=== PATIENT | male | born 1955 | race Caucasian/White ===

== ENCOUNTER 2020-08-28 18:53 | Inpatient (IN) ==
--- NOTE | 2020-08-28 19:18 | Emergency Department Note ---
History of Present Illness General Chief complaint: Chest Pain Time Seen by Provider: 08/28/20 19:03 Source: patient History of Present Illness Provider complaint: Chest pain Onset (ago): hour(s) Location: chest and left Radiation: non-radiation Pain Consistency: + now resolved Quality: + other (Grinding) Relieved By: + medication (Sublingual nitroglycerin x1) Associated symptoms: + shortness of breath (Slight); no cough, no diaphoresis, no fever/chills, no headaches and no nausea/vomiting This is a 65-year-old male sent over from [facility] for chest pain. The patient developed chest pain prior to arrival. He describes it as a grinding pain in the left side of his chest. It did not radiate. It was associated with some mild shortness of breath. It was relieved after he was given 1 sublingual nitroglycerin and aspirin. He is currently asymptomatic. He denies any recent illness or fever. He denies cough or cold symptoms, abdominal pain, or vomiting. He has had some on and off diarrhea but did not have any today. He does have chronic swelling to his legs from CHF. He is at [facility] due to ambulatory dysfunction and general deconditioning. Home Medications Medication Instructions Recorded Confirmed Type atorvastatin 10 mg PO HS 08/28/20 08/28/20 History clozapine 100 mg PO BID 08/28/20 08/28/20 History docusate sodium 100 mg PO BID 08/28/20 08/28/20 History enoxaparin 40 mg SUBCUT Q12H 08/28/20 08/28/20 History ergocalciferol (vitamin D2) 1,250 mcg PO WK 08/28/20 08/28/20 History ferrous sulfate [FeroSul] 325 mg PO DAILY 08/28/20 08/28/20 History fluticasone furoate-vilanterol 1 inh INHALATION DAILY 08/28/20 08/28/20 History furosemide 40 mg PO .Q DINNER 08/28/20 08/28/20 History furosemide 80 mg PO DAILY 08/28/20 08/28/20 History insulin aspart U-100 [Novolog 10 unit SUBCUT TIDM 08/28/20 08/28/20 History U-100 Insulin aspart] insulin glargine [Lantus U-100 30 unit SUBCUT HS 08/28/20 08/28/20 History Insulin] levothyroxine 175 mcg PO DAILY 08/28/20 08/28/20 History linaclotide [Linzess] 290 mcg PO DAILY 08/28/20 08/28/20 History liraglutide 1.8 mg SUBCUT DAILY 08/28/20 08/28/20 History metoprolol succinate 50 mg PO DAILY 08/28/20 08/28/20 History pantoprazole 40 mg PO DAILY 08/28/20 08/28/20 History polyethylene glycol 3350 17 g PO DAILY 08/28/20 08/28/20 History potassium chloride 20 meq PO BID 08/28/20 08/28/20 History sertraline 50 mg PO DAILY 08/28/20 08/28/20 History tamsulosin 0.4 mg PO DAILY 08/28/20 08/28/20 History vitamin B complex 1 tab PO DAILY 08/28/20 08/28/20 History Allergies Allergy/AdvReac Type Severity Reaction Status Date / Time Penicillins Allergy Unknown Unknown Verified 08/28/20 20:27 Past Med/Surg History Medical History (Updated 08/29/20 @ 01:51 by Rian Lawson MD) CHF (congestive heart failure) Social History (Updated 08/28/20 @ 19:21 by Rian Lawson MD) Smoking Status: Former smoker Hx Alcohol Use: No (former) Preferred Language: Welsh Beliefs That Will Affect Care: None Current Living Situation: [facility] Current Living Situation Comment: Pt from [facility], currently @ [facility] for amb dysfunction current occupational status: retired Feels Safe at Home: Yes Assistive Devices: CPAP, Oxygen - Continuous, Walker and Wheelchair Assistive Devices Comment: oxygen PRN Review of Systems See HPI for pertinent positives & negatives. and A total of 10 systems reviewed and were otherwise negative Physical Exam Vital Signs Vital Signs - 24 hr 08/28/20 19:01 08/28/20 19:05 08/28/20 19:30 Temperature 36.6 C Temperature Source Oral Pulse Rate 94 H 94 H 94 H Pulse Rate from SpO2 Sensor Respiratory Rate 18 14 12 Respiratory Effort / Characteristics Non-Labored Spontaneous Respiratory Depth Normal Blood Pressure 148/86 H 148/86 H 140/86 Blood Pressure Mean 106 106 104 Blood Pressure Position Lying Pulse Oximetry 95 93 92 Oxygen Delivery Method Room Air Sepsis Recent Fever Within 48 Hours No Sepsis New/Unexplained Change in Mental Status N/A Sepsis Action Taken by Nursing No Action Required 08/28/20 20:24 08/28/20 20:30 08/28/20 21:00 Temperature Temperature Source Pulse Rate 90 90 88 Pulse Rate from SpO2 Sensor Respiratory Rate 15 14 12 Respiratory Effort / Characteristics Respiratory Depth Blood Pressure 139/88 141/87 H 130/83 Blood Pressure Mean 105 105 98 Blood Pressure Position Pulse Oximetry 98 95 96 Oxygen Delivery Method Sepsis Recent Fever Within 48 Hours Sepsis New/Unexplained Change in Mental Status Sepsis Action Taken by Nursing 08/28/20 21:30 08/28/20 22:00 Temperature Temperature Source Pulse Rate 89 88 Pulse Rate from SpO2 Sensor 89 Respiratory Rate 12 12 Respiratory Effort / Characteristics Respiratory Depth Blood Pressure 142/87 H 127/90 Blood Pressure Mean 105 102 Blood Pressure Position Pulse Oximetry 95 98 Oxygen Delivery Method Sepsis Recent Fever Within 48 Hours Sepsis New/Unexplained Change in Mental Status Sepsis Action Taken by Nursing Constitutional: Vital signs reviewed. Eyes: Pupils are equal round reactive to light. Conjunctiva are noninjected. ENT: Pharynx is clear without erythema or exudate. Mucous membranes are moist. Neck supple without meningeal signs. Respiratory: Clear to auscultation bilaterally. Breath sounds are equal bilaterally. Cardiovascular: Regular rate and rhythm. No rubs or gallops. GI: Soft, nondistended and nontender. Bowel sounds are present. Musculoskeletal: Bilateral lower extremity pitting edema. No lower extremity tenderness. Integumentary: No cyanosis. or jaundice. Neurological: The patient is awake and alert. No focal deficits. Psychiatric: Normal affect. Not anxious appearing. Course Administered Medications Enoxaparin Sodium (Enoxaparin Inj 40 Mg/0.4 Ml Syr) 40 mg SQ BID CÉSAR Stop: 09/27/20 23:29 Last Admin: 08/29/20 00:14 Dose: 40 mg Documented by: [id number] Medical Decision Making Differential Diagnosis Unstable angina, ID, pleurisy, pneumonia, GERD Medical Records Attestation: I reviewed the patient's medical records. I did perform a limited focused review of portions of the patient's old chart on the electronic medical record. The patient has had no recent pertinent visits to this hospital. Home Medications Current Medication List: was personally reviewed by me Laboratory Data Attestation: I reviewed the patient's lab results. Result diagrams: 08/28/20 19:58 08/28/20 19:58 Lab Results 08/28/20 08/28/20 08/28/20 Range/Units 19:18 19:18 19:58 WBC 9.47 (4.8-10.8) K/uL RBC 4.59 L (4.7-6.1) M/uL Hgb 14.0 (14.0-18.0) g/dL Hct 42.3 (42-52) % MCV 92.2 (80-100) fL MCH 30.5 (25-34) pg MCHC 33.1 (32-36) g/dL RDW Std Deviation 43.5 (36.4-46.3) fL RDW Coeff of Shireen 12.9 (11.5-14.5) % Plt Count 234 (130-400) K/uL MPV 12.3 H (7.4-10.4) fL Immature Gran % (Auto) 0.3 % Neut % (Auto) 60.1 % Lymph % (Auto) 24.2 % Prentiss % (Auto) 11.4 % Eos % (Auto) 3.3 % Baso % (Auto) 0.7 % Neut # (Auto) 5.69 (1.4-6.5) K/uL Lymph # (Auto) 2.29 (1.2-3.4) K/uL Prentiss # (Auto) 1.08 H (0.11-0.59) K/uL Eos # (Auto) 0.31 (0-0.5) K/uL Baso # (Auto) 0.07 (0-0.2) K/uL Immature Gran # (Auto) 0.03 H (0.00-0.02) K/uL Sodium (136-145) mmol/L Potassium (3.5-5.1) mmol/L Chloride (98-107) mmol/L Carbon Dioxide (21-32) mmol/L Anion Gap (3-11) BUN (7-18) mg/dl Creatinine (0.6-1.4) mg/dl Est Cr Clr Drug Dosing ml/min Est GFR ( Amer) ml/min Est GFR (Non-Af Amer) ml/min BUN/Creatinine Ratio (10-20) Glucose (70-99) mg/dl Calcium (8.5-10.1) mg/dl Total Bilirubin (0.2-1) mg/dl AST (15-37) U/L ALT (12-78) U/L Alkaline Phosphatase (45-117) U/L Troponin I (0-0.045) ng/ml Total Protein (6.4-8.2) gm/dl Albumin (3.4-5.0) gm/dl Globulin (2.5-4.0) gm/dl Albumin/Globulin Ratio (0.9-2) Lipase (73-393) U/L COVID-19 Eval Order Covid19 at [facility] SARS-CoV-2 (PCR) NEGATIVE (Negative) 08/28/20 Range/Units 19:58 WBC (4.8-10.8) K/uL RBC (4.7-6.1) M/uL Hgb (14.0-18.0) g/dL Hct (42-52) % MCV (80-100) fL MCH (25-34) pg MCHC (32-36) g/dL RDW Std Deviation (36.4-46.3) fL RDW Coeff of Shireen (11.5-14.5) % Plt Count (130-400) K/uL MPV (7.4-10.4) fL Immature Gran % (Auto) % Neut % (Auto) % Lymph % (Auto) % Prentiss % (Auto) % Eos % (Auto) % Baso % (Auto) % Neut # (Auto) (1.4-6.5) K/uL Lymph # (Auto) (1.2-3.4) K/uL Prentiss # (Auto) (0.11-0.59) K/uL Eos # (Auto) (0-0.5) K/uL Baso # (Auto) (0-0.2) K/uL Immature Gran # (Auto) (0.00-0.02) K/uL Sodium 139 (136-145) mmol/L Potassium 3.5 (3.5-5.1) mmol/L Chloride 103 (98-107) mmol/L Carbon Dioxide 31 (21-32) mmol/L Anion Gap 5.0 (3-11) BUN 27 H (7-18) mg/dl Creatinine 1.16 (0.6-1.4) mg/dl Est Cr Clr Drug Dosing 86.1 ml/min Est GFR ( Amer) 75.1 ml/min Est GFR (Non-Af Amer) 64.8 ml/min BUN/Creatinine Ratio 22.8 H (10-20) Glucose 131 H (70-99) mg/dl Calcium 9.3 (8.5-10.1) mg/dl Total Bilirubin 0.3 (0.2-1) mg/dl AST 17 (15-37) U/L ALT 27 (12-78) U/L Alkaline Phosphatase 131 H (45-117) U/L Troponin I < 0.015 (0-0.045) ng/ml Total Protein 7.4 (6.4-8.2) gm/dl Albumin 3.5 (3.4-5.0) gm/dl Globulin 3.9 (2.5-4.0) gm/dl Albumin/Globulin Ratio 0.9 (0.9-2) Lipase 172 (73-393) U/L COVID-19 Eval Order SARS-CoV-2 (PCR) (Negative) Imaging Data Radiologist's Impression: Chest X-Ray 08/28/20 19:12 XR chest 1V portable HISTORY: Atypical Chest Pain COMPARISON: None. FINDINGS: There are low lung volumes with mild eventration of the right hemidiaphragm. The cardiac silhouette is normal in size. There is a left-sided dual-chamber pacemaker. Slightly rotated study. No pleural effusions. No pneumothorax. No evidence for pulmonary edema. There are few left basilar linear densities consistent with subsegmental atelectasis. Otherwise, no focal lung consolidations to suggest pneumonia. IMPRESSION: 1. Low lung volumes with mild eventration of the right hemidiaphragm. 2. A few left basilar linear densities favor subsegmental atelectasis or scarring. Otherwise, no focal lung consolidations to suggest pneumonia. ACT 112: Negative or not required by law. Electronically signed by: Yung John M.D. 08/28/2020 7:45 PM ECG Data Attestation: I personally reviewed and interpreted this ECG as follows: Indication: + chest pain Rate (beats per minute): 92 Rhythm: + other (Paced rhythm) ECG Findings: + PVCs MDM Narrative I did evaluate the patient as noted above. The patient is presenting with an episode of chest pain prior to arrival. He does have a prior history of CAD. His chest pain is resolved after receiving nitroglycerin and aspirin. I did pl mishel an order for continuous cardiac monitoring. The monitor showed normal sinus rhythm at a rate of 90 bpm. I did order and personally review the patient's 12-lead EKG as described above. He has a paced rhythm. I did order and personally reviewed the images of the patient's chest x-ray as described above.There is no evidence of heart failure or consolidation. I did order and review the patient's blood work as noted in the electronic medical record. CBC and electrolytes are unremarkable. Troponin is negative. Testing for COVID-19 is negative. I did reassess the patient. He has no symptoms at this time. I did recommend hospitalization for repeat cardiac biomarkers and further evalua tion. I did discuss the case with the hospitalist and heel caser. Impression & Plan Chest pain, CHF (congestive heart failure) Discharge Plan Visit Data Chief Complaint: Chest Pain ED Provider: Rian Lawson Discharge Problem: Chest pain, CHF (congestive heart failure) Patient Disposition: Admitted As Inpatient Discharge Instructions Interventions: ED Discharge Assessment Last Done: 08/28/20 22:44
--- NOTE | 2020-08-28 19:47 | XRay Report ---
XR chest 1V portable HISTORY: Atypical Chest Pain COMPARISON: None. FINDINGS: There are low lung volumes with mild eventration of the right hemidiaphragm. The cardiac si lhouette is normal in size. There is a left-sided dual-chamber pacemaker. Slightly rotated study. No pleural effusions. No pneumothorax. No evidence for pulmonary edema. There are few left basilar linea r densities consistent with subsegmental atelectasis. Otherwise, no focal lung consolidations to sugg est pneumonia. IMPRESSION: 1. Low lung volumes with mild eventration of the right hemidiaphragm. 2. A few left basilar linear densities favor subsegmental atelectasis or scarring. Otherwise, no foca l lung consolidations to suggest pneumonia. ACT 112: Negative or not required by law. Electronically signed by: Yung John M.D. 08/28/2020 7:45 PM
[2020-08-28 20:17] LABS: Basophils # (auto) 0.07 K/uL (0-0.2); Basophils % (auto) 0.7 %; Eosinophils # (auto) 0.31 K/uL (0-0.5); Eosinophils % (auto) 3.3 %; Hematocrit (blood only) 42.3 % (42-52); Immature Granulocytes # (auto) 0.03 K/uL (0.00-0.02); Immature Granulocytes % (auto) 0.3 %; Lymphocytes # (auto) 2.29 K/uL (1.2-3.4); Lymphocytes % (auto) 24.2 %; Mean Corpuscular Hemoglobin 30.5 pg (25-34); Mean Corpuscular Hgb Conc 33.1 g/dL (32-36); Mean Corpuscular Volume 92.2 fL (80-100); Mean Platelet Volume 12.3 fL (7.4-10.4); Monocytes # (auto) 1.08 K/uL (0.11-0.59); Monocytes % (auto) 11.4 %; Neutrophils # (auto) 5.69 K/uL (1.4-6.5); Neutrophils % (auto) 60.1 %; Platelet Count 234 K/uL (130-400); RDW Coefficient of Variation 12.9 % (11.5-14.5); RDW Standard Deviation 43.5 fL (36.4-46.3); Red Blood Count 4.59 M/uL (4.7-6.1); White Blood Count 9.47 K/uL (4.8-10.8)
[2020-08-28 20:45] LABS: Alanine Aminotransferase 27 U/L (12-78); Albumin Level 3.5 gm/dl (3.4-5.0); Aspartate Aminotransferase 17 U/L (15-37); BUN Creatinine Ratio 22.8 (10-20); Blood Urea Nitrogen 27 mg/dl (7-18); Calcium 9.3 mg/dl (8.5-10.1); Carbon Dioxide 31 mmol/L (21-32); Chloride 103 mmol/L (98-107); Creatinine Clr Calc Pharmacy 86.1 ml/min; Est GFR (African American) 75.1 ml/min; Est GFR (Non-African American) 64.8 ml/min; Glucose 131 mg/dl (70-99); Lipase 172 U/L (73-393); Potassium 3.5 mmol/L (3.5-5.1); Sodium 139 mmol/L (136-145)
[2020-08-28 20:50] LABS: Albumin Globulin Ratio 0.9 (0.9-2); Alkaline Phosphatase 131 U/L (45-117); Bilirubin,Total 0.3 mg/dl (0.2-1); Globulin 3.9 gm/dl (2.5-4.0); Total Protein 7.4 gm/dl (6.4-8.2); Troponin I < 0.015 ng/ml (0-0.045)
--- NOTE | 2020-08-28 22:36 | History & Physical Report ---
Date of Service August 28, 2020 Assessment & Plan (1) Chest pain: Mr. Pompa is a 65 yo gentleman who presented to [facility] for evaluation of acute onset chest pain, admitted for ACS rule out. - patient has many risk factors for ACS (previous IL, DM2, former smoker, elevated BMI) - Heart Score of 5, moderate risk - initial trop undetectable. Trend serial trops - EKG difficult to interpret given paced rhythm - although no apparent ST segment elevations - fasting lipid panel and HbA1c ordered for am - echo ordered for am - Cardiology consult placed (2) Type II diabetes mellitus: - HbA1c ordered for am - continue home dose glargine insulin - sliding scale ordered - patient is on lipitor, but not at a high-intensity dose. consider increasing to 40mg (3) CAD (coronary artery disease): - history of IL; patient states no stents were placed - continue statin + metoprolol (4) BPH (benign prostatic hyperplasia): - continue home dose flomax (5) AI (obstructive sleep apnea): - continue use of CPAP (6) COPD (chronic obstructive pulmonary disease): - at baseline patient wears nighttime supplemental O2 - does not appear to be in acute exacerbation - continue home Breo Ellipta; per review of med rec, it does not appear as though patient is on an anticholinergic. Consider adding upon discharge (7) CHF (congestive heart failure): - continue home lasix dose + 20meKcl daily (8) Hypothyroidism: - continue home dose levothyroxine (9) GERD (gastroesophageal reflux disease): - continue home dose pantoprazole Dvt ppx: patient is on therapeutic Lovenox (indication is uncertain) Diet: Heart Healthy, DM2 Dispo: Med/Surg with tele. PT/OT ordered. Code: Full History of Present Illness Primary Care Provider: Selma Davis PA-C Mr. Pompa is a 65 yo gentleman with a PMHx of CAD (suffered one previous IL), HTN, CHF and type II diabetes mellitus who was sent to the [facility] ED from [facility] rehab for evaluation of acute onset chest pain. Patient was at [facility] for ambulatory dysfunction/generalized deconditioning. He states the left sided chest pain came on while he was at rest - it did not radiate up the neck or down the left arm. He describes it as "grinding" in quality. He denies a sensation of heartburn. The discomfort was not accompanied by diaphoresis, nausea/vomiting, but was associated with SOB (although this seems to affect him on an intermittent basis chronically). He was given a nitroglycerin and aspirin 324mg by a staff member at [facility], which alleviated the discomfort. Social Hx: He says he has lived in a personal custodial for the past 11 years. He is a former smoker (quit 1-2 years ago); unable to state how much he smoked or how long he smoked for (although he states 'not much'). Family Hx: Mother had diabetes. No reported heart attacks + poor historian In the ED, he was afebrile, normal HR and BP. His WBC was WNL, Hgb normal. Electrolytes, kidney and liver function were WNL. Lipase not elevated. Trop X 1 undetectable. EKG showed a ventricularly paced rhythm. CXR showed evidence of atelectasis but no focal consolidation consistent with a PNA. Allergies Allergy/AdvReac Type Severity Reaction Status Date / Time Penicillins Allergy Unknown Unknown Verified 08/28/20 20:27 Home Medications Medication Instructions Recorded Confirmed Type atorvastatin 10 mg PO HS 08/28/20 08/28/20 History clozapine 100 mg PO BID 08/28/20 08/28/20 History docusate sodium 100 mg PO BID 08/28/20 08/28/20 History enoxaparin 40 mg SUBCUT Q12H 08/28/20 08/28/20 History ergocalciferol (vitamin D2) 1,250 mcg PO WK 08/28/20 08/28/20 History ferrous sulfate [FeroSul] 325 mg PO DAILY 08/28/20 08/28/20 History fluticasone furoate-vilanterol 1 inh INHALATION DAILY 08/28/20 08/28/20 History furosemide 40 mg PO .Q DINNER 08/28/20 08/28/20 History furosemide 80 mg PO DAILY 08/28/20 08/28/20 History insulin aspart U-100 [Novolog 10 unit SUBCUT TIDM 08/28/20 08/28/20 History U-100 Insulin aspart] insulin glargine [Lantus U-100 30 unit SUBCUT HS 08/28/20 08/28/20 History Insulin] levothyroxine 175 mcg PO DAILY 08/28/20 08/28/20 History linaclotide [Linzess] 290 mcg PO DAILY 08/28/20 08/28/20 History liraglutide 1.8 mg SUBCUT DAILY 08/28/20 08/28/20 History metoprolol succinate 50 mg PO DAILY 08/28/20 08/28/20 History pantoprazole 40 mg PO DAILY 08/28/20 08/28/20 History polyethylene glycol 3350 17 g PO DAILY 08/28/20 08/28/20 History potassium chloride 20 meq PO BID 08/28/20 08/28/20 History sertraline 50 mg PO DAILY 08/28/20 08/28/20 History tamsulosin 0.4 mg PO DAILY 08/28/20 08/28/20 History vitamin B complex 1 tab PO DAILY 08/28/20 08/28/20 History Past Med/Surg History Medical History CHF (congestive heart failure) Social History Smoking Status: Former smoker Hx Alcohol Use: No (former) Preferred Language: Romanian Communication Ability: Effective Beliefs That Will Affect Care: None Current Living Situation: [facility] Facility [facility]hab Current Living Situation Comment: Pt from [facility], currently @ [facility] for amb dysfunction current occupational status: retired Feels Safe at Home: Yes Assistive Devices: CPAP, Walker and Wheelchair Assistive Devices Comment: oxygen PRN Review of Systems Review of Systems: All systems reviewed & are unremarkable except as noted in HPI & below Physical Exam Constitutional: WD/WN, vitals as above + obese and cooperative; no acute distress Eyes: + anicteric sclerae ENMT: external ear and nose normal, oropharynx normal Neck: normal visual inspection and trachea midline Respiratory: normal respiratory effort, lungs clear to auscultation Cardiovascular: Rate/Rhythm: regular rate and regular rhythm Heart Sounds: normal S1 and normal S2 Vessels: normal carotid upstroke; no carotid bruit Extremities: + pedal edema (+2 b/l) Heart sounds distant Chest (Breasts): Chest: + pacemaker Gastrointestinal (Abdomen): normal bowel sounds, soft, nontender, no hepatosplenomegaly Skin: no rashes, warm and dry Neurologic: moves all extremities Psychiatric: Orientation: alert, oriented to person, oriented to place and oriented to time Results & Data Results & Data ([facility]) Vital Signs (Past 12 Hours) Vital Signs Temp Pulse Resp BP Pulse Ox 08/28/20 22:00 88 12 127/90 98 08/28/20 21:30 89 12 142/87 H 95 08/28/20 21:00 88 12 130/83 96 08/28/20 20:30 90 14 141/87 H 95 08/28/20 20:24 90 15 139/88 98 08/28/20 19:30 94 H 12 140/86 92 08/28/20 19:05 94 H 14 148/86 H 93 08/28/20 19:01 36.6 C 94 H 18 148/86 H 95 Supervising Physician Co-Signing Physician Notes Attending addendum: I have physically seen this patient, have supervised the medical residents activities, and agree with the H&P unless as otherwise noted. Assessment and Plan: Chest pain/CAD/hypertension/CHF- The patient will be admitted to telemetry for serial cardiac enzymes, serial EKG's, cardiac rhythm monitoring and a 2-D echocardiogram with Dopplers. Check a fasting lipid panel and hemoglobin A1c Continue furosemide, potassium chloride and metoprolol succinate Consult cardiology Diabetes mellitus- Continue insulin glargine as at home Placed on Accu-Cheks before meals and at bedtime with NovoLog coverage per scale Check hemoglobin A1c BPH- Continue tamsulosin Remaining orders and notations as noted Resident Activity Tracking Resident Involvement: Resident Care Provided Care Provided: Adult Hospital Medicine
[2020-08-28] MEDS ORDERED: GLUCOSE 10 TABS/TUBE PO PRN (23:13)
[2020-08-28] MEDS ORDERED: POLYETHYLENE (MIRALAX) 17 GM PACK PO PRN (23:13)
[2020-08-28] MEDS ORDERED: GLUCAGON FOR INJ 1 MG VIAL SQ PRN (23:13)
[2020-08-28] MEDS ORDERED: DEXTROSE 50% 50 ML SYRINGE IV PRN (23:13)
[2020-08-28] MEDS ORDERED: CARBOHYDRATES FOR HYPOGLYCEMIA PO PRN (23:13)
[2020-08-28] MEDS ORDERED: GLUCOSE 40% GEL 15 GM TUBE PO PRN (23:13)
[2020-08-28] MEDS ORDERED: ONDANSETRON INJ 2 MG/ML 2 ML VIAL IV PRN (23:13)
[2020-08-29] MEDS: ENOXAPARIN INJ 40 MG/0.4 ML SYR SQ SCH ×3 (00:14→20:55)
[2020-08-29] MEDS: LEVOTHYROXINE SODIUM 175 MCG TABLET PO SCH (06:07)
[2020-08-29 06:46] LABS: Estimated Average Glucose 148 mg/dl; Hemoglobin A1C 6.8 % (4.5-5.6)
[2020-08-29 06:49] LABS: Chol HDL Ratio 4; Cholesterol 120 mg/dl (0-200); HDL Cholesterol 29 mg/dl; LDL Cholesterol Calculated 67 mg/dl; Triglycerides 121 mg/dl (0-150); Troponin I < 0.015 ng/ml (0-0.045); VLDL Cholesterol 24 mg/dl
[2020-08-29] MEDS ORDERED: POTASSIUM CHLORIDE CRTAB 20 MEQ TABCR PO STA (07:14)
[2020-08-29] MEDS: FLUTICASONE/VILANTEROL 100/25MCG 14 PUFFS/INHALER INH SCH ×2 (08:54→09:04)
[2020-08-29] MEDS: FERROUS SULFATE 325 MG TAB PO SCH (08:54)
[2020-08-29] MEDS: PANTOprazole 40 MG TAB PO SCH (08:54)
[2020-08-29] MEDS: SERTRALINE HCL 50 MG TABLET PO SCH (08:54)
[2020-08-29] MEDS: TAMSULOSIN HCL 0.4 MG CAP PO SCH (08:55)
[2020-08-29] MEDS: FUROSEMIDE 80 MG TAB PO SCH (08:55)
[2020-08-29] MEDS: LINACLOTIDE 145 MCG CAPSULE PO SCH (08:55)
[2020-08-29] MEDS: cloZAPine 100 MG TAB PO SCH ×2 (08:55→20:55)
[2020-08-29] MEDS: DOCUSATE SODIUM 100 MG CAP PO SCH ×2 (08:55→20:55)
[2020-08-29] MEDS: INSULIN ASPART 100 UNITS/ML 3 ML PEN SC SCH ×4 (08:59→20:56)
[2020-08-29] MEDS: VICTOZA~ORDER AWAITING ACTION SCH ×3 (09:00→23:51)
[2020-08-29] MEDS: METOPROLOL SUCC 50MG EXT REL TAB PO SCH (09:02)
[2020-08-29] MEDS: POLYETHYLENE (MIRALAX) 17 GM PACK PO SCH (09:02)
[2020-08-29] MEDS: POTASSIUM CHLORIDE CRTAB 20 MEQ TABCR PO SCH ×2 (09:02→17:28)
--- NOTE | 2020-08-29 10:57 | Cardiology Consultation ---
Date of Consultation August 29, 2020 Assessment & Plan (1) Chest pain: I cannot obtain a very good history of his chest discomfort but apparently he had it on presentation. His electrocardiogram cannot be read due to the paced rhythm, his chart indicates he had a myocardial infarction in the past although I understand that he has not. His enzymes are negative here. I think a stress test is a reasonable option, that will have to be a pharmacologic Cardiolite study. (2) CHF (congestive heart failure): He has a history of congestive heart failure which I believe is diastolic heart failure but he does not seem to be fluid overloaded currently. (3) Cardiac pacemaker: He has a dual-chamber pacemaker in place, I do not know the company but it could be identified if needed. On telemetry is working well. History of Present Illness Reason for Consultation: Chest discomfort Attending Physician: Kassidy Rachel MD History of Present Illness This is a 65-year-old male with a history of schizophrenia and seizure disorder, he does have a history of hypertension, diabetes mellitus, COPD, hypothyroidism and resides in a personal halfway. He was brought into the emergency room on August 28, 2020 with acute onset of chest discomfort. Evidently this occurred at rest and was not associated with other symptoms such as diaphoresis, nausea or vomiting or shortness of breath. He does have a history of smoking but quit several years ago per the chart. He is a poor historian, he tells me that he had a heart attack although understand that he did not, he tells me that he has congestive heart failure however I understand that his left ventricular ejection fraction is normal within the last year and he has diastolic dysfunction. He does have a pacemaker in place, I do not know the brand or how long it has been in place. He presented with some chest discomfort which he cannot describe very well to me. Initial evaluation here is notable for troponin measurements, his electrocardiogram is not helpful as it is a very wide ventricular paced complexes. He is currently feeling quite well and is not having chest discomfort. Allergies Allergy/AdvReac Type Severity Reaction Status Date / Time Penicillins Allergy Unknown Unknown Verified 08/28/20 20:27 Home Medications Medication Instructions Recorded Confirmed Type atorvastatin 10 mg PO HS 08/28/20 08/28/20 History clozapine 100 mg PO BID 08/28/20 08/28/20 History docusate sodium 100 mg PO BID 08/28/20 08/28/20 History enoxaparin 40 mg SUBCUT Q12H 08/28/20 08/28/20 History ergocalciferol (vitamin D2) 1,250 mcg PO WK 08/28/20 08/28/20 History ferrous sulfate [FeroSul] 325 mg PO DAILY 08/28/20 08/28/20 History fluticasone furoate-vilanterol 1 inh INHALATION DAILY 08/28/20 08/28/20 History furosemide 40 mg PO .Q DINNER 08/28/20 08/28/20 History furosemide 80 mg PO DAILY 08/28/20 08/28/20 History insulin aspart U-100 [Novolog 10 unit SUBCUT TIDM 08/28/20 08/28/20 History U-100 Insulin aspart] insulin glargine [Lantus U-100 30 unit SUBCUT HS 08/28/20 08/28/20 History Insulin] levothyroxine 175 mcg PO DAILY 08/28/20 08/28/20 History linaclotide [Linzess] 290 mcg PO DAILY 08/28/20 08/28/20 History liraglutide 1.8 mg SUBCUT DAILY 08/28/20 08/28/20 History metoprolol succinate 50 mg PO DAILY 08/28/20 08/28/20 History pantoprazole 40 mg PO DAILY 08/28/20 08/28/20 History polyethylene glycol 3350 17 g PO DAILY 08/28/20 08/28/20 History potassium chloride 20 meq PO BID 08/28/20 08/28/20 History sertraline 50 mg PO DAILY 08/28/20 08/28/20 History tamsulosin 0.4 mg PO DAILY 08/28/20 08/28/20 History vitamin B complex 1 tab PO DAILY 08/28/20 08/28/20 History Patient History Medical History CHF (congestive heart failure) Social History Smoking Status: Former smoker Hx Alcohol Use: No (former) Preferred Language: Kiswahili Communication Ability: Effective Beliefs That Will Affect Care: None Current Living Situation: Personal Care Facility and Rehab Current Living Situation Comment: Pt from [facility], currently @ [facility] for amb dysfunction current occupational status: retired Feels Safe at Home: Yes Assistive Devices: CPAP, Oxygen - Continuous, Walker and Wheelchair Assistive Devices Comment: oxygen PRN Review of Systems Review of Systems: All systems reviewed & are unremarkable except as noted in HPI & below Physical Exam Physical Exam: Constitutional: Alert, cooperative and in no distress. HEENT: Unremarkable Neck: No jugular venous distention, carotid pulses are normal and equal bilaterally without bruits. Pulmonary: Clear to auscultation bilaterally. Cardiac: Regular rhythm with no murmur, gallop or rub. Abdomen: Soft, obese, nontender with normal bowel sounds. Extremities: No edema. Distal pulses intact. Neurologic: No focal findings. Gait was not tested. His speech is not normal but he is understandable. Skin: No rash, ecchymoses or petechiae. Results & Data ([facility]) Vital Signs (Past 12 Hours) Vital Signs Temp Pulse Pulse Resp BP Pulse Ox 08/29/20 07:11 36.5 C 95 H 18 99/64 L 93 08/29/20 07:08 93 H 08/29/20 02:26 87 08/28/20 23:17 36.4 C L 86 18 126/79 95 Laboratory Results Cardiac Enzymes 08/28/20 08/29/20 08/29/20 Range/Units 19:58 02:01 05:58 AST 17 (15-37) U/L Troponin I < 0.015 < 0.015 < 0.015 (0-0.045) ng/ml Lipids 08/29/20 Range/Units 05:58 Triglycerides 121 (0-150) mg/dl Cholesterol 120 (0-200) mg/dl HDL Cholesterol 29 mg/dl Cholesterol/HDL Ratio 4 CBC 08/28/20 Range/Units 19:58 WBC 9.47 (4.8-10.8) K/uL RBC 4.59 L (4.7-6.1) M/uL Hgb 14.0 (14.0-18.0) g/dL Hct 42.3 (42-52) % Plt Count 234 (130-400) K/uL Neut # (Auto) 5.69 (1.4-6.5) K/uL Lymph # (Auto) 2.29 (1.2-3.4) K/uL Jerome # (Auto) 1.08 H (0.11-0.59) K/uL Eos # (Auto) 0.31 (0-0.5) K/uL Baso # (Auto) 0.07 (0-0.2) K/uL Comprehensive Metabolic Panel 08/28/20 Range/Units 19:58 Sodium 139 (136-145) mmol/L Potassium 3.5 (3.5-5.1) mmol/L Chloride 103 (98-107) mmol/L Carbon Dioxide 31 (21-32) mmol/L BUN 27 H (7-18) mg/dl Creatinine 1.16 (0.6-1.4) mg/dl Glucose 131 H (70-99) mg/dl Calcium 9.3 (8.5-10.1) mg/dl AST 17 (15-37) U/L ALT 27 (12-78) U/L Alkaline Phosphatase 131 H (45-117) U/L Total Protein 7.4 (6.4-8.2) gm/dl Albumin 3.5 (3.4-5.0) gm/dl Intake and Output 08/29/20 08/29/20 08/29/20 06:59 14:59 22:59 Intake Total 200 / 200 550 / 550 Output Total 1000 / 1000 250 / 250 Balance -800 / -800 300 / 300 Intake: Oral 200 / 200 550 / 550 Output: Urine 1000 / 1000 250 / 250 Other: Weight 136.7 kg Weight Measurement Method Built in [facility] Diagnostic Findings Telemetry: Sinus rhythm, predominantly in the 90s, ventricular paced complex PG Care Time/CCT Total # of Minutes Spent Total Time Spent with Patient: Total time spent is greater than 50% in coordination of care (as documented) at patient's floor/unit and/or counseling patient: Coding Level of Care Code 51974 Initial Inpt Care Lvl 3 Diagnoses Chest pain R07.9 Chest pain type: unspecified CHF (congestive heart failure) I50.9 Heart failure chronicity: chronic Heart failure type: unspecified Cardiac pacemaker Z95.0 (1) Chest pain Chest pain type: unspecified Qualified Code(s): R07.9 - Chest pain, unspecified (2) CHF (congestive heart failure) Heart failure chronicity: chronic Heart failure type: unspecified Qualified Code(s): I50.9 - Heart failure, unspecified
[2020-08-29] MEDS: ACETAMINOPHEN 325 MG TAB PO PRN (12:30)
--- NOTE | 2020-08-29 14:04 | Hospitalist Progress Note ---
Date of Service August 29, 2020 Assessment & Plan (1) Chest pain: Mr. Pompa is a 65 yo gentleman who presented to [facility] for evaluation of acute onset chest pain, admitted for ACS rule out. Chest Pain Reportedly had left-sided chest pain at rest that improved with Nitro - unstable angina. EKG without T/ST changes and Troponin negative x3. Patient has a HEART score of 5 (moderate risk). Requires further work-up to complete ACS rule-out. - Cardiology consulted - appreciate recs - TTE pending - ordered Nuclear stress test - likely will be done tomorrow - NPO at midnight for stress test - Cardiology consult placed - continue home Atorvastatin 10mg PO QHS HFpEF Per discussion with Dr. Hutchins in [place] (patient's PCP), patient has h/o HFpEF with most recent EF ~60%. Patient does not have h/o CAD or past [place], per P CP. - continue home Furosemide 80mg QAM and 40mg QPM, and Toprol XL 50mg PO daily - TTE pending as stated above Schizophrenia - continue home Clozapine 100mg PO BID T2DM HbA1c 6.8 - continue home dose insulin glargine - SSI BPH - continue home dose Flomax AI - continue use of CPAP COPD - at baseline patient wears nighttime supplemental O2 - does not appear to be in acute exacerbation - monitor clinically Hypothyroidism - continue home dose Levothyroxine GERD - continue home dose Pantoprazole DVT ppx: home Lovenox 40mg SQ Q12H Diet: Heart Healthy, DM2 Dispo: Med/Surg with tele. Tentative plan to return to rehab once medically stable Code: Full code (2) Type II diabetes mellitus: (3) BPH (benign prostatic hyperplasia): (4) AI (obstructive sleep apnea): (5) COPD (chronic obstructive pulmonary disease): (6) Hypothyroidism: (7) GERD (gastroesophageal reflux disease): (8) Diastolic CHF: (9) Schizophrenia: Admission and Anticipated Discharge Date Admission Date: August 28, 2020 Supervising Physician Co-Signing Physician Notes Resident Physician Supervision Note: I independently interviewed and examined the patient and verified the murphy history and physical, reviewed labs and image studies and agree with resident Dr. Overton findings and care plan. Subjective No chest pain since arrival in ED. No acute events overnight. Patient reports previous diagnoses of schizophrenia and bipolar disorder - sees a psychiatrist (Dr. Hadley in [facility]) and is on Clozapine. Patient denies reports that he had non-radiating, left-sided chest pain yesterday without associated dizziness/lightheadedness, nausea, or vomiting. However, does report associated shortness of breath as well as pleuritic character to chest pain (worse with deep breaths). Unsure if he was standing or at rest when the chest pain started, but does say that it improved with Nitro. Review of Systems Review of Systems: Denies current chest pain, syncope, near-syncope, lightheadedness. Denies fever/chills, palpitations, cough, SOB, N/V, abdominal pain, rash. Physical Exam Physical Exam: General: A&Ox2 (self and month/year). NAD. Cooperative. HEENT: Atraumatic, normocephalic. Pulm: CTAB A&P. -wheezes, -rales, -rhonchi. Symmetrical chest rise. No increase work of breathing. No respiratory distress. Cardiac: RRR, -mrg. Radial pulses intact and symmetrical. Chest: no tenderness to palpation of sternum or costochondral joints Abdominal: soft, non-tender, non-distended, BS x 4 Skin: warm, dry, no rash Results & Data Results & Data ([facility]) Vital Signs (Past 12 Hours) Vital Signs Temp Pulse Pulse Resp BP Pulse Ox 08/29/20 11:01 36.5 C 95 H 20 133/81 96 08/29/20 07:11 36.5 C 95 H 18 99/64 L 93 08/29/20 07:08 93 H 08/29/20 02:26 87 Resident Activity Tracking Resident Involvement: Resident Care Provided Care Provided: Adult Hospital Medicine (1) Chest pain Chest pain type: unspecified Qualified Code(s): R07.9 - Chest pain, unspecified
--- NOTE | 2020-08-29 16:34 | XCELERA ---
[id number]
[2020-08-29] MEDS: FUROSEMIDE 40 MG TAB PO SCH (17:28)
[2020-08-29] MEDS: ATORVASTATIN 10 MG TAB PO SCH (20:55)
[2020-08-29] MEDS: INSULIN GLARGINE SOLOSTAR 100 UNITS/ML 3 ML PEN SQ SCH (20:59)
--- NOTE | 2020-08-30 04:28 | Billing Data ---
Date of Service August 30, 2020 Coding Level of Care Code 70681 OBS Care - Level 3
[2020-08-30] MEDS: LEVOTHYROXINE SODIUM 175 MCG TABLET PO SCH (05:43)
[2020-08-30 07:45] LABS: Basophils # (auto) 0.04 K/uL (0-0.2); Basophils % (auto) 0.5 %; Eosinophils # (auto) 0.18 K/uL (0-0.5); Eosinophils % (auto) 2.4 %; Hematocrit (blood only) 43.1 % (42-52); Hemoglobin 14.1 g/dL (14.0-18.0); Immature Granulocytes # (auto) 0.02 K/uL (0.00-0.02); Immature Granulocytes % (auto) 0.3 %; Lymphocytes # (auto) 1.88 K/uL (1.2-3.4); Lymphocytes % (auto) 25.1 %; Mean Corpuscular Hemoglobin 30.3 pg (25-34); Mean Corpuscular Hgb Conc 32.7 g/dL (32-36); Mean Corpuscular Volume 92.5 fL (80-100); Mean Platelet Volume 12.3 fL (7.4-10.4); Monocytes # (auto) 0.72 K/uL (0.11-0.59); Monocytes % (auto) 9.6 %; Neutrophils # (auto) 4.64 K/uL (1.4-6.5); Neutrophils % (auto) 62.1 %; Platelet Count 215 K/uL (130-400); RDW Standard Deviation 43.9 fL (36.4-46.3); Red Blood Count 4.66 M/uL (4.7-6.1); White Blood Count 7.48 K/uL (4.8-10.8)
[2020-08-30] MEDS: METOPROLOL SUCC 50MG EXT REL TAB PO SCH (08:11)
[2020-08-30] MEDS: LINACLOTIDE 145 MCG CAPSULE PO SCH (08:11)
[2020-08-30] MEDS: FUROSEMIDE 80 MG TAB PO SCH (08:11)
[2020-08-30] MEDS: PANTOprazole 40 MG TAB PO SCH (08:11)
[2020-08-30] MEDS: DOCUSATE SODIUM 100 MG CAP PO SCH ×2 (08:12→20:12)
[2020-08-30] MEDS: TAMSULOSIN HCL 0.4 MG CAP PO SCH (08:12)
[2020-08-30] MEDS: cloZAPine 100 MG TAB PO SCH ×2 (08:12→20:11)
[2020-08-30] MEDS: ENOXAPARIN INJ 40 MG/0.4 ML SYR SQ SCH ×2 (08:12→20:12)
[2020-08-30] MEDS: SERTRALINE HCL 50 MG TABLET PO SCH (08:12)
[2020-08-30] MEDS: POTASSIUM CHLORIDE CRTAB 20 MEQ TABCR PO SCH ×2 (08:12→17:20)
[2020-08-30] MEDS: FERROUS SULFATE 325 MG TAB PO SCH (08:13)
[2020-08-30] MEDS: VICTOZA~ORDER AWAITING ACTION SCH ×3 (08:14→23:37)
[2020-08-30] MEDS: INSULIN ASPART 100 UNITS/ML 3 ML PEN SC SCH ×4 (08:14→21:30)
[2020-08-30] MEDS: FLUTICASONE/VILANTEROL 100/25MCG 14 PUFFS/INHALER INH SCH ×2 (08:15→09:00)
[2020-08-30 08:22] LABS: BUN Creatinine Ratio 20.6 (10-20); Calcium 9.1 mg/dl (8.5-10.1); Creatinine Clr Calc Pharmacy 89.9 ml/min; Est GFR (Non-African American) 69.9 ml/min; Magnesium 2.3 mg/dl (1.8-2.4); Potassium 3.9 mmol/L (3.5-5.1)
[2020-08-30 08:23] LABS: Phosphorus 3.8 mg/dl (2.5-4.9)
[2020-08-30] MEDS ORDERED: REGADENOSON 0.4 MG/5 ML SYR IV ONE (09:51)
[2020-08-30] MEDS: POLYETHYLENE (MIRALAX) 17 GM PACK PO SCH (10:35)
--- NOTE | 2020-08-30 12:31 | Electrocardiogram Report ---
Test Reason : Blood Pressure : / mmHG Vent. Rate : 092 BPM Atrial Rate : 092 BPM P-R Int : 140 ms QRS Dur : 176 ms QT Int : 482 ms P-R-T Axes : 065 -82 086 degrees QTc Int : 596 ms Atrial-sensed ventricular-paced rhythm Abnormal ECG No previous ECGs available Confirmed by Rufino Nuno ([id number]) on 08/30/2020 12:31:10 PM Referred By: REFERRED SELF Confirmed By:Rufino Nuno
--- NOTE | 2020-08-30 12:38 | Hospitalist Progress Note ---
Date of Service August 30, 2020 Assessment & Plan (1) Chest pain: Mr. Pompa is a 65 yo gentleman who presented to [facility] for evaluation of acute onset chest pain, admitted for ACS rule out. Chest Pain Reportedly had left-sided chest pain at rest that improved with Nitro - unstable angina. EKG without T/ST changes and Troponin negative x3. Patient has a HEART score of 5 (moderate risk). Requires further work-up to complete ACS rule-out. - Cardiology consulted - appreciate recs - TTE with EF 60-65% and diastolic dysfunction - stable based on discussion with PCP - Nuclear stress test done - read pending - continue home Atorvastatin 10mg PO QHS HFpEF Per discussion with Dr. Hutchins in [place] (patient's PCP), patient has h/o HFpEF with most recent EF ~60%. Patient does not have h/o CAD or past [place], per PCP. - continue home Furosemide 80mg QAM and 40mg QPM, and Toprol XL 50mg PO daily - TTE stable as stated above Schizophrenia - continue home Clozapine 100mg PO BID T2DM HbA1c 6.8 - continue home dose insulin glargine - SSI BPH - continue home dose Flomax AI - continue use of CPAP COPD - at baseline patient wears nighttime supplemental O2 - does not appear to be in acute exacerbation - monitor clinically Hypothyroidism - continue home dose Levothyroxine GERD - continue home dose Pantoprazole DVT ppx: home Lovenox 40mg SQ Q12H Diet: Heart Healthy, DM2 Dispo: Med/Surg with tele. Tentative plan to return to rehab once medically stable Code: Full code Admission and Anticipated Discharge Date Admission Date: August 28, 2020 Supervising Physician Co-Signing Physician Notes Resident Physician Supervision Note: I independently interviewed and examined the patient and verified the murphy history and physical, reviewed labs and image studies and agree with resident Dr. Overton findings and care plan. Subjective No acute events overnight. No chest pain since arrival at hospital. Hemodynamically stable. No complaints/concerns this morning. Review of Systems Review of Systems: Denies current chest pain, syncope, near-syncope, lightheadedness. Denies fever/chills, palpitations, cough, SOB, N/V, abdominal pain, rash. Physical Exam Physical Exam: General: A&Ox2 (self and month/year). NAD. Cooperative. HEENT: Atraumatic, normocephalic. Pulm: CTAB A&P. -wheezes, -rales, -rhonchi. Symmetrical chest rise. No increase work of breathing. No respiratory distress. Cardiac: RRR, -mrg. Radial pulses intact and symmetrical. Abdominal: soft, non-tender, non-distended, BS x 4 Skin: warm, dry, no rash Results & Data Results & Data ([facility]) Vital Signs (Past 12 Hours) Vital Signs Temp Pulse Pulse Resp BP Pulse Ox 08/30/20 07:30 36.5 C 97 H 18 109/77 93 08/30/20 07:01 96 H 08/30/20 04:00 36.8 C 71 18 129/73 99 Resident Activity Tracking Resident Involvement: Resident Care Provided Care Provided: Adult Hospital Medicine (1) Chest pain Chest pain type: unspecified Qualified Code(s): R07.9 - Chest pain, unspecified
[2020-08-30] MEDS: FUROSEMIDE 40 MG TAB PO SCH (17:20)
[2020-08-30] MEDS: ATORVASTATIN 10 MG TAB PO SCH (20:11)
--- NOTE | 2020-08-30 20:20 | Myocardial Perfusion Study ---
Date of Service August 30, 2020 Myocardial Perfusion Study Blk Myocardial Perfusion Study Report [place] Act 112: Negative ONE DAY NUCLEAR MEDICINE LEXISCAN TECHNETIUM 99M MYOCARDIAL PERFUSION SCAN Indication: Chest pain. Baseline ECG: Atrial sensed, V paced rhythm at a ventricular rate of 82. Stress ECG: No Lexiscan induced ST changes. No arrhythmias. HR thiago from 82 to 92 representing 60% MPHR. BP thiago from 113/70 up to 126/71. Technique: For the stress portion of the study 33 mCi of Technetium 99m Cardiolite IV was injected at 11: 25 on 08/30/2020. 30 minutes following the injection, imaging of the heart was performed in multiple projections. For the rest portion of the study, 10.2 mCi of Technetium 99m Cardiolite was injected IV at 09: 26. One hour following the injection, imaging of the heart was performed in the same projections. Findings: Rotating raw images were reviewed in detail. Potential sources of attenuation include minimal vertical motion, diaphragmatic attenuation, and minimal gut uptake impacting the inferior imaging border of the heart. No significant extracardiac pathologic uptake. Short axis, vertical long axis and horizontal long axis images were reviewed in detail. No visual TID. Normal myocardial perfusion on both stress and rest. Normal LV size. EDV 98 ml. Calculated EF 50%. Abnormal apical/septal motion most consistent with ventricular pacing. SUMMARY: 1. Normal myocardial perfusion study with no Lexiscan induced ischemia. 2. Normal LV size and function. LVEF 50%. Abnormal apical/septal motion most consistent with ventricular pacing. 3. Non-diagnostic stress ECG due to inability to achieve target heart rate with Lexiscan and ventricular pacing. [facility] Myocardial perfusion code Procedure Code Procedure 1: Myocardial Perfusion Codes: 67864 Cardiovascular Stress Test, multiple Procedure 2: Myocardial Perfusion Codes: 39391 Cardiovascular Stress Test, interpretation and report
[2020-08-30] MEDS: INSULIN GLARGINE SOLOSTAR 100 UNITS/ML 3 ML PEN SQ SCH (21:30)
[2020-08-31] MEDS: LEVOTHYROXINE SODIUM 175 MCG TABLET PO SCH (06:19)
[2020-08-31 06:34] LABS: Basophils # (auto) 0.03 K/uL (0-0.2); Basophils % (auto) 0.4 %; Eosinophils # (auto) 0.23 K/uL (0-0.5); Eosinophils % (auto) 2.8 %; Hematocrit (blood only) 42.5 % (42-52); Immature Granulocytes # (auto) 0.01 K/uL (0.00-0.02); Immature Granulocytes % (auto) 0.1 %; Lymphocytes % (auto) 25.2 %; Mean Corpuscular Hemoglobin 30.4 pg (25-34); Mean Corpuscular Hgb Conc 32.9 g/dL (32-36); Mean Corpuscular Volume 92.4 fL (80-100); Mean Platelet Volume 12.6 fL (7.4-10.4); Monocytes # (auto) 0.79 K/uL (0.11-0.59); Monocytes % (auto) 9.5 %; Neutrophils # (auto) 5.16 K/uL (1.4-6.5); Platelet Count 219 K/uL (130-400); RDW Standard Deviation 44.3 fL (36.4-46.3); White Blood Count 8.32 K/uL (4.8-10.8)
[2020-08-31 07:11] LABS: BUN Creatinine Ratio 22.7 (10-20); Calcium 9.3 mg/dl (8.5-10.1); Creatinine Clr Calc Pharmacy 84.6 ml/min; Est GFR (African American) 75.9 ml/min; Est GFR (Non-African American) 65.5 ml/min; Magnesium 2.3 mg/dl (1.8-2.4); Phosphorus 3.7 mg/dl (2.5-4.9); Potassium 3.8 mmol/L (3.5-5.1)
--- NOTE | 2020-08-31 07:27 | Discharge Summary ---
Date of Service August 31, 2020 Admission HPI Per Admitting Provider Mr. Pompa is a 65 yo gentleman with a PMHx of CAD (suffered one previous TN), HTN, CHF and type II diabetes mellitus who was sent to the [facility] ED from [facility] rehab for evaluation of acute onset chest pain. Patient was at [facility] for ambulatory dysfunction/generalized deconditioning. He states the left sided chest pain came on while he was at rest - it did not radiate up the neck or down the left arm. He describes it as "grinding" in quality. He denies a sensation of heartburn. The discomfort was not accompanied by diaphoresis, nausea/vomiting, but was associated with SOB (although this seems to affect him on an intermittent basis chronically). He was given a nitroglycerin and aspirin 324mg by a staff member at [facility], which alleviated the discomfort. Social Hx: He says he has lived in a personal snf for the past 11 years. He is a former smoker (quit 1-2 years ago); unable to state how much he smoked or how long he smoked for (although he states 'not much'). Family Hx: Mother had diabetes. No reported heart attacks + poor historian In the ED, he was afebrile, normal HR and BP. His WBC was WNL, Hgb normal. Electrolytes, kidney and liver function were WNL. Lipase not elevated. Trop X 1 undetectable. EKG showed a ventricularly paced rhythm. CXR showed evidence of atelectasis but no focal consolidation consistent with a PNA. Admission Exam Per Admitting Provider Constitutional: WD/WN, vitals as above + obese and cooperative; no acute distress Eyes: + anicteric sclerae ENMT: external ear and nose normal, oropharynx normal Neck: normal visual inspection and trachea midline Respiratory: normal respiratory effort, lungs clear to auscultation Cardiovascular: Rate/Rhythm: regular rate and regular rhythm Heart Sounds: normal S1 and normal S2 Vessels: normal carotid upstroke; no carotid bruit Extremities: + pedal edema (+2 b/l) Heart sounds distant Chest (Breasts): Chest: + pacemaker Gastrointestinal (Abdomen): normal bowel sounds, soft, nontender, no hepatosplenomegaly Skin: no rashes, warm and dry Neurologic: moves all extremities Psychiatric: Orientation: alert, oriented to person, oriented to place and oriented to time Principal Diagnosis Chest Pain Discharge Exam General: A&Ox2 (self and month/year). NAD. Cooperative. HEENT: Atraumatic, normocephalic. Pulm: CTAB A&P. -wheezes, -rales, -rhonchi. Symmetrical chest rise. No increase work of breathing. No respiratory distress. Cardiac: RRR, -mrg. Radial pulses intact and symmetrical. Abdominal: soft, non-tender, non-distended, BS x 4 Skin: warm, dry, no rash Discharge Data Allergies Allergy/AdvReac Type Severity Reaction Status Date / Time Penicillins Allergy Unknown Unknown Verified 08/28/20 20:27 Consultations 08/28/20 21:27 ED Decision to Admit Stat 08/28/20 23:13 Consult Cardiology Routine Hospital Course (1) Chest pain: Mr. Pompa is a 65 yo gentleman who presented to [facility] for evaluation of acute onset chest pain, admitted for ACS rule out. Chest Pain Reportedly had left-sided chest pain at rest that improved with Nitro - unstable angina. EKG without T/ST changes and Troponin negative x3. nuclear stress test negative for ischemia. - continue home Atorvastatin 10mg PO QHS Chronic HFpEF Per discussion with Dr. Hutchins in [place] (patient's PCP), patient has h/o HFpEF with most recent EF ~60%. Patient does not have h/o CAD or past TN, per PCP. - continue home Furosemide 80mg QAM and 40mg QPM, and Toprol XL 50mg PO daily - TTE showed EF 55-60% with diastolic dysfunction - stable findings per discussion with PCP Schizophrenia - continue home Clozapine 100mg PO BID T2DM HbA1c 6.8 - continue home meds BPH - continue home dose Flomax AI - continue use of CPAP COPD - at baseline patient wears nighttime supplemental O2 - does not appear to be in acute exacerbation - monitor clinically Hypothyroidism - continue home dose Levothyroxine GERD - continue home dose Pantoprazole DVT ppx: home Lovenox 40mg SQ Q12H Total Time Total Time Spent Total Time Spent (In Minutes): 40 minutes Total Time Includes: Examination of the Patient, Discharge Planning, Medication Reconciliation and Communication With Other Providers Discharge Plan Discharge Items Patient Disposition: Transfer Inpatient Rehab Fac Reason For Visit: CHEST PAIN Discharge Diagnosis: Chest Pain Activity: Per Instructions section Non-emergency contact: Primary Care Provider and Electrophysiology Nurse Practitioner Call non-emergency contact if: you have any medication questions and your pain is not controlled Follow-up/Referrals: Selma Davis PA-C [Primary Care Provider] - Diet: Carb Consistent or DM2 and Heart Healthy Addtl Attending Provider Instructions: Mr. Pompa is a 65 yo gentleman who presented to [facility] for evaluation of acute onset chest pain, admitted for ACS rule out. Chest Pain Reportedly had left-sided chest pain at rest that improved with Nitro - unstable angina. EKG without T/ST changes and Troponin negative x3. Patient has a HEART score of 5 (moderate risk) but nuclear stress test negative for ischemia. Negative ACS rule-out. - continue home Atorvastatin 10mg PO QHS HFpEF Per discussion with Dr. Hutchins in [place] (patient's PCP), patient has h/o HFpEF with most recent EF ~60%. Patient does not have h/o CAD or past TN, per PCP. - continue home Furosemide 80mg QAM and 40mg QPM, and Toprol XL 50mg PO daily - TTE showed EF 55-60% with diastolic dysfunction - stable findings per discussion with PCP Schizophrenia - continue home Clozapine 100mg PO BID T2DM HbA1c 6.8 - continue home meds BPH - continue home dose Flomax AI - continue use of CPAP COPD - at baseline patient wears nighttime supplemental O2 - does not appear to be in acute exacerbation - monitor clinically Hypothyroidism - continue home dose Levothyroxine GERD - continue home dose Pantoprazole DVT ppx: home Lovenox 40mg SQ Q12H Pending Studies at Discharge: No Stand-Alone Forms: My [facility] Skilled Items Patient informed of condition?: Yes DNR: No Discharge Level of Care: Acute rehab Communicable Disease: No Discharge Prognosis: Stable Lines: None Urinary Catheter: No Medications and DC Order Prescriptions: Continued tamsulosin 0.4 mg Capsule 0.4 mg PO DAILY RF: 0 pantoprazole 40 mg Tablet,Delayed Release (Dr/Ec) 40 mg PO DAILY RF: 0 vitamin B complex Tablet 1 tab PO DAILY RF: 0 sertraline 50 mg Tablet 50 mg PO DAILY RF: 0 ferrous sulfate [FeroSul] 325 mg (65 mg iron) tablet 325 mg PO DAILY RF: 0 docusate sodium 100 mg capsule 100 mg PO BID RF: 0 polyethylene glycol 3350 17 gram/dose powder 17 g PO DAILY RF: 0 levothyroxine 175 mcg Tablet 175 mcg PO DAILY RF: 0 atorvastatin 10 mg Tablet 10 mg PO HS RF: 0 clozapine 100 mg Tablet 100 mg PO BID RF: 0 metoprolol succinate 50 mg Tablet Extended Release 24 Hr 50 mg PO DAILY RF: 0 ergocalciferol (vitamin D2) 1,250 mcg (50,000 unit) capsule 1,250 mcg PO WK RF: 0 Linzess 290 mcg Capsule 290 mcg PO DAILY RF: 0 potassium chloride 20 mEq Tablet Extended Release 20 meq PO BID RF: 0 furosemide 40 mg Tablet 40 mg PO .Q DINNER RF: 0 Lantus U-100 Insulin 100 unit/mL Solution 30 unit SUBCUT HS RF: 0 furosemide 80 mg Tablet 80 mg PO DAILY RF: 0 insulin aspart U-100 [Novolog U-100 Insulin aspart] 100 unit/mL Solution 10 unit SUBCUT TIDM RF: 0 enoxaparin 40 mg/0.4 mL Syringe 40 mg SUBCUT Q12H RF: 0 liraglutide 0.6 mg/0.1 mL (18 mg/3 mL) Pen Injector 1.8 mg SUBCUT DAILY RF: 0 fluticasone furoate-vilanterol 100-25 mcg/dose Blister With Device 1 inh INHALATION DAILY RF: 0 Discharge Orders: Discharge Order (Routine); Ordered 08/31/20 Ordered By: Diego Borges/Other Patient Handouts: Managing Type 2 Diabetes, A1C Admission Data Admit Date/Time: 08/30/20 12:31 Attending Provider: Kassidy Rachel Admit Provider: Sofie Klein Primary Care Provider: Selma Davis Other Providers: Raymundo Choe ; Aly Cabral ; [facility] Other Interventions: Discharge Summary Assessment (RN) Last Done: 08/31/20 14:39 Supervising Physician Co-Signing Physician Notes Resident Physician Supervision Note: I independently interviewed and examined the patient and verified the murphy history and physical, reviewed labs and image studies and agree with resident Dr. Overton findings and care plan. Resident Activity Tracking Resident Involvement: Resident Care Provided Care Provided: Adult Hospital Medicine
[2020-08-31] MEDS: ACETAMINOPHEN 325 MG TAB PO PRN (07:39)
[2020-08-31] MEDS: DOCUSATE SODIUM 100 MG CAP PO SCH (07:40)
[2020-08-31] MEDS: cloZAPine 100 MG TAB PO SCH (07:40)
[2020-08-31] MEDS: PANTOprazole 40 MG TAB PO SCH (07:41)
[2020-08-31] MEDS: ENOXAPARIN INJ 40 MG/0.4 ML SYR SQ SCH (07:41)
[2020-08-31] MEDS: FUROSEMIDE 80 MG TAB PO SCH (07:41)
[2020-08-31] MEDS: FERROUS SULFATE 325 MG TAB PO SCH (07:42)
[2020-08-31] MEDS: POLYETHYLENE (MIRALAX) 17 GM PACK PO SCH (07:42)
[2020-08-31] MEDS: TAMSULOSIN HCL 0.4 MG CAP PO SCH (07:42)
[2020-08-31] MEDS: LINACLOTIDE 145 MCG CAPSULE PO SCH (07:42)
[2020-08-31] MEDS: SERTRALINE HCL 50 MG TABLET PO SCH (07:43)
[2020-08-31] MEDS: FLUTICASONE/VILANTEROL 100/25MCG 14 PUFFS/INHALER INH SCH ×2 (07:43→07:45)
[2020-08-31] MEDS: METOPROLOL SUCC 50MG EXT REL TAB PO SCH (07:43)
[2020-08-31] MEDS: VICTOZA~ORDER AWAITING ACTION SCH (07:44)
[2020-08-31] MEDS: POTASSIUM CHLORIDE CRTAB 20 MEQ TABCR PO SCH (07:45)
[2020-08-31] MEDS: INSULIN ASPART 100 UNITS/ML 3 ML PEN SC SCH ×2 (09:28→12:55)
--- NOTE | 2020-08-31 13:18 | Cardiology Progress Note ---
Date of Service August 31, 2020 Assessment & Plan (1) Chest pain: His chest discomfort is probably not ischemic, the stress test was negative and I would recommend no further evaluation. (2) CHF (congestive heart failure): He has a history of congestive heart failure which I believe is diastolic heart failure but he does not seem to be fluid overloaded currently. His echocardiogram showed good left ventricular systolic function. (3) Cardiac pacemaker: He has a dual-chamber pacemaker in place, I do not know the company but it could be identified if needed. On telemetry it is working well. Admission and Anticipated Discharge Date Admission Date: August 30, 2020 Subjective He is feeling well today with no specific cardiac complaints. Physical Exam Physical Exam: Constitutional: Alert, cooperative and in no distress. HEENT: Unremarkable Neck: No jugular venous distention, carotid pulses are normal and equal bilaterally without bruits. Pulmonary: Clear to auscultation bilaterally. Cardiac: Regular rhythm with no murmur, gallop or rub. Abdomen: Soft, obese, nontender with normal bowel sounds. Extremities: No edema. Distal pulses intact. Neurologic: No focal findings. Gait was not tested. His speech is not normal but he is understandable. Skin: No rash, ecchymoses or petechiae. Results & Data ([facility]) Vital Signs (Past 12 Hours) Vital Signs Temp Pulse Resp BP Pulse Ox 08/31/20 11:03 36.5 C 87 19 130/89 96 08/31/20 07:38 36.5 C 87 20 106/72 96 08/31/20 04:06 36.7 C 93 H 18 116/78 94 Laboratory Results CBC 08/31/20 Range/Units 05:57 WBC 8.32 (4.8-10.8) K/uL RBC 4.60 L (4.7-6.1) M/uL Hgb 14.0 (14.0-18.0) g/dL Hct 42.5 (42-52) % Plt Count 219 (130-400) K/uL Neut # (Auto) 5.16 (1.4-6.5) K/uL Lymph # (Auto) 2.10 (1.2-3.4) K/uL Floyd # (Auto) 0.79 H (0.11-0.59) K/uL Eos # (Auto) 0.23 (0-0.5) K/uL Baso # (Auto) 0.03 (0-0.2) K/uL Comprehensive Metabolic Panel 08/31/20 Range/Units 05:57 Sodium 140 (136-145) mmol/L Potassium 3.8 (3.5-5.1) mmol/L Chloride 105 (98-107) mmol/L Carbon Dioxide 31 (21-32) mmol/L BUN 26 H (7-18) mg/dl Creatinine 1.15 (0.6-1.4) mg/dl Glucose 181 H (70-99) mg/dl Calcium 9.3 (8.5-10.1) mg/dl Intake and Output 08/30/20 08/31/20 08/31/20 22:59 06:59 14:59 Intake Total 670 / 1010 100 / 1010 Output Total 500 / 1500 600 / 1500 Balance 170 / -490 -500 / -490 Intake: Oral 670 / 1010 100 / 1010 Output: Urine 500 / 1500 600 / 1500 Other: Weight 130.3 kg Weight Measurement Method Built in [facility] Diagnostic Findings Telemetry: Sinus rhythm with ventricular pacing throughout An echocardiogram done August 29, 2020 shows normal left ventricular systolic function with wall motion abnormalities probably due to pacing. Mild concentric left ventricular hypertrophy. Probable diastolic dysfunction. No significant valvular disease. PG Care Time/CCT Total # of Minutes Spent Total Time Spent with Patient: Total time spent is greater than 50% in coordination of care (as documented) at patient's floor/unit and/or counseling patient: Coding Level of Care Code 76521 Subseq Hosp Care Lvl 3 Diagnoses Chest pain R07.9 Chest pain type: unspecified CHF (congestive heart failure) I50.9 Heart failure chronicity: chronic Heart failure type: unspecified Cardiac pacemaker Z95.0 (1) Chest pain Chest pain type: unspecified Qualified Code(s): R07.9 - Chest pain, unspecified (2) CHF (congestive heart failure) Heart failure chronicity: chronic Heart failure type: unspecified Qualified Code(s): I50.9 - Heart failure, unspecified
[2020-09-04] MEDS ORDERED: ERGOCALCIFEROL 50,000 UNITS 1250 MCG CAP PO SCH (09:00)
== END 2020-08-31 16:33 | DRG 303 ==
LOC: 2N 18:53 → ED 18:53 → SUATTDRO 22:06 → 2N 22:44

== ENCOUNTER 2020-10-07 06:25 | Inpatient (IN) ==
[2020-10-07] MEDS ORDERED: ASPIRIN CHEW 324 MG PO STA (06:51)
--- NOTE | 2020-10-07 06:53 | Emergency Department Note ---
Impression & Plan Pneumonia, Sepsis, Respiratory failure ED Provider Note Name: MARGRET SKINNER Age: 65 Sex: M Arrives Via: Ambulance Informant: Patient, EMS ED Provider: Diego Arthur MD Chief Complaint: Chest Pain Impression: See Above Medical Decision Makin yr old male with history CHF, GERD, Schizophrenia, COPD, Hypothyroid, AI, and previous pacemaker placement arrives for evaluation of substernal chest pain and shortness of breath. Quite ill on arrival and monitor with wide complex tachy thus brought to critical care bay. EKG shows tachy is ventricular paced and similar to previous. Sats rapidly coming up with Non rebreather and patient improving rapidly with resolution of chest pain. Labs with elevated wbc, lactate. CXR with large right pneumonia. Treated with NSS Bolus and looking better but with CHF history will defer further hydration to hospitalist. Trop initially not elevated. Suspect chest pain related to hypoxia (as well as lactate may be). He is comfortable, breathing much improved and doing well no NRB. Not requiring bipap at this time. Given IV Cefepime for coverage as PNC allergic. With negative MRSA will hold on Vanco per hospitalist. Pt did not receive full 30ml/kg IV fluids as he was improving with initial fluid bolus and is at high risk of decompensation from over hydration with his CHF history. Prior Medical Record and Triage/Nursing Notes reviewed by Me Additional history obtained from chart Differentials:Reactive airway disease, pneumonia, pneumothorax, COPD, CHF, infections, cardiac ischemia, pulmonary embolism, musculoskeletal, gastrointestinal, as well as other pathologies. Vital Signs: reviewed and remarkable for Hypoxia, Tachy Interventions: Saline lock, nSS bolus 500ml iV, cefepime 2gm iv, asa 324mg po Labs:Reviewed and remarkable for elevated wbc, lactate elevation Imaging:X ray results are stated below per my interpretation: Chest: 1 view: Large right middle lobe pneumonia EKG:Per My Interpretation: Indication Chest Pain: Ventricular Paced Tachycaria 106 bpm, qtc 603 with wide qrs. No Ectopy. No Ischemia. Compared to EKG 08/28/20, no significant changes. Cardiac/Tele Monitoring: Cardiac Monitoring: An Order was placed for continuous cardiac monitoring. The monitor shows a rate of 100 with a vent-tachy rhythm. Consults:Dr West REGALADO Hospitalist Plan: Disposition:Hospitalization. Condition: Fair History of Present Illness:65 yr old male arrives for evaluation of chest pain. Notes onset of chest pains and shortness of breath last evening. Gradually worsening through this morning. This am significant worsening, weakness, fatigue, and chest pain radiating to left shoulder. Unable to even sit up due to weakness. Nothing makes better. EMS arrived at intermediate and started on NC O2 with improvement. No medications prior to arrival. No syncope, headache, fevers, chills, nausea, vomiting, abdomianl pain, back pain, leg swelling (beyond normal), cough, nor other symptoms. history GA, CAD, COPD. Previous Pacemaker placed several years ago. ROS: See above HPI for pertinent positives & negatives. A total of 10 systems reviewed and were otherwise negative. Past Medical History:See Below Past Surgical History:See Below Family History:See Below Social History:See Below Home Medications:See Below Allergies:PNC Vitals:Blood Pressure: 119/74, Pulse 106, RR 16, T 37.0C, O2 80% on RA Physical Exam: GENERAL: Patient is ill/uncomfortable appearing and in moderate distress. Chron ically unwell appearing EYES: No scleral icterus, unremarkable pupils. ENT: Mucous membranes moist, no nasal congestion. NECK: No masses appreciated, nomeningismus, trachea is midline. RESPIRATORY: Moderate dypnea, diffuse crackles CARDIOVASCULAR: Tachy.No murmurs, rubs, gallops appreciated. GASTROINTESTINAL: Abdomen soft, non-tender, no peritonitis.Bowel sounds positive.No masses appreciated. BACK: No midline tenderness, no CVA tenderness EXTREMITIES: Normal motion all extremities, no cyanosis, lower leg edema. NEUROLOGIC: Alert and oriented, no acute motor or sensory deficits, no focal weakness, cranial nerves grossly intact. SKIN: No rash, no jaundice, no diaphoresis. PSYCH: Appropriate GCS: 15 ED Course: Times/Reassessments: vastly improved with NRB, breathing comfortably Critical Care: I have personally spent 45 minutes of critical care time in the direct management of this patient. Acute chest pain and respiratory failure with hypoxia secondary to pneumonia. This was a life/limb threatening event. This 45 minutes is in excess of all separately billable procedures. Diego Arthur MD Past Med/Surg History Medical History CHF (congestive heart failure) Social History Smoking Status: Former smoker Second Hand Exposure: No; Do You Dip or Chew Tobacco: No; Tobacco Cessation Education Requested by Patient: No Hx Alcohol Use: No Hx Substance Use: No Preferred Language: Greek Communication Ability: Effective Eyeglass Frames Inspector Required: No Beliefs That Will Affect Care: None Current Living Situation: [facility]ustodial and Personal Care Facility Current Living Situation Comment: Pt from [facility], currently @ [facility] for amb dysfunction current occupational status: retired Other Information That Helps Us Care for You: No Feels Safe at Home: Yes Safety Concerns: Feels Safe At This Time Assistive Devices: CPAP, Oxygen - Continuous, Walker and Wheelchair Allergies Allergies Allergy/AdvReac Type Severity Reaction Status Date / Time Penicillins Allergy Unknown Unknown Verified 10/07/20 07:43 Home Meds Home Medications Medication Instructions Recorded Confirmed atorvastatin 10 mg tablet (Lipitor) 10 mg PO HS 08/28/20 10/07/20 clozapine 100 mg tablet (Clozaril) 100 mg PO Q12 08/28/20 10/07/20 ergocalciferol (vitamin D2) 1,250 1,250 mcg PO WK 08/28/20 10/07/20 mcg (50,000 unit) capsule (Vitamin D2) ferrous sulfate 325 mg (65 mg 325 mg PO DAILY 08/28/20 10/07/20 iron) tablet (FeroSul) fluticasone furoate 100 1 inh INHALATION DAILY 08/28/20 10/07/20 mcg-vilanterol 25 mcg/dose inhalation powder (Breo Ellipta) furosemide 40 mg tablet (Lasix) 40 mg PO .Q DINNER 08/28/20 10/07/20 furosemide 80 mg tablet (Lasix) 80 mg PO DAILY 08/28/20 10/07/20 insulin aspart U-100 100 unit/mL 10 unit SUBCUT TIDM 08/28/20 10/07/20 subcutaneous solution (Novolog U-100 Insulin aspart) levothyroxine 175 mcg tablet 175 mcg PO DAILY 08/28/20 10/07/20 (Synthroid) linaclotide 290 mcg capsule 290 mcg PO QAM 08/28/20 10/07/20 (Linzess) liraglutide 0.6 mg/0.1 mL (18 mg/3 1.8 mg SUBCUT DAILY 08/28/20 10/07/20 mL) subcutaneous pen injector (Victoza 2-Tony) metoprolol succinate 50 mg 50 mg PO DAILY 08/28/20 10/07/20 tablet,extended release 24 hr (Toprol XL) potassium chloride 20 mEq 20 meq PO BID 08/28/20 10/07/20 tablet,extended release (K-Tab) sertraline 50 mg tablet (Zoloft) 50 mg PO DAILY 08/28/20 10/07/20 tamsulosin 0.4 mg capsule (Flomax) 0.4 mg PO DAILY 08/28/20 10/07/20 dicyclomine 10 mg capsule 10 mg PO Q8H PRN 10/07/20 10/07/20 insulin glargine 100 unit/mL (3 30 unit SUBCUT HS 10/07/20 10/07/20 mL) subcutaneous pen (Basaglar KwikPen U-100 Insulin) multivitamin (Daily Multi-Vitamin) 1 tab PO DAILY 10/07/20 10/07/20 omeprazole 20 mg capsule,delayed 20 mg PO DAILY 10/07/20 10/07/20 release tramadol 50 mg tablet (Ultram) 25 mg PO Q12 PRN 10/07/20 10/07/20 Results & Data (ED) Vital Signs Vital Signs - 24 hr 10/07/20 06:55 10/07/20 07:29 10/07/20 07:30 Pulse Rate 117 H 117 H Pulse Rate from SpO2 Sensor 118 H 118 H Respiratory Rate 15 19 Respiratory Effort / Characteristics Non-Labored Spontaneous Short of Breath Respiratory Depth Normal Respiratory Pattern Tachypnea Blood Pressure 112/91 126/93 Blood Pressure Mean 98 104 Pulse Oximetry 98 99 Oxygen Delivery Method Non-rebreather Oxygen Flow Rate 15 10/07/20 07:46 10/07/20 08:00 10/07/20 08:16 Pulse Rate 116 H 112 H 112 H Pulse Rate from SpO2 Sensor 116 H 112 H 112 H Respiratory Rate 17 15 11 L Respiratory Effort / Characteristics Respiratory Depth Respiratory Pattern Blood Pressure 119/83 126/86 118/71 Blood Pressure Mean 95 99 86 Pulse Oximetry 99 100 100 Oxygen Delivery Method Oxygen Flow Rate 10/07/20 08:31 10/07/20 08:40 10/07/20 09:00 Pulse Rate 111 H 108 H 106 H Pulse Rate from SpO2 Sensor 111 H 108 H 106 H Respiratory Rate 16 9 L 17 Respiratory Effort / Characteristics Respiratory Depth Respiratory Pattern Blood Pressure 96/60 L Blood Pressure Mean 72 Pulse Oximetry 100 100 98 Oxygen Delivery Method Oxygen Flow Rate Laboratory Data Result diagrams: 10/07/20 11:48 10/07/20 11:48 Lab Results 10/07/20 10/07/20 10/07/20 Range/Units 07:10 07:20 07:20 WBC (4.8-10.8) K/uL RBC (4.7-6.1) M/uL Hgb (14.0-18.0) g/dL Hct (42-52) % MCV (80-100) fL MCH (25-34) pg MCHC (32-36) g/dL RDW Std Deviation (36.4-46.3) fL RDW Coeff of Shireen (11.5-14.5) % Plt Count (130-400) K/uL MPV (7.4-10.4) fL Immature Gran % (Auto) % Neut % (Auto) % Lymph % (Auto) % [place] % (Auto) % Eos % (Auto) % Baso % (Auto) % Neut # (Auto) (1.4-6.5) K/uL Lymph # (Auto) (1.2-3.4) K/uL [place] # (Auto) (0.11-0.59) K/uL Eos # (Auto) (0-0.5) K/uL Baso # (Auto) (0-0.2) K/uL Immature Gran # (Auto) (0.00-0.02) K/uL PT INR APTT PTT Ratio Sodium (136-145) mmol/L Potassium (3.5-5.1) mmol/L Chloride (98-107) mmol/L Carbon Dioxide (21-32) mmol/L Anion Gap (3-11) BUN (7-18) mg/dl Creatinine (0.6-1.4) mg/dl Est Cr Clr Drug Dosing ml/min Est GFR ( Amer) ml/min Est GFR (Non-Af Amer) ml/min BUN/Creatinine Ratio (10-20) Glucose (70-99) mg/dl Lactate (0.4-2.0) mmol/L Calcium (8.5-10.1) mg/dl Magnesium (1.8-2.4) mg/dl Total Bilirubin (0.2-1) mg/dl Direct Bilirubin (0-0.2) mg/dl AST (15-37) U/L ALT (12-78) U/L Alkaline Phosphatase (45-117) U/L Troponin I (0-0.045) ng/ml NT-Pro-B Natriuret Pep (0-900) pg/ml Total Protein (6.4-8.2) gm/dl Albumin (3.4-5.0) gm/dl Lipase (73-393) U/L Procalcitonin (0-0.5) ng/ml TSH (0.300-4.500) uIu/ml Urine Color Yellow Urine Appearance Clear (Clear) Urine pH 6.0 (4.5-7.5) Ur Specific [place] 1.014 (1.000-1.030) Urine Protein Negative (Negative) Urine Glucose (UA) Negative (Negative) Urine Ketones Negative (Negative) Urine Blood Negative (Negative) Urine Nitrite Negative (Negative) Urine Bilirubin Negative (Negative) Urine Urobilinogen Negative (Negative) Ur Leukocyte Esterase Negative (Negative) Nasal Screen MRSA (PCR) (Negative) COVID-19 Eval Order Covid19 at [facility] SARS-CoV-2 (PCR) NEGATIVE (Negative) 10/07/20 10/07/20 10/07/20 Range/Units 07:22 07:22 07:22 WBC 17.65 H (4.8-10.8) K/uL RBC 5.06 (4.7-6.1) M/uL Hgb 15.4 (14.0-18.0) g/dL Hct 45.4 (42-52) % MCV 89.7 (80-100) fL MCH 30.4 (25-34) pg MCHC 33.9 (32-36) g/dL RDW Std Deviation 42.2 (36.4-46.3) fL RDW Coeff of Shireen 13.0 (11.5-14.5) % Plt Count 211 (130-400) K/uL MPV 12.5 H (7.4-10.4) fL Immature Gran % (Auto) 0.2 % Neut % (Auto) 83.5 % Lymph % (Auto) 7.8 % [place] % (Auto) 7.9 % Eos % (Auto) 0.3 % Baso % (Auto) 0.3 % Neut # (Auto) 14.74 H (1.4-6.5) K/uL Lymph # (Auto) 1.38 (1.2-3.4) K/uL [place] # (Auto) 1.39 H (0.11-0.59) K/uL Eos # (Auto) 0.05 (0-0.5) K/uL Baso # (Auto) 0.05 (0-0.2) K/uL Immature Gran # (Auto) 0.04 H (0.00-0.02) K/uL PT Cancelled INR Cancelled APTT Cancelled PTT Ratio Cancelled Sodium 136 (136-145) mmol/L Potassium (3.5-5.1) mmol/L Chloride 105 (98-107) mmol/L Carbon Dioxide 24 (21-32) mmol/L Anion Gap 7.0 (3-11) BUN 18 (7-18) mg/dl Creatinine 1.11 (0.6-1.4) mg/dl Est Cr Clr Drug Dosing 87.7 ml/min Est GFR ( Amer) 79.2 ml/min Est GFR (Non-Af Amer) 68.3 ml/min BUN/Creatinine Ratio 15.8 (10-20) Glucose 185 H (70-99) mg/dl Lactate (0.4-2.0) mmol/L Calcium 8.8 (8.5-10.1) mg/dl Magnesium (1.8-2.4) mg/dl Total Bilirubin 0.5 (0.2-1) mg/dl Direct Bilirubin (0-0.2) mg/dl AST (15-37) U/L ALT 25 (12-78) U/L Alkaline Phosphatase 141 H (45-117) U/L Troponin I < 0.015 (0-0.045) ng/ml NT-Pro-B Natriuret Pep 248 (0-900) pg/ml Total Protein 6.7 (6.4-8.2) gm/dl Albumin 3.3 L (3.4-5.0) gm/dl Lipase 83 (73-393) U/L Procalcitonin (0-0.5) ng/ml TSH 0.059 L (0.300-4.500) uIu/ml Urine Color Urine Appearance (Clear) Urine pH (4.5-7.5) Ur Specific [place] (1.000-1.030) Urine Protein (Negative) Urine Glucose (UA) (Negative) Urine Ketones (Negative) Urine Blood (Negative) Urine Nitrite (Negative) Urine Bilirubin (Negative) Urine Urobilinogen (Negative) Ur Leukocyte Esterase (Negative) Nasal Screen MRSA (PCR) (Negative) COVID-19 Eval Order SARS-CoV-2 (PCR) (Negative) 10/07/20 10/07/20 10/07/20 Range/Units 07:22 08:40 08:40 WBC (4.8-10.8) K/uL RBC (4.7-6.1) M/uL Hgb (14.0-18.0) g/dL Hct (42-52) % MCV (80-100) fL MCH (25-34) pg MCHC (32-36) g/dL RDW Std Deviation (36.4-46.3) fL RDW Coeff of Shireen (11.5-14.5) % Plt Count (130-400) K/uL MPV (7.4-10.4) fL Immature Gran % (Auto) % Neut % (Auto) % Lymph % (Auto) % [place] % (Auto) % Eos % (Auto) % Baso % (Auto) % Neut # (Auto) (1.4-6.5) K/uL Lymph # (Auto) (1.2-3.4) K/uL [place] # (Auto) (0.11-0.59) K/uL Eos # (Auto) (0-0.5) K/uL Baso # (Auto) (0-0.2) K/uL Immature Gran # (Auto) (0.00-0.02) K/uL PT 10.4 INR 1.0 APTT 25.8 PTT Ratio 1.0 Sodium (136-145) mmol/L Potassium (3.5-5.1) mmol/L Chloride (98-107) mmol/L Carbon Dioxide (21-32) mmol/L Anion Gap (3-11) BUN (7-18) mg/dl Creatinine (0.6-1.4) mg/dl Est Cr Clr Drug Dosing ml/min Est GFR ( Amer) ml/min Est GFR (Non-Af Amer) ml/min BUN/Creatinine Ratio (10-20) Glucose (70-99) mg/dl Lactate 2.1 H* (0.4-2.0) mmol/L Calcium (8.5-10.1) mg/dl Magnesium (1.8-2.4) mg/dl Total Bilirubin (0.2-1) mg/dl Direct Bilirubin (0-0.2) mg/dl AST (15-37) U/L ALT (12-78) U/L Alkaline Phosphatase (45-117) U/L Troponin I (0-0.045) ng/ml NT-Pro-B Natriuret Pep (0-900) pg/ml Total Protein (6.4-8.2) gm/dl Albumin (3.4-5.0) gm/dl Lipase (73-393) U/L Procalcitonin 0.08 (0-0.5) ng/ml TSH (0.300-4.500) uIu/ml Urine Color Urine Appearance (Clear) Urine pH (4.5-7.5) Ur Specific [place] (1.000-1.030) Urine Protein (Negative) Urine Glucose (UA) (Negative) Urine Ketones (Negative) Urine Blood (Negative) Urine Nitrite (Negative) Urine Bilirubin (Negative) Urine Urobilinogen (Negative) Ur Leukocyte Esterase (Negative) Nasal Screen MRSA (PCR) (Negative) COVID-19 Eval Order SARS-CoV-2 (PCR) (Negative) 10/07/20 10/07/20 Range/Units 08:40 09:00 WBC (4.8-10.8) K/uL RBC (4.7-6.1) M/uL Hgb (14.0-18.0) g/dL Hct (42-52) % MCV (80-100) fL MCH (25-34) pg MCHC (32-36) g/dL RDW Std Deviation (36.4-46.3) fL RDW Coeff of Shireen (11.5-14.5) % Plt Count (130-400) K/uL MPV (7.4-10.4) fL Immature Gran % (Auto) % Neut % (Auto) % Lymph % (Auto) % [place] % (Auto) % Eos % (Auto) % Baso % (Auto) % Neut # (Auto) (1.4-6.5) K/uL Lymph # (Auto) (1.2-3.4) K/uL [place] # (Auto) (0.11-0.59) K/uL Eos # (Auto) (0-0.5) K/uL Baso # (Auto) (0-0.2) K/uL Immature Gran # (Auto) (0.00-0.02) K/uL PT INR APTT PTT Ratio Sodium (136-145) mmol/L Potassium 3.6 (3.5-5.1) mmol/L Chloride (98-107) mmol/L Carbon Dioxide (21-32) mmol/L Anion Gap (3-11) BUN (7-18) mg/dl Creatinine (0.6-1.4) mg/dl Est Cr Clr Drug Dosing ml/min Est GFR ( Amer) ml/min Est GFR (Non-Af Amer) ml/min BUN/Creatinine Ratio (10-20) Glucose (70-99) mg/dl Lactate (0.4-2.0) mmol/L Calcium (8.5-10.1) mg/dl Magnesium 1.5 L (1.8-2.4) mg/dl Total Bilirubin (0.2-1) mg/dl Direct Bilirubin 0.2 (0-0.2) mg/dl AST 18 (15-37) U/L ALT (12-78) U/L Alkaline Phosphatase (45-117) U/L Troponin I (0-0.045) ng/ml NT-Pro-B Natriuret Pep (0-900) pg/ml Total Protein (6.4-8.2) gm/dl Albumin (3.4-5.0) gm/dl Lipase (73-393) U/L Procalcitonin (0-0.5) ng/ml TSH (0.300-4.500) uIu/ml Urine Color Urine Appearance (Clear) Urine pH (4.5-7.5) Ur Specific [place] (1.000-1.030) Urine Protein (Negative) Urine Glucose (UA) (Negative) Urine Ketones (Negative) Urine Blood (Negative) Urine Nitrite (Negative) Urine Bilirubin (Negative) Urine Urobilinogen (Negative) Ur Leukocyte Esterase (Negative) Nasal Screen MRSA (PCR) Negative (Negative) COVID-19 Eval Order SARS-CoV-2 (PCR) (Negative) Administered Medications Enoxaparin Sodium (Enoxaparin Inj 40 Mg/0.4 Ml Syr) 40 mg SQ Q24H CÉSAR Stop: 11/06/20 11:59 Last Admin: 10/07/20 12:42 Dose: 40 mg Documented by: [id number] Fluticasone/Vilanterol (Fluticasone/Vilanterol 100/25mcg 14 Puffs/Inhaler) 1 puffs INH DAILY CÉSAR Stop: 11/06/20 11:59 Last Admin: 10/07/20 12:43 Dose: 1 puffs Documented by: [id number] Insulin Aspart (Insulin Aspart 100 Units/Ml 3 Ml Pen) 0 units SC ACHS CÉSAR Stop: 11/06/20 11:29 Last Admin: 10/07/20 13:45 Dose: 3 units Documented by: [id number] Cosigned by: [id number] Linaclotide (Linaclotide 145 Mcg Capsule) 290 mcg PO QAM CÉSAR Stop: 11/06/20 11:59 Last Admin: 10/07/20 12:42 Dose: 290 mcg Documented by: [id number] Sertraline HCl (Sertraline Hcl 50 Mg Tablet) 50 mg PO DAILY CÉSAR Stop: 11/06/20 11:59 Last Admin: 10/07/20 12:41 Dose: 50 mg Documented by: [id number] Tamsulosin HCl (Tamsulosin Hcl 0.4 Mg Cap) 0.4 mg PO DAILY CÉSAR Stop: 11/06/20 11:59 Last Admin: 10/07/20 12:41 Dose: 0.4 mg Documented by: [id number] Umeclidinium Cook Sta (Umeclidinium [place] 62.5mcg/Blister 7 Puffs/Inhaler) 1 puffs INH DAILY CÉSAR Stop: 11/06/20 11:59 Last Admin: 10/07/20 12:43 Dose: 1 puffs Documented by: [id number] Discontinued Medications Acetaminophen (Acetaminophen 500 Mg Tab) 1,000 mg PO NOW STA Stop: 10/07/20 07:25 Last Admin: 10/07/20 07:54 Dose: 1,000 mg Documented by: [id number] Aspirin (Aspirin Chew 324 Mg) 324 mg PO NOW STA Stop: 10/07/20 06:52 Last Admin: 10/07/20 07:48 Dose: Not Given Documented by: [id number] Sodium Chloride (Nss 1000ml) 500 mls @ 999 mls/hr IV .Q31M ONE Stop: 10/07/20 07:54 Last Infusion: 10/07/20 09:12 Dose: 0 mls/hr Documented by: [id number] Admin: 10/07/20 07:48 Dose: 999 mls/hr Documented by: [id number] Cefepime HCl (Maxipime) 2,000 mg in 20 mls @ 5 mls/min IV NOW STA; Protocol Stop: 10/07/20 07:43 Last Admin: 10/07/20 07:53 Dose: 5 mls/min Documented by: [id number] Methylprednisolone (Methylprednisolone 125 Mg/2 Ml Vial) 60 mg IV NOW STA Stop: 10/07/20 09:20 Last Admin: 10/07/20 10:46 Dose: 60 mg Documented by: [id number] Imaging Data Radiologist's Impression: Chest X-Ray 10/07/20 06:52 XR chest 1V portable CLINICAL HISTORY: Chest pain COMPARISON STUDY: August 28, 2020. FINDINGS: No pneumothorax. Small bilateral pleural effusion. Redemonstration of right hemidiaphragm elevation. Interval development of focal opacity at the right midlung which could represent pneumonia. Cardiomediastinal silhouette is within upper limits of normal and unchanged since prior. No significant pulmonary vascular congestion.. Osseous structures: Mild degenerative changes of the spine. Stable position of left-sided dual-lead pacemaker with battery pack partially obscuring left lung parenchyma. IMPRESSION: 1. Large consolidative lesion at the peripheral aspect of the right midlung likely representing pneumonia. 2. Minimal bilateral pleural effusion. ACT 112: Negative or not required by law. The above report was generated using voice recognition software. It may contain grammatical, syntax or spelling errors. Electronically signed by: Victoria Berger DO 10/07/2020 7:48 AM Discharge Plan Visit Data Chief Complaint: Shortness of Breath/Dyspnea Stated Complaint: BREATHING DIFFICULTY ED Provider: Diego Arthur Discharge Problem: Pneumonia, Sepsis, Respiratory failure Patient Disposition: Admitted As Inpatient Discharge Instructions Interventions: ED Discharge Assessment Last Done: 10/07/20 10:50 Discharge Problem: Pneumonia Qualifiers: Pneumonia type: due to unspecified organism Laterality: right Lung location: middle lobe of lung Qualified Code(s): J18.9 - Pneumonia, unspecified organism Sepsis Qualifiers: Sepsis type: sepsis due to unspecified organism Sepsis acute organ dysfunction status: with acute organ dysfunction Severe sepsis acute organ dysfunction type: acute respiratory failure Acute respiratory failure type: with hypoxia Severe sepsis shock status: without septic shock Qualified Code(s): A41.9 - Sepsis, unspecified organism Respiratory failure Qualifiers: Chronicity: acute Respiratory failure complication: hypoxia Qualified Code(s): J96.01 - Acute respiratory failure with hypoxia
[2020-10-07 07:21] LABS: Appearance Urine Clear (Clear); Bilirubin Urine Negative (Negative); Blood Urine Negative (Negative); Color Urine Yellow; Glucose Urine UA Negative (Negative); Ketones Urine Negative (Negative); Leukocyte Esterase Urine Negative (Negative); Nitrite Urine Negative (Negative); Protein Urine Negative (Negative); Specific Gravity Urine 1.014 (1.000-1.030); Urobilinogen Urine Negative (Negative)
[2020-10-07] MEDS ORDERED: ACETAMINOPHEN 500 MG TAB PO STA (07:24)
[2020-10-07] MEDS ORDERED: SODIUM CHLORIDE 0.9% 1000ML 500 ML IV ONE (07:24)
[2020-10-07 07:34] LABS: Basophils # (auto) 0.05 K/uL (0-0.2); Basophils % (auto) 0.3 %; Eosinophils # (auto) 0.05 K/uL (0-0.5); Eosinophils % (auto) 0.3 %; Hematocrit (blood only) 45.4 % (42-52); Hemoglobin 15.4 g/dL (14.0-18.0); Immature Granulocytes # (auto) 0.04 K/uL (0.00-0.02); Immature Granulocytes % (auto) 0.2 %; Lymphocytes # (auto) 1.38 K/uL (1.2-3.4); Lymphocytes % (auto) 7.8 %; Mean Corpuscular Hemoglobin 30.4 pg (25-34); Mean Corpuscular Hgb Conc 33.9 g/dL (32-36); Mean Corpuscular Volume 89.7 fL (80-100); Mean Platelet Volume 12.5 fL (7.4-10.4); Monocytes # (auto) 1.39 K/uL (0.11-0.59); Monocytes % (auto) 7.9 %; Neutrophils # (auto) 14.74 K/uL (1.4-6.5); Neutrophils % (auto) 83.5 %; Platelet Count 211 K/uL (130-400); RDW Standard Deviation 42.2 fL (36.4-46.3); Red Blood Count 5.06 M/uL (4.7-6.1); White Blood Count 17.65 K/uL (4.8-10.8)
[2020-10-07] MEDS ORDERED: CEFEPIME 2,000 MG/20 ML VIAL IV STA (07:40)
--- NOTE | 2020-10-07 07:49 | XRay Report ---
XR chest 1V portable CLINICAL HISTORY: Chest pain COMPARISON STUDY: August 28, 2020. FINDINGS: No pneumothorax. Small bilateral pleural effusion. Redemonstration of right hemidiaphragm elevation. Interval development of focal opacity at the right midlung which could represent pneumonia. Cardiomediastinal silhouette is within upper limits of normal and unchanged since prior. No significant pulmonary vascular congestion.. Osseous structures: Mild degenerative changes of the spine. Stable position of left-sided dual-lead pacemaker with battery pack partially obscuring left lung par enchyma. IMPRESSION: 1. Large consolidative lesion at the peripheral aspect of the right midlung likely representing pneu monia. 2. Minimal bilateral pleural effusion. ACT 112: Negative or not required by law. The above report was generated using voice recognition software. It may contain grammatical, syntax o r spelling errors. Electronically signed by: Victoria Berger DO 10/07/2020 7:48 AM
[2020-10-07 07:57] LABS: Alanine Aminotransferase 25 U/L (12-78); Albumin Level 3.3 gm/dl (3.4-5.0); BUN Creatinine Ratio 15.8 (10-20); Blood Urea Nitrogen 18 mg/dl (7-18); Calcium 8.8 mg/dl (8.5-10.1); Carbon Dioxide 24 mmol/L (21-32); Chloride 105 mmol/L (98-107); Creatinine Clr Calc Pharmacy 87.7 ml/min; Est GFR (African American) 79.2 ml/min; Est GFR (Non-African American) 68.3 ml/min; Glucose 185 mg/dl (70-99); Lipase 83 U/L (73-393); Sodium 136 mmol/L (136-145)
[2020-10-07 08:12] LABS: Alkaline Phosphatase 141 U/L (45-117); Bilirubin,Total 0.5 mg/dl (0.2-1); NT Pro B Type Natriuretic Pept 248 pg/ml (0-900); Thyroid Stimulating Hormone 0.059 uIu/ml (0.300-4.500); Total Protein 6.7 gm/dl (6.4-8.2); Troponin I < 0.015 ng/ml (0-0.045)
[2020-10-07 09:05] LABS: Potassium 3.6 mmol/L (3.5-5.1)
[2020-10-07 09:07] LABS: Partial Thromboplastin Time 25.8 Seconds (21.0-31.0); Prothrombin Time 10.4 Seconds (9.0-12.0)
[2020-10-07 09:10] LABS: Bilirubin Direct 0.2 mg/dl (0-0.2); Magnesium 1.5 mg/dl (1.8-2.4)
[2020-10-07] MEDS ORDERED: methylPREDNISolone 125 MG/2 ML VIAL IV STA (09:19)
[2020-10-07] MEDS ORDERED: MAGNESIUM HYDROXIDE SUSP 30 ML UDC PO PRN (11:22)
[2020-10-07] MEDS ORDERED: POLYETHYLENE (MIRALAX) 17 GM PACK PO PRN (11:22)
[2020-10-07] MEDS ORDERED: traMADol HCL 50 MG TABLET PO PRN (11:22)
[2020-10-07] MEDS ORDERED: ACETAMINOPHEN 325 MG TAB PO PRN (11:22)
[2020-10-07] MEDS ORDERED: ALUMINUM/MAGNESIUM SUSP 30 ML UDC PO PRN (11:22)
[2020-10-07] MEDS ORDERED: ONDANSETRON INJ 2 MG/ML 2 ML VIAL IV PRN (11:22)
[2020-10-07 11:56] LABS: Basophils # (auto) 0.03 K/uL (0-0.2); Basophils % (auto) 0.2 %; Eosinophils # (auto) 0.03 K/uL (0-0.5); Eosinophils % (auto) 0.2 %; Hematocrit (blood only) 42.7 % (42-52); Hemoglobin 14.1 g/dL (14.0-18.0); Immature Granulocytes # (auto) 0.05 K/uL (0.00-0.02); Immature Granulocytes % (auto) 0.3 %; Lymphocytes # (auto) 0.93 K/uL (1.2-3.4); Lymphocytes % (auto) 5.1 %; Mean Corpuscular Hemoglobin 29.6 pg (25-34); Mean Corpuscular Volume 89.5 fL (80-100); Mean Platelet Volume 12.2 fL (7.4-10.4); Monocytes # (auto) 1.16 K/uL (0.11-0.59); Monocytes % (auto) 6.3 %; Neutrophils # (auto) 16.17 K/uL (1.4-6.5); Neutrophils % (auto) 87.9 %; Platelet Count 195 K/uL (130-400); RDW Coefficient of Variation 12.9 % (11.5-14.5); RDW Standard Deviation 42.1 fL (36.4-46.3); Red Blood Count 4.77 M/uL (4.7-6.1); White Blood Count 18.37 K/uL (4.8-10.8)
[2020-10-07 12:32] LABS: BUN Creatinine Ratio 14.3 (10-20); Calcium 8.6 mg/dl (8.5-10.1); Creatinine Clr Calc Pharmacy 76.6 ml/min; Est GFR (African American) 67.3 ml/min; Est GFR (Non-African American) 58.1 ml/min
[2020-10-07] MEDS: SERTRALINE HCL 50 MG TABLET PO SCH (12:41)
[2020-10-07] MEDS: TAMSULOSIN HCL 0.4 MG CAP PO SCH (12:41)
[2020-10-07] MEDS: LINACLOTIDE 145 MCG CAPSULE PO SCH (12:42)
[2020-10-07] MEDS: ENOXAPARIN INJ 40 MG/0.4 ML SYR SQ SCH (12:42)
[2020-10-07] MEDS: UMECLIDINIUM BROMIDE 62.5MCG/BLISTER 7 PUFFS/INHALER INH SCH (12:43)
[2020-10-07] MEDS: FLUTICASONE/VILANTEROL 100/25MCG 14 PUFFS/INHALER INH SCH (12:43)
[2020-10-07] MEDS: INSULIN ASPART 100 UNITS/ML 3 ML PEN SC SCH ×3 (13:45→20:58)
[2020-10-07] MEDS: CEFEPIME 2,000 MG in SYRINGE 0 ML IV SCH ×2 (16:27→23:59)
--- NOTE | 2020-10-07 18:10 | History & Physical Report ---
Date of Service October 07, 2020 Assessment & Plan (1) Pneumonia: Plan: With sepsis present on admission. Right middle lobe. Most likely strep or Haemophilus type bacteria, cannot rule out aspiration given that it happened around the time he was vomiting. At any rate with MRSA nares being negative we do not need MRSA coverage, but will continue with cefepime as initiated in the ER at least until he stabilizes, and then possibly be able to to either complete a course with this, or downgrade to a third generation cephalosporin. He was given a fluid bolus in the ER, his heart rate and blood pressure quite stable. Given his diastolic CHF, rather than continuing fluids empirically, will follow how he does and rebolus if necessary. (Late in the day I revisited him, had noted some lower blood pressures in the chart, but in discussion with nursing his vitals have been good all day. He notes that he is feeling better than this morning, and ate well) His physical exam is consistent with constipationI suspect his nausea and vomiting may have been related to thatwill give MiraLAX and follow. (2) Sepsis: Plan: See above. See above as it relates to ongoing fluids. Cefepime. With MRSA nares negative no need for vancomycin at this time. (3) Respiratory failure: Plan: Related to pneumonia, present on admission, supportive care with supplemental oxygen, seems to be improving quickly. (4) Schizophrenia: Plan: Continue home meds for now, no need for acute inpatient psych intervention given that he is reasonably compensated, but will ask [facility] to have their house psychiatrist work with him given that the patient notes he is not as compensated as he would like to be or remembers being in the past, so it is possible that med adjustments might be helpful. (5) Diastolic CHF: Plan: Obviously with sepsis, currently he is appearing dry. He was given a fluid bolus and his hemodynamics are more stable. Given that he has diastolic CHF and currently stable hemodynamics, will refrain from further fluids. That said if he shows any persistent pattern of worsening with heart rate and blood pressure, we can definitely rebolus/reassess. In the meantime we will simply hold his Lasix until the situation is much more compensated. (6) GERD (gastroesophageal reflux disease): Plan: Continue PPI (7) Hypothyroidism: Plan: Continue Synthroid (8) COPD (chronic obstructive pulmonary disease): Plan: Initially gave him a dose of Solu-Medrol given COPD in the context of a pneumonia. That said fortunately through the day he seems to be showing nothing but progress, so for now I will refrain from further steroid dosing. (9) AI (obstructive sleep apnea): (10) BPH (benign prostatic hyperplasia): Plan: Flomax (11) Type II diabetes mellitus: Plan: Basal bolus insulin dosing, titrate to meet his needs. (12) DVT prophylaxis: Plan: Lovenox (13) Discharge planning issues: [address]ticipate return to [facility] after discharge. Full code. Admission and Anticipated Discharge Date Admission Date: October 07, 2020 History of Present Illness Chief Complaint: Nausea and vomiting Primary Care Provider: [facility] Patient is a very pleasant 65-year-old male who was sent over from [facility] with a constellation of nausea vomiting and hypoxia. He notes that yesterday he was feeling in his current state of health (see below as it relates to his schizophrenia), but otherwise feeling okay. Whenever he went to bed within about an hour he felt profoundly nauseated and threw up a whole bunch of times. No blood, no real abdominal pain. No diarrhea that he is aware of. After that he was sent to the ER. Here he was found to be hypoxic somewhere in the order of 79% on room air. He actually denies any shortness of breath now or cough or chest pain, although he is a little bit of a limited historian. Generally feeling better but fatigued by the time I see him. He does note that he does not feel his schizophrenia is going very well. He loosely endorses some degree of active hallucinations but does not entirely clarify, more than that though, he notes that he is having a lot of trouble with racing thoughts. He cannot recall who his regular psychiatrist is, he notes that he was in the [facility] for a while in the , and notes that he actually recalls a time of far better control with his schizophrenia than now. Allergies Allergy/AdvReac Type Severity Reaction Status Date / Time Penicillins Allergy Unknown Unknown Verified 10/07/20 07:43 Home Medications Medication Instructions Recorded Confirmed Type atorvastatin 10 mg tablet (Lipitor) 10 mg PO HS 08/28/20 10/07/20 History clozapine 100 mg tablet (Clozaril) 100 mg PO Q12 08/28/20 10/07/20 History ergocalciferol (vitamin D2) 1,250 1,250 mcg PO WK 08/28/20 10/07/20 History mcg (50,000 unit) capsule (Vitamin D2) ferrous sulfate 325 mg (65 mg 325 mg PO DAILY 08/28/20 10/07/20 History iron) tablet (FeroSul) fluticasone furoate 100 1 inh INHALATION DAILY 08/28/20 10/07/20 History mcg-vilanterol 25 mcg/dose inhalation powder (Breo Ellipta) furosemide 40 mg tablet (Lasix) 40 mg PO .Q DINNER 08/28/20 10/07/20 History furosemide 80 mg tablet (Lasix) 80 mg PO DAILY 08/28/20 10/07/20 History insulin aspart U-100 100 unit/mL 10 unit SUBCUT TIDM 08/28/20 10/07/20 History subcutaneous solution (Novolog U-100 Insulin aspart) levothyroxine 175 mcg tablet 175 mcg PO DAILY 08/28/20 10/07/20 History (Synthroid) linaclotide 290 mcg capsule 290 mcg PO QAM 08/28/20 10/07/20 History (Linzess) liraglutide 0.6 mg/0.1 mL (18 mg/3 1.8 mg SUBCUT DAILY 08/28/20 10/07/20 History mL) subcutaneous pen injector (Victoza 2-Tony) metoprolol succinate 50 mg 50 mg PO DAILY 08/28/20 10/07/20 History tablet,extended release 24 hr (Toprol XL) potassium chloride 20 mEq 20 meq PO BID 08/28/20 10/07/20 History tablet,extended release (K-Tab) sertraline 50 mg tablet (Zoloft) 50 mg PO DAILY 08/28/20 10/07/20 History tamsulosin 0.4 mg capsule (Flomax) 0.4 mg PO DAILY 08/28/20 10/07/20 History dicyclomine 10 mg capsule 10 mg PO Q8H PRN 10/07/20 10/07/20 History insulin glargine 100 unit/mL (3 30 unit SUBCUT HS 10/07/20 10/07/20 History mL) subcutaneous pen (Basaglar KwikPen U-100 Insulin) multivitamin (Daily Multi-Vitamin) 1 tab PO DAILY 10/07/20 10/07/20 History omeprazole 20 mg capsule,delayed 20 mg PO DAILY 10/07/20 10/07/20 History release tramadol 50 mg tablet (Ultram) 25 mg PO Q12 PRN 10/07/20 10/07/20 History Past Med/Surg History Medical History Chest pain Social History Smoking Status: Former smoker Second Hand Exposure: No; Do You Dip or Chew Tobacco: No; Tobacco Cessation Education Requested by Patient: No Hx Alcohol Use: No Hx Substance Use: No Preferred Language: Ivorian Communication Ability: Effective Voip Network Engineer Required: No Beliefs That Will Affect Care: None Current Living Situation: [facility] Current Living Situation Comment: Pt from [facility], currently @ [facility] for amb dysfunction current occupational status: retired Other Information That Helps Us Care for You: No Feels Safe at Home: Yes Safety Concerns: Feels Safe At This Time Assistive Devices: CPAP, Oxygen - Continuous, Walker and Wheelchair Review of Systems Review of Systems: All systems reviewed & are unremarkable except as noted in HPI & below Physical Exam Physical Exam: In general he is awake alert oriented, pleasant no distress, but does appear quite fatigued. HEENT normocephalic atraumatic mucous membranes are moist. Lungs are surprisingly clear to auscultation bilaterally, may be not the best respiratory effort, but no rales rhonchi or wheezes noted, no accessory muscle use. He is wearing a nonrebreather whenever I enter the room, he takes it off while were talking and shows no respiratory distress, during that time his pulse ox slowly dropped from high 90s to 89 with no distress, as he gets to that point I asked him to put his oxygen mask back on. Cardio is regular without rubs murmurs or gallops. Abdomen is soft moderately distended left lower quadrant fullness and may be a question of tenderness, but no guarding rebound or rigidity. Extremities show no cyanosis or clubbing, chronic venous stasis type changes with edema about 1+. Neuro shows cranial nerves II through XII be grossly intact gross motor and sensory are intact. Musculoskeletal exam shows no gross abnormalities. Mental status shows good recent and remote recall, pleasant mood and affect, fair judgment and insight. Results & Data Results & Data ([facility]) Vital Signs (Past 12 Hours) Vital Signs Temp Pulse Pulse Resp BP BP Pulse Ox 10/07/20 16:00 94 H 10/07/20 15:43 102 H 25 H 81/57 L 97 10/07/20 12:22 96 H 16 99 10/07/20 11:22 98.6 F 96 H 25 H 119/74 98 10/07/20 11:15 98.6 F 96 H 25 H 119/74 98 10/07/20 10:30 99 H 18 95/73 L 96 10/07/20 10:15 99 H 17 99/62 L 96 10/07/20 09:45 106 H 21 105/82 93 10/07/20 09:30 102 H 22 120/78 98 10/07/20 09:16 104 H 21 104/83 98 10/07/20 09:00 106 H 17 96/60 L 98 10/07/20 08:40 108 H 9 L 100 10/07/20 08:31 111 H 16 100 10/07/20 08:16 112 H 11 L 118/71 100 10/07/20 08:00 112 H 15 126/86 100 10/07/20 07:46 116 H 17 119/83 99 10/07/20 07:30 117 H 19 126/93 99 10/07/20 07:29 117 H 15 112/91 98 Pulse Ox 10/07/20 16:00 10/07/20 15:43 10/07/20 12:22 10/07/20 11:22 97 10/07/20 11:15 10/07/20 10:30 10/07/20 10:15 10/07/20 09:45 10/07/20 09:30 10/07/20 09:16 10/07/20 09:00 10/07/20 08:40 10/07/20 08:31 10/07/20 08:16 10/07/20 08:00 10/07/20 07:46 10/07/20 07:30 10/07/20 07:29 Code Status & VTE Plan VTE Prophylaxis Plan VTE Prophylaxis will be ordered: Yes PG Care Time/CCT Total # of Minutes Spent Total Time Spent with Patient: Total time spent is greater than 50% in coordination of care (as documented) at patient's floor/unit and/or counseling patient: Coding Level of Care Code 75450 Initial Inpt Care Lvl 3 Diagnoses Pneumonia J18.9 Laterality: right Lung location: middle lobe of lung Pneumonia type: due to unspecified organism Sepsis A41.9; R65.20; J96.01 Acute respiratory failure type: with hypoxia Sepsis acute organ dysfunction status: with acute organ dysfunction Sepsis type: sepsis due to unspecified organism Severe sepsis acute organ dysfunction type: acute respiratory failure Severe sepsis shock status: without septic shock Respiratory failure J96.01 Chronicity: acute Respiratory failure complication: hypoxia Schizophrenia F20.9 Diastolic CHF I50.30 GERD (gastroesophageal reflux disease) K21.9 Hypothyroidism E03.9 COPD (chronic obstructive pulmonary disease) J44.9 AI (obstructive sleep apnea) G47.33 BPH (benign prostatic hyperplasia) N40.0 Type II diabetes mellitus E11.9 DVT prophylaxis Z29.9 Discharge planning issues Z02.9 (1) Pneumonia Laterality: right Lung location: middle lobe of lung Pneumonia type: due to unspecified organism Qualified Code(s): J18.9 - Pneumonia, unspecified organism (2) Sepsis Acute respiratory failure type: with hypoxia Sepsis acute organ dysfunction status: with acute organ dysfunction Sepsis type: sepsis due to unspecified organism Severe sepsis acute organ dysfunction type: acute respiratory failure Severe sepsis shock status: without septic shock Qualified Code(s): A41.9 - Sepsis, unspecified organism; R65.20 - Severe sepsis without septic shock; J96.01 - Acute respiratory failure with hypoxia (3) Respiratory failure Chronicity: acute Respiratory failure complication: hypoxia Qualified Code(s): J96.01 - Acute respiratory failure with hypoxia
[2020-10-07] MEDS: POTASSIUM CHLORIDE CRTAB 20 MEQ TABCR PO SCH (20:57)
[2020-10-07] MEDS: cloZAPine 100 MG TAB PO SCH (20:57)
[2020-10-07] MEDS: ATORVASTATIN 10 MG TAB PO SCH (20:57)
[2020-10-07] MEDS: INSULIN GLARGINE SOLOSTAR 100 UNITS/ML 3 ML PEN SQ SCH (20:58)
[2020-10-08 05:15] LABS: Basophils # (auto) 0.01 K/uL (0-0.2); Basophils % (auto) 0.1 %; Hematocrit (blood only) 41.1 % (42-52); Hemoglobin 13.7 g/dL (14.0-18.0); Immature Granulocytes # (auto) 0.11 K/uL (0.00-0.02); Immature Granulocytes % (auto) 0.6 %; Lymphocytes # (auto) 1.24 K/uL (1.2-3.4); Lymphocytes % (auto) 7.1 %; Mean Corpuscular Hemoglobin 29.8 pg (25-34); Mean Corpuscular Hgb Conc 33.3 g/dL (32-36); Mean Corpuscular Volume 89.5 fL (80-100); Mean Platelet Volume 12.2 fL (7.4-10.4); Monocytes # (auto) 1.13 K/uL (0.11-0.59); Monocytes % (auto) 6.5 %; Neutrophils # (auto) 14.99 K/uL (1.4-6.5); Neutrophils % (auto) 85.7 %; Platelet Count 187 K/uL (130-400); RDW Coefficient of Variation 12.9 % (11.5-14.5); RDW Standard Deviation 41.7 fL (36.4-46.3); Red Blood Count 4.59 M/uL (4.7-6.1); White Blood Count 17.48 K/uL (4.8-10.8)
[2020-10-08] MEDS: LEVOTHYROXINE SODIUM 175 MCG TABLET PO SCH (05:29)
[2020-10-08 05:48] LABS: BUN Creatinine Ratio 21.3 (10-20); Calcium 8.9 mg/dl (8.5-10.1); Creatinine Clr Calc Pharmacy 78.5 ml/min; Est GFR (African American) 69.3 ml/min; Est GFR (Non-African American) 59.8 ml/min; Potassium 4.3 mmol/L (3.5-5.1)
--- NOTE | 2020-10-08 07:36 | Electrocardiogram Report ---
Test Reason : Blood Pressure : / mmHG Vent. Rate : 106 BPM Atrial Rate : 125 BPM P-R Int : 000 ms QRS Dur : 204 ms QT Int : 454 ms P-R-T Axes : 000 -81 082 degrees QTc Int : 603 ms Ventricular-paced rhythm Abnormal ECG When compared with ECG of 28-AUG-2020 19:05, Vent. rate has increased BY 14 BPM Confirmed by Hubert Casey ([id number]) on 10/08/2020 7:35:52 AM Referred By: [facility] Confirmed By:Edis Casey
[2020-10-08] MEDS ORDERED: LEVALBUTEROL HCL 0.63 MG/3 ML NEB NEB STA (08:31)
[2020-10-08] MEDS ORDERED: IPRATROPIUM BROMIDE NEB SOLN 0.02% 2.5 ML VIAL NEB STA (08:32)
[2020-10-08 08:52] LABS: Base Excess ABG -0.6 mEq/L (-9-1.8); HCO3 ABG 27 mmol/L (19-24); Oxygen Saturation ABG 95.7 % (90-95); PCO2 ABG 54 mmHg (35-46); PO2 ABG 82 mmHg (80-95); pH ABG 7.31 (7.35-7.45)
[2020-10-08 08:55] LABS: Allen Test Pos (Pos)
[2020-10-08] MEDS ORDERED: FUROSEMIDE 40 MG in SYRINGE 0 ML IV ONE (09:00)
[2020-10-08] MEDS: CEFEPIME 2,000 MG in SYRINGE 0 ML IV SCH ×2 (09:04→15:56)
[2020-10-08] MEDS: DICYCLOMINE HCL 10 MG CAP PO PRN ×2 (09:08→11:09)
[2020-10-08] MEDS: INSULIN ASPART 100 UNITS/ML 3 ML PEN SC SCH ×4 (09:11→20:18)
[2020-10-08] MEDS: MAGNESIUM SULFATE / D5W 1 GM/100 ML BAG IV SCH ×2 (09:20→11:20)
--- NOTE | 2020-10-08 09:45 | XRay Report ---
SINGLE VIEW CHEST CLINICAL HISTORY: Airspace consolidation. FINDINGS: An AP, portable, upright chest radiograph is compared to study dated 10/07/2020. A 2-lead car diac pacemaker is unchanged in position and partially obscures the left upper chest. The heart is enl arged. The pulmonary vasculature is noncongested. Airspace consolidation is seen in the right upper l arron, typical in appearance for pneumonia. Atelectasis is noted at the left lung base. No large pleura l effusion or pneumothorax is seen. The bony thorax is grossly intact. IMPRESSION: 1. Cardiomegaly and cardiac pacemaker. There is no radiographic evidence of congestive failure. 2. Airspace consolidation is again seen throughout the right upper lung. This is typical for pneumoni a, and appears minimally cleared as compared to yesterday. ACT 112: Negative or not required by law. Electronically signed by: Phong Bower M.D. 10/08/2020 9:43 AM
[2020-10-08 10:50] LABS: Allen Test Pos (Pos); Base Excess ABG 0.3 mEq/L (-9-1.8); HCO3 ABG 26 mmol/L (19-24); Oxygen Saturation ABG 98.5 % (90-95); PCO2 ABG 45 mmHg (35-46); PO2 ABG 125 mmHg (80-95); pH ABG 7.38 (7.35-7.45)
[2020-10-08] MEDS: metroNIDAZOLE 500 MG/100 ML BAG IV SCH ×2 (11:09→16:03)
[2020-10-08] MEDS: TAMSULOSIN HCL 0.4 MG CAP PO SCH (11:10)
[2020-10-08] MEDS: LINACLOTIDE 145 MCG CAPSULE PO SCH (11:10)
[2020-10-08] MEDS: FERROUS SULFATE 325 MG TAB PO SCH (11:10)
[2020-10-08] MEDS: PANTOprazole 40 MG TAB PO SCH (11:10)
[2020-10-08] MEDS: MULTIVITAMIN TAB PO SCH (11:10)
[2020-10-08] MEDS: POTASSIUM CHLORIDE CRTAB 20 MEQ TABCR PO SCH ×2 (11:10→20:37)
[2020-10-08] MEDS: METOPROLOL SUCC 50MG EXT REL TAB PO SCH (11:11)
[2020-10-08] MEDS: cloZAPine 100 MG TAB PO SCH ×2 (11:11→20:37)
[2020-10-08] MEDS: guaiFENesin 600 MG TABCR PO SCH ×2 (11:11→20:37)
[2020-10-08] MEDS: POLYETHYLENE (MIRALAX) 17 GM PACK PO SCH (11:12)
[2020-10-08] MEDS: UMECLIDINIUM BROMIDE 62.5MCG/BLISTER 7 PUFFS/INHALER INH SCH (11:12)
[2020-10-08] MEDS: SERTRALINE HCL 50 MG TABLET PO SCH (11:12)
[2020-10-08] MEDS: FLUTICASONE/VILANTEROL 100/25MCG 14 PUFFS/INHALER INH SCH (11:13)
[2020-10-08] MEDS: ENOXAPARIN INJ 40 MG/0.4 ML SYR SQ SCH (12:35)
--- NOTE | 2020-10-08 13:32 | CT Scan Report ---
CT SCAN OF THE BRAIN WITHOUT IV CONTRAST CLINICAL HISTORY: Change in mental status. Aspiration. COMPARISON STUDY: No priors. TECHNIQUE: Unenhanced axial CT scan of the brain is performed from the vertex to the skull base. A do se lowering technique was utilized adhering to the principles of ALARA. CT DOSE: 720.23 mGy.cm FINDINGS: Brain parenchyma: There are age-related involutional changes noting minimal microangiopathic disease . There is no hemorrhage, mass effect, or evidence of acute territorial ischemia by CT criteria. Zepeda -white matter differentiation is preserved. No extra-axial fluid collection is seen. Ventricles, sulci, cisterns: Prominent secondary to involutional change. Intracranial vasculature: There is mild atherosclerotic calcification of the cavernous carotid arteri es. Calvarium: Unremarkable. Sinuses and mastoids: The visualized paranasal sinuses are clear. The mastoid air cells are well pneu matized. Orbits: The bony orbits are grossly intact. There are bilateral ocular lens implants. IMPRESSION: There is no hemorrhage, mass effect, or evidence of acute territorial ischemia by CT alicja mccoy. ACT 112: Negative or not required by law. Electronically signed by: Phong Bower M.D. 10/08/2020 1:31 PM
[2020-10-08] MEDS: LEVALBUTEROL HCL 0.63 MG/3 ML NEB NEB SCH ×2 (13:45→19:23)
[2020-10-08] MEDS: IPRATROPIUM BROMIDE NEB SOLN 0.02% 2.5 ML VIAL NEB SCH ×2 (13:45→19:23)
--- NOTE | 2020-10-08 16:45 | Hospitalist Progress Note ---
Date of Service October 08, 2020 Assessment & Plan (1) Acute hypercapnic respiratory failure: Plan: -Patient with a history of COPD. Also, AI and does not have a CPAP. Oxygen was titrated as high as 15 L with sleeping last night likely treating the apneic episodes but only exacerbating hypercapnia and given his COPD and risk for CO2 retention -Repeat blood gas has corrected with a short period of BiPAP use -Avoid titrating supplemental oxygen to a pulse ox of greater than 92%. Staff notified -Patient had some mild flash pulmonary edema as well. Likely related to sleep apnea (does not wear a CPAP). This seems to have improved with 1 dose of IV Lasix and BiPAP -resume oral Lasix (But at 40 mg twice a day rather than 80 in the morning and 40 in the evening) as patient appeared volume contracted upon presentation -Patient with known AI and does not wear CPAP. Simply wears O2 at night. Should have a follow-up sleep study as an outpatient- to determine need for CPAP -will use BiPAP while sleeping while in house. --Echocardiogram done showing EF of 60 to 65% with atypical wall motion abnormality which may reflect pacemaker activation. Mild concentric LV hypertrophy. Diastolic dysfunction. Right ventricle mildly dilated. No significant valvular disease. (2) Pneumonia: Plan: -Given his preceding symptoms of nausea and vomiting, likely aspiration -Patient denies dysphagia or trouble swallowing. Nurse did a bedside exam and he does not seem to have any aspiration issues -Uncertain if he perhaps had a viral GI bug and subsequently aspirated as a result of violent retching -At any rate, continue cefepime given his penicillin allergy. This would provide adequate gram-negative coverage including antipseudomonal (as [facility]). Given that this is a right middle lobe pneumonia and he had vomiting prior to, aspiration should be a strong consideration. We will add Flagyl for added anaerobic coverage. If patient does well, could consider transition to Levaquin/Flagyl upon discharge -Add routine nebulized treatments -Add Mucinex -Cultures ordered and pending. Add sputum cultures -Given his aspiration and altered mental status this morning, CT of the head was obtained and negative. -Seems to be doing well with his bedside swallow eval without apparent dysphagia. I suspect if aspiration is the culprit of his pneumonia, simply due to intractable nausea and vomiting rather than true dysphagia. In addition, if this occurred while laying/sleeping, he could have been slightly altered in terms of his mentation only increasing his risk of aspiration (given his AI and likelihood for hypercapnia). (3) Sepsis: Plan: See above. See above as it relates to ongoing fluids. Cefepime. With MRSA nares negative no need for vancomycin at this time. (4) Respiratory failure: Plan: -See above (5) Schizophrenia: Plan: Continue home meds for now, no need for acute inpatient psych intervention given that he is reasonably compensated, but will ask [facility] to have their house psychiatrist work with him given that the patient notes he is not as compensated as he would like to be or remembers being in the past, so it is possible that med adjustments might be helpful. (6) Diastolic CHF: Plan: -Initially volume contracted and hypotensive upfront. This has since corrected with minimal IV hydration -Resume Lasix at a reduced dose (of 40 mg twice a day) and watch closely for signs and symptoms of volume overload (7) GERD (gastroesophageal reflux disease): Plan: Continue PPI (8) Hypothyroidism: Plan: Continue Synthroid (9) COPD (chronic obstructive pulmonary disease): Plan: Initially gave him a dose of Solu-Medrol given COPD in the context of a pneumonia--which is likely contributing to his leukocytosis Does not appear to have an acute exacerbation of his COPD. He is not wheezing and is moving adequate air. Hold off on added steroids at this time (10) AI (obstructive sleep apnea): Plan: BiPAP when sleeping as outlined above Needs sleep study as an outpatient (11) BPH (benign prostatic hyperplasia): Plan: Flomax (12) Type II diabetes mellitus: Plan: Basal bolus insulin dosing, titrate to meet his needs. (13) DVT prophylaxis: Plan: Lovenox (14) Discharge planning issues: Plan: Anticipate return to [facility] after discharge. Full code. Plan: Plan of care to be discussed with Dr. Modi. Further orders as warranted. Admission and Anticipated Discharge Date Admission Date: October 07, 2020 Subjective Patient seen on daily rounds today. He was hospitalized yesterday with RML pneumonia and sepsis syndrome. He had a white blood cell count of 18.33, was afebrile, tachycardic at 117, and moderately hypotensive at 87/57. He was also found to have hypoxemia of 79% on room air following multiple bouts of emesis. He did have a right middle lobe infiltrate seen on imaging. His Covid test was negative. He was hospitalized and on cefepime. He was given gentle IV hydration upfront and then fluids and Lasix subsequently both held as patient initially appeared to be volume contracted. This morning, patient was obtunded and unable to provide any form of history. He had audible rhonchi at the bedside. His white blood cell count remained elevated at 17.48; however, did receive 1 dose of IV Solu-Medrol in the ED). A blood gas was drawn and patient subsequently placed on BiPAP with 1 dose of IV Lasix for some clinical volume overload with perhaps acute hypercapnia. In addition, a BNP and CXR were obtained. Blood gas did show some mild acute hypercapnia with a pH of 7.31, PCO2 54, PO2 of 82. BNP was up trending and now 696 (248 on admission) Patient was reassessed after kept on BiPAP for 1 hour. More awake and conversant. Repeat blood gas improved (7.38/45/125) CT of the head was obtained showing no acute intracranial process Patient a limited historian today. Able to tell me that he had some vomiting which prompted his evaluation into the ED. Does complain of some mild shortness of breath but overall no significant complaints. Denies fevers, chills, chest pain, abdominal pain, nausea or vomiting. More concerned of getting "bacteria in his blood" with all of these lab draws. Review of Systems Review of Systems: All systems reviewed and are unremarkable except as noted in HPI and below Denies fevers, chills, headache, nasal congestion, sore throat, cough, chest pain, abdominal pain, nausea, vomiting, dysuria, hematuria, frequency, skin lesions or rashes. Physical Exam Physical Exam: General: Initially seen, patient obtunded with audible rhonchi at bedside. After BiPAP therapy X 1 hour and 40 of Lasix IVpatient more awake. Somnolent but arousable. No acute distress Neck: No JVD. Negative hepatojugular reflex Cardiac: RRR with frequent ectopy Lungs: Initially with coarse scattered rhonchi that mobilizes but does not clear with coughing. Rales in the right anterior chest wall. Mild bibasilar crackles Abdomen: Normoactive X4. Soft and nontender in all quadrants. Extremities: No peripheral clubbing cyanosis or edema Neuro: A&O X4 cranial nerves II through XII are grossly intact no focal neuro deficits. Accounts Receivable Supervisor strength diminished but equal bilaterally. Downward Babinski Skin: No obvious skin lesions or rashes Results & Data Results & Data ([facility]) Vital Signs (Past 12 Hours) Vital Signs Temp Pulse Pulse Resp BP Pulse Ox Pulse Ox 10/08/20 15:44 36.9 C 108 H 18 115/62 95 10/08/20 13:30 18 94 10/08/20 12:00 36.5 C 108 H 18 127/69 94 10/08/20 11:15 91 10/08/20 09:15 111 H 18 96 10/08/20 08:20 20 98 10/08/20 07:52 111 H 10/08/20 07:28 36.4 C L 115 H 24 135/78 94 10/08/20 04:56 36.4 C L 119 H 20 130/76 95 Laboratory Results 10/08/20 04:48 10/08/20 04:48 BNP: 969 (248 on admission) 10/08/20 10/08/20 08:39 10:39 ABG pH 7.31 L 7.38 ABG pCO2 54 H 45 ABG pO2 82 125 H ABG HCO3 27 H 26 H ABG O2 Saturation 95.7 H 98.5 H ABG Base Excess -0.6 0.3 PG Care Time/CCT Total # of Minutes Spent Total Time Spent with Patient: Total time spent is greater than 50% in coordination of care (as documented) at patient's floor/unit and/or counseling patient: C[place] [address] Subseq Hosp Care Lvl 3 Patient Type Established History Comprehensive Exam Comprehensive Medical Decision Making High Complexity Diagnoses Pneumonia J18.9 Laterality: right Lung location: middle lobe of lung Pneumonia type: due to unspecified organism Sepsis A41.9; R65.20; J96.01 Acute respiratory failure type: with hypoxia Sepsis acute organ dysfunction status: with acute organ dysfunction Sepsis type: sepsis due to unspecified organism Severe sepsis acute organ dysfunction type: acute respiratory failure Severe sepsis shock status: without septic shock Respiratory failure J96.01 Chronicity: acute Respiratory failure complication: hypoxia Schizophrenia F20.9 Diastolic CHF I50.30 GERD (gastroesophageal reflux disease) K21.9 Hypothyroidism E03.9 COPD (chronic obstructive pulmonary disease) J44.9 AI (obstructive sleep apnea) G47.33 BPH (benign prostatic hyperplasia) N40.0 Type II diabetes mellitus E11.9 DVT prophylaxis Z29.9 Discharge planning issues Z02.9 Acute hypercapnic respiratory failure J96.02 Time Spent (min) 90 (1) Pneumonia Laterality: right Lung location: middle lobe of lung Pneumonia type: due to unspecified organism Qualified Code(s): J18.9 - Pneumonia, unspecified organism (2) Sepsis Acute respiratory failure type: with hypoxia Sepsis acute organ dysfunction status: with acute organ dysfunction Sepsis type: sepsis due to unspecified organism Severe sepsis acute organ dysfunction type: acute respiratory failure Severe sepsis shock status: without septic shock Qualified Code(s): A41.9 - Sepsis, unspecified organism; R65.20 - Severe sepsis without septic shock; J96.01 - Acute respiratory failure with hypoxia (3) Respiratory failure Chronicity: acute Respiratory failure complication: hypoxia Qualified Co de(s): J96.01 - Acute respiratory failure with hypoxia
[2020-10-08] MEDS: FUROSEMIDE 40 MG TAB PO SCH (17:57)
[2020-10-08] MEDS: INSULIN GLARGINE SOLOSTAR 100 UNITS/ML 3 ML PEN SQ SCH (20:18)
[2020-10-08] MEDS: ATORVASTATIN 10 MG TAB PO SCH (20:37)
[2020-10-09] MEDS: CEFEPIME 2,000 MG in SYRINGE 0 ML IV SCH ×4 (00:17→23:20)
[2020-10-09] MEDS: metroNIDAZOLE 500 MG/100 ML BAG IV SCH ×4 (00:22→23:49)
[2020-10-09] MEDS: IPRATROPIUM BROMIDE NEB SOLN 0.02% 2.5 ML VIAL NEB SCH ×4 (01:10→19:12)
[2020-10-09] MEDS: LEVALBUTEROL HCL 0.63 MG/3 ML NEB NEB SCH ×4 (01:10→19:12)
[2020-10-09] MEDS: LEVOTHYROXINE SODIUM 175 MCG TABLET PO SCH (06:11)
[2020-10-09 07:44] LABS: Basophils # (auto) 0.03 K/uL (0-0.2); Basophils % (auto) 0.2 %; Eosinophils # (auto) 0.21 K/uL (0-0.5); Eosinophils % (auto) 1.6 %; Hematocrit (blood only) 40.8 % (42-52); Hemoglobin 13.2 g/dL (14.0-18.0); Immature Granulocytes # (auto) 0.06 K/uL (0.00-0.02); Immature Granulocytes % (auto) 0.5 %; Lymphocytes # (auto) 2.05 K/uL (1.2-3.4); Lymphocytes % (auto) 15.9 %; Mean Corpuscular Hemoglobin 29.4 pg (25-34); Mean Corpuscular Hgb Conc 32.4 g/dL (32-36); Mean Corpuscular Volume 90.9 fL (80-100); Mean Platelet Volume 11.9 fL (7.4-10.4); Monocytes # (auto) 1.08 K/uL (0.11-0.59); Monocytes % (auto) 8.4 %; Neutrophils # (auto) 9.48 K/uL (1.4-6.5); Neutrophils % (auto) 73.4 %; Platelet Count 190 K/uL (130-400); RDW Coefficient of Variation 13.2 % (11.5-14.5); RDW Standard Deviation 43.3 fL (36.4-46.3); Red Blood Count 4.49 M/uL (4.7-6.1); White Blood Count 12.91 K/uL (4.8-10.8)
[2020-10-09 08:09] LABS: Albumin Globulin Ratio 0.8 (0.9-2); Albumin Level 2.8 gm/dl (3.4-5.0); BUN Creatinine Ratio 25.5 (10-20); Bilirubin,Total 0.3 mg/dl (0.2-1); Calcium 9.3 mg/dl (8.5-10.1); Creatinine Clr Calc Pharmacy 92.6 ml/min; Est GFR (African American) 88.8 ml/min; Est GFR (Non-African American) 76.6 ml/min; Globulin 3.4 gm/dl (2.5-4.0); Potassium 3.3 mmol/L (3.5-5.1); Total Protein 6.2 gm/dl (6.4-8.2)
[2020-10-09] MEDS: FUROSEMIDE 40 MG TAB PO SCH ×2 (08:24→17:35)
[2020-10-09] MEDS: METOPROLOL SUCC 50MG EXT REL TAB PO SCH (08:25)
[2020-10-09] MEDS: SERTRALINE HCL 50 MG TABLET PO SCH (08:25)
[2020-10-09] MEDS: guaiFENesin 600 MG TABCR PO SCH ×2 (08:25→19:56)
[2020-10-09] MEDS: MULTIVITAMIN TAB PO SCH (08:26)
[2020-10-09] MEDS: LINACLOTIDE 145 MCG CAPSULE PO SCH (08:26)
[2020-10-09] MEDS: PANTOprazole 40 MG TAB PO SCH (08:26)
[2020-10-09] MEDS: cloZAPine 100 MG TAB PO SCH ×2 (08:26→19:56)
[2020-10-09] MEDS: TAMSULOSIN HCL 0.4 MG CAP PO SCH (08:26)
[2020-10-09] MEDS: FLUTICASONE/VILANTEROL 100/25MCG 14 PUFFS/INHALER INH SCH (08:27)
[2020-10-09] MEDS: FERROUS SULFATE 325 MG TAB PO SCH (08:27)
[2020-10-09] MEDS: INSULIN ASPART 100 UNITS/ML 3 ML PEN SC SCH ×4 (08:28→20:03)
[2020-10-09] MEDS: UMECLIDINIUM BROMIDE 62.5MCG/BLISTER 7 PUFFS/INHALER INH SCH (08:28)
[2020-10-09] MEDS: POLYETHYLENE (MIRALAX) 17 GM PACK PO SCH (08:54)
[2020-10-09] MEDS: POTASSIUM CHLORIDE CRTAB 20 MEQ TABCR PO SCH ×2 (08:54→19:58)
[2020-10-09] MEDS ORDERED: ERGOCALCIFEROL 50,000 UNITS 1250 MCG CAP PO SCH (09:00)
[2020-10-09] MEDS ORDERED: POTASSIUM CHLORIDE CRTAB 20 MEQ TABCR PO STA (09:34)
--- NOTE | 2020-10-09 10:53 | Hospitalist Progress Note ---
Date of Service October 09, 2020 Assessment & Plan (1) Acute hypercapnic respiratory failure: Plan: Here with acute on chronic hypoxic and hypercapnic respiratory failure-overall improving Presented with pneumonia and hypoxia which was worsening with rising PaCO2 after being on high levels of oxygen through the night on 10/07 Now improved after using BiPAP Wean down to 2 L nasal cannula continuously-Home dose is 2 L nasal cannula at bedtime -Patient with a history of COPD. Also, AI and does not have a CPAP -Continue treating pneumonia -Order incentive spirometry -Avoid titrating supplemental oxygen to a pulse ox of greater than 92%. Staff notified -Patient had some mild flash pulmonary edema as well. Likely related to sleep apnea (does not wear a CPAP). This seems to have improved with 1 dose of IV Lasix and BiPAP -Continue oral Lasix (But at 40 mg twice a day rather than 80 in the morning and 40 in the evening) as patient appeared volume contracted upon presentation -Patient with known AI and does not wear CPAP. Simply wears O2 at night. Should have a follow-up sleep study as an outpatient- to determine need for CPAP -will use BiPAP while sleeping while in house. --Echocardiogram done showing EF of 60 to 65% with atypical wall motion abnormality which may reflect pacemaker activation. Mild concentric LV hypertrophy. Diastolic dysfunction. Right ventricle mildly dilated. No significant valvular disease. (2) Pneumonia: Plan: -Given his preceding symptoms of nausea and vomiting, likely aspiration -Patient denies dysphagia or trouble swallowing. Nurse did a bedside exam and he does not seem to have any aspiration issues -Uncertain if he perhaps had a viral GI bug and subsequently aspirated as a result of violent retching -At any rate, continue cefepime given his penicillin allergy. This would provide adequate gram-negative coverage including antipseudomonal (as patient from [place] [facility] facility). Given that this is a right middle lobe pneumonia and he had vomiting prior to, aspiration should be a strong consideration and will continue on Flagyl for anaerobic coverage -Continue routine nebulized treatments -Continue Mucinex -Cultures ordered and pending. Add sputum cultures-pending -Given his aspiration and altered mental status this morning, CT of the head was obtained and negative. -Seems to be doing well with his bedside swallow eval without apparent dysphagia. I suspect if aspiration is the culprit of his pneumonia, simply due to intractable nausea and vomiting rather than true dysphagia. In addition, if this occurred while laying/sleeping, he could have been slightly altered in terms of his mentation only increasing his risk of aspiration (given his AI and likelihood for hypercapnia). Overall much improved (3) Sepsis: Plan: Now resolved, secondary to pneumonia (4) Schizophrenia: Plan: Continue home meds for now, no need for acute inpatient psych intervention given that he is reasonably compensated, but will ask [facility] to have their house psychiatrist work with him given that the patient notes he is not as compensated as he would like to be or remembers being in the past, so it is possible that med adjustments might be helpful. (5) Diastolic CHF: Plan: -Initially volume contracted and hypotensive upfront. This has since corrected with minimal IV hydration -Resumed Lasix at a reduced dose (of 40 mg twice a day) and watch closely for signs and symptoms of volume overload (6) GERD (gastroesophageal reflux disease): Plan: Continue PPI (7) Hypothyroidism: Plan: Continue Synthroid TSH here is low at 0.059 Repeat in 4 to 6 weeks as an outpatient when not sick and adjust dose if needed if still abnormal (8) COPD (chronic obstructive pulmonary disease): Plan: Initially gave him a dose of Solu-Medrol given COPD in the context of a pneumonia--which is likely contributing to his leukocytosis Does not appear to have an acute exacerbation of his COPD. He is not wheezing and is moving adequate air. Hold off on added steroids at this time (9) AI (obstructive sleep apnea): Plan: BiPAP when sleeping as outlined above Needs sleep study as an outpatient (10) BPH (benign prostatic hyperplasia): Plan: Flomax Bladder scan 200 mL on 10/09 (11) Type II diabetes mellitus: Plan: Basal bolus insulin dosing, titrate to meet his needs. Tighten down NovoLog sliding scale Improved hyperglycemia today (12) Metabolic encephalopathy: Plan: Secondary to pneumonia and hypoxia and hypercapnia as above Now resolved (13) Hypokalemia: Plan: Secondary to loop diuretic use Replace with oral potassium chloride Follow BMP and magnesium in the morning (14) Bacteremia: Plan: Suspect contamination 1/2 culture sets is with gram-positive cocci in clusters PCR negative for Staph aureus Continue on cefepime Follow blood cultures (15) Cardiac pacemaker: Plan: Noted Paced on telemetry (16) DVT prophylaxis: Plan: Lovenox (17) Discharge planning issues: Plan: Anticipate return to [facility] after discharge but will await PT/OT consultations. He comes originally from a personal nursing home. Full code. Admission and Anticipated Discharge Date Admission Date: October 07, 2020 Subjective Patient feeling well, very talkative and pleasant. Denies any hallucinations. Denies shortness of breath but has a little bit of a cough. Feels like he has to urinate but cannot. Bladder scan at the bedside while I was there showed less than 200 mL of urine. He is incontinent to urine also as per nursing. He asked about if he will go back to [facility] versus back to his usual personal nursing home at the time of discharge. Telemetry with paced rhythm rates in the 80s to 100s. Review of Systems Review of Systems: All systems reviewed & are unremarkable except as noted in HPI & below Physical Exam Constitutional: WD/WN, vitals as above Eyes: + anicteric sclerae Neck: trachea midline, no thyromegaly Respiratory: normal respiratory effort; no cough Auscultation: + crackles (Right middle lung field); no rhonchi and no wheezes Cardiovascular: RRR, no murmur, no edema Chest (Breasts): Chest: normal inspection of chest Gastrointestinal (Abdomen): normal bowel sounds, soft, nontender, no hepatosplenomegaly Musculoskeletal: Extremities: extremities normal to inspection; no cyanosis and no clubbing Skin: no rashes, warm and dry Neurologic: moves all extremities and awake; no focal motor deficits Psychiatric: A+Ox3, euthymic affect Lymphatic: no lymphedema Results & Data Results & Data ([facility] [place]) Vital Signs (Past 12 Hours) Vital Signs Temp Pulse Pulse Resp BP Pulse Ox 10/09/20 07:44 36.4 C L 77 18 119/74 96 10/09/20 07:27 77 19 97 10/09/20 03:33 96 H 20 79 L 10/09/20 03:29 36.0 C L 84 17 124/85 94 10/09/20 01:12 81 18 97 10/09/20 01:11 81 18 97 10/08/20 23:53 90 10/08/20 23:09 36.2 C L 87 20 155/90 H 96 Laboratory Results 08/09/21 08/09/21 08/09/21 Range/Units 07:17 07:10 07:10 WBC 12.91 H (4.8-10.8) K/uL RBC 4.49 L (4.7-6.1) M/uL Hgb 13.2 L (14.0-18.0) g/dL Hct 40.8 L (42-52) % MCV 90.9 (80-100) fL MCH 29.4 (25-34) pg MCHC 32.4 (32-36) g/dL RDW Std Deviation 43.3 (36.4-46.3) fL RDW Coeff of Shireen 13.2 (11.5-14.5) % Plt Count 190 (130-400) K/uL MPV 11.9 H (7.4-10.4) fL Immature Gran % (Auto) 0.5 % Neut % (Auto) 73.4 % Lymph % (Auto) 15.9 % Dent % (Auto) 8.4 % Eos % (Auto) 1.6 % Baso % (Auto) 0.2 % Neut # (Auto) 9.48 H (1.4-6.5) K/uL Lymph # (Auto) 2.05 (1.2-3.4) K/uL Dent # (Auto) 1.08 H (0.11-0.59) K/uL Eos # (Auto) 0.21 (0-0.5) K/uL Baso # (Auto) 0.03 (0-0.2) K/uL Immature Gran # (Auto) 0.06 H (0.00-0.02) K/uL Sodium 144 D (136-145) mmol/L Potassium 3.3 L D (3.5-5.1) mmol/L Chloride 110 H (98-107) mmol/L Carbon Dioxide 28 (21-32) mmol/L Anion Gap 5.0 (3-11) BUN 26 H (7-18) mg/dl Creatinine 1.01 (0.6-1.4) mg/dl Est Cr Clr Drug Dosing 92.6 ml/min Est GFR ( Amer) 88.8 ml/min Est GFR (Non-Af Amer) 76.6 ml/min BUN/Creatinine Ratio 25.5 H (10-20) Glucose 138 H (70-99) mg/dl POC Glucose 159 H (70-99) mg/dl Calcium 9.3 (8.5-10.1) mg/dl Magnesium 2.0 (1.8-2.4) mg/dl Total Bilirubin 0.3 (0.2-1) mg/dl AST 11 L (15-37) U/L ALT 23 (12-78) U/L Alkaline Phosphatase 108 (45-117) U/L Total Protein 6.2 L (6.4-8.2) gm/dl Albumin 2.8 L (3.4-5.0) gm/dl Globulin 3.4 (2.5-4.0) gm/dl Albumin/Globulin Ratio 0.8 L (0.9-2) Bld Cult Staph aureus PCR (Negative) Blood Culture MRSA PCR (Negative) 10/08/20 10/08/20 10/08/20 Range/Units 20:14 16:12 11:13 WBC (4.8-10.8) K/uL RBC (4.7-6.1) M/uL Hgb (14.0-18.0) g/dL Hct (42-52) % MCV (80-100) fL MCH (25-34) pg MCHC (32-36) g/dL RDW Std Deviation (36.4-46.3) fL RDW Coeff of Shireen (11.5-14.5) % Plt Count (130-400) K/uL MPV (7.4-10.4) fL Immature Gran % (Auto) % Neut % (Auto) % Lymph % (Auto) % Dent % (Auto) % Eos % (Auto) % Baso % (Auto) % Neut # (Auto) (1.4-6.5) K/uL Lymph # (Auto) (1.2-3.4) K/uL Dent # (Auto) (0.11-0.59) K/uL Eos # (Auto) (0-0.5) K/uL Baso # (Auto) (0-0.2) K/uL Immature Gran # (Auto) (0.00-0.02) K/uL Sodium (136-145) mmol/L Potassium (3.5-5.1) mmol/L Chloride (98-107) mmol/L Carbon Dioxide (21-32) mmol/L Anion Gap (3-11) BUN (7-18) mg/dl Creatinine (0.6-1.4) mg/dl Est Cr Clr Drug Dosing ml/min Est GFR ( Amer) ml/min Est GFR (Non-Af Amer) ml/min BUN/Creatinine Ratio (10-20) Glucose (70-99) mg/dl POC Glucose 235 H 272 H 259 H (70-99) mg/dl Calcium (8.5-10.1) mg/dl Magnesium (1.8-2.4) mg/dl Total Bilirubin (0.2-1) mg/dl AST (15-37) U/L ALT (12-78) U/L Alkaline Phosphatase (45-117) U/L Total Protein (6.4-8.2) gm/dl Albumin (3.4-5.0) gm/dl Globulin (2.5-4.0) gm/dl Albumin/Globulin Ratio (0.9-2) Bld Cult Staph aureus PCR (Negative) Blood Culture MRSA PCR (Negative) 10/07/20 Range/Units 08:30 WBC (4.8-10.8) K/uL RBC (4.7-6.1) M/uL Hgb (14.0-18.0) g/dL Hct (42-52) % MCV (80-100) fL MCH (25-34) pg MCHC (32-36) g/dL RDW Std Deviation (36.4-46.3) fL RDW Coeff of Shireen (11.5-14.5) % Plt Count (130-400) K/uL MPV (7.4-10.4) fL Immature Gran % (Auto) % Neut % (Auto) % Lymph % (Auto) % Dent % (Auto) % Eos % (Auto) % Baso % (Auto) % Neut # (Auto) (1.4-6.5) K/uL Lymph # (Auto) (1.2-3.4) K/uL Dent # (Auto) (0.11-0.59) K/uL Eos # (Auto) (0-0.5) K/uL Baso # (Auto) (0-0.2) K/uL Immature Gran # (Auto) (0.00-0.02) K/uL Sodium (136-145) mmol/L Potassium (3.5-5.1) mmol/L Chloride (98-107) mmol/L Carbon Dioxide (21-32) mmol/L Anion Gap (3-11) BUN (7-18) mg/dl Creatinine (0.6-1.4) mg/dl Est Cr Clr Drug Dosing ml/min Est GFR ( Amer) ml/min Est GFR (Non-Af Amer) ml/min BUN/Creatinine Ratio (10-20) Glucose (70-99) mg/dl POC Glucose (70-99) mg/dl Calcium (8.5-10.1) mg/dl Magnesium (1.8-2.4) mg/dl Total Bilirubin (0.2-1) mg/dl AST (15-37) U/L ALT (12-78) U/L Alkaline Phosphatase (45-117) U/L Total Protein (6.4-8.2) gm/dl Albumin (3.4-5.0) gm/dl Globulin (2.5-4.0) gm/dl Albumin/Globulin Ratio (0.9-2) Bld Cult Staph aureus PCR Negative (Negative) Blood Culture MRSA PCR Negative (Negative) PG Care Time/CCT Total # of Minutes Spent Total Time Spent with Patient: Total time spent is greater than 50% in coordination of care (as documented) at patient's floor/unit and/or counseling patient: Coding Level of Care Code 17454 Subseq Hosp Care Lvl 3 Diagnoses Acute hypercapnic respiratory failure J96.02 Pneumonia J18.9 Laterality: right Lung location: middle lobe of lung Pneumonia type: due to unspecified organism Sepsis A41.9; R65.20; J96.01 Acute respiratory failure type: with hypoxia Sepsis acute organ dysfunction status: with acute organ dysfunction Sepsis type: sepsis due to unspecified organism Severe sepsis acute organ dysfunction type: acute respiratory failure Severe sepsis shock status: without septic shock Schizophrenia F20.9 Diastolic CHF I50.30 GERD (gastroesophageal reflux disease) K21.9 Hypothyroidism E03.9 COPD (chronic obstructive pulmonary disease) J44.9 AI (obstructive sleep apnea) G47.33 BPH (benign prostatic hyperplasia) N40.0 Type II diabetes mellitus E11.9 DVT prophylaxis Z29.9 Discharge planning issues Z02.9 Metabolic encephalopathy G93.41 Hypokalemia E87.6 Bacteremia R78.81 Cardiac pacemaker Z95.0 (1) Sepsis Acute respiratory failure type: with hypoxia Sepsis acute organ dysfunction status: with acute organ dysfunction Sepsis type: sepsis due to unspecified organism Severe sepsis acute organ dysfunction type: acute respiratory failure Severe sepsis shock status: without septic shock Qualified Code(s): A41.9 - Sepsis, unspecified organism; R65.20 - Severe sepsis without septic shock; J96.01 - Acute respiratory failure with hypoxia (2) Pneumonia Laterality: right Lung location: middle lobe of lung Pneumonia type: due to unspecified organism Qualified Code(s): J18.9 - Pneumonia, unspecified organism
[2020-10-09] MEDS: ENOXAPARIN INJ 40 MG/0.4 ML SYR SQ SCH (12:38)
[2020-10-09] MEDS: ATORVASTATIN 10 MG TAB PO SCH (19:56)
[2020-10-09] MEDS: INSULIN GLARGINE SOLOSTAR 100 UNITS/ML 3 ML PEN SQ SCH (20:00)
[2020-10-10] MEDS: LEVALBUTEROL HCL 0.63 MG/3 ML NEB NEB SCH ×4 (00:09→19:23)
[2020-10-10] MEDS: IPRATROPIUM BROMIDE NEB SOLN 0.02% 2.5 ML VIAL NEB SCH ×4 (00:09→19:23)
[2020-10-10 06:04] LABS: Basophils # (auto) 0.08 K/uL (0-0.2); Basophils % (auto) 0.7 %; Eosinophils # (auto) 0.27 K/uL (0-0.5); Eosinophils % (auto) 2.4 %; Hematocrit (blood only) 40.7 % (42-52); Hemoglobin 13.5 g/dL (14.0-18.0); Immature Granulocytes # (auto) 0.04 K/uL (0.00-0.02); Immature Granulocytes % (auto) 0.4 %; Lymphocytes # (auto) 2.18 K/uL (1.2-3.4); Lymphocytes % (auto) 19.1 %; Mean Corpuscular Hemoglobin 30.2 pg (25-34); Mean Corpuscular Hgb Conc 33.2 g/dL (32-36); Mean Corpuscular Volume 91.1 fL (80-100); Monocytes # (auto) 0.98 K/uL (0.11-0.59); Monocytes % (auto) 8.6 %; Neutrophils # (auto) 7.84 K/uL (1.4-6.5); Neutrophils % (auto) 68.8 %; Platelet Count 154 K/uL (130-400); RDW Coefficient of Variation 13.1 % (11.5-14.5); Red Blood Count 4.47 M/uL (4.7-6.1); White Blood Count 11.39 K/uL (4.8-10.8)
[2020-10-10] MEDS: LEVOTHYROXINE SODIUM 175 MCG TABLET PO SCH (06:10)
[2020-10-10 06:31] LABS: Albumin Level 2.9 gm/dl (3.4-5.0); Calcium 9.1 mg/dl (8.5-10.1); Est GFR (African American) 70.7 ml/min; Magnesium 2.4 mg/dl (1.8-2.4); Potassium 3.4 mmol/L (3.5-5.1)
[2020-10-10 06:34] LABS: Albumin Globulin Ratio 0.8 (0.9-2); Bilirubin,Total 0.5 mg/dl (0.2-1); Globulin 3.7 gm/dl (2.5-4.0); Total Protein 6.6 gm/dl (6.4-8.2)
[2020-10-10] MEDS: INSULIN ASPART 100 UNITS/ML 3 ML PEN SC SCH ×4 (08:21→21:27)
[2020-10-10] MEDS: cloZAPine 100 MG TAB PO SCH ×2 (08:22→21:24)
[2020-10-10] MEDS: guaiFENesin 600 MG TABCR PO SCH ×2 (08:22→21:24)
[2020-10-10] MEDS: metroNIDAZOLE 500 MG/100 ML BAG IV SCH ×2 (08:22→17:09)
[2020-10-10] MEDS: LINACLOTIDE 145 MCG CAPSULE PO SCH (08:22)
[2020-10-10] MEDS: FUROSEMIDE 40 MG TAB PO SCH ×2 (08:23→17:09)
[2020-10-10] MEDS: FLUTICASONE/VILANTEROL 100/25MCG 14 PUFFS/INHALER INH SCH (08:23)
[2020-10-10] MEDS: METOPROLOL SUCC 50MG EXT REL TAB PO SCH (08:23)
[2020-10-10] MEDS: SERTRALINE HCL 50 MG TABLET PO SCH (08:23)
[2020-10-10] MEDS: FERROUS SULFATE 325 MG TAB PO SCH (08:23)
[2020-10-10] MEDS: UMECLIDINIUM BROMIDE 62.5MCG/BLISTER 7 PUFFS/INHALER INH SCH (08:24)
[2020-10-10] MEDS: MULTIVITAMIN TAB PO SCH (08:24)
[2020-10-10] MEDS: POLYETHYLENE (MIRALAX) 17 GM PACK PO SCH (08:24)
[2020-10-10] MEDS: PANTOprazole 40 MG TAB PO SCH (08:24)
[2020-10-10] MEDS: TAMSULOSIN HCL 0.4 MG CAP PO SCH (08:24)
[2020-10-10] MEDS: CEFEPIME 2,000 MG in SYRINGE 0 ML IV SCH ×2 (08:24→17:07)
[2020-10-10] MEDS: POTASSIUM CHLORIDE CRTAB 20 MEQ TABCR PO SCH ×2 (08:25→21:26)
[2020-10-10] MEDS ORDERED: POTASSIUM CHLORIDE CRTAB 20 MEQ TABCR PO STA (09:39)
[2020-10-10] MEDS: ENOXAPARIN INJ 40 MG/0.4 ML SYR SQ SCH (12:12)
--- NOTE | 2020-10-10 19:33 | Hospitalist Progress Note ---
Date of Service October 10, 2020 Assessment & Plan (1) Acute hypercapnic respiratory failure: Plan: Patient reports that he has been on oxygen for some time. Doing well on 2 L/min via nasal cannula We will discharge at same level. Patient seems to be tolerating BiPAP inpatient We will need an outpatient polysomnography exam PCO2 improved from 54 to 45 with use of BiPAP Body habitus with BMI of 40.9 kg/m supports diagnosis of AI (2) Pneumonia: Plan: Patient significant proved with his respiratory status with cefepime name Procalcitonin is now negative at 0.8 Patient is afebrile We will complete course of antibiotics orally with levofloxacin on discharge (3) Schizophrenia: Plan: No hallucinations Patient is cooperative and pleasant Continue home meds Suggest to [facility] that they have their house psychiatrist work with the patient as an outpatient (4) Diastolic CHF: Plan: Chronic diastolic CHF Appears to be compensated Continue furosemide twice daily Follow clinically as well as with weights (5) GERD (gastroesophageal reflux disease): Plan: Continue pantoprazole No complaints of reflux by patient (6) Hypothyroidism: Plan: Continue levothyroxine TSH is 0.059 Suggest repeating labs in 4 to 6 weeks after patient is over acute illness (7) COPD (chronic obstructive pulmonary disease): Plan: Target SaO2 at 88 to 92% Not in exacerbation Home medications include Brio Ellipta (ICS/LABA) -continue on discharge Incruse Ellipta (AC) was added at the time of his inpatient stay. Would hold on discharge without pulmonary function testing (8) AI (obstructive sleep apnea): Plan: Unclear if patient has official diagnosis of AI Would suggest outpatient polysomnography exam at a sleep clinic for titration Patient certainly appears to have AI vs obesity hypoventilation syndrome based on body habitus Continue BiPAP while inpatient Defer to [facility] for further management as an outpatient (9) Hypokalemia: Plan: Improved We will give an additional 20 mEq of potassium chloride orally today Magnesium was 1.5 and is now corrected to 2.4 Check labs in the morning prior to discharge (10) BPH (benign prostatic hyperplasia): Plan: No acute complaints Continue tamsulosin (11) Type II diabetes mellitus: Plan: Hemoglobin A1c on 08/2020 was 6.8 Continue Lantus 30 units SQ at bedtime Continue NovoLog sliding scale insulin On discharge, continue usual home medications including liraglutide, Basaglar KwikPen, and NovoLog Continue diabetic diet (12) Bacteremia: Plan: Most likely contamination Blood cultures 1: 2 gram-positive cocci. Procalcitonin negative Continue on antibiotics on discharge for metabolic acute changes on admission as listed above (13) Sepsis: Plan: resolved, POA, as above, secondary to PNA (14) Metabolic encephalopathy: Plan: resolved now, was 2/2 PNA (15) Cardiac pacemaker: Plan: noted (16) DVT prophylaxis: Plan: Continue enoxaparin Ambulate as tolerated Plan: Disposition: Anticipate transfer to [facility] tomorrow morning at 11 AM Admission and Anticipated Discharge Date Admission Date: October 07, 2020 Supervising Physician Co-Signing Physician Notes PA Supervision Note: I did not personally see or examine the patient today, but I verified all murphy points of LAWRENCE Humphreys's assessment and plan with the following exceptions/additions: None Subjective Attending: Dr. Morton Patient seen and examined at bedside. He is talkative. He is pleasant. He denies any fever. He has no shortness of breath. He has not been out of bed yet today. He states that he feels as though he is at baseline. No other acute complaints. Review of Systems Review of Systems: All systems reviewed & are unremarkable except as noted in Subjective Physical Exam Physical Exam: GENERAL : No acute distress. Pleasant. Talkative EYES: No icterus, gaze conjugate NOSE: No evidence of epistaxis. Nasal cannula in place MOUTH: No lesions or candidiasis NECK: Supple LUNGS: Fine crackles at bilateral bases. Good inspiratory effort. No bron chospasm appreciated. HEART: Regular, rate controlled ABDOMEN: Soft, NT, ND, BS Present EXTREMITIES: Trace bilateral LE edema, pedal pulses intact and equal bilaterally NEURO: A&OX3 Results & Data Results & Data ([facility]) Vital Signs (Past 12 Hours) Vital Signs Temp Pulse Resp BP BP Pulse Ox 10/10/20 16:05 36.2 C L 76 18 127/82 97 10/10/20 13:14 76 18 96 10/10/20 12:11 36.4 C L 77 20 108/65 96 10/10/20 07:59 36.6 C 85 19 118/68 98 Laboratory Results 10/10/20 05:28 10/10/20 05:28 PG Care Time/CCT Total # of Minutes Spent Total Time Spent with Patient: Total time spent is greater than 50% in coordination of care (as documented) at patient's floor/unit and/or counseling patient: Coding Level of Care Code 85755 Subseq Hosp Care Lvl 2 Diagnoses Acute hypercapnic respiratory failure J96.02 Pneumonia J18.9 Laterality: right Lung location: middle lobe of lung Pneumonia type: due to unspecified organism Schizophrenia F20.9 Diastolic CHF I50.30 GERD (gastroesophageal reflux disease) K21.9 Hypothyroidism E03.9 COPD (chronic obstructive pulmonary disease) J44.9 AI (obstructive sleep apnea) G47.33 Hypokalemia E87.6 BPH (benign prostatic hyperplasia) N40.0 Type II diabetes mellitus E11.9 Bacteremia R78.81 DVT prophylaxis Z29.9 Sepsis A41.9; R65.20; J96.01 Acute respiratory failure type: with hypoxia Sepsis acute organ dysfunction status: with acute organ dysfunction Sepsis type: sepsis due to unspecified organism Severe sepsis acute organ dysfunction type: acute respiratory failure Severe sepsis shock status: without septic shock Metabolic encephalopathy G93.41 Cardiac pacemaker Z95.0 Time Spent (min) 30 (1) Pneumonia Laterality: right Lung location: middle lobe of lung Pneumonia type: due to unspecified organism Qualified Code(s): J18.9 - Pneumonia, unspecified organism (2) Sepsis Acute respiratory failure type: with hypoxia Sepsis acute organ dysfunction status: with acute organ dysfunction Sepsis type: sepsis due to unspecified organism Severe sepsis acute organ dysfunction type: acute respiratory failure Severe sepsis shock status: without septic shock Qualified Code(s): A41.9 - Sep sis, unspecified organism; R65.20 - Severe sepsis without septic shock; J96.01 - Acute respiratory failure with hypoxia
[2020-10-10] MEDS: ATORVASTATIN 10 MG TAB PO SCH (21:24)
[2020-10-10] MEDS: INSULIN GLARGINE SOLOSTAR 100 UNITS/ML 3 ML PEN SQ SCH (21:28)
[2020-10-11] MEDS: IPRATROPIUM BROMIDE NEB SOLN 0.02% 2.5 ML VIAL NEB SCH ×2 (00:07→07:05)
[2020-10-11] MEDS: LEVALBUTEROL HCL 0.63 MG/3 ML NEB NEB SCH ×2 (00:07→07:05)
[2020-10-11] MEDS: CEFEPIME 2,000 MG in SYRINGE 0 ML IV SCH ×2 (00:20→08:00)
[2020-10-11] MEDS: metroNIDAZOLE 500 MG/100 ML BAG IV SCH ×2 (00:21→08:02)
[2020-10-11] MEDS: LEVOTHYROXINE SODIUM 175 MCG TABLET PO SCH (05:39)
[2020-10-11 05:57] LABS: Basophils # (auto) 0.03 K/uL (0-0.2); Basophils % (auto) 0.3 %; Eosinophils # (auto) 0.29 K/uL (0-0.5); Eosinophils % (auto) 2.4 %; Hematocrit (blood only) 39.9 % (42-52); Hemoglobin 13.4 g/dL (14.0-18.0); Immature Granulocytes # (auto) 0.05 K/uL (0.00-0.02); Immature Granulocytes % (auto) 0.4 %; Lymphocytes # (auto) 1.82 K/uL (1.2-3.4); Lymphocytes % (auto) 15.4 %; Mean Corpuscular Hemoglobin 30.3 pg (25-34); Mean Corpuscular Hgb Conc 33.6 g/dL (32-36); Mean Corpuscular Volume 90.3 fL (80-100); Mean Platelet Volume 11.8 fL (7.4-10.4); Monocytes # (auto) 1.26 K/uL (0.11-0.59); Monocytes % (auto) 10.6 %; Neutrophils # (auto) 8.39 K/uL (1.4-6.5); Neutrophils % (auto) 70.9 %; Platelet Count 192 K/uL (130-400); RDW Coefficient of Variation 12.9 % (11.5-14.5); RDW Standard Deviation 42.8 fL (36.4-46.3); Red Blood Count 4.42 M/uL (4.7-6.1); White Blood Count 11.84 K/uL (4.8-10.8)
[2020-10-11 06:27] LABS: Albumin Level 2.7 gm/dl (3.4-5.0); BUN Creatinine Ratio 22.4 (10-20); Est GFR (African American) 68.6 ml/min; Est GFR (Non-African American) 59.2 ml/min; Magnesium 1.7 mg/dl (1.8-2.4); Potassium 3.5 mmol/L (3.5-5.1)
[2020-10-11 06:28] LABS: Albumin Globulin Ratio 0.8 (0.9-2); Bilirubin,Total 0.3 mg/dl (0.2-1); Globulin 3.6 gm/dl (2.5-4.0); Total Protein 6.3 gm/dl (6.4-8.2)
[2020-10-11] MEDS: INSULIN ASPART 100 UNITS/ML 3 ML PEN SC SCH (08:00)
[2020-10-11] MEDS: FERROUS SULFATE 325 MG TAB PO SCH (08:00)
[2020-10-11] MEDS: FUROSEMIDE 40 MG TAB PO SCH (08:00)
[2020-10-11] MEDS: guaiFENesin 600 MG TABCR PO SCH (08:01)
[2020-10-11] MEDS: MULTIVITAMIN TAB PO SCH (08:01)
[2020-10-11] MEDS: LINACLOTIDE 145 MCG CAPSULE PO SCH (08:01)
[2020-10-11] MEDS: FLUTICASONE/VILANTEROL 100/25MCG 14 PUFFS/INHALER INH SCH (08:01)
[2020-10-11] MEDS: UMECLIDINIUM BROMIDE 62.5MCG/BLISTER 7 PUFFS/INHALER INH SCH (08:01)
[2020-10-11] MEDS: cloZAPine 100 MG TAB PO SCH (08:01)
[2020-10-11] MEDS: TAMSULOSIN HCL 0.4 MG CAP PO SCH (08:02)
[2020-10-11] MEDS: POLYETHYLENE (MIRALAX) 17 GM PACK PO SCH (08:02)
[2020-10-11] MEDS: PANTOprazole 40 MG TAB PO SCH (08:02)
[2020-10-11] MEDS: METOPROLOL SUCC 50MG EXT REL TAB PO SCH (08:02)
[2020-10-11] MEDS: POTASSIUM CHLORIDE CRTAB 20 MEQ TABCR PO SCH (08:05)
[2020-10-11] MEDS: SERTRALINE HCL 50 MG TABLET PO SCH (08:05)
[2020-10-11] MEDS ORDERED: MAGNESIUM OXIDE 400 MG TAB PO SCH (09:30)
[2020-10-11] MEDS ORDERED: MAGNESIUM SULFATE / D5W 1 GM/100 ML BAG IV ONE (09:30)
--- NOTE | 2020-10-11 09:58 | Discharge Summary ---
Date of Service October 11, 2020 Admission HPI Per Admitting Provider Patient is a very pleasant 65-year-old male who was sent over from [facility] with a constellation of nausea vomiting and hypoxia. He notes that yesterday he was feeling in his current state of health (see below as it relates to his schizophrenia), but otherwise feeling okay. Whenever he went to bed within about an hour he felt profoundly nauseated and threw up a whole bunch of times. No blood, no real abdominal pain. No diarrhea that he is aware of. After that he was sent to the ER. Here he was found to be hypoxic somewhere in the order of 79% on room air. He actually denies any shortness of breath now or cough or chest pain, although he is a little bit of a limited historian. Generally feeling better but fatigued by the time I see him. He does note that he does not feel his schizophrenia is going very well. He loosely endorses some degree of active hallucinations but does not entirely clarify, more than that though, he notes that he is having a lot of trouble with racing thoughts. He cannot recall who his regular psychiatrist is, he notes that he was in the [facility] hospital for a while in the 90s, and notes that he actually recalls a time of far better control with his schizophrenia than now. Admission Exam Per Admitting Provider In general he is awake alert oriented, pleasant no distress, but does appear quite fatigued. HEENT normocephalic atraumatic mucous membranes are moist. Lungs are surprisingly clear to auscultation bilaterally, may be not the best respiratory effort, but no rales rhonchi or wheezes noted, no accessory muscle use. He is wearing a nonrebreather whenever I enter the room, he takes it off while were talking and shows no respiratory distress, during that time his pulse ox slowly dropped from high 90s to 89 with no distress, as he gets to that point I asked him to put his oxygen mask back on. Cardio is regular without rubs murmurs or gallops. Abdomen is soft moderately distended left lower quadrant fullness and may be a question of tenderness, but no guarding rebound or rigidity. Extremities show no cyanosis or clubbing, chronic venous stasis type changes with edema about 1+. Neuro shows cranial nerves II through XII be grossly intact gross motor and sensory are intact. Musculoskeletal exam shows no gross abnormalities. Mental status shows good recent and remote recall, pleasant mood and affect, fair judgment and insight. Principal Diagnosis Metabolic encephalopathy Pneumonia Discharge Data Allergies Allergy/AdvReac Type Severity Reaction Status Date / Time Penicillins Allergy Unknown Unknown Verified 10/07/20 07:43 Consultations 10/07/20 08:09 ED Decision to Admit Stat Ordered Studies 10/08/20 11:52 CT head/brain wo con Urgent Hospital Course (1) Acute hypercapnic respiratory failure: Patient reports that he has been on oxygen for some time. Doing well on 2 L/min via nasal cannula We will discharge at same level. Patient seems to be tolerating BiPAP inpatient We will need an outpatient polysomnography exam PCO2 improved from 54 to 45 with use of BiPAP Body habitus with BMI of 40.9 kg/m supports diagnosis of AI (2) Pneumonia: Patient significant proved with his respiratory status with cefepime name Procalcitonin is now negative at 0.8 Patient is afebrile We will complete course of antibiotics orally with levofloxacin on discharge Patient received 5 days of IV antibiotics in-house Discharge on levofloxacin 750 mg By mouth x 2 additional days (3) Schizophrenia: No hallucinations Patient is cooperative and pleasant Continue home meds Suggest to [facility] that they have their house psychiatrist work with the patient as an outpatient (4) Diastolic CHF: Appears to be compensated Continue Outpatient doses of furosemide Follow clinically as well as with weights (5) GERD (gastroesophageal reflux disease): Continued on pantoprazole while inpatient No complaints of reflux by patient Discharge on outpatient dose of omeprazole (6) Hypothyroidism: Continue levothyroxine TSH is 0.059 Suggest repeating labs in 4 to 6 weeks after patient is over acute illness (7) COPD (chronic obstructive pulmonary disease): Target SaO2 at 88 to 92% Not in exacerbation Home medications include Brio Ellipta (ICS/LABA) -continue on discharge Incruse Ellipta (AC) was added at the time of his inpatient stay. Would hold on discharge without pulmonary function testing (8) AI (obstructive sleep apnea): Unclear if patient has official diagnosis of AI Would suggest outpatient polysomnography exam at a sleep clinic for titration Patient certainly appears to have AI vs obesity hypoventilation syndrome based on body habitus Continue BiPAP while inpatient Defer to [facility] for further management as an outpatient (9) Hypokalemia: Improved We will give an additional 20 mEq of potassium chloride orally today (10) Hypomagnesemia: No vomiting and no diarrhea Unclear on why magnesium level dropped Magnesium was 1.5 and corrected to 2.4 Magnesium level dropped to 1.7 this morning. * Treated with IV magnesium sulfate prior to discharge * We will start magnesium oxide 400 mg daily by mouth (11) BPH (benign prostatic hyperplasia): No acute complaints Continue tamsulosin (12) Type II diabetes mellitus: Hemoglobin A1c on 08/2020 was 6.8 Continue Lantus 30 units SQ at bedtime Continue NovoLog sliding scale insulin On discharge, continue usual home medications including liraglutide, Basaglar KwikPen, and NovoLog Continue diabetic diet (13) Bacteremia: Most likely contamination Blood cultures 1: 2 with Coag neg Staph, not Lugdenensis. Procalcitonin negative (14) DVT prophylaxis: received enoxaparin Ambulate as tolerated (15) Sepsis: as above, resolved (16) Metabolic encephalopathy: resolved, secondary to PNA (17) Cardiac pacemaker: Disposition: Anticipate transfer to [facility] today at 11 AM Total Time Total Time Spent Total Time Spent (In Minutes): 40 Discharge Plan Discharge Items Patient Disposition: Transfer [facility] Reason For Visit: PNEUMONIA,SEPSIS Discharge Diagnosis: Pneumonia, sepsis Condition on Discharge: Good Activity: Resume your previous activity Exercise/Sports: Gradually increase as tolerated Weightbearing: Full weightbearing Non-emergency contact: Primary Care Provider Call non-emergency contact if: you have any medication questions and you have a fever Follow-up/Referrals: Erasmo George [Primary Care Provider] - Diet: Carb Consistent or DM2 and Heart Healthy Addtl Attending Provider Instructions: You were admitted on 10/07/2020 with nausea vomiting and hypoxia.Imaging revealed a probable pneumonia.You were started on antibiotics and improved.You are being discharged on oral levofloxacin.It should also be noted that your magnesium levels dropped while inpatient.He received IV magnesium sulfate and will be discharged on magnesium oxide to be taken by mouth.You are encouraged to continue with physical therapy at [facility] for strengthening and conditioning. He should continue with your oxygen at 2 L/min via nasal cannula. You had elevated carbon dioxide levels and should have a sleep study performed as an outpatient. While inpatient, you were placed on BiPAP at night which helped your overall respiratory status. Pending Studies at Discharge: No Stand-Alone Forms: My [facility] Skilled Items Patient informed of condition?: Yes DNR: No Discharge Level of Care: Skilled Communicable Disease: No Discharge Prognosis: Improving Lines: None Urinary Catheter: No Medications and DC Order Prescriptions: New magnesium oxide 400 mg (241.3 mg magnesium) Tablet 400 mg PO QAM Qty: 30 RF: 0 levofloxacin 750 mg tablet 750 mg PO DAILY 2 Days Qty: 2 RF: 0 Continued multivitamin [Daily Multi-Vitamin] Tablet 1 tab PO DAILY RF: 0 tramadol [Ultram] 50 mg Tablet 25 mg PO Q12 PRN (Reason: Severe Pain (Scale Score 7-10)) RF: 0 omeprazole 20 mg capsule,delayed release(DR/EC) 20 mg PO DAILY RF: 0 dicyclomine [Bentyl] 10 mg Capsule 10 mg PO Q8H PRN (Reason: abdominal cramps) RF: 0 Basaglar KwikPen U-100 Insulin 100 unit/mL (3 mL) insulin pen 30 unit SUBCUT HS RF: 0 tamsulosin [Flomax] 0.4 mg Capsule 0.4 mg PO DAILY RF: 0 sertraline [Zoloft] 50 mg Tablet 50 mg PO DAILY RF: 0 ferrous sulfate [FeroSul] 325 mg (65 mg iron) tablet 325 mg PO DAILY RF: 0 levothyroxine [Synthroid] 175 mcg Tablet 175 mcg PO DAILY RF: 0 atorvastatin [Lipitor] 10 mg Tablet 10 mg PO HS RF: 0 clozapine [Clozaril] 100 mg Tablet 100 mg PO Q12 RF: 0 metoprolol succinate [Toprol XL] 50 mg Tablet Extended Release 24 Hr 50 mg PO DAILY RF: 0 ergocalciferol (vitamin D2) [Vitamin D2] 1,250 mcg (50,000 unit) capsule 1,250 mcg PO WK RF: 0 Linzess 290 mcg Capsule 290 mcg PO QAM RF: 0 potassium chloride [K-Tab] 20 mEq Tablet Extended Release 20 meq PO BID RF: 0 furosemide [Lasix] 40 mg Tablet 40 mg PO .Q DINNER RF: 0 furosemide [Lasix] 80 mg Tablet 80 mg PO DAILY RF: 0 insulin aspart U-100 [Novolog U-100 Insulin aspart] 100 unit/mL Solution 10 unit SUBCUT TIDM RF: 0 Victoza 2-Tony 0.6 mg/0.1 mL (18 mg/3 mL) Pen Injector 1.8 mg SUBCUT DAILY RF: 0 Breo Ellipta 100-25 mcg/dose Blister With Device 1 inh INHALATION DAILY RF: 0 Discharge Orders: Discharge Order (Routine); Ordered 10/11/20 Ordered By: Phong Humphreys Admission Data Admit Date/Time: 10/07/20 09:16 Attending Provider: Mary Morton Admit Provider: Joel Dodson Primary Care Provider: Erasmo George Other Providers: Joel Dodson ; Ariel, Supervising Physician Co-Signing Physician Notes PA Supervision Note: I personally saw and examined the patient. I verified all murphy points and agree with LAWRENCE Humphreys with the following exceptions and/or additions: Pt doing well, has no complaints, eating and drinking, not SOB, on 2L O2, mentating Vitals reviewed NAD, AAOx3 RRR no mgr CTAB no wcr ABd +BS soft NT ND Ext no edema 65 yo male here with aspiration PNA, hypoxia, metabolic encephalopathy, now much improved dc to SNF with po abx Coding Level of Care Code D/C DAY MANAGEMENT >30 MINS Diagnoses Acute hypercapnic respiratory failure J96.02 Pneumonia J18.9 Laterality: right Lung location: middle lobe of lung Pneumonia type: due to unspecified organism Schizophrenia F20.9 Diastolic CHF I50.30 GERD (gastroesophageal reflux disease) K21.9 Hypothyroidism E03.9 COPD (chronic obstructive pulmonary disease) J44.9 AI (obstructive sleep apnea) G47.33 Hypokalemia E87.6 BPH (benign prostatic hyperplasia) N40.0 Type II diabetes mellitus E11.9 Bacteremia R78.81 DVT prophylaxis Z29.9 Hypomagnesemia E83.42 Sepsis A41.9; R65.20; J96.01 Acute respiratory failure type: with hypoxia Sepsis acute organ dysfunction status: with acute organ dysfunction Sepsis type: sepsis due to unspecified organism Severe sepsis acute organ dysfunction type: acute respiratory failure Severe sepsis shock status: without septic shock Metabolic encephalopathy G93.41 Cardiac pacemaker Z95.0 Time Spent (min) 40
== END 2020-10-11 12:13 | DRG 871 ==
LOC: ED 06:25 → SUATTDRO 09:16 → 1E 09:16 → 2S 19:04
DX: E11.9 Type 2 diabetes mellitus without complications; J81.0 Acute pulmonary edema; N40.0 Benign prostatic hyperplasia without lower urinary tract symptoms; F20.9 Schizophrenia, unspecified; Z95.0 Presence of cardiac pacemaker; E83.42 Hypomagnesemia; E03.9 Hypothyroidism, unspecified; J96.22 Acute and chronic respiratory failure with hypercapnia; J96.21 Acute and chronic respiratory failure with hypoxia; J96.02 Acute respiratory failure with hypercapnia; A41.9 Sepsis, unspecified organism; Z79.4 Long term (current) use of insulin; G93.41 Metabolic encephalopathy; J69.0 Pneumonitis due to inhalation of food and vomit; J44.9 Chronic obstructive pulmonary disease, unspecified; I50.32 Chronic diastolic (congestive) heart failure; G47.33 Obstructive sleep apnea (adult) (pediatric); E87.6 Hypokalemia; Z99.81 Dependence on supplemental oxygen; Z88.0 Allergy status to penicillin; K21.9 Gastro-esophageal reflux disease without esophagitis; Z87.891 Personal history of nicotine dependence

== ENCOUNTER 2021-10-10 10:35 | Observation (INO) ==
[2021-10-10 11:23] LABS: Basophils # (auto) 0.08 K/uL (0-0.2); Basophils % (auto) 0.4 %; Eosinophils # (auto) 0.16 K/uL (0-0.50); Eosinophils % (auto) 0.9 %; Hematocrit (blood only) 45.1 % (40.1-51.0); Hemoglobin 14.8 g/dl (14.0-18.0); Immature Granulocytes # (auto) 0.15 K/uL (0.00-0.02); Immature Granulocytes % (auto) 0.8 %; Lymphocytes % (auto) 8.3 %; Mean Corpuscular Hemoglobin 30.6 pg (25.0-34.0); Mean Corpuscular Hgb Conc 32.8 g/dL (32.0-36.0); Mean Corpuscular Volume 93.4 fL (80.0-100.0); Mean Platelet Volume 11.3 fL (9.4-12.4); Monocytes # (auto) 1.07 K/uL (0.24-0.82); Monocytes % (auto) 5.9 %; Neutrophils # (auto) 15.12 K/uL (1.4-6.5); Neutrophils % (auto) 83.7 %; Platelet Count 236 K/uL (130-400); RDW Coefficient of Variation 12.2 % (11.5-14.5); RDW Standard Deviation 41.9 fL (36.4-46.3); Red Blood Count 4.83 M/uL (4.63-6.08); White Blood Count 18.08 K/ul (4.8-10.8)
[2021-10-10] MEDS ORDERED: SODIUM CHLORIDE 0.9% 1000ML 500 ML IV ONE ×2 (11:29→13:16)
[2021-10-10] MEDS ORDERED: ONDANSETRON INJ 2 MG/ML 2 ML VIAL IV STA (11:29)
[2021-10-10] MEDS ORDERED: SODIUM CHLORIDE 0.9% 1000ML 1,000 ML IV STA (11:29)
[2021-10-10 11:49] LABS: Troponin I High Sensitivity 9.7 pg/ml (0-20)
[2021-10-10 11:50] LABS: Albumin Globulin Ratio 1.2 (0.9-2); Albumin Level 3.7 gm/dl (3.4-5.0); BUN Creatinine Ratio 18.4 (10-20); Bilirubin,Total 0.5 mg/dl (0.2-1.0); Calcium 9.4 mg/dl (8.5-10.1); Creatinine Clr Calc Pharmacy 87.2 ml/min; Est GFR (African American) 86.1 ml/min; Est GFR (Non-African American) 74.3 ml/min; Potassium 3.5 mmol/L (3.5-5.1); Total Protein 6.7 gm/dl (6.0-8.3)
--- NOTE | 2021-10-10 11:51 | XRay Report ---
XR chest 1V portable CLINICAL HISTORY: abd and right shoulder pain TECHNIQUE: Single frontal radiograph of the chest was obtained. Comparison: Comparison is made to chest radiograph 10/08/2020 FINDINGS: Dual lead pacemaker is seen. The cardiomediastinal silhouette is normal. The lungs are clear. No evid ence of pleural effusion or pneumothorax. IMPRESSION: No acute chest disease. ACT 112: Negative or not required by law. Electronically signed by: Mario Mathis M.D. 10/10/2021 11:50 AM
--- NOTE | 2021-10-10 12:01 | Emergency Department Note ---
Impression & Plan Pneumonia, Generalized abdominal pain, Nausea & vomiting, Leukocytosis, Fecal retention, Acute hypotension ED Provider Note INFORMANT: Patient ED PROVIDER(S): Emmanuel Driscoll MD CHIEF COMPLAINT: Abdominal pain PLAN: Disposition: Admitted Condition: Guarded Outpatient prescription management: none Referral: None MEDICAL DECISION MAKING: Patient presented because of abdominal symptoms. Chest x-ray was performed did not reveal any obvious acute findings. Specifically there was no obvious issues with the glenohumeral joint. Humerus is not fully imaged. Patient had a significant leukocytosis. He was hydrated. Troponin and LFTs were negative. Urinalysis was somewhat abnormal. CT scan of the abdomen pelvis revealed significant mount of fecal retention. This may be contributing the patient's abdominal discomfort without peritoneal findings. He does have pneumonia. Patient was treated with cefepime and vancomycin. He received several fluid boluses. Further management will be necessary in the hospital. Consultation was placed with . Patient was evaluated in ER admitted for further management Triage Nursing notes reviewed and agree them. Vital Signs: reviewed and remarkable for brief hypotension Differential diagnosis: Appendicitis, testicular torsion, infections, diverticulitis, UTI, obstruction, mesenteric ischemia, aortic pathology, inflammatory bowel disease, renal colic, PUD, pancreatitis, biliary pathology, hernia, volvulus, constipation, as well as other pathologies. Diagnostics interpreted by me: ECG: Twelve-lead ECG reveals atrial sensed and ventricular paced rhythm at 82 bpm. No dysrhythmia. Cardiac Monitoring: Cardiac monitoring ordered by me: The patient was placed on continuous cardiac monitoring and observed. It revealed a paced rhythm at 92 beats per minute without ectopy or evidence of dysrhythmia. Imaging studies: Chest x-ray and CT scan as above. HPI: The patient is a 66year old male who presents to the Emergency Room with c omplaints of generalized abdominal pain. This started over the last month and is worsening. The patient also notes the following associated symptoms, 15 pound weight loss, generalized weakness, nausea, vomiting, and right shoulder pain. Patient states his right shoulder hurts at times and feels like it may be out of socket. He is still able to move the arm. The patient has found no relieving factors. Current pain is rated as 5/10. Patient resides at the [facility]. EMS was summoned and he was brought to the ER for further evaluation. Pt denies LOC, headache, fevers, chills, diaphoresis, visual changes, neck pain, chest pain, breathing difficulties, back pain, melena, hematochezia, urinary symptoms, numbness, lymphadenopathy, rash, or other complaints. ROS: See above HPI for pertinent positives & negatives. A total of 10 systems reviewed and were otherwise negative. PAST MEDICAL HISTORY:See Below , diabetes, COPD, CHF, sepsis PAST SURGICAL HISTORY:See Below, upper abdominal surgery of which patient does not know the etiology FAMILY HISTORY:See Below SOCIAL HISTORY:See Below, resides at [facility] HOME MEDICATIONS:See Below ALLERGIES:See Below VITALS:See Below PHYSICAL EXAMINATION: GENERAL: Awake, alert, mildly ill-appearing, in no distress HENT: Normocephalic, atraumatic. Oropharynx unremarkable. EYES: Pale conjunctiva. Sclera non-icteric. NECK: Inspection normal. Non-tender. Supple. No nuchal rigidity. FROM. No mas ses. RESPIRATORY: Clear to auscultation. No wheezes. No rales. Normal respiratory effort. CARDIAC: Normal rate. Normal rhythm. No murmurs. No rubs. Extremities warm and well perfused. Pulses equal. No JVD. GI: Soft, non-distended. Mild generalized tenderness to palpation. No rebound or guarding. No masses. RECTAL: Deferred. MUSCULOSKELETAL: Atraumatic. Chest examination reveals no tenderness. The back is symmetrical on inspection without obvious abnormality. There is no CVA tenderness to palpation. No joint edema. LOWER EXTREMITIES: Calves are equal size bilaterally and non-tender. Trace edema. No discoloration. NEURO: Normal sensorium. No sensory or motor deficits noted. SKIN: No rash or jaundice noted. Emmanuel Driscoll MD Past Med/Surg History Medical History Anxiety and depression Chest pain Constipation COPD (chronic obstructive pulmonary disease) Disorder of prostate Dysphagia Esophagitis GERD (gastroesophageal reflux disease) Heart failure Hyperlipidemia Hypertension Hypomagnesemia Hypothyroidism Morbid obesity Muscle weakness Obstructive sleep apnea O2 at 2L n/c at HS and prn if pulse ox is less than 90% Osteoporosis Paranoid schizophrenia Type 2 diabetes mellitus Unspecified abnormalities of gait and mobility Surgical History Surgical history unknown Social History Smoking Status: Former smoker Tobacco Type: Cigarettes Second Hand Exposure: No; Hx Alcohol Use: No Hx Substance Use: No Preferred Language: Hungarian Communication Ability: Effective Junior Architect Required: No Beliefs That Will Affect Care: None Current Living Situation: Intermediate Current Living Situation Comment: Pt from [facility], currently @ [facility] for amb dysfunction current occupational status: retired Other Information That Helps Us Care for You: No Feels Safe at Home: Yes Safety Concerns: Feels Safe At This Time Assistive Devices: Oxygen - Continuous, Walker and Wheelchair Allergies Allergies Allergy/AdvReac Type Severity Reaction Status Date / Time Penicillins Allergy Unknown on [facility] Verified 10/10/21 15:[address] [facility] med list Home Meds Home Medications Medication Instructions Recorded Confirmed atorvastatin 10 mg tablet (Lipitor) 10 mg PO HS 08/28/20 10/10/21 clozapine 100 mg tablet (Clozaril) 100 mg PO Q12 08/28/20 10/10/21 ergocalciferol (vitamin D2) 1,250 1,250 mcg PO WK 08/28/20 10/10/21 mcg (50,000 unit) capsule (Vitamin D2) ferrous sulfate 325 mg (65 mg 325 mg PO DAILY 08/28/20 10/10/21 iron) tablet (FeroSul) fluticasone furoate 100 1 inh inhalation DAILY 08/28/20 10/10/21 mcg-vilanterol 25 mcg/dose inhalation powder (Breo Ellipta) furosemide 40 mg tablet (Lasix) 40 mg PO QPM 08/28/20 10/10/21 furosemide 80 mg tablet (Lasix) 80 mg PO QAM 08/28/20 10/10/21 insulin aspart U-100 100 unit/mL See Rx Instructions .Route .COMPLEX 08/28/20 10/10/21 subcutaneous solution (Novolog U-100 Insulin aspart) linaclotide 290 mcg capsule 290 mcg PO QAM 08/28/20 10/10/21 (Linzess) metoprolol succinate 50 mg 50 mg PO DAILY 08/28/20 10/10/21 tablet,extended release 24 hr (Toprol XL) potassium chloride 20 mEq 20 meq PO TID 08/28/20 10/10/21 tablet,extended release (K-Tab) insulin glargine 100 unit/mL (3 27 unit subcut HS 10/07/20 10/10/21 mL) subcutaneous pen (Basaglar KalieikPen U-100 Insulin) multivitamin (Daily Multi-Vitamin 1 tab PO DAILY 10/07/20 10/10/21 tablet) omeprazole 20 mg capsule,delayed 20 mg PO DAILY 10/07/20 10/10/21 release tramadol 50 mg tablet (Ultram) 25 mg PO Q12 PRN Severe Pain 10/07/20 10/10/21 (Scale Score 7-10) acetaminophen 325 mg capsule 650 mg PO TID 12/27/20 10/10/21 magnesium hydroxide 400 mg/5 mL 30 ml PO DAILY PRN Constipation 12/27/20 10/10/21 oral suspension (Milk of Magnesia) docusate sodium 100 mg capsule 100 mg PO BID 02/09/21 10/10/21 liraglutide 0.6 mg/0.1 mL (18 mg/3 1.8 mg subcut DAILY 02/09/21 10/10/21 mL) subcutaneous pen injector tamsulosin 0.4 mg capsule 0.4 mg PO QPM 02/09/21 10/10/21 levothyroxine 125 mcg tablet 125 mcg PO DAILYBB 03/06/21 10/10/21 polyethylene glycol 3350 17 17 g PO BID 03/06/21 10/10/21 gram/dose oral powder (Miralax) sertraline 50 mg tablet (Zoloft) 100 mg PO QAM 09/05/21 10/10/21 acetaminophen 325 mg tablet 325 mg PO Q6H PRN FEVER/PAIN 10/10/21 10/10/21 (Tylenol) mirabegron 25 mg tablet,extended 25 mg PO QAM 10/10/21 10/10/21 release 24 hr (Myrbetriq) ondansetron 4 mg disintegrating 4 mg PO Q6H PRN NAUSEA/VOMITING 10/10/21 10/10/21 tablet sertraline 100 mg tablet 100 mg PO QAM 10/10/21 10/10/21 Previous Rx's Medication Instructions Recorded magnesium oxide 400 mg (241.3 mg 400 mg PO QAM #30 tabs 10/11/20 magnesium) tablet Results & Data (ED) Vital Signs Vital Signs - 24 hr 10/10/21 10:36 10/10/21 10:36 10/10/21 11:11 Temperature 36.8 C Temperature Source Oral Pulse Rate 83 Pulse Rate [Apical] 83 Pulse Rate from SpO2 Sensor Respiratory Rate 16 21 Respiratory Effort / Characteristics Non-Labored Respiratory Depth Normal Respiratory Pattern Regular Blood Pressure 96/80 L Blood Pressure [Left Arm] 100/80 Blood Pressure Mean 85 Blood Pressure Mean [Left Arm] 86 Pulse Oximetry 95 94 93 Oxygen Delivery Method Nasal Cannula Nasal Cannula Room Air Oxygen Flow Rate 2 2 Sepsis Recent Fever Within 48 Hours No Sepsis New/Unexplained Change in Mental Status N/A Sepsis Action Taken by Nursing No Action Required 10/10/21 14:45 10/10/21 11:10 10/10/21 11:30 Temperature Temperature Source Pulse Rate 82 Pulse Rate [Apical] 89 Pulse Rate from SpO2 Sensor 82 Respiratory Rate 21 29 H Respiratory Effort / Characteristics Respiratory Depth Respiratory Pattern Blood Pressure 126/74 Blood Pressure [Left Arm] 116/78 Blood Pressure Mean 91 Blood Pressure Mean [Left Arm] 90 Pulse Oximetry 99 93 Oxygen Delivery Method Oxygen Flow Rate Sepsis Recent Fever Within 48 Hours Sepsis New/Unexplained Change in Mental Status Sepsis Action Taken by Nursing 10/10/21 11:30 10/10/21 12:00 10/10/21 12:00 Temperature Temperature Source Pulse Rate 83 83 Pulse Rate [Apical] Pulse Rate from SpO2 Sensor 83 83 Respiratory Rate 14 21 Respiratory Effort / Characteristics Respiratory Depth Respiratory Pattern Blood Pressure 117/67 Blood Pressure [Left Arm] Blood Pressure Mean 83 Blood Pressure Mean [Left Arm] Pulse Oximetry 96 96 Oxygen Delivery Method Oxygen Flow Rate Sepsis Recent Fever Within 48 Hours Sepsis New/Unexplained Change in Mental Status Sepsis Action Taken by Nursing 10/10/21 12:30 10/10/21 12:30 10/10/21 13:00 Temperature Temperature Source Pulse Rate 83 82 Pulse Rate [Apical] Pulse Rate from SpO2 Sensor 83 Respiratory Rate 21 25 H Respiratory Effort / Characteristics Respiratory Depth Respiratory Pattern Blood Pressure 112/61 Blood Pressure [Left Arm] Blood Pressure Mean 78 Blood Pressure Mean [Left Arm] Pulse Oximetry 91 Oxygen Delivery Method Oxygen Flow Rate Sepsis Recent Fever Within 48 Hours Sepsis New/Unexplained Change in Mental Status Sepsis Action Taken by Nursing 10/10/21 13:30 10/10/21 14:00 10/10/21 14:30 Temperature Temperature Source Pulse Rate 83 83 83 Pulse Rate [Apical] Pulse Rate from SpO2 Sensor Respiratory Rate 21 27 H 13 Respiratory Effort / Characteristics Respiratory Depth Respiratory Pattern Blood Pressure Blood Pressure [Left Arm] Blood Pressure Mean Blood Pressure Mean [Left Arm] Pulse Oximetry Oxygen Delivery Method Oxygen Flow Rate Sepsis Recent Fever Within 48 Hours Sepsis New/Unexplained Change in Mental Status Sepsis Action Taken by Nursing 10/10/21 15:00 10/10/21 15:30 Temperature Temperature Source Pulse Rate 94 H 88 Pulse Rate [Apical] Pulse Rate from SpO2 Sensor Respiratory Rate 15 14 Respiratory Effort / Characteristics Respiratory Depth Respiratory Pattern Blood Pressure Blood Pressure [Left Arm] Blood Pressure Mean Blood Pressure Mean [Left Arm] Pulse Oximetry Oxygen Delivery Method Oxygen Flow Rate Sepsis Recent Fever Within 48 Hours Sepsis New/Unexplained Change in Mental Status Sepsis Action Taken by Nursing Laboratory Data Result diagrams: 10/10/21 11:05 10/10/21 11:05 Lab Results 10/10/21 10/10/21 10/10/21 Range/Units 11:05 11:05 11:05 WBC 18.08 H (4.8-10.8) K/ul RBC 4.83 (4.63-6.08) M/uL Hgb 14.8 (14.0-18.0) g/dl Hct 45.1 (40.1-51.0) % MCV 93.4 (80.0-100.0) fL MCH 30.6 (25.0-34.0) pg MCHC 32.8 (32.0-36.0) g/dL RDW Std Deviation 41.9 (36.4-46.3) fL RDW Coeff of Shireen 12.2 (11.5-14.5) % Plt Count 236 (130-400) K/uL MPV 11.3 (9.4-12.4) fL Immature Gran % (Auto) 0.8 % Neut % (Auto) 83.7 % Lymph % (Auto) 8.3 % [place] % (Auto) 5.9 % Eos % (Auto) 0.9 % Baso % (Auto) 0.4 % Neut # (Auto) 15.12 H (1.4-6.5) K/uL Lymph # (Auto) 1.50 (1.2-3.4) K/uL [place] # (Auto) 1.07 H (0.24-0.82) K/uL Eos # (Auto) 0.16 (0-0.50) K/uL Baso # (Auto) 0.08 (0-0.2) K/uL Immature Gran # (Auto) 0.15 H (0.00-0.02) K/uL Sodium 140 (136-145) mmol/L Potassium 3.5 (3.5-5.1) mmol/L Chloride 105 (98-107) mmol/L Carbon Dioxide 28 (21-32) mmol/L Anion Gap 7 (3-11) BUN 19 (6-23) mg/dl Creatinine 1.03 (0.6-1.4) mg/dl Est Cr Clr Drug Dosing 87.2 ml/min Est GFR ( Amer) 86.1 ml/min Est GFR (Non-Af Amer) 74.3 ml/min BUN/Creatinine Ratio 18.4 (10-20) Glucose 80 (70-99(Fasting)) mg/dl Lactate (0.4-2.0) mmol/L Calcium 9.4 (8.5-10.1) mg/dl Total Bilirubin 0.5 (0.2-1.0) mg/dl AST 13 (13-39) U/L ALT 9 (7-52) U/L Alkaline Phosphatase 98 (34-104) U/L Troponin I High Sens 9.7 (0-20) pg/ml Total Protein 6.7 (6.0-8.3) gm/dl Albumin 3.7 (3.4-5.0) gm/dl Globulin 3.0 (2.5-4.0) gm/dl Albumin/Globulin Ratio 1.2 (0.9-2) Lipase 14 (11-82) U/L Procalcitonin 0.12 (0-0.5) ng/ml SARS-CoV-2 (PCR) (Negative) Influenza Type A (PCR) (Neg) Influenza Type B (PCR) (Neg) RSV (RT-PCR) (Neg) 10/10/21 10/10/21 Range/Units 14:31 14:48 WBC (4.8-10.8) K/ul RBC (4.63-6.08) M/uL Hgb (14.0-18.0) g/dl Hct (40.1-51.0) % MCV (80.0-100.0) fL MCH (25.0-34.0) pg MCHC (32.0-36.0) g/dL RDW Std Deviation (36.4-46.3) fL RDW Coeff of Shireen (11.5-14.5) % Plt Count (130-400) K/uL MPV (9.4-12.4) fL Immature Gran % (Auto) % Neut % (Auto) % Lymph % (Auto) % [place] % (Auto) % Eos % (Auto) % Baso % (Auto) % Neut # (Auto) (1.4-6.5) K/uL Lymph # (Auto) (1.2-3.4) K/uL [place] # (Auto) (0.24-0.82) K/uL Eos # (Auto) (0-0.50) K/uL Baso # (Auto) (0-0.2) K/uL Immature Gran # (Auto) (0.00-0.02) K/uL Sodium (136-145) mmol/L Potassium (3.5-5.1) mmol/L Chloride (98-107) mmol/L Carbon Dioxide (21-32) mmol/L Anion Gap (3-11) BUN (6-23) mg/dl Creatinine (0.6-1.4) mg/dl Est Cr Clr Drug Dosing ml/min Est GFR ( Amer) ml/min Est GFR (Non-Af Amer) ml/min BUN/Creatinine Ratio (10-20) Glucose (70-99(Fasting)) mg/dl Lactate 0.8 (0.4-2.0) mmol/L Calcium (8.5-10.1) mg/dl Total Bilirubin (0.2-1.0) mg/dl AST (13-39) U/L ALT (7-52) U/L Alkaline Phosphatase (34-104) U/L Troponin I High Sens (0-20) pg/ml Total Protein (6.0-8.3) gm/dl Albumin (3.4-5.0) gm/dl Globulin (2.5-4.0) gm/dl Albumin/Globulin Ratio (0.9-2) Lipase (11-82) U/L Procalcitonin (0-0.5) ng/ml SARS-CoV-2 (PCR) NEGATIVE (Negative) Influenza Type A (PCR) Negative (Neg) Influenza Type B (PCR) Negative (Neg) RSV (RT-PCR) Negative (Neg) Administered Medications Insulin Aspart (Insulin Aspart Per Unit) 0 units SC ACHS CÉSAR Stop: 11/09/21 17:33 Last Admin: 10/10/21 18:46 Dose: Not Given Documented By: VIBHA Discontinued Medications Acetaminophen (Acetaminophen 500 Mg Tab) 1,000 mg PO NOW STA Stop: 10/10/21 13:28 Last Admin: 10/10/21 14:29 Dose: 1,000 mg Documented By: ALOK Sodium Chloride (Nss 1000ml) 500 mls @ 999 mls/hr IV .Q31M ONE Stop: 10/10/21 11:59 Last Infusion: 10/10/21 12:13 Dose: 0 mls/hr Documented By: Admin: 10/10/21 11:38 Dose: 999 mls/hr Documented By: Sodium Chloride (Nss 1000ml) 1,000 mls @ 125 mls/hr IV .Q8H STA Stop: 10/10/21 19:28 Last Admin: 10/10/21 11:58 Dose: 125 mls/hr Documented By: ALOK Cefepime HCl (Maxipime) 2,000 mg in 20 mls @ 5 mls/min IV NOW STA; Protocol Stop: 10/10/21 13:19 Last Admin: 10/10/21 14:29 Dose: 5 mls/min Documented By: ALOK Vancomycin HCl 2,250 mg/ (Sodium Chloride) 545 mls @ 200 mls/hr IV NOW ONE Stop: 10/10/21 15:59 Last Infusion: 10/10/21 17:53 Dose: 0 mls/hr Documented By: Admin: 10/10/21 14:43 Dose: 200 mls/hr Documented By: ALOK Sodium Chloride (Nss 1000ml) 500 mls @ 999 mls/hr IV .Q31M ONE Stop: 10/10/21 13:46 Last Infusion: 10/10/21 15:08 Dose: 0 mls/hr Documented By: Admin: 10/10/21 14:29 Dose: 999 mls/hr Documented By: ALOK Ondansetron HCl (Ondansetron Inj 2 Mg/Ml 2 Ml Vial) 4 mg IV NOW STA Stop: 10/10/21 11:30 Last Admin: 10/10/21 11:36 Dose: 4 mg Documented By: Imaging Data Radiologist's Impression: Abdomen/Pelvis CT 10/10/21 11:29 CT abd pelvis wo con CLINICAL HISTORY: generalized abd pain, n/v . Shortness of breath COMPARISON STUDY: Portable chest from 10/10/2021 CT DOSE: 1664.21 mGy.cm TECHNIQUE: Standard CT of the Abdomen and Pelvis was performed without IV contrast. The patient did not receive oral contrast. A dose lowering technique was utilized adhering to the principles of ALARA. FINDINGS: Lung base: There is a patchy alveolar opacity within the right lower lobe posteromedially most characteristic of early pneumonia. The heart size is within normal limits with pacer in place. Abdominal cavity: There is no evidence for abdominal mass, adenopathy or ascites. Liver: The liver is homogeneous in attenuation on these limited noncontrast images.. Spleen: The spleen is homogeneous in attenuation on these limited noncontrast images. Pancreas: The pancreas is homogeneous in attenuation on these limited noncontrast images. Gall Bladder: The gallbladder is well distended with no evidence for cholelithiasis, wall thickening or pericholecystic edema.. Adrenal glands: The adrenal glands are normal in size and attenuation on these limited noncontrast images. Kidneys: The kidneys are homogeneous in attenuation on these limited noncontrast images. There is no evidence for gross renal mass, calculus or hydronephrosis bilaterally. Chronic perinephric stranding is present bilaterally. Bowel: There is a small hiatal hernia. The bowel loops are normally placed within the abdomen and pelvis without evidence for dilatation or obstruction. Th ere is no evidence for mass lesion. There is moderate fecal stasis and impaction of the rectosigmoid colon. However, no evidence for obstruction is seen. There are no inflammatory changes present. There is no evidence for free air. There is no evidence for an inflamed appendix. Bladder: There is no evidence for focal bladder wall thickening, calculus or diverticulum. There is mild diffuse thickening of the bladder wall characteristic of chronic bladder outlet obstruction. : There is no evidence for pelvic mass or adenopathy. The prostate is mildly enlarged. Vasculature: There is no evidence for focal aneurysmal dilatation of the abdominal aorta. Osseous structures: There is no acute osseous pathology. Mild degenerative changes are seen within the spine. IMPRESSION: 1. Moderate fecal stasis in impaction of the rectosigmoid colon with no evidence for obstruction. 2. No evidence for an inflamed appendix. 3. Patchy alveolar opacity within the right lower lobe posteromedially characteristic of early pneumonia. 4. Small hiatal hernia. 5. Additional nonacute findings are delineated above. ACT 112: Negative or not required by law. Electronically signed by: Kike Nguyen M.D. 10/10/2021 1:04 PM Chest X-Ray 10/10/21 11:29 XR chest 1V portable CLINICAL HISTORY: abd and right shoulder pain TECHNIQUE: Single frontal radiograph of the chest was obtained. Comparison: Comparison is made to chest radiograph 10/08/2020 FINDINGS: Dual lead pacemaker is seen. The cardiomediastinal silhouette is normal. The lungs are clear. No evidence of pleural effusion or pneumothorax. IMPRESSION: No acute chest disease. ACT 112: Negative or not required by law. Electronically signed by: Mario Mathis M.D. 10/10/2021 11:50 AM Discharge Plan Visit Data Chief Complaint: Abdominal Pain Stated Complaint: NAUSEA, VOMITING, AB PAIN ED Provider: Emmanuel Driscoll Discharge Problem: Pneumonia, Generalized abdominal pain, Nausea & vomiting, Leukocytosis, Fecal retention, Acute hypotension
[2021-10-10 12:06] LABS: Appearance Urine Clear (Clear); Bacteria Urine Automated Negative (Negative); Bilirubin Urine Negative (Negative); Blood Urine Negative (Negative); Color Urine Yellow; Glucose Urine UA Negative (Negative); Ketones Urine Trace (Negative); Leukocyte Esterase Urine Trace (Negative); Nitrite Urine Negative (Negative); Protein Urine Negative (Negative); RBC Urine Automated 0-4 /hpf (0-4); Specific Gravity Urine 1.017 (1.000-1.030); Urobilinogen Urine Negative (Negative); pH Urine 5.5 (4.5-7.5)
--- NOTE | 2021-10-10 13:07 | CT Scan Report ---
CT abd pelvis wo con CLINICAL HISTORY: generalized abd pain, n/v . Shortness of breath COMPARISON STUDY: Portable chest from 10/10/2021 CT DOSE: 1664.21 mGy.cm TECHNIQUE: Standard CT of the Abdomen and Pelvis was performed without IV contrast. The patient did not receive oral contrast. A dose lowering technique was utilized adhering to the principles of BINDU Arroyo FINDINGS: Lung base: There is a patchy alveolar opacity within the right lower lobe posteromedially most charac teristic of early pneumonia. The heart size is within normal limits with pacer in place. Abdominal cavity: There is no evidence for abdominal mass, adenopathy or ascites. Liver: The liver is homogeneous in attenuation on these limited noncontrast images.. Spleen: The spleen is homogeneous in attenuation on these limited noncontrast images. Pancreas: The pancreas is homogeneous in attenuation on these limited noncontrast images. Gall Bladder: The gallbladder is well distended with no evidence for cholelithiasis, wall thickening or pericholecystic edema.. Adrenal glands: The adrenal glands are normal in size and attenuation on these limited noncontrast im ages. Kidneys: The kidneys are homogeneous in attenuation on these limited noncontrast images. There is no evidence for gross renal mass, calculus or hydronephrosis bilaterally. Chronic perinephric stranding is present bilaterally. Bowel: There is a small hiatal hernia. The bowel loops are normally placed within the abdomen and pel vis without evidence for dilatation or obstruction. There is no evidence for mass lesion. There is mo derate fecal stasis and impaction of the rectosigmoid colon. However, no evidence for obstruction is seen. There are no inflammatory changes present. There is no evidence for free air. There is no evide nce for an inflamed appendix. Bladder: There is no evidence for focal bladder wall thickening, calculus or diverticulum. There is m ild diffuse thickening of the bladder wall characteristic of chronic bladder outlet obstruction. : There is no evidence for pelvic mass or adenopathy. The prostate is mildly enlarged. Vasculature: There is no evidence for focal aneurysmal dilatation of the abdominal aorta. Osseous structures: There is no acute osseous pathology. Mild degenerative changes are seen within th e spine. IMPRESSION: 1. Moderate fecal stasis in impaction of the rectosigmoid colon with no evidence for obstruction. 2. No evidence for an inflamed appendix. 3. Patchy alveolar opacity within the right lower lobe posteromedially characteristic of early pneumo travon. 4. Small hiatal hernia. 5. Additional nonacute findings are delineated above. ACT 112: Negative or not required by law. Electronically signed by: Kike Nguyen M.D. 10/10/2021 1:04 PM
[2021-10-10] MEDS ORDERED: VANCOMYCIN CONSULT ACTIVE PRN (13:16)
[2021-10-10] MEDS ORDERED: VANCOMYCIN HCL 2,250 MG in SODIUM CHLORIDE 0.9% 500 ML IV ONE (13:16)
[2021-10-10] MEDS ORDERED: CEFEPIME 2,000 MG/20 ML VIAL IV STA (13:16)
[2021-10-10] MEDS ORDERED: ACETAMINOPHEN 500 MG TAB PO STA (13:27)
[2021-10-10] MEDS ORDERED: POLYETHYLENE (MIRALAX) 17 GM PACK PO PRN (14:24)
--- NOTE | 2021-10-10 14:33 | History & Physical Report ---
Date of Service October 10, 2021 Assessment & Plan (1) Generalized abdominal pain: Plan: -Patient has an extensive history of abdominal pain, nausea, vomiting, and constipation -Large workup has been started previously by GI showing Gastritis, esophagitis (previously treated), and chronic constipation -Workup so far is positive for leukocytosis but no other vitals or lab results indicative of current infection. Patient has been afebrile, hemodynamcially stable, and stable on his baseline O2. >CXR cleatr, CT chest showing possible signs of pneumonia but Procal is negative >UA is inconclusive as it has trace esterase but nitrite negative, culture is pending >Lactate and blood cultutres pending >Patient was started on Vancomycin and cefepime, will hold additional abx for now and continue to follow infectious workup -Patient recieved 1L NSS bolus in the ED, hold additional IV fluids for now and will try clear liquid diet -If patient would become febrile or would decompensate would re-initiate broad spectrum abx -Will get stool studies including c. diff PCR to rule out infectious causes -Imaging showing large stool burden in the rectosigmoid colon without obstruction, his current episodes of diarrhea are like the result of water passing this stool burden -Will continue with heave bowel regimen for now including TI[employer]ESSION[employer] Linzess and will start PO bowel regimen and soad suds enema -Hold [employer] dicyclomine as this could be contributing to his constipation -Will start IV Protonix for possible exacerbation of gastritis and esophagitis -AM CBC and CMP (2) Nausea & vomiting: Plan: -See above (3) Constipation: Plan: -See above (4) Leukocytosis: Plan: -See above (5) Type II diabetes mellitus: Plan: -Will start with the below, add Pharmacy consult if needed: --Goal BSG Range: Low 110 mg/dL, High 140mg/dL --Correction Factor: 20 mg/dL/unit --Carbohydrate ratio = 10 g/unit --BSGs ACHS if eating, q6h if npo (6) Heartburn: Plan: -Protonix (7) Abdominal discomfort: Plan: -see above (8) GERD (gastroesophageal reflux disease): Plan: -Protonix (9) 2Nd degree atrioventricular block: (10) BPH (benign prostatic hyperplasia): Plan: -TILE PROFESSIONAL flomax (11) AI (obstructive sleep apnea): Plan: -HS CPAP ordered (12) COPD (chronic obstructive pulmonary disease): Plan: -TILE [employer]ESSION[employer] breathing treatments (13) Diastolic CHF: Plan: -Continue [employer] lasix (14) Schizophrenia: Plan: -TI[employer]ESSIONAL psych meds (15) Hypothyroidism: Plan: -TILE [employer] levothyroxine Plan The patient was discussed with Dr. Vasquez at the time of admission History of Present Illness Chief Complaint: Nausea, abdominal pain, vomiting Primary Care Provider: [facility] Aly is a 66 year old male with a PMH significant for Constipation, abdominal pain, nausea/vomiting, 2nd degree AV/block S/P ventricular pacemaker placement, DM II, BPH, sleep apnea, COPD, diastolic HF, schizophrenia, and hypothyroidism who presented to the [facility] ED from [facility] with complaints of nausea, abdominal pain and bilious vomiting. Per chart review, the patient has had a long history of constipation, abdominal pain, nausea, and vomiting. He was recently seen by GI in 02/07/21 for the same problems. He has undergone an extensive workup including esophagogastroduodenoscopy, Colonoscopy, and CT virtual colonoscopy. This workup has revealed gastritis, and mildly severe esophagitis. An accurate history was difficult to obtain from the patient due to his baseline mental status. He states that he has had left lower abdominal pain, nausea, and vomiting for a "long time". He states that this morning he vomited multiple times and the residential called EMS. He denies current fever, chills, chest pain, SOB, and recent falls. I called and spoke to [facility] staff. They state that the patient has chron ic diarrhea, abdominal pain, nausea, and vomiting. However, it seems to have been worse over the past two days. They state that yesterday and today the patient has experienced multiple episode of "yellow" vomit. They state that his diet has been worse recently and he has lost approximately 15 punds over the past 2-3 months. They state that he has been having diarrhea over the past fever days as well but denies any bloody stool or melena. Allergies Allergy/AdvReac Type Severity Reaction Status Date / Time Penicillins Allergy Unknown on [facility] Verified 10/10/21 15:09 of [facility] med list Home Medications Medication Instructions Recorded Confirmed Type atorvastatin 10 mg tablet (Lipitor) 10 mg PO HS 08/28/20 09/12/21 History clozapine 100 mg tablet (Clozaril) 100 mg PO Q12 08/28/20 09/12/21 History ergocalciferol (vitamin D2) 1,250 1,250 mcg PO WK 08/28/20 09/12/21 History mcg (50,000 unit) capsule (Vitamin D2) ferrous sulfate 325 mg (65 mg 325 mg PO DAILY 08/28/20 09/12/21 History iron) tablet (FeroSul) fluticasone furoate 100 1 inh inhalation DAILY 08/28/20 09/12/21 History mcg-vilanterol 25 mcg/dose inhalation powder (Breo Ellipta) furosemide 40 mg tablet (Lasix) 40 mg PO DAILY 08/28/20 09/12/21 History furosemide 80 mg tablet (Lasix) 80 mg PO DAILY 08/28/20 09/12/21 History insulin aspart U-100 100 unit/mL 10 unit subcut TIDM 08/28/20 09/12/21 History subcutaneous solution (Novolog U-100 Insulin aspart) linaclotide 290 mcg capsule 290 mcg PO QAM 08/28/20 09/12/21 History (Linzess) metoprolol succinate 50 mg 50 mg PO DAILY 08/28/20 09/12/21 History tablet,extended release 24 hr (Toprol XL) potassium chloride 20 mEq 20 meq PO TID 08/28/20 09/12/21 History tablet,extended release (K-Tab) insulin glargine 100 unit/mL (3 30 unit subcut HS 10/07/20 09/12/21 History mL) subcutaneous pen (Basaglar KwikPen U-100 Insulin) multivitamin (Daily Multi-Vitamin 1 tab PO DAILY 10/07/20 09/12/21 History tablet) omeprazole 20 mg capsule,delayed 20 mg PO DAILY 10/07/20 09/12/21 History release tramadol 50 mg tablet (Ultram) 25 mg PO Q12 PRN Severe Pain 10/07/20 09/12/21 History (Scale Score 7-10) magnesium oxide 400 mg (241.3 mg 400 mg PO QAM #30 tabs 10/11/20 09/12/21 Rx magnesium) tablet acetaminophen 325 mg capsule 650 mg PO Q6H PRN fever or pain 12/27/20 09/12/21 History magnesium hydroxide 400 mg/5 mL 30 ml PO DAILY PRN Constipation 12/27/20 09/12/21 History oral suspension (Milk of Magnesia) docusate sodium 100 mg capsule 100 mg PO BID 02/09/21 09/12/21 History liraglutide 0.6 mg/0.1 mL (18 mg/3 1.8 mg subcut DAILY 02/09/21 09/12/21 History mL) subcutaneous pen injector tamsulosin 0.4 mg capsule 0.4 mg PO DAILY 02/09/21 09/12/21 History levothyroxine 125 mcg tablet 125 mcg PO DAILY 03/06/21 09/12/21 History polyethylene glycol 3350 17 17 g PO DAILY PRN Constipation 03/06/21 09/12/21 History gram/dose oral powder (Miralax) sertraline 50 mg tablet (Zoloft) 100 mg PO DAILY 09/05/21 09/12/21 History acetaminophen 325 mg tablet 325 mg PO Q6H PRN FEVER/PAIN 10/10/21 10/10/21 History (Tylenol) mirabegron 25 mg tablet,extended 25 mg PO QAM 10/10/21 10/10/21 History release 24 hr (Myrbetriq) ondansetron 4 mg disintegrating 4 mg PO Q6H PRN NAUSEA/VOMITING 10/10/21 10/10/21 History tablet sertraline 100 mg tablet 100 mg PO QAM 10/10/21 10/10/21 History Past Med/Surg History Medical History Anxiety and depression Chest pain Constipation COPD (chronic obstructive pulmonary disease) Disorder of prostate Dysphagia Esophagitis GERD (gastroesophageal reflux disease) Heart failure Hyperlipidemia Hypertension Hypomagnesemia Hypothyroidism Morbid obesity Muscle weakness Obstructive sleep apnea O2 at 2L n/c at HS and prn if pulse ox is less than 90% Osteoporosis Paranoid schizophrenia Type 2 diabetes mellitus Unspecified abnormalities of gait and mobility Surgical History Surgical history unknown Social History Smoking Status: Former smoker Tobacco Type: Cigarettes Second Hand Exposure: No; Preferred Language: Greek Communication Ability: Effective Sustainable Landscape Architect Required: No Beliefs That Will Affect Care: None Current Living Situation: [facility] Current Living Situation Comment: Pt from [facility], currently @ [facility] for amb dysfunction current occupational status: retired Feels Safe at Home: Yes Assistive Devices: Wheelchair Review of Systems Constitutional: no fever and no chills Eyes: as per Subjective / HPI Ear, Nose, Mouth, Throat: as per Subjective / HPI Respiratory: no cough, no dyspnea and no wheezing Cardiovascular: no chest pain and no palpitations Gastrointestinal: + abdominal pain, + heartburn, + nausea and + diarrhea/loose stools; no coffee ground emesis, no constipation, no blood in stools and no melena Genitourinary: no dysuria Psychiatric: as per Subjective / HPI Endocrine: as per Subjective / HPI Hematologic / Lymphatic: as per Subjective / HPI Physical Exam Constitutional: WD/WN, vitals as above Eyes: PERRL, conjunctivae normal, anicteric sclerae ENMT: external ear and nose normal, oropharynx normal Respiratory: normal respiratory effort, lungs clear to auscultation Cardiovascular: RRR, no murmur, no edema Gastrointestinal (Abdomen): No ascites, normoactive bowel sounds, soft, tender to palpation in the epigastric region and left lower quadrant Musculoskeletal: no cyanosis or clubbing, extremities motor strength 5/5 Skin: no rashes, warm and dry Neurologic: PERRL, EOMI, accommodation nl, no face palsy, no dysarthria Psychiatric: A+Ox3, euthymic affect Results & Data Results & Data ([facility]) Vital Signs (Past 12 Hours) Vital Signs Temp Pulse Pulse Resp BP BP Pulse Ox 10/10/21 11:11 93 10/10/21 10:36 83 21 100/80 94 10/10/21 10:36 36.8 C 83 16 96/80 L 95 O2 Del Method O2 Flow Rate 10/10/21 11:11 Room Air 10/10/21 10:36 Nasal Cannula 2 10/10/21 10:36 Nasal Cannula 2 Laboratory Results Abnormal lab results 10/10/21 10/10/21 Range/Units 11:05 Unknown WBC 18.08 H (4.8-10.8) K/ul Neut # (Auto) 15.12 H (1.4-6.5) K/uL Harlan # (Auto) 1.07 H (0.24-0.82) K/uL Immature Gran # (Auto) 0.15 H (0.00-0.02) K/uL Urine Ketones Trace H (Negative) Ur Leukocyte Esterase Trace H (Negative) Urine WBC (Auto) 10-30 H (0-5) /hpf U Hyaline Cast (Auto) 5-10 H (0-5) /lpf U Epithel Cells (Auto) 10-20 H (0-5) /lpf Diagnostic Findings Abdomen/Pelvis CT 10/10/21 11:29 CT abd pelvis wo con CLINICAL HISTORY: generalized abd pain, n/v . Shortness of breath COMPARISON STUDY: Portable chest from 10/10/2021 CT DOSE: 1664.21 mGy.cm TECHNIQUE: Standard CT of the Abdomen and Pelvis was performed without IV contrast. The patient did not receive oral contrast. A dose lowering technique was utilized adhering to the principles of ALARA. FINDINGS: Lung base: There is a patchy alveolar opacity within the right lower lobe posteromedially most characteristic of early pneumonia. The heart size is within normal limits with pacer in place. Abdominal cavity: There is no evidence for abdominal mass, adenopathy or ascites. Liver: The liver is homogeneous in attenuation on these limited noncontrast images.. Spleen: The spleen is homogeneous in attenuation on these limited noncontrast images. Pancreas: The pancreas is homogeneous in attenuation on these limited noncontrast images. Gall Bladder: The gallbladder is well distended with no evidence for cholelithiasis, wall thickening or pericholecystic edema.. Adrenal glands: The adrenal glands are normal in size and attenuation on these limited noncontrast images. Kidneys: The kidneys are homogeneous in attenuation on these limited noncontrast images. There is no evidence for gross renal mass, calculus or hydronephrosis bilaterally. Chronic perinephric stranding is present bilaterally. Bowel: There is a small hiatal hernia. The bowel loops are normally placed within the abdomen and pelvis without evidence for dilatation or obstruction. There is no evidence for mass lesion. There is moderate fecal stasis and impaction of the rectosigmoid colon. However, no evidence for obstruction is seen. There are no inflammatory changes present. There is no evidence for free air. There is no evidence for an inflamed appendix. Bladder: There is no evidence for focal bladder wall thickening, calculus or diverticulum. There is mild diffuse thickening of the bladder wall characteristic of chronic bladder outlet obstruction. : There is no evidence for pelvic mass or adenopathy. The prostate is mildly enlarged. Vasculature: There is no evidence for focal aneurysmal dilatation of the abdominal aorta. Osseous structures: There is no acute osseous pathology. Mild degenerative changes are seen within the spine. IMPRESSION: 1. Moderate fecal stasis in impaction of the rectosigmoid colon with no evidence for obstruction. 2. No evidence for an inflamed appendix. 3. Patchy alveolar opacity within the right lower lobe posteromedially characteristic of early pneumonia. 4. Small hiatal hernia. 5. Additional nonacute findings are delineated above. ACT 112: Negative or not required by law. Electronically signed by: Kike Nguyen M.D. 10/10/2021 1:04 PM Chest X-Ray 10/10/21 11:29 XR chest 1V portable CLINICAL HISTORY: abd and right shoulder pain TECHNIQUE: Single frontal radiograph of the chest was obtained. Comparison: Comparison is made to chest radiograph 10/08/2020 FINDINGS: Dual lead pacemaker is seen. The cardiomediastinal silhouette is normal. The lungs are clear. No evidence of pleural effusion or pneumothorax. IMPRESSION: No acute chest disease. ACT 112: Negative or not required by law. Electronically signed by: Mario Mathis M.D. 10/10/2021 11:50 AM Medications Administered Sodium Chloride (Nss 1000ml) 1,000 mls @ 125 mls/hr IV .Q8H STA Stop: 10/10/21 19:28 Last Admin: 10/10/21 11:58 Dose: 125 mls/hr Documented By: HNB ECG Additional Comments: Atrial-sensed ventricular-paced rhythm Abnormal ECG When compared with ECG of 07-OCT-2020 06:45, Vent. rate has decreased BY 24 BPM Code Status & VTE Plan Code Status Full Code VTE Prophylaxis Plan VTE Prophylaxis will be ordered: Yes Supervising Physician Co-Signing Physician Notes Discussed with EDWIN, agree with his note above. Patient is here for generalized abdominal pain, nausea, vomiting, and constipation. Patient has had extensive work-up in the past. Concern about constipation as well as possible left lower lobe pneumonia although patient showing no other infectious signs and Pro-Sebas is negative. Patient was given broad-spectrum antibiotics in the ER but we will hold off and monitor for next 24 hours. Continue bowel regimen for constipation as noted on CT. Continue Protonix. PG Care Time/CCT Total # of Minutes Spent Total Time Spent with Patient: Total time spent is greater than 50% in coordination of care (as documented) at patient's floor/unit and/or counseling patient: C[place] [address] Initial Inpt Care Lvl 2 Patient Type Established Medical Decision Making Straight Forward Diagnoses Generalized abdominal pain R10.84 Nausea & vomiting R11.2 Constipation K59.00 Leukocytosis D72.829 Type II diabetes mellitus E11.9 Heartburn R12 Abdominal discomfort R10.9 GERD (gastroesophageal reflux disease) K21.9 2Nd degree atrioventricular block I44.1 BPH (benign prostatic hyperplasia) N40.0 AI (obstructive sleep apnea) G47.33 COPD (chronic obstructive pulmonary disease) J44.9 Diastolic CHF I50.32 Heart failure chronicity: chronic Schizophrenia F20.9 Hypothyroidism E03.9 (1) Diastolic CHF Heart failure chronicity: chronic Qualified Code(s): I50.32 - Chronic diastolic (congestive) heart failure
[2021-10-10 16:07] LABS: Influenza A virus by PCR Negative (Neg); Influenza B virus by PCR Negative (Neg); RSV by PCR Negative (Neg); SARS CoV2 RNA(COVID-19) InHosp NEGATIVE (Negative)
[2021-10-10] MEDS ORDERED: CARBOHYDRATES FOR HYPOGLYCEMIA PO PRN (17:34)
[2021-10-10] MEDS ORDERED: DEXTROSE 50% 50 ML SYRINGE IV PRN (17:34)
[2021-10-10] MEDS ORDERED: GLUCAGON FOR INJ 1 MG VIAL SQ PRN (17:34)
[2021-10-10] MEDS ORDERED: GLUCOSE 10 TAB/TUBE PO PRN (17:34)
[2021-10-10] MEDS ORDERED: traMADol HCL 50 MG TABLET PO PRN (17:34)
[2021-10-10] MEDS ORDERED: GLUCOSE 40% GEL 15 GM TUBE PO PRN (17:34)
[2021-10-10] MEDS ORDERED: ONDANSETRON 4 MG OD TAB PO PRN (17:51)
[2021-10-10] MEDS: INSULIN ASPART PER UNIT SC SCH ×2 (18:46→22:24)
[2021-10-10] MEDS ORDERED: ATORVASTATIN 10 MG TAB PO SCH (21:00)
[2021-10-10] MEDS: POTASSIUM CHLORIDE CRTAB 20 MEQ TABCR PO SCH (22:45)
[2021-10-10] MEDS: PANTOprazole 40 MG in SYRINGE 0 ML IV SCH (22:45)
[2021-10-10] MEDS: cloZAPine 100 MG TAB PO SCH (22:45)
[2021-10-10] MEDS: FLUTICASONE/VILANTEROL 100/25MCG 14 PUFFS/INHALER INH SCH (22:46)
[2021-10-10 23:45] LABS: Adenovirus F 40/41 PCR Not Detected (NotDetected); Astrovirus PCR Not Detected (NotDetected); Campylobacter PCR Not Detected (NotDetected); Clostridium diff Toxin A/B PCR Not Detected (NotDetected); Cryptosporidium PCR Not Detected (NotDetected); Cyclospora cayetanensis PCR Not Detected (NotDetected); Entamoeba histolytica PCR Not Detected (NotDetected); Enteroaggregative E.coli(EAEC) Not Detected (NotDetected); Enteropathogenic E.coli (EPEC) Not Detected (NotDetected); Enterotoxigenic E.coli (ETEC) Not Detected (NotDetected); Giardia lamblia PCR Not Detected (NotDetected); Norovirus GI/GII PCR Not Detected (NotDetected); Plesiomonas shigelloides PCR Not Detected (NotDetected); Rotavirus A PCR Not Detected (NotDetected); Salmonella PCR Not Detected (NotDetected); Sapovirus PCR Not Detected (NotDetected); Shiga-like Toxin E.coli (STEC) Not Detected (NotDetected); Shigella/Enteroinvasive E.coli Not Detected (NotDetected); Vibrio cholerae PCR Not Detected (NotDetected); Vibrio species PCR Not Detected (NotDetected); Yersinia enterocolitica PCR Not Detected (NotDetected)
[2021-10-11] MEDS ORDERED: LEVOTHYROXINE SODIUM 125 MCG TABLET PO SCH (06:30)
[2021-10-11] MEDS: INSULIN ASPART PER UNIT SC SCH ×2 (07:59→16:10)
[2021-10-11] MEDS: PANTOprazole 40 MG in SYRINGE 0 ML IV SCH (08:15)
[2021-10-11] MEDS: POTASSIUM CHLORIDE CRTAB 20 MEQ TABCR PO SCH ×2 (08:16→14:25)
[2021-10-11] MEDS: FLUTICASONE/VILANTEROL 100/25MCG 14 PUFFS/INHALER INH SCH (08:16)
[2021-10-11] MEDS: cloZAPine 100 MG TAB PO SCH (08:16)
[2021-10-11] MEDS ORDERED: TAMSULOSIN HCL 0.4 MG CAP PO SCH (09:00)
[2021-10-11] MEDS ORDERED: SERTRALINE HCL 100 MG TABLET PO SCH (09:00)
[2021-10-11] MEDS ORDERED: FERROUS SULFATE 325 MG TAB PO SCH (09:00)
[2021-10-11] MEDS ORDERED: FUROSEMIDE 40 MG TAB PO SCH (09:00)
[2021-10-11] MEDS ORDERED: MAGNESIUM OXIDE 400 MG TAB PO SCH (09:00)
[2021-10-11] MEDS ORDERED: PANTOprazole 40 MG TAB PO SCH (09:00)
[2021-10-11] MEDS ORDERED: LINACLOTIDE 145 MCG CAPSULE PO SCH (09:00)
[2021-10-11] MEDS ORDERED: METOPROLOL SUCC 50MG EXT REL TAB PO SCH (09:00)
[2021-10-11 10:03] LABS: Hematocrit (blood only) 38.9 % (40.1-51.0); Hemoglobin 13.2 g/dl (14.0-18.0); Mean Corpuscular Hemoglobin 31.2 pg (25.0-34.0); Mean Corpuscular Hgb Conc 33.9 g/dL (32.0-36.0); Mean Platelet Volume 11.7 fL (9.4-12.4); Platelet Count 217 K/uL (130-400); RDW Coefficient of Variation 12.4 % (11.5-14.5); RDW Standard Deviation 41.7 fL (36.4-46.3); Red Blood Count 4.23 M/uL (4.63-6.08); White Blood Count 12.61 K/ul (4.8-10.8)
[2021-10-11 10:15] LABS: Albumin Globulin Ratio 1.1 (0.9-2); Albumin Level 3.2 gm/dl (3.4-5.0); BUN Creatinine Ratio 13.1 (10-20); Bilirubin,Total 0.6 mg/dl (0.2-1.0); Calcium 8.8 mg/dl (8.5-10.1); Est GFR (African American) 104.3 ml/min; Globulin 2.8 gm/dl (2.5-4.0); Potassium 4.4 mmol/L (3.5-5.1)
[2021-10-11 13:59] VITALS: BP 120/68; TEMP 98.6; O2SAT 92
[2021-10-11 15:20] VITALS: PULSE 68
--- NOTE | 2021-10-11 15:28 | Discharge Summary ---
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 Per chart review, the patient has had a long history of constipation, abdominal pain, nausea, and vomiting. He was recently seen by GI in 02/07/21 for the same problems. He has undergone an extensive workup including esophagogastroduodenoscopy, Colonoscopy, and CT virtual colonoscopy. This workup has revealed gastritis, and mildly severe esophagitis. An accurate history was difficult to obtain from the patient due to his baseline mental status. He states that he has had left lower abdominal pain, nausea, and vomiting for a "long time". He states that this morning he vomited multiple times and the shelter called EMS. He denies current fever, chills, ch est pain, SOB, and recent falls. I called and spoke to [facility] staff. They state that the patient has chronic diarrhea, abdominal pain, nausea, and vomiting. However, it seems to have been worse over the past two days. They state that yesterday and today the patient has experienced multiple episode of "yellow" vomit. They state that his diet has been worse recently and he has lost approximately 15 punds over the past 2-3 months. They state that he has been having diarrhea over the past fever days as well but denies any bloody stool or melena. Principal Diagnosis 1. Fecal impaction - resolved 2. Leukocytosis 3. Abd pain with n/v - resolved Discharge Exam GENERAL: 66 yo Well-developed, well-nourished but obese WM. NAD. LUNGS: Clear to auscultation bilaterally. No accessory muscle use. No W/R/R. CARDIOVASCULAR: Regular rate and rhythm. No M/G/R. No JVD. ABDOMEN: Soft, non-tender and non-distended. BS normoactive x 4 quad. EXTREMITIES: RLE edema which is chronic. No edema of LLE. Pulses intact. NEUROLOGIC: A&O x3. Nonfocal PSYCHIATRIC: Cooperative. Appropriate mood and affect. SKIN: Warm, dry, intact. No rashes or lesions. Discharge Data Allergies Allergy/AdvReac Type Severity Reaction Status Date / Time Penicillins Allergy Unknown on [facility] Verified 10/10/21 15:09 of [facility] med list Ordered Studies Abdomen/Pelvis CT 10/10/21 11:29 CT abd pelvis wo con CLINICAL HISTORY: generalized abd pain, n/v . Shortness of breath COMPARISON STUDY: Portable chest from 10/10/2021 CT DOSE: 1664.21 mGy.cm TECHNIQUE: Standard CT of the Abdomen and Pelvis was performed without IV contrast. The patient did not receive oral contrast. A dose lowering technique was utilized adhering to the principles of ALARA. FINDINGS: Lung base: There is a patchy alveolar opacity within the right lower lobe posteromedially most characteristic of early pneumonia. The heart size is within normal limits with pacer in place. Abdominal cavity: There is no evidence for abdominal mass, adenopathy or ascites. Liver: The liver is homogeneous in attenuation on these limited noncontrast images.. Spleen: The spleen is homogeneous in attenuation on these limited noncontrast images. Pancreas: The pancreas is homogeneous in attenuation on these limited noncontrast images. Gall Bladder: The gallbladder is well distended with no evidence for cholelithiasis, wall thickening or pericholecystic edema.. Adrenal glands: The adrenal glands are normal in size and attenuation on these limited noncontrast images. Kidneys: The kidneys are homogeneous in attenuation on these limited noncontrast images. There is no evidence for gross renal mass, calculus or hydronephrosis bilaterally. Chronic perinephric stranding is present bilaterally. Bowel: There is a small hiatal hernia. The bowel loops are normally placed within the abdomen and pelvis without evidence for dilatation or obstruction. There is no evidence for mass lesion. There is moderate fecal stasis and impaction of the rectosigmoid colon. However, no evidence for obstruction is seen. There are no inflammatory changes present. There is no evidence for free air. There is no evidence for an inflamed appendix. Bladder: There is no evidence for focal bladder wall thickening, calculus or diverticulum. There is mild diffuse thickening of the bladder wall characteristic of chronic bladder outlet obstruction. : There is no evidence for pelvic mass or adenopathy. The prostate is mildly enlarged. Vasculature: There is no evidence for focal aneurysmal dilatation of the abdominal aorta. Osseous structures: There is no acute osseous pathology. Mild degenerative changes are seen within the spine. IMPRESSION: 1. Moderate fecal stasis in impaction of the rectosigmoid colon with no evidence for obstruction. 2. No evidence for an inflamed appendix. 3. Patchy alveolar opacity within the right lower lobe posteromedially characteristic of early pneumonia. 4. Small hiatal hernia. 5. Additional nonacute findings are delineated above. ACT 112: Negative or not required by law. Electronically signed by: Kike Nguyen M.D. 10/10/2021 1:04 PM Chest X-Ray 10/10/21 11:29 XR chest 1V portable CLINICAL HISTORY: abd and right shoulder pain TECHNIQUE: Single frontal radiograph of the chest was obtained. Comparison: Comparison is made to chest radiograph 10/08/2020 FINDINGS: Dual lead pacemaker is seen. The cardiomediastinal silhouette is normal. The lungs are clear. No evidence of pleural effusion or pneumothorax. IMPRESSION: No acute chest disease. ACT 112: Negative or not required by law. Electronically signed by: Mario Mathis M.D. 10/10/2021 11:50 AM Hospital Course (1) Generalized abdominal pain: -Patient has an extensive history of abdominal pain, nausea, vomiting, and constipation -Large workup has been started previously by GI showing Gastritis, esophagitis (previously treated), and chronic constipation -Workup so far is positive for leukocytosis but no other vitals or lab results indicative of current infection. Patient has been afebrile, hemodynamically stable, and stable on his baseline O2. * CXR clear, CT chest showing possible signs of pneumonia but Procal is negative and pt asymptomatic * UA is inconclusive as it has trace esterase but nitrite negative, culture is pending * Lactate normal and blood cultures ordered/pending * Patient empirically was started on Vancomycin and cefepime in ED (just for leukocytosis w/o any confirmed source of infection) which weres topped -Patient received 1L NSS bolus in the ED, no additional IV fluids given and clear liquid diet ordered -Stool studies ordered including c. diff PCR to rule out infectious causes, stool panel negative -Imaging showing large stool burden in the rectosigmoid colon without obstruction, his current episodes of diarrhea are like the result of water passing this stool burden -Held dicyclomine as this could be contributing to his constipation -Ordered IV Protonix for possible exacerbation of gastritis and esophagitis -AM CBC noted decreased wbc count -Tolerating clear liquids, diet advanced to DMT2 -Pt had large BM following administration of soap suds enema - no further abd pain or n/v (2) Leukocytosis: -See above (3) Type II diabetes mellitus: -Resume home med regimen (4) GERD (gastroesophageal reflux disease): -Protonix (5) 2Nd degree atrioventricular block: -Stable (6) BPH (benign prostatic hyperplasia): -Continue flomax, no retention issues (7) AI (obstructive sleep apnea): -HS CPAP (8) COPD (chronic obstructive pulmonary disease): -Stable/chronic w/o exacerbation (9) Diastolic CHF: -Compensated, continue lasix (10) Schizophrenia: -Continue psych meds (11) Hypothyroidism: -Continue levothyroxine Plan Patient is medically and hemodynamically stable for discharge back to [facility] today. Advised follow up with established healthcare provider upon return to facility. Plan has been d/w Dr. Abraham who is in agreement. Total Time Total Time Spent Total Time Spent (In Minutes): <30 minutes Discharge Plan Discharge Items Patient Disposition: Transfer [facility] Reason For Visit: ABDOMINAL PAIN Discharge Diagnosis: stool impaction abdominal pain with nausea and vomiting Activity: Resume your previous activity Non-emergency contact: Primary Care Provider Call non-emergency contact if: you have any medication questions and your symptoms worsen Follow-up/Referrals: Erasmo George [Primary Care Provider] - Diet: Carb Consistent or DM2 Addtl Attending Provider Instructions: You were hospitalized due to abdominal pain along with nausea and vomiting. It was felt that this was due to stool that was stuck in your rectum and likely contributing to your abdominal pain causing you to become nauseated. You were placed on medications to help move your bowels which worked well. You can be discharged back to [facility] and follow up with your established healthcare provider upon your return to the facility. We recommend eating fresh fruits and vegetables (incorporating fiber into diet) as well as drinking water (as opposed to other drinks) to reduce risks of developing constipation. Do not take Dicyclomine as this medication can cause constipation. If you have any questions following your discharge, you may call the nonemergency number listed on your discharge paperwork. Pending Studies at Discharge: No Stand-Alone Forms: My [facility] Skilled Items Patient informed of condition?: Yes DNR: No Discharge Level of Care: Skilled Communicable Disease: No Discharge Prognosis: Improving Lines: None Urinary Catheter: No Medications and DC Order Prescriptions: Continued magnesium hydroxide [Milk of Magnesia] 400 mg/5 mL suspension 30 ml PO DAILY PRN (Reason: Constipation) acetaminophen 325 mg capsule 650 mg PO TID MDD 3 GRAMS/24 HOURS multivitamin [Daily Multi-Vitamin] Tablet 1 tab PO DAILY tramadol [Ultram] 50 mg Tablet 25 mg PO Q12 PRN (Reason: Severe Pain (Scale Score 7-10)) omeprazole 20 mg capsule,delayed release(DR/EC) 20 mg PO DAILY insulin glargine [Basaglar KwikPen U-100 Insulin] 100 unit/mL (3 mL) insulin pen 27 unit SUBCUT HS magnesium oxide 400 mg (241.3 mg magnesium) Tablet 400 mg PO QAM Qty: 30 0RF ferrous sulfate [FeroSul] 325 mg (65 mg iron) tablet 325 mg PO DAILY atorvastatin [Lipitor] 10 mg Tablet 10 mg PO HS clozapine [Clozaril] 100 mg Tablet 100 mg PO Q12 metoprolol succinate [Toprol XL] 50 mg Tablet Extended Release 24 Hr 50 mg PO DAILY ergocalciferol (vitamin D2) [Vitamin D2] 1,250 mcg (50,000 unit) capsule 1,250 mcg PO WK Rx Instructions: Friday Linzess 290 mcg Capsule 290 mcg PO QAM potassium chloride [K-Tab] 20 mEq Tablet Extended Release 20 meq PO TID furosemide [Lasix] 40 mg Tablet 40 mg PO QPM Rx Instructions: TAKES AT 1600 furosemide [Lasix] 80 mg Tablet 80 mg PO QAM insulin aspart U-100 [Novolog U-100 Insulin aspart] 100 unit/mL Solution See Rx Instructions .ROUTE .COMPLEX Rx Instructions: TAKES 12 UNITS WITH BREAKFAST, 8 UNITS WITH LUNCH & DINNER. fluticasone furoate-vilanterol [Breo Ellipta] 100-25 mcg/dose Blister With Device 1 inh INHALATION DAILY sertraline [Zoloft] 50 mg tablet 100 mg PO QAM Rx Instructions: TOTAL DOSE 150 MG--TAKES WITH 100 MG TAB. tamsulosin 0.4 mg Capsule 0.4 mg PO QPM Rx Instructions: TAKES AT 1600 docusate sodium 100 mg Capsule 100 mg PO BID liraglutide 0.6 mg/0.1 mL (18 mg/3 mL) Pen Injector 1.8 mg SUBCUT DAILY levothyroxine 125 mcg Tablet 125 mcg PO DAILYBB polyethylene glycol 3350 [Miralax] 17 gram/dose Powder 17 g PO BID acetaminophen [Tylenol] 325 mg Tablet 325 mg PO Q6H MDD 3 GRAMS/24 HOURS PRN (Reason: FEVER/PAIN) sertraline 100 mg tablet 100 mg PO QAM Rx Instructions: TOTAL DOSE 150 MG--TAKES WITH 50 MG TAB. ondansetron [Zofran ODT] 4 mg Tablet,Disintegrating 4 mg PO Q6H PRN (Reason: NAUSEA/VOMITING) Myrbetriq 25 mg tablet extended release 24 hr 25 mg PO QAM Discharge Orders: Discharge Order (Routine); Ordered 10/11/21 Ordered By: Kayla Crook Admission Data Admit Date/Time: 10/10/21 15:44 Attending Provider: Rian Abraham Admit Provider: Darwin Vasquez Primary Care Provider: Erasmo George Other Providers: Ariel, Coding Level of Care Code 98150 OBS Care - Discharge Diagnoses Generalized abdominal pain R10.84 Leukocytosis D72.829 Type II diabetes mellitus E11.9 GERD (gastroesophageal reflux disease) K21.9 2Nd degree atrioventricular block I44.1 BPH (benign prostatic hyperplasia) N40.0 AI (obstructive sleep apnea) G47.33 COPD (chronic obstructive pulmonary disease) J44.9 Diastolic CHF I50.32 Heart failure chronicity: chronic Schizophrenia F20.9 Hypothyroidism E03.9
--- NOTE | 2021-10-12 05:37 | Electrocardiogram Report ---
Test Reason : Blood Pressure : / mmHG Vent. Rate : 082 BPM Atrial Rate : 082 BPM P-R Int : 146 ms QRS Dur : 178 ms QT Int : 494 ms P-R-T Axes : 057 -78 091 degrees QTc Int : 577 ms Atrial-sensed ventricular-paced rhythm Abnormal ECG When compared with ECG of 07-OCT-2020 06:45, Vent. rate has decreased BY 24 BPM Confirmed by Ky Harrison ([id number]) on 10/12/2021 5:36:40 AM Referred By: [facility] Confirmed By:Ky Harrison
--- NOTE | 2021-10-18 08:00 | Coding Query ---
A supporting diagnosis is required for the test/procedure performed on this patient in order for us to be reimbursed by the patient's insurance. Please provide a supporting diagnosis for the following test/procedure listed below next to the test name along with your signature. *If there is no additional diagnosis for this patient that would support the following test/procedure please document that below next to the test/procedure. Test(s)/Procedure(s) that require a supporting diagnosis: * 56691 GI GASTROINTESTINAL PANEL DIAGNOSIS: Diarrhea DATE OF SERVICE: 10/10/21 Provider Signature: Reese Pelaez PA-C Date: ____ 10/21/21___ Thank you Yuri Pinto [facility] Information Management Once completed, please kindly fax back to [phone] For questions please call [phone] [facility]
== END 2021-10-11 16:47 ==
LOC: EDINP 10:35 → ED 10:35 → SUATTDRO 15:44 → 3E 18:00

== ENCOUNTER 2021-10-23 09:34 | Inpatient (IN) ==
[2021-10-23] MEDS ORDERED: SODIUM CHLORIDE 0.9% 1000ML 1,000 ML IV ONE (09:52)
--- NOTE | 2021-10-23 09:52 | Emergency Department Note ---
Impression & Plan Pneumonia, Leukocytosis, Pulmonary embolism, Vomiting, Abdominal pain ED Provider Note NAME: MARGRET SKINNER AGE: 66 SEX: M : 1955 ARRIVES VIA: Ambulance INFORMANT: Patient ED PROVIDER(S): Joel Elizondo DO CHIEF COMPLAINT: abdominal pain and vomiting HPI: Patient is a 66-year-old male with a past medical history of diabetes, BPH, COPD, GERD, schizophrenia, CHF, anemia and hypothyroidism that presents to the ER for vomiting last night after 12 AM. It was coffee-ground in nature. He admits to infraumbilical abdominal pain associated with the nausea which is still persistent. Denies any blood thinners. No dysuria, urgency, or frequency. No recent surgeries but admits to previous small bowel obstruction. No other exacerbating or remitting factors. ROS: See above HPI for pertinent positives & negatives. A total of 10 systems reviewed and were otherwise negative. PAST MEDICAL HISTORY:See Below PAST SURGICAL HISTORY:See Below FAMILY HISTORY:See Below SOCIAL HISTORY:See Below HOME MEDICATIONS:See Below ALLERGIES:See Below VITALS:See Below PHYSICAL EXAMINATION: GENERAL: Sitting up in bed, alert, orbitally obese, disheveled EYE EXAM: normal conjunctiva. PERRL and EOM's grossly intact. OROPHARYNX: Dry mucous membranes NECK: supple, no nuchal rigidity, no adenopathy, non-tender LUNGS: Clear to auscultation. Normal chest wall mechanics HEART: no murmurs, S1 normal and S2 normal ABDOMEN: abdomen soft, non-tender, normo-active bowel sounds, no masses, no rebound or guarding. RECTAL: hem neg small amount of stool UPPER EXTREMITIES: upper extremities are grossly normal. LOWER EXTREMITIES: No pitting edema. NEURO EXAM: Normal sensorium, cranial nerves II-XII grossly intact, normal speech. MEDICAL DECISION MAKING: Patient is a 66-year-old male who presents the ER for abdominal pain with vomiting. IV was established blood work was obtained. Labs show leukocytosis of 19,000. No significant anemia. INR was unremarkable. BMP with LFTs bilirubin and lipase was unremarkable. Troponin was negative. UA was clean. CT abdomen pelvis showed constipation with pneumonia and PEs. Patient does have a history of previous gastritis and did vomit blood which was Gastroccult positive at the long-term. Will defer to the hospitalist for treatment IV heparin versus IVC. Patient remained on 2 L nasal cannula while in the ER due to mild hypoxia. He was updated bedside and admitted for further work-up. He was given IV antibiotics which include Rocephin and azithromycin as well as fluids. Triage Nursing notes reviewed. Limited review of prior medical records performed Vital Signs: reviewed and remarkable for no significant abnormalities Differential diagnosis: Differential diagnosis includes etiologies such as diverticulitis, diverticul osis, AVM, coagulopathy, colitis, inflammatory bowel disease, malignancy, Ne-Lock tear, esophagitis, peptic ulcer disease, variceal bleed, gastritis, epistaxis, fissure, hemorrhoids, as well as others were entertained. ER treatment provided: See below Diagnostics interpreted by me: ECG: Atrial sensed ventricularly paced rate 88 Left axis No PVCs QTC 561 Cardiac Monitoring: An order was placed for continuous cardiac monitoring. The monitor shows a rate of 85 with paced rhythm. Laboratory studies: As stated above and show below. Imaging studies: CT abdomen pelvis as described above Consultation(s): Discussed with Dr. Earnest Roland for further evaluation Procedures: none Critical Care: I have personally spent 32 minutes of critical care time in the direct management of this patient. This includes bedside care, interpretation of diagnostic studies, and testing, discussion with consultants, patient, and family members, and other required patient management activities. This 32 minutes is in excess of all separately billable procedures. Past Med/Surg History Medical History Anxiety and depression Chest pain Constipation COPD (chronic obstructive pulmonary disease) Disorder of prostate Dysphagia Esophagitis GERD (gastroesophageal reflux disease) Heart failure Hyperlipidemia Hypertension Hypomagnesemia Hypothyroidism Morbid obesity Muscle weakness Obstructive sleep apnea O2 at 2L n/c at HS and prn if pulse ox is less than 90% Osteoporosis Paranoid schizophrenia Type 2 diabetes mellitus Unspecified abnormalities of gait and mobility Surgical History Surgical history unknown Social History Smoking Status: Former smoker Tobacco Type: Cigarettes Second Hand Exposure: No; Hx Alcohol Use: No Hx Substance Use: No Preferred Language: Tamazight Communication Ability: Effective Slot Floorperson Required: No Beliefs That Will Affect Care: None marital status: Unknown Current Living Situation: [facility] Current Living Situation Comment: Pt from [facility], currently @ [facility] for amb dysfunction current occupational status: retired Feels Safe at Home: Yes Assistive Devices: Walker and Wheelchair Allergies Allergies Allergy/AdvReac Type Severity Reaction Status Date / Time Penicillins Allergy Unknown on [facility] Verified 10/10/21 15:09 [facility] Home Meds Home Medications Medication Instructions Recorded Confirmed atorvastatin 10 mg tablet (Lipitor) 10 mg PO HS 08/28/20 10/23/21 clozapine 100 mg tablet (Clozaril) 100 mg PO Q12 08/28/20 10/23/21 ergocalciferol (vitamin D2) 1,250 1,250 mcg PO WK 08/28/20 10/23/21 mcg (50,000 unit) capsule (Vitamin D2) ferrous sulfate 325 mg (65 mg 325 mg PO DAILY 08/28/20 10/23/21 iron) tablet (FeroSul) fluticasone furoate 100 1 inh inhalation DAILY 08/28/20 10/23/21 mcg-vilanterol 25 mcg/dose inhalation powder (Breo Ellipta) furosemide 40 mg tablet (Lasix) 40 mg PO QPM 08/28/20 10/23/21 furosemide 80 mg tablet (Lasix) 80 mg PO QAM 08/28/20 10/23/21 insulin aspart U-100 100 unit/mL See Rx Instructions .Route .COMPLEX 08/28/20 10/23/21 subcutaneous solution (Novolog U-100 Insulin aspart) linaclotide 290 mcg capsule 290 mcg PO QAM 08/28/20 10/23/21 (Linzess) potassium chloride 20 mEq 20 meq PO TID 08/28/20 10/23/21 tablet,extended release (K-Tab) insulin glargine 100 unit/mL (3 27 unit subcut HS 10/07/20 10/23/21 mL) subcutaneous pen (Basaglar KwikPen U-100 Insulin) multivitamin (Daily Multi-Vitamin 1 tab PO DAILY 10/07/20 10/23/21 tablet) omeprazole 20 mg capsule,delayed 20 mg PO DAILY 10/07/20 10/23/21 release tramadol 50 mg tablet (Ultram) 25 mg PO Q12 PRN Severe Pain 10/07/20 10/23/21 (Scale Score 7-10) acetaminophen 325 mg capsule 650 mg PO TID 12/27/20 10/23/21 magnesium hydroxide 400 mg/5 mL 30 ml PO DAILY PRN Constipation 12/27/20 10/23/21 oral suspension (Milk of Magnesia) docusate sodium 100 mg capsule 100 mg PO BID 02/09/21 10/23/21 liraglutide 0.6 mg/0.1 mL (18 mg/3 1.8 mg subcut DAILY 02/09/21 10/23/21 mL) subcutaneous pen injector tamsulosin 0.4 mg capsule 0.4 mg PO QPM 02/09/21 10/23/21 levothyroxine 125 mcg tablet 125 mcg PO DAILYBB 03/06/21 10/23/21 polyethylene glycol 3350 17 17 g PO BID 03/06/21 10/23/21 gram/dose oral powder (Miralax) sertraline 50 mg tablet (Zoloft) 100 mg PO QAM 09/05/21 10/23/21 acetaminophen 325 mg tablet 325 mg PO Q6H PRN FEVER/PAIN 10/10/21 10/23/21 (Tylenol) mirabegron 25 mg tablet,extended 25 mg PO QAM 10/10/21 10/23/21 release 24 hr (Myrbetriq) ondansetron 4 mg disintegrating 4 mg PO Q6H PRN NAUSEA/VOMITING 10/10/21 10/23/21 tablet sertraline 100 mg tablet 100 mg PO QAM 10/10/21 10/23/21 cyclobenzaprine 10 mg tablet 10 mg PO HS PRN Headache 10/23/21 10/23/21 Previous Rx's Medication Instructions Recorded magnesium oxide 400 mg (241.3 mg 400 mg PO QAM #30 tabs 10/11/20 magnesium) tablet Results & Data (ED) Vital Signs Vital Signs - 24 hr 10/23/21 09:39 10/23/21 09:39 10/23/21 12:00 Temperature 36.8 C Temperature Source Oral Pulse Rate 88 Pulse Rate [Right Finger] 89 Pulse Rhythm Regular Pulse Rhythm [Right Finger] Regular Pulse Strength Normal Pulse Strength [Right Finger] Normal Respiratory Rate 20 18 Respiratory Effort / Characteristics Non-Labored Non-Labored Respiratory Depth Normal Normal Respiratory Pattern Regular Regular Blood Pressure 93/64 L Blood Pressure [Right Arm] 116/81 Blood Pressure Mean 73 Blood Pressure Mean [Right Arm] 92 Blood Pressure Position Lying Blood Pressure Position [Right Arm] Lying Pulse Oximetry 92 100 Oxygen Delivery Method Room Air Room Air Nasal Cannula Oxygen Flow Rate 2 Sepsis Recent Fever Within 48 Hours No Sepsis New/Unexplained Change in Mental Status N/A Sepsis Action Taken by Nursing No Action Required 10/23/21 14:00 Temperature Temperature Source Pulse Rate Pulse Rate [Right Finger] 88 Pulse Rhythm Pulse Rhythm [Right Finger] Regular Pulse Strength Pulse Strength [Right Finger] Normal Respiratory Rate 16 Respiratory Effort / Characteristics Non-Labored Respiratory Depth Normal Respiratory Pattern Regular Blood Pressure Blood Pressure [Right Arm] 132/91 Blood Pressure Mean Blood Pressure Mean [Right Arm] 104 Blood Pressure Position Blood Pressure Position [Right Arm] Pulse Oximetry 100 Oxygen Delivery Method Room Air Oxygen Flow Rate Sepsis Recent Fever Within 48 Hours Sepsis New/Unexplained Change in Mental Status Sepsis Action Taken by Nursing Laboratory Data Result diagrams: 10/23/21 10:05 10/23/21 10:05 Lab Results 10/23/21 10/23/21 10/23/21 Range/Units 10:05 10:05 10:05 WBC 19.26 H (4.8-10.8) K/ul RBC 4.59 L (4.63-6.08) M/uL Hgb 14.3 (14.0-18.0) g/dl Hct 43.2 (40.1-51.0) % MCV 94.1 D (80.0-100.0) fL MCH 31.2 (25.0-34.0) pg MCHC 33.1 (32.0-36.0) g/dL RDW Std Deviation 42.8 (36.4-46.3) fL RDW Coeff of Shireen 12.4 (11.5-14.5) % Plt Count 252 (130-400) K/uL MPV 11.1 (9.4-12.4) fL Immature Gran % (Auto) 0.7 % Neut % (Auto) 78.9 % Lymph % (Auto) 11.9 % [place] % (Auto) 6.8 % Eos % (Auto) 1.2 % Baso % (Auto) 0.5 % Neut # (Auto) 15.19 H (1.4-6.5) K/uL Lymph # (Auto) 2.29 (1.2-3.4) K/uL [place] # (Auto) 1.31 H (0.24-0.82) K/uL Eos # (Auto) 0.24 (0-0.50) K/uL Baso # (Auto) 0.09 (0-0.2) K/uL Immature Gran # (Auto) 0.14 H (0.00-0.02) K/uL PT 10.3 (9.0-12.0) Seconds INR 1.0 (0.9-1.1) APTT 25.7 (21.0-31.0) Seconds PTT Ratio 0.9 Sodium 138 (136-145) mmol/L Potassium 4.5 (3.5-5.1) mmol/L Chloride 104 (98-107) mmol/L Carbon Dioxide 27 (21-32) mmol/L Anion Gap 7 (3-11) BUN 15 (6-23) mg/dl Creatinine 0.87 (0.6-1.4) mg/dl Est Cr Clr Drug Dosing 106.9 ml/min Est GFR ( Amer) 102.8 ml/min Est GFR (Non-Af Amer) 88.7 ml/min BUN/Creatinine Ratio 17.2 (10-20) Glucose 91 (70-99(Fasting)) mg/dl POC Glucose (70-99) mg/dl Lactate (0.4-2.0) mmol/L Calcium 9.4 (8.5-10.1) mg/dl Total Bilirubin 0.4 (0.2-1.0) mg/dl AST 19 (13-39) U/L ALT 12 (7-52) U/L Alkaline Phosphatase 95 (34-104) U/L Troponin I High Sens (0-20) pg/ml B-Natriuretic Peptide (0-100) pg/ml Total Protein 6.8 (6.0-8.3) gm/dl Albumin 3.9 (3.4-5.0) gm/dl Globulin 2.9 (2.5-4.0) gm/dl Albumin/Globulin Ratio 1.3 (0.9-2) Lipase 22 (11-82) U/L Urine Color Urine Appearance (Clear) Urine pH (4.5-7.5) Ur Specific Burkett (1.000-1.030) Urine Protein (Negative) Urine Glucose (UA) (Negative) Urine Ketones (Negative) Urine Blood (Negative) Urine Nitrite (Negative) Urine Bilirubin (Negative) Urine Urobilinogen (Negative) Ur Leukocyte Esterase (Negative) 10/23/21 10/23/21 10/23/21 Range/Units 13:02 13:17 13:17 WBC (4.8-10.8) K/ul RBC (4.63-6.08) M/uL Hgb (14.0-18.0) g/dl Hct (40.1-51.0) % MCV (80.0-100.0) fL MCH (25.0-34.0) pg MCHC (32.0-36.0) g/dL RDW Std Deviation (36.4-46.3) fL RDW Coeff of Shireen (11.5-14.5) % Plt Count (130-400) K/uL MPV (9.4-12.4) fL Immature Gran % (Auto) % Neut % (Auto) % Lymph % (Auto) % [place] % (Auto) % Eos % (Auto) % Baso % (Auto) % Neut # (Auto) (1.4-6.5) K/uL Lymph # (Auto) (1.2-3.4) K/uL [place] # (Auto) (0.24-0.82) K/uL Eos # (Auto) (0-0.50) K/uL Baso # (Auto) (0-0.2) K/uL Immature Gran # (Auto) (0.00-0.02) K/uL PT (9.0-12.0) Seconds INR (0.9-1.1) APTT (21.0-31.0) Seconds PTT Ratio Sodium (136-145) mmol/L Potassium (3.5-5.1) mmol/L Chloride (98-107) mmol/L Carbon Dioxide (21-32) mmol/L Anion Gap (3-11) BUN (6-23) mg/dl Creatinine (0.6-1.4) mg/dl Est Cr Clr Drug Dosing ml/min Est GFR ( Amer) ml/min Est GFR (Non-Af Amer) ml/min BUN/Creatinine Ratio (10-20) Glucose (70-99(Fasting)) mg/dl POC Glucose 71 (70-99) mg/dl Lactate 1.2 (0.4-2.0) mmol/L Calcium (8.5-10.1) mg/dl Total Bilirubin (0.2-1.0) mg/dl AST (13-39) U/L ALT (7-52) U/L Alkaline Phosphatase (34-104) U/L Troponin I High Sens 5.9 (0-20) pg/ml B-Natriuretic Peptide (0-100) pg/ml Total Protein (6.0-8.3) gm/dl Albumin (3.4-5.0) gm/dl Globulin (2.5-4.0) gm/dl Albumin/Globulin Ratio (0.9-2) Lipase (11-82) U/L Urine Color Urine Appearance (Clear) Urine pH (4.5-7.5) Ur Specific Burkett (1.000-1.030) Urine Protein (Negative) Urine Glucose (UA) (Negative) Urine Ketones (Negative) Urine Blood (Negative) Urine Nitrite (Negative) Urine Bilirubin (Negative) Urine Urobilinogen (Negative) Ur Leukocyte Esterase (Negative) 10/23/21 10/23/21 Range/Units 13:17 Unknown WBC (4.8-10.8) K/ul RBC (4.63-6.08) M/uL Hgb (14.0-18.0) g/dl Hct (40.1-51.0) % MCV (80.0-100.0) fL MCH (25.0-34.0) pg MCHC (32.0-36.0) g/dL RDW Std Deviation (36.4-46.3) fL RDW Coeff of Shireen (11.5-14.5) % Plt Count (130-400) K/uL MPV (9.4-12.4) fL Immature Gran % (Auto) % Neut % (Auto) % Lymph % (Auto) % [place] % (Auto) % Eos % (Auto) % Baso % (Auto) % Neut # (Auto) (1.4-6.5) K/uL Lymph # (Auto) (1.2-3.4) K/uL [place] # (Auto) (0.24-0.82) K/uL Eos # (Auto) (0-0.50) K/uL Baso # (Auto) (0-0.2) K/uL Immature Gran # (Auto) (0.00-0.02) K/uL PT (9.0-12.0) Seconds INR (0.9-1.1) APTT (21.0-31.0) Seconds PTT Ratio Sodium (136-145) mmol/L Potassium (3.5-5.1) mmol/L Chloride (98-107) mmol/L Carbon Dioxide (21-32) mmol/L Anion Gap (3-11) BUN (6-23) mg/dl Creatinine (0.6-1.4) mg/dl Est Cr Clr Drug Dosing ml/min Est GFR ( Amer) ml/min Est GFR (Non-Af Amer) ml/min BUN/Creatinine Ratio (10-20) Glucose (70-99(Fasting)) mg/dl POC Glucose (70-99) mg/dl Lactate (0.4-2.0) mmol/L Calcium (8.5-10.1) mg/dl Total Bilirubin (0.2-1.0) mg/dl AST (13-39) U/L ALT (7-52) U/L Alkaline Phosphatase (34-104) U/L Troponin I High Sens (0-20) pg/ml B-Natriuretic Peptide 17 (0-100) pg/ml Total Protein (6.0-8.3) gm/dl Albumin (3.4-5.0) gm/dl Globulin (2.5-4.0) gm/dl Albumin/Globulin Ratio (0.9-2) Lipase (11-82) U/L Urine Color Yellow Urine Appearance Clear (Clear) Urine pH 7.0 (4.5-7.5) Ur Specific Burkett 1.020 (1.000-1.030) Urine Protein Negative (Negative) Urine Glucose (UA) Negative (Negative) Urine Ketones Negative (Negative) Urine Blood Negative (Negative) Urine Nitrite Negative (Negative) Urine Bilirubin Negative (Negative) Urine Urobilinogen Negative (Negative) Ur Leukocyte Esterase Negative (Negative) Administered Medications Lactated Ringer's (Lr) 1,000 mls @ 100 mls/hr IV .Q10H ONE Stop: 10/23/21 22:32 Last Admin: 10/23/21 13:58 Dose: 100 mls/hr Documented By: HS Heparin Sodium/Dextrose (Heparin Sodium/Dextrose) 25,000 units in 500 mls @ 33 mls/hr IV .[id number] [facility]; Protocol Stop: 11/22/21 13:29 Last Admin: 10/23/21 14:56 Dose: 1,650 units/hr, 33 mls/hr Documented By: AP Co-signed By: SARA Discontinued Medications Heparin Sodium (Porcine) (Heparin Sod (Porcine) 1000 Unit/Ml) 5,000 units IV NOW ONE Stop: 10/23/21 13:25 Last Admin: 10/23/21 14:56 Dose: 5,000 units Documented By: AP Co-signed By: SARA Sodium Chloride (Nss 1000ml) 1,000 mls @ 999 mls/hr IV .Q1H1M ONE Stop: 10/23/21 10:52 Last Infusion: 10/23/21 11:23 Dose: 0 mls/hr Documented By: Admin: 10/23/21 10:20 Dose: 999 mls/hr Documented By: ROXY Pantoprazole Sodium 40 mg/ (Syringe) 10 mls @ 5 mls/min IV NOW ONE Stop: 10/23/21 12:37 Last Admin: 10/23/21 13:55 Dose: 5 mls/min Documented By: JACOBO Ioversol (Optiray 300 500ml) 86 ml IV ONCE ONE Stop: 10/23/21 11:16 Last Admin: 10/23/21 11:15 Dose: 86 ml Documented By: JAR Ioversol (Optiray 300 500ml) 115 ml IV ONCE ONE Stop: 10/23/21 14:00 Last Admin: 10/23/21 14:00 Dose: 115 ml Documented By: DENISSE Morphine Sulfate (Morphine Sulfate 4 Mg/Ml 1 Ml Carp\Vial) 4 mg IV NOW STA Stop: 10/23/21 09:54 Last Admin: 10/23/21 10:19 Dose: 4 mg Documented By: AP Ondansetron HCl (Ondansetron Inj 2 Mg/Ml 2 Ml Vial) 4 mg IV NOW STA Stop: 10/23/21 09:54 Last Admin: 10/23/21 10:19 Dose: 4 mg Documented By: AP Imaging Data Radiologist's Impression: Abdomen/Pelvis CT 10/23/21 09:52 CT SCAN OF THE ABDOMEN AND PELVIS WITH IV CONTRAST CLINICAL HISTORY: Lower abdominal pain. Hematemesis. COMPARISON STUDY: Abdominal CT dated 10/10/2021. TECHNIQUE: Following the IV administration of 80 cc of Optiray 300, CT scan of the abdomen and pelvis is performed from the lung bases to the proximal femora. Images are reviewed in the axial, sagittal, and coronal planes. IV contrast was administered without complication. A dose lowering technique was utilized adhering to the principles of ALARA. The examination is degraded by large body habitus, and by streak artifact from the body wall abutting the CT gantry. CT DOSE: 2457.80 mGy.cm FINDINGS: Lung bases: The heart is mildly enlarged and without pericardial effusion. There are coronary artery calcifications. Pacemaker leads are in place. There is pulmonary embolus within the right middle lobe pulmonary artery. This is best seen on axial image #45. Airspace consolidation is seen in the right upper lobe. Scarring/atelectasis is noted at the lung bases. There is a small hiatal hernia. Liver: The contrast-enhanced liver is normal in size, contour, and attenuation. There is no intrahepatic biliary ductal dilatation. The hepatic veins and portal veins are patent. Periportal edema is observed. Gallbladder: Unremarkable. Spleen: Normal in size and attenuation. Pancreas: Moderately atrophic and grossly unremarkable. Adrenal glands: Unremarkable. Kidneys: The contrast enhanced kidneys demonstrate cortical atrophy and are without hydronephrosis. The kidneys enhance symmetrically. Foci of cortical scarring are noted in the right kidney. Abdominal vasculature: The abdominal aorta is normal in course and caliber n oting mild atherosclerotic calcification. Bowel: There is rectosigmoid fecal impaction and moderate constipation. There is mild rectal wall thickening with perirectal inflammation suggesting stercoral proctitis. No bowel obstruction is identified. The appendix is well-visualized and normal. Peritoneum: There is no intraperitoneal free air or abdominal ascites. Lymphadenopathy: None. Pelvic viscera: The prostate gland is mildly enlarged and heterogeneous. The bladder is distended. The bladder wall appears mildly thickened and trabeculated indicating chronic outlet obstruction. Skeletal structures: The skeletal structures are heterogeneously osteopenic. There is moderate to advanced lumbosacral spondylosis. No lytic or blastic lesions are seen. IMPRESSION: 1. There are pulmonary emboli within the right middle lobe pulmonary artery. 2. Airspace consolidation is seen in the right upper lobe. Correlate clinically for pneumonia. Radiographic follow-up to resolution is recommended. 3. There is rectosigmoid fecal impaction and moderate constipation with evidence of stercoral proctitis. 4. No bowel obstruction is seen. 5. Additional findings as above. ACT 112: Negative or not required by law. Electronically signed by: Phong Bower M.D. 10/23/2021 11:42 AM Chest CTA 10/23/21 12:30 CT ANGIOGRAPHY OF THE CHEST, PULMONARY EMBOLUS PROTOCOL CLINICAL HISTORY: pulmonary embolism noted on CT ABD/Pelvis COMPARISON STUDY: CT of the abdomen and pelvis October 23, 2021. Chest radiogra ph October 10, 2021. TECHNIQUE: Following IV administration of 115 mL of Optiray, helical axial images of the chest were obtained utilizing the pulmonary embolus protocol. M aximal intensity projections and sagittal and coronal reformats were viewed on an independent 3D workstation. IV contrast was administered without complication. Automated exposure control was utilized for the study. A dose lowering technique was utilized adhering to the principles of ALARA. CT DOSE: 848.56 mGy.cm FINDINGS: Several segmental pulmonary emboli are noted within the lingular and right middle lobe branches. No central pulmonary embolus is present. Cardiomegaly is noted. Dual lead left subclavian pacer is in place. There is no pneumothorax or pleural effusion. There are scattered alveolar opacities throughout the right lung. Lungs are suboptimally assessed due to respiratory motion. There are mild secretions within the airways. Elevation of the right hemidiaphragm is noted. There is no thoracic lymphadenopathy. Multilevel degenerative changes within the thoracic spine are noted. No acute fracture within the bony thorax is noted. No pulmonary infarct. IMPRESSION: 1. Several segmental pulmonary emboli within the right middle lobe and lingular branches. 2. Scattered alveolar opacities within the right lung which favor an infectious process. A follow-up chest CT in 3 months to ensure resolution is recommended. 3. Cardiomegaly. ACT 112: Negative or not required by law. Electronically signed by: Ramiro Mcpherson M.D. 10/23/2021 2:19 PM Discharge Plan Visit Data Chief Complaint: GI Assessment ED Provider: Joel Elizondo Discharge Problem: Pneumonia, Leukocytosis, Pulmonary embolism, Vomiting, Abdominal pain Forms Stand Alone Forms: [facility] [employer] Prescriptions Prescriptions: No Action magnesium hydroxide [Milk of Magnesia] 400 mg/5 mL suspension 30 ml PO DAILY PRN (Reason: Constipation) acetaminophen 325 mg capsule 650 mg PO TID MDD 3 GRAMS/24 HOURS multivitamin [Daily Multi-Vitamin] Tablet 1 tab PO DAILY tramadol [Ultram] 50 mg Tablet 25 mg PO Q12 PRN (Reason: Severe Pain (Scale Score 7-10)) omeprazole 20 mg capsule,delayed release(DR/EC) 20 mg PO DAILY insulin glargine [Basaglar KwikPen U-100 Insulin] 100 unit/mL (3 mL) insulin pen 27 unit SUBCUT HS magnesium oxide 400 mg (241.3 mg magnesium) Tablet 400 mg PO QAM Qty: 30 0RF ferrous sulfate [FeroSul] 325 mg (65 mg iron) tablet 325 mg PO DAILY atorvastatin [Lipitor] 10 mg Tablet 10 mg PO HS clozapine [Clozaril] 100 mg Tablet 100 mg PO Q12 ergocalciferol (vitamin D2) [Vitamin D2] 1,250 mcg (50,000 unit) capsule 1,250 mcg PO WK Rx Instructions: Friday Linzess 290 mcg Capsule 290 mcg PO QAM potassium chloride [K-Tab] 20 mEq Tablet Extended Release 20 meq PO TID furosemide [Lasix] 40 mg Tablet 40 mg PO QPM Rx Instructions: TAKES AT 1600 furosemide [Lasix] 80 mg Tablet 80 mg PO QAM insulin aspart U-100 [Novolog U-100 Insulin aspart] 100 unit/mL Solution See Rx Instructions .ROUTE .COMPLEX Rx Instructions: TAKES 12 UNITS WITH BREAKFAST, 8 UNITS WITH LUNCH & DINNER. fluticasone furoate-vilanterol [Breo Ellipta] 100-25 mcg/dose Blister With Device 1 inh INHALATION DAILY sertraline [Zoloft] 50 mg tablet 100 mg PO QAM Rx Instructions: TOTAL DOSE 150 MG--TAKES WITH 100 MG TAB. tamsulosin 0.4 mg Capsule 0.4 mg PO QPM Rx Instructions: TAKES AT 1600 docusate sodium 100 mg Capsule 100 mg PO BID liraglutide 0.6 mg/0.1 mL (18 mg/3 mL) Pen Injector 1.8 mg SUBCUT DAILY levothyroxine 125 mcg Tablet 125 mcg PO DAILYBB polyethylene glycol 3350 [Miralax] 17 gram/dose Powder 17 g PO BID acetaminophen [Tylenol] 325 mg Tablet 325 mg PO Q6H MDD 3 GRAMS/24 HOURS PRN (Reason: FEVER/PAIN) sertraline 100 mg tablet 100 mg PO QAM Rx Instructions: TOTAL DOSE 150 MG--TAKES WITH 50 MG TAB. ondansetron 4 mg Tablet,Disintegrating 4 mg PO Q6H PRN (Reason: NAUSEA/VOMITING) Myrbetriq 25 mg tablet extended release 24 hr 25 mg PO QAM cyclobenzaprine 10 mg Tablet 10 mg PO HS PRN (Reason: Headache) Referrals Referrals: Erasmo George [Primary Care Provider] -
[2021-10-23] MEDS ORDERED: MoRPHine SULFATE 4 MG/ML 1 ML CARP\\VIAL IV STA (09:53)
[2021-10-23] MEDS ORDERED: ONDANSETRON INJ 2 MG/ML 2 ML VIAL IV STA (09:53)
[2021-10-23 10:33] LABS: Basophils # (auto) 0.09 K/uL (0-0.2); Basophils % (auto) 0.5 %; Eosinophils # (auto) 0.24 K/uL (0-0.50); Eosinophils % (auto) 1.2 %; Hematocrit (blood only) 43.2 % (40.1-51.0); Hemoglobin 14.3 g/dl (14.0-18.0); Immature Granulocytes # (auto) 0.14 K/uL (0.00-0.02); Immature Granulocytes % (auto) 0.7 %; Lymphocytes # (auto) 2.29 K/uL (1.2-3.4); Lymphocytes % (auto) 11.9 %; Mean Corpuscular Hemoglobin 31.2 pg (25.0-34.0); Mean Corpuscular Hgb Conc 33.1 g/dL (32.0-36.0); Mean Corpuscular Volume 94.1 fL (80.0-100.0); Mean Platelet Volume 11.1 fL (9.4-12.4); Monocytes # (auto) 1.31 K/uL (0.24-0.82); Monocytes % (auto) 6.8 %; Neutrophils # (auto) 15.19 K/uL (1.4-6.5); Neutrophils % (auto) 78.9 %; Platelet Count 252 K/uL (130-400); RDW Coefficient of Variation 12.4 % (11.5-14.5); RDW Standard Deviation 42.8 fL (36.4-46.3); Red Blood Count 4.59 M/uL (4.63-6.08); White Blood Count 19.26 K/ul (4.8-10.8)
[2021-10-23 10:40] LABS: Albumin Globulin Ratio 1.3 (0.9-2); Albumin Level 3.9 gm/dl (3.4-5.0); BUN Creatinine Ratio 17.2 (10-20); Bilirubin,Total 0.4 mg/dl (0.2-1.0); Calcium 9.4 mg/dl (8.5-10.1); Creatinine Clr Calc Pharmacy 106.9 ml/min; Est GFR (African American) 102.8 ml/min; Est GFR (Non-African American) 88.7 ml/min; Globulin 2.9 gm/dl (2.5-4.0); Potassium 4.5 mmol/L (3.5-5.1); Total Protein 6.8 gm/dl (6.0-8.3)
[2021-10-23] MEDS ORDERED: OPTIRAY 300 500mL IV ONE ×2 (11:15→13:59)
--- NOTE | 2021-10-23 11:44 | CT Scan Report ---
CT SCAN OF THE ABDOMEN AND PELVIS WITH IV CONTRAST CLINICAL HISTORY: Lower abdominal pain. Hematemesis. COMPARISON STUDY: Abdominal CT dated 10/10/2021. TECHNIQUE: Following the IV administration of 80 cc of Optiray 300, CT scan of the abdomen and pelvi s is performed from the lung bases to the proximal femora. Images are reviewed in the axial, sagittal , and coronal planes. IV contrast was administered without complication. A dose lowering technique wa s utilized adhering to the principles of ALARA. The examination is degraded by large body habitus, an d by streak artifact from the body wall abutting the CT gantry. CT DOSE: 2457.80 mGy.cm FINDINGS: Lung bases: The heart is mildly enlarged and without pericardial effusion. There are coronary artery calcifications. Pacemaker leads are in place. There is pulmonary embolus within the right middle lobe pulmonary artery. This is best seen on axial image #45. Airspace consolidation is seen in the right upper lobe. Scarring/atelectasis is noted at the lung bases. There is a small hiatal hernia. Liver: The contrast-enhanced liver is normal in size, contour, and attenuation. There is no intrahepa tic biliary ductal dilatation. The hepatic veins and portal veins are patent. Periportal edema is obs erved. Gallbladder: Unremarkable. Spleen: Normal in size and attenuation. Pancreas: Moderately atrophic and grossly unremarkable. Adrenal glands: Unremarkable. Kidneys: The contrast enhanced kidneys demonstrate cortical atrophy and are without hydronephrosis. T he kidneys enhance symmetrically. Foci of cortical scarring are noted in the right kidney. Abdominal vasculature: The abdominal aorta is normal in course and caliber noting mild atheroscleroti c calcification. Bowel: There is rectosigmoid fecal impaction and moderate constipation. There is mild rectal wall thi ckening with perirectal inflammation suggesting stercoral proctitis. No bowel obstruction is identifi ed. The appendix is well-visualized and normal. Peritoneum: There is no intraperitoneal free air or abdominal ascites. Lymphadenopathy: None. Pelvic viscera: The prostate gland is mildly enlarged and heterogeneous. The bladder is distended. Th e bladder wall appears mildly thickened and trabeculated indicating chronic outlet obstruction. Skeletal structures: The skeletal structures are heterogeneously osteopenic. There is moderate to adv anced lumbosacral spondylosis. No lytic or blastic lesions are seen. IMPRESSION: 1. There are pulmonary emboli within the right middle lobe pulmonary artery. 2. Airspace consolidation is seen in the right upper lobe. Correlate clinically for pneumonia. Radiog raphic follow-up to resolution is recommended. 3. There is rectosigmoid fecal impaction and moderate constipation with evidence of stercoral proctit is. 4. No bowel obstruction is seen. 5. Additional findings as above. ACT 112: Negative or not required by law. Electronically signed by: Phong Bower M.D. 10/23/2021 11:42 AM
[2021-10-23 12:14] LABS: Appearance Urine Clear (Clear); Bilirubin Urine Negative (Negative); Blood Urine Negative (Negative); Color Urine Yellow; Glucose Urine UA Negative (Negative); Ketones Urine Negative (Negative); Leukocyte Esterase Urine Negative (Negative); Nitrite Urine Negative (Negative); Protein Urine Negative (Negative); Urobilinogen Urine Negative (Negative)
[2021-10-23] MEDS ORDERED: LACTATED RINGER'S 1,000 ML IV ONE (12:33)
[2021-10-23] MEDS ORDERED: PANTOprazole 40 MG in SYRINGE 0 ML IV ONE (12:36)
--- NOTE | 2021-10-23 12:40 | History & Physical Report ---
Date of Service October 23, 2021 Assessment & Plan (1) Acute pulmonary embolism: Plan: Aly Pompa is a 66-year-old male past medical history of diabetes, BPH, COPD, GERD, schizophrenia, CHF, anemia, and hypothyroidism who presents with overnight vomiting and coffee-ground emesis. Patient has a history of recurrent small bowel obstructions. Recently discharged 10/11/2021 generalized abdominal pain and was found to have a large stool burden in the rectosigmoid colon. Did require soapsuds enema and had resolution of his abdominal pain, nausea, vomiting. Acute pulmonary embolism Noted on CT of the abdomen, CTA of the chest pending New, no prior blood clots to patient's knowledge He reports he has had been having at least a few days of pain with inspiration and increased oxygen requirement, notes he does not remember much before a few days ago and has poor memory overall Hypoxic to 2 L at bedside, he reports he normally uses 2 L at night in place of CPAP and does not normally need during the day Heparin GTT Continue Protonix twice daily given history of esophagitis without ulcerations. Prior note mentioning esophageal varices, these were not appreciated on last EGD. Trend H&H Stercoral colitis, Hx IBS-C Bowel regimen ordered, diameter <10cm - MoM, Docusate, Dulcolax Enema, bowel regimen pending - Empiric zosyn for translocation coverage - NPO, LR while npo - Hold linzess Schizophrenia - On clozapine, continue. Continue sertraline. Stable. No AH/VH/SI/HI Urinary incontinence - Continue Myrbetriq, tamsulosin - Bladder scan PRN Type II DM - Hold liraglutide. - On 27 units nightly glargine, aspart [employer]. - Convert to basal bolus. - BMP daily. - Glucose checks AC/at bedtime. - Goal BSG 990003 Hypothyroidism: - Continue Synthroid, TSH pending COPD: No PFTs available for review No wheezing on admission Patient does have pleuritic pain on inspiration likely due to PEs PE management as above Patient on Breo daily. Congestive heart failure with preserved ejection fraction Patient takes Lasix 80 mg a.m., 40 mg [employer] Endorses increased generalized shortness of breath, denies orthopnea at bedside Breath sounds diminished and difficult to appreciate due to habitus DVT PPx: Heparin as above CODE STATUS: Full Code Diet: NPO (2) Stercoral colitis: (3) Type II diabetes mellitus: (4) BPH (benign prostatic hyperplasia): (5) AI (obstructive sleep apnea): (6) COPD (chronic obstructive pulmonary disease): (7) GERD (gastroesophageal reflux disease): (8) Diastolic CHF: (9) Schizophrenia: (10) Cardiac pacemaker: (11) Hypomagnesemia: History of Present Illness Primary Care Provider: [facility] Aly Pompa is a 66-year-old male past medical history of diabetes, BPH, COPD, GERD, schizophrenia, CHF, anemia, and hypothyroidism who presents with overnight vomiting and coffee-ground emesis. Patient has a history of recurrent small bowel obstructions. Recently discharged 10/11/2021 generalized abdominal pain and was found to have a large stool burden in the rectosigmoid colon. Did require soapsuds enema and had resolution of his abdominal pain, nausea, vomiting. Patient is a poor historian. Answers questions appropriately, but reports has poor memory and generally is unable to give history further back than 1 to 2 days although is oriented to name, place, and date. Nausea 2-3 days ago Vomiting 2-3 times 'two big ones' not sure of the color, was told it was dark and had blood. Last bowel movement yesterday, not runny a little loose. Small. Doesn't remember his bowel movements very well. Denies history of bleeding. Has a pacemaker, reports he is not sure why Endorses shortness of breath a little more for a few days. Uses oxygen as night and as needed. Been using CPAP at night but didn't tolerate well out of the hospital. Uses oxygen instead. Reports he does have pain stretching in a band across his lower ribs when he takes a deep breath, this is improved with shallow breathing. He also feels more fatigued lately like there is just a hole of fatigue and having to make someone asleep. Denies SI/HI and hallucinations. Denies history of [place]. He does not sure what his blood sugars have been like lately, notes [facility] take care of of all of his medications and is not sure what he is received recently Medical History: Reviewed. Medications: Reviewed Surgical History: Reviewed Allergies: Reviewed Social History:Denies tobacco, alcohol use. Code Status: Full COde EGD: EGD 04/09/2021: Mildly severe esophagitis, gastritis, no varices or ulcers appreciated Colonoscopy 04/09/2021: Poorly prepped, unable to advance past proximal transverse colon.CT colography follow-up 06/14 with no fixed polypoid lesions or masses appreciated, splenomegaly Allergies Allergy/AdvReac Type Severity Reaction Status Date / Time Penicillins Allergy Unknown on [facility] Verified 10/10/21 15:09 of [facility] med list Home Medications Medication Instructions Recorded Confirmed Type atorvastatin 10 mg tablet (Lipitor) 10 mg PO HS 08/28/20 10/23/21 History clozapine 100 mg tablet (Clozaril) 100 mg PO Q12 08/28/20 10/23/21 History ergocalciferol (vitamin D2) 1,250 1,250 mcg PO WK 08/28/20 10/23/21 History mcg (50,000 unit) capsule (Vitamin D2) ferrous sulfate 325 mg (65 mg 325 mg PO DAILY 08/28/20 10/23/21 History iron) tablet (FeroSul) fluticasone furoate 100 1 inh inhalation DAILY 08/28/20 10/23/21 History mcg-vilanterol 25 mcg/dose inhalation powder (Breo Ellipta) furosemide 40 mg tablet (Lasix) 40 mg PO QPM 08/28/20 10/23/21 History furosemide 80 mg tablet (Lasix) 80 mg PO QAM 08/28/20 10/23/21 History insulin aspart U-100 100 unit/mL See Rx Instructions .Route .COMPLEX 08/28/20 10/23/21 History subcutaneous solution (Novolog U-100 Insulin aspart) linaclotide 290 mcg capsule 290 mcg PO QAM 08/28/20 10/23/21 History (Linzess) potassium chloride 20 mEq 20 meq PO TID 08/28/20 10/23/21 History tablet,extended release (K-Tab) insulin glargine 100 unit/mL (3 27 unit subcut HS 10/07/20 10/23/21 History mL) subcutaneous pen (Basaglar KwikPen U-100 Insulin) multivitamin (Daily Multi-Vitamin 1 tab PO DAILY 10/07/20 10/23/21 History tablet) omeprazole 20 mg capsule,delayed 20 mg PO DAILY 10/07/20 10/23/21 History release tramadol 50 mg tablet (Ultram) 25 mg PO Q12 PRN Severe Pain 10/07/20 10/23/21 History (Scale Score 7-10) magnesium oxide 400 mg (241.3 mg 400 mg PO QAM #30 tabs 10/11/20 10/23/21 Rx magnesium) tablet acetaminophen 325 mg capsule 650 mg PO TID 12/27/20 10/23/21 History magnesium hydroxide 400 mg/5 mL 30 ml PO DAILY PRN Constipation 12/27/20 10/23/21 History oral suspension (Milk of Magnesia) docusate sodium 100 mg capsule 100 mg PO BID 02/09/21 10/23/21 History liraglutide 0.6 mg/0.1 mL (18 mg/3 1.8 mg subcut DAILY 02/09/21 10/23/21 History mL) subcutaneous pen injector tamsulosin 0.4 mg capsule 0.4 mg PO QPM 02/09/21 10/23/21 History levothyroxine 125 mcg tablet 125 mcg PO DAILYBB 03/06/21 10/23/21 History polyethylene glycol 3350 17 17 g PO BID 03/06/21 10/23/21 History gram/dose oral powder (Miralax) sertraline 50 mg tablet (Zoloft) 100 mg PO QAM 09/05/21 10/23/21 History acetaminophen 325 mg tablet 325 mg PO Q6H PRN FEVER/PAIN 10/10/21 10/23/21 History (Tylenol) mirabegron 25 mg tablet,extended 25 mg PO QAM 10/10/21 10/23/21 History release 24 hr (Myrbetriq) ondansetron 4 mg disintegrating 4 mg PO Q6H PRN NAUSEA/VOMITING 10/10/21 10/23/21 History tablet sertraline 100 mg tablet 100 mg PO QAM 10/10/21 10/23/21 History cyclobenzaprine 10 mg tablet 10 mg PO HS PRN Headache 10/23/21 10/23/21 History Past Med/Surg History Medical History Anxiety and depression Chest pain Constipation COPD (chronic obstructive pulmonary disease) Disorder of prostate Dysphagia Esophagitis GERD (gastroesophageal reflux disease) Heart failure Hyperlipidemia Hypertension Hypomagnesemia Hypothyroidism Morbid obesity Muscle weakness Obstructive sleep apnea O2 at 2L n/c at HS and prn if pulse ox is less than 90% Osteoporosis Paranoid schizophrenia Type 2 diabetes mellitus Unspecified abnormalities of gait and mobility Surgical History Surgical history unknown Social History Smoking Status: Former smoker Tobacco Type: Cigarettes Second Hand Exposure: No; Hx Alcohol Use: No Hx Substance Use: No Preferred Language: [place] Communication Ability: Effective [place] Installer Required: No Beliefs That Will Affect Care: None marital status: Unknown Current Living Situation: [facility] Current Living Situation Comment: Pt from [facility], currently @ [facility] for amb dysfunction current occupational status: retired Feels Safe at Home: Yes Assistive Devices: Walker and Wheelchair Review of Systems Review of Systems: All systems reviewed & are unremarkable except as noted in Subjective Physical Exam Physical Exam: General: A&Ox3. NAD. Cooperative. Somewhat concrete thought process. Not responding to internal stimuli HEENT: Atraumatic, normocephalic. Hearing grossly intact Pulm: CTAB A&P. -wheezes, -rales, -rhonchi. Symmetrical chest rise. No increase in work of breathing. No respiratory distress. Cardiac: RRR, -mrg. Radial pulses intact and symmetrical. Abdominal: Nontender, nondistended, soft. BS present. Extremities: Warm, dry. No calf tenderness. No calf asymmetry. Sensation of soft touch intact in hands and feet without asymmetry Results & Data Results & Data ([facility]) Vital Signs (Past 12 Hours) Vital Signs Temp Pulse Pulse Resp BP BP Pulse Ox 10/23/21 12:00 89 18 116/81 100 10/23/21 09:39 10/23/21 09:39 36.8 C 88 20 93/64 L 92 O2 Del Method O2 Flow Rate 10/23/21 12:00 Nasal Cannula 2 10/23/21 09:39 Room Air 10/23/21 09:39 Room Air PG Care Time/CCT Total # of Minutes Spent Total Time Spent with Patient: Total time spent is greater than 50% in coordination of care (as documented) at patient's floor/unit and/or counseling patient: Coding Level of Care Code 53389 Initial Inpt Care Lvl 3 Diagnoses Acute pulmonary embolism I26.99 Stercoral colitis K52.89 Type II diabetes mellitus E11.9 BPH (benign prostatic hyperplasia) N40.0 AI (obstructive sleep apnea) G47.33 COPD (chronic obstructive pulmonary disease) J44.9 GERD (gastroesophageal reflux disease) K21.9 Diastolic CHF I50.32 Heart failure chronicity: chronic Schizophrenia F20.9 Cardiac pacemaker Z95.0 Hypomagnesemia E83.42 (1) Diastolic CHF Heart failure chronicity: chronic Qualified Code(s): I50.32 - Chronic diastolic (congestive) heart failure
[2021-10-23] MEDS ORDERED: Heparin IV Adult Wt-Based Standard WITH Bolus Protocol IV SCH (13:15)
[2021-10-23] MEDS ORDERED: HEPARIN SOD (PORCINE) 1000 UNIT/ML IV ONE (13:24)
--- NOTE | 2021-10-23 13:29 | Electrocardiogram Report ---
Test Reason : Blood Pressure : / mmHG Vent. Rate : 088 BPM Atrial Rate : 088 BPM P-R Int : 138 ms QRS Dur : 206 ms QT Int : 464 ms P-R-T Axes : 045 -80 084 degrees QTc Int : 561 ms Atrial-sensed ventricular-paced rhythm Abnormal ECG When compared with ECG of 10-OCT-2021 11:53, Vent. rate has increased BY 6 BPM Confirmed by Aly Cabral ([id number]) on 10/23/2021 1:28:57 PM Referred By: REFERRED SELF Confirmed By:Aly Cabral
[2021-10-23 13:49] LABS: Partial Thromboplastin Ratio 0.9; Partial Thromboplastin Time 25.7 Seconds (21.0-31.0); Prothrombin Time 10.3 Seconds (9.0-12.0)
--- NOTE | 2021-10-23 14:21 | CT Scan Report ---
CT ANGIOGRAPHY OF THE CHEST, PULMONARY EMBOLUS PROTOCOL CLINICAL HISTORY: pulmonary embolism noted on CT ABD/Pelvis COMPARISON STUDY: CT of the abdomen and pelvis October 23, 2021. Chest radiograph October 10, 2021. TECHNIQUE: Following IV administration of 115 mL of Optiray, helical axial images of the chest were o btained utilizing the pulmonary embolus protocol. Maximal intensity projections and sagittal and cor onal reformats were viewed on an independent 3D workstation. IV contrast was administered without co mplication. Automated exposure control was utilized for the study. A dose lowering technique was ut ilized adhering to the principles of ALARA. CT DOSE: 848.56 mGy.cm FINDINGS: Several segmental pulmonary emboli are noted within the lingular and right middle lobe bra nches. No central pulmonary embolus is present. Cardiomegaly is noted. Dual lead left subclavian pace r is in place. There is no pneumothorax or pleural effusion. There are scattered alveolar opacities t hroughout the right lung. Lungs are suboptimally assessed due to respiratory motion. There are mild s ecretions within the airways. Elevation of the right hemidiaphragm is noted. There is no thoracic lym phadenopathy. Multilevel degenerative changes within the thoracic spine are noted. No acute fracture within the bony thorax is noted. No pulmonary infarct. IMPRESSION: 1. Several segmental pulmonary emboli within the right middle lobe and lingular branches. 2. Scattered alveolar opacities within the right lung which favor an infectious process. A follow-up chest CT in 3 months to ensure resolution is recommended. 3. Cardiomegaly. ACT 112: Negative or not required by law. Electronically signed by: Ramiro Mcpherson M.D. 10/23/2021 2:19 PM
[2021-10-23] MEDS: HEPARIN SODIUM/DEXTROSE 25,000 UNITS/500 ML BAG IV SCH (14:56)
[2021-10-23] MEDS ORDERED: PIPERACILLIN/TAZOBACTAM 3.375 GM in DEXTROSE 5% 100 ML IV ONE (16:37)
[2021-10-23] MEDS ORDERED: GLUCOSE 10 TAB/TUBE PO PRN (16:37)
[2021-10-23] MEDS ORDERED: traMADol HCL 50 MG TABLET PO PRN (16:37)
[2021-10-23] MEDS ORDERED: GLUCAGON FOR INJ 1 MG VIAL SQ PRN (16:37)
[2021-10-23] MEDS ORDERED: CARBOHYDRATES FOR HYPOGLYCEMIA PO PRN (16:37)
[2021-10-23] MEDS ORDERED: DEXTROSE 50% 50 ML SYRINGE IV PRN (16:37)
[2021-10-23] MEDS ORDERED: GLUCOSE 40% GEL 15 GM TUBE PO PRN (16:37)
[2021-10-23] MEDS ORDERED: ACETAMINOPHEN 325 MG TAB PO PRN (16:37)
[2021-10-23] MEDS ORDERED: MAGNESIUM HYDROXIDE SUSP 30 ML UDC PO PRN (16:37)
[2021-10-23] MEDS: INSULIN ASPART PER UNIT SC SCH ×2 (17:13→20:48)
[2021-10-23] MEDS: cloZAPine 100 MG TAB PO SCH (20:47)
[2021-10-23] MEDS: TAMSULOSIN HCL 0.4 MG CAP PO SCH (20:47)
[2021-10-23] MEDS: ATORVASTATIN 10 MG TAB PO SCH (20:48)
[2021-10-23] MEDS: bisacodyL 10 MG SUPP PR SCH (20:48)
[2021-10-23] MEDS: POLYETHYLENE (MIRALAX) 17 GM PACK PO SCH (20:48)
[2021-10-23] MEDS: DOCUSATE SODIUM 100 MG CAP PO SCH (20:48)
[2021-10-23] MEDS ORDERED: LANTUS PER UNIT CHARGE SQ SCH (21:00)
[2021-10-23 21:39] LABS: Partial Thromboplastin Ratio 2.9
[2021-10-23] MEDS: PANTOprazole 40 MG in SYRINGE 0 ML IV SCH (22:25)
[2021-10-23] MEDS: LANTUS PER UNIT CHARGE SQ SCH (22:26)
[2021-10-23] MEDS: PIPERACILLIN/TAZOBACTAM 3.375 GM in DEXTROSE 5% 100 ML IV SCH (22:27)
[2021-10-24 04:53] LABS: Partial Thromboplastin Ratio 2.8
[2021-10-24 04:54] LABS: BUN Creatinine Ratio 13.4 (10-20); Calcium 8.7 mg/dl (8.5-10.1); Creatinine Clr Calc Pharmacy 113.4 ml/min; Est GFR (African American) 105.3 ml/min; Est GFR (Non-African American) 90.9 ml/min; Magnesium 2.2 mg/dl (1.7-2.4); Potassium 3.8 mmol/L (3.5-5.1)
[2021-10-24 05:22] LABS: Basophils % (auto) 0.9 %; Eosinophils # (auto) 0.24 K/uL (0-0.50); Eosinophils % (auto) 2.2 %; Hematocrit (blood only) 37.7 % (40.1-51.0); Hemoglobin 12.4 g/dl (14.0-18.0); Immature Granulocytes # (auto) 0.07 K/uL (0.00-0.02); Immature Granulocytes % (auto) 0.7 %; Lymphocytes # (auto) 2.18 K/uL (1.2-3.4); Lymphocytes % (auto) 20.4 %; Mean Corpuscular Hgb Conc 32.9 g/dL (32.0-36.0); Mean Corpuscular Volume 94.3 fL (80.0-100.0); Mean Platelet Volume 11.7 fL (9.4-12.4); Monocytes # (auto) 0.84 K/uL (0.24-0.82); Monocytes % (auto) 7.9 %; Neutrophils # (auto) 7.25 K/uL (1.4-6.5); Neutrophils % (auto) 67.9 %; Platelet Count 250 K/uL (130-400); RDW Coefficient of Variation 12.4 % (11.5-14.5); RDW Standard Deviation 42.6 fL (36.4-46.3); White Blood Count 10.68 K/ul (4.8-10.8)
[2021-10-24] MEDS: LEVOTHYROXINE SODIUM 125 MCG TABLET PO SCH (06:25)
[2021-10-24] MEDS: PIPERACILLIN/TAZOBACTAM 3.375 GM in DEXTROSE 5% 100 ML IV SCH ×3 (06:34→21:40)
[2021-10-24] MEDS: HEPARIN SODIUM/DEXTROSE 25,000 UNITS/500 ML BAG IV SCH (06:45)
[2021-10-24] MEDS ORDERED: SERTRALINE HCL 100 MG TABLET PO SCH ×2 (09:00)
[2021-10-24] MEDS: DOCUSATE SODIUM 100 MG CAP PO SCH ×2 (10:29→21:09)
[2021-10-24] MEDS: FERROUS SULFATE 325 MG TAB PO SCH (10:29)
[2021-10-24] MEDS: MULTIVITAMIN TAB PO SCH (10:29)
[2021-10-24] MEDS: SERTRALINE HCL 100 MG TABLET PO SCH (10:29)
[2021-10-24] MEDS: cloZAPine 100 MG TAB PO SCH ×2 (10:29→21:09)
[2021-10-24] MEDS: POLYETHYLENE (MIRALAX) 17 GM PACK PO SCH ×2 (10:31→21:10)
[2021-10-24] MEDS: bisacodyL 10 MG SUPP PR SCH ×2 (10:31→21:09)
[2021-10-24] MEDS: INSULIN ASPART PER UNIT SC SCH ×4 (10:31→21:10)
[2021-10-24] MEDS: PANTOprazole 40 MG in SYRINGE 0 ML IV SCH ×2 (10:31→21:10)
[2021-10-24] MEDS: MIRABEGRON ER 25 MG TAB PO SCH (10:31)
[2021-10-24] MEDS: FLUTICASONE/VILANTEROL 100/25MCG 14 PUFFS/INHALER INH SCH (10:31)
[2021-10-24 12:40] LABS: Partial Thromboplastin Ratio 2.4
[2021-10-24 12:48] LABS: Partial Thromboplastin Time 66.8 Seconds (21.0-31.0)
--- NOTE | 2021-10-24 14:18 | Hospitalist Progress Note ---
Date of Service October 24, 2021 Assessment & Plan (1) Acute pulmonary embolism: Plan: Right middle lobe involvement. Currently on a heparin drip. Eventual switch to Eliquis most likely. Supplemental oxygen per nasal cannula to maintain saturation greater than 90% until no longer needed. (2) Stercoral colitis: Plan: Bowel regimen ordered. Intravenous Zosyn until no longer needed. Linzess discontinued. Clear liquid diet for now. (3) Type II diabetes mellitus: Plan: ADA diet when able to reach that point. Sliding scale coverage. Lantus. (4) BPH (benign prostatic hyperplasia): Plan: BPH with LUTS. Medical management. (5) AI (obstructive sleep apnea): Plan: CPAP as needed (6) COPD (chronic obstructive pulmonary disease): Plan: Stable and quiescent. Medical management. Inhalers as needed (7) GERD (gastroesophageal reflux disease): Plan: PPI therapy (8) Diastolic CHF: Plan: Chronic. Stable. Continue current medical management. Monitor intake and output (9) Schizophrenia: Plan: Stable. Continue current medical management (10) Cardiac pacemaker: Plan: History of. Aware. (11) Hypomagnesemia: Plan: Corrected with supplementation Plan Eventual discharge to home Admission and Anticipated Discharge Date Admission Date: October 23, 2021 Subjective Alert and pleasant. He remains on a heparin drip for the known PE in the right middle lobe. He is 90% on room air and supplemental oxygen per nasal cannula has been ordered. He has colitis is being treated. Clear liquids have been started. Review of Systems Review of Systems: Constitutional-no fever or chills ENT-no blurred vision, no double vision, no epistaxis, no sore throat Respiratory-no cough, no wheezing. Shortness of breath with exertion. No hemoptysis Cardiac-no palpitations, no chest pain, no syncope GI- Diffuse mild abdominal discomfort. -no urinary retention, no urinary incontinence, no dysuria, no hematuria Musculoskeletal-no joint pain, no muscle tenderness Skin-no bruising, no rashes, no pruritus Neuro-no isolated weakness, no paresthesia, no weakness Psych-no depression, no anxiety Physical Exam Physical Exam: General-alert and oriented x3, no fevers, no chills HEENT-head atraumatic and normocephalic, TMs intact bilaterally, pupils equal and reactive to light, extraocular muscles intact Neck-no lymphadenopathy or thyromegaly, trachea midline Chest-clear to auscultation percussion. No rales wheezing or rhonchi Cardiac-regular rate and rhythm, normal S1 and S2 Abdomen-diffuse mild abdominal tenderness. Active bowel sounds. No rebound or guarding. No masses Extremities-no cyanosis, clubbing, or edema Neuro-cranial nerves II through XII intact, strength symmetrical , no focal deficits Psych-normal affect, normal mood Results & Data Results & Data ([facility]) Vital Signs (Past 12 Hours) Vital Signs Temp Pulse Pulse Resp BP Pulse Ox O2 Del Method 10/24/21 11:50 36.7 C 79 17 108/75 95 Nasal Cannula 10/24/21 08:28 90 10/24/21 07:16 36.6 C 92 H 19 128/87 90 Room Air 10/24/21 03:29 36.5 C 89 20 133/75 91 Room Air O2 Flow Rate 10/24/21 11:50 2 10/24/21 08:28 10/24/21 07:16 10/24/21 03:29 Laboratory Results 10/24/21 03:55 10/24/21 03:55 PG Care Time/CCT Total # of Minutes Spent Total Time Spent with Patient: Total time spent is greater than 50% in coordination of care (as documented) at patient's floor/unit and/or counseling patient: Coding Level of Care Code 78546 Subseq Hosp Care Lvl 3 Diagnoses Acute pulmonary embolism I26.99 Stercoral colitis K52.89 Type II diabetes mellitus E11.9 BPH (benign prostatic hyperplasia) N40.0 AI (obstructive sleep apnea) G47.33 COPD (chronic obstructive pulmonary disease) J44.9 GERD (gastroesophageal reflux disease) K21.9 Diastolic CHF I50.32 Heart failure chronicity: chronic Schizophrenia F20.9 Cardiac pacemaker Z95.0 Hypomagnesemia E83.42 (1) Diastolic CHF Heart failure chronicity: chronic Qualified Code(s): I50.32 - Chronic diastolic (congestive) heart failure
[2021-10-24 20:25] LABS: Partial Thromboplastin Ratio 1.9
[2021-10-24 20:33] LABS: Partial Thromboplastin Time 52.1 Seconds (21.0-31.0)
[2021-10-24] MEDS: ATORVASTATIN 10 MG TAB PO SCH (21:09)
[2021-10-24] MEDS: TAMSULOSIN HCL 0.4 MG CAP PO SCH (21:09)
[2021-10-24] MEDS: LANTUS PER UNIT CHARGE SQ SCH (21:11)
[2021-10-25] MEDS: HEPARIN SODIUM/DEXTROSE 25,000 UNITS/500 ML BAG IV SCH ×2 (00:26→00:48)
[2021-10-25 03:37] LABS: Basophils # (auto) 0.09 K/uL (0-0.2); Basophils % (auto) 1.1 %; Eosinophils # (auto) 0.24 K/uL (0-0.50); Hematocrit (blood only) 38.1 % (40.1-51.0); Hemoglobin 12.4 g/dl (14.0-18.0); Immature Granulocytes # (auto) 0.06 K/uL (0.00-0.02); Immature Granulocytes % (auto) 0.8 %; Lymphocytes # (auto) 2.12 K/uL (1.2-3.4); Lymphocytes % (auto) 26.8 %; Mean Corpuscular Hemoglobin 30.7 pg (25.0-34.0); Mean Corpuscular Hgb Conc 32.5 g/dL (32.0-36.0); Mean Corpuscular Volume 94.3 fL (80.0-100.0); Mean Platelet Volume 10.7 fL (9.4-12.4); Monocytes # (auto) 0.75 K/uL (0.24-0.82); Monocytes % (auto) 9.5 %; Neutrophils # (auto) 4.64 K/uL (1.4-6.5); Neutrophils % (auto) 58.8 %; Platelet Count 224 K/uL (130-400); RDW Coefficient of Variation 12.3 % (11.5-14.5); RDW Standard Deviation 42.5 fL (36.4-46.3); Red Blood Count 4.04 M/uL (4.63-6.08)
[2021-10-25 04:02] LABS: Partial Thromboplastin Ratio 2.1
[2021-10-25 04:04] LABS: BUN Creatinine Ratio 9.7 (10-20); Calcium 8.8 mg/dl (8.5-10.1); Est GFR (African American) 97.4 ml/min; Est GFR (Non-African American) 84.1 ml/min; Magnesium 2.2 mg/dl (1.7-2.4); Potassium 3.6 mmol/L (3.5-5.1)
[2021-10-25 04:09] LABS: Partial Thromboplastin Time 58.6 Seconds (21.0-31.0)
[2021-10-25] MEDS: PIPERACILLIN/TAZOBACTAM 3.375 GM in DEXTROSE 5% 100 ML IV SCH ×3 (05:51→21:59)
[2021-10-25] MEDS: LEVOTHYROXINE SODIUM 125 MCG TABLET PO SCH (05:51)
[2021-10-25] MEDS: CYCLOBENZAPRINE HCL 10 MG TAB PO PRN ×2 (06:27→21:58)
[2021-10-25] MEDS: SERTRALINE HCL 100 MG TABLET PO SCH (08:51)
[2021-10-25] MEDS: DOCUSATE SODIUM 100 MG CAP PO SCH ×2 (08:51→21:53)
[2021-10-25] MEDS: MIRABEGRON ER 25 MG TAB PO SCH (08:51)
[2021-10-25] MEDS: PANTOprazole 40 MG in SYRINGE 0 ML IV SCH ×2 (08:51→21:54)
[2021-10-25] MEDS: MULTIVITAMIN TAB PO SCH (08:51)
[2021-10-25] MEDS: FLUTICASONE/VILANTEROL 100/25MCG 14 PUFFS/INHALER INH SCH (08:51)
[2021-10-25] MEDS: cloZAPine 100 MG TAB PO SCH ×2 (08:51→21:52)
[2021-10-25] MEDS: bisacodyL 10 MG SUPP PR SCH ×2 (08:52→21:52)
[2021-10-25] MEDS: POLYETHYLENE (MIRALAX) 17 GM PACK PO SCH ×2 (08:58→21:54)
[2021-10-25] MEDS: INSULIN ASPART PER UNIT SC SCH ×4 (08:58→21:53)
--- NOTE | 2021-10-25 09:19 | Hospitalist Progress Note ---
Date of Service October 25, 2021 Assessment & Plan (1) Acute pulmonary embolism: Plan: Right middle lobe involvement. Transition to Eliquis . Supplemental oxygen per nasal cannula to maintain saturation greater than 90% until no longer needed. (2) Stercoral colitis: Plan: Bowel regimen ordered. Intravenous Zosyn also to treat possible pneumonia which could be gram-negative in right lung seen on CT scan Linzess discontinued. Advance diet as able, ensure bowel movements (3) Type II diabetes mellitus: Plan: ADA diet when able to reach that point. Sliding scale coverage. Lantus. (4) BPH (benign prostatic hyperplasia): Plan: BPH with LUTS. Medical management. (5) AI (obstructive sleep apnea): Plan: CPAP as needed (6) COPD (chronic obstructive pulmonary disease): Plan: Stable and quiescent. In face of possible pneumonia seen on CTA we will continue Zosyn antibiotics. MEdical management. Inhalers as needed (7) GERD (gastroesophageal reflux disease): Plan: PPI therapy (8) Diastolic CHF: Plan: Chronic. Stable. Continue current medical management. Monitor intake and output (9) Schizophrenia: Plan: Stable. Continue current medical management (10) Cardiac pacemaker: Plan: History of. Aware. (11) Hypomagnesemia: Plan: Corrected with supplementation Admission and Anticipated Discharge Date Admission Date: October 23, 2021 Subjective Alert and pleasant. Converted to Eliquis for the known PE in the right middle lobe. He remains on oxygen for comfort. Review of Systems Review of Systems: Constitutional-no fever or chills ENT-no blurred vision, no double vision, no epistaxis, no sore throat Respiratory-no cough, no wheezing. Shortness of breath with exertion. No hemoptysis Cardiac-no palpitations, no chest pain, no syncope GI- Diffuse mild abdominal discomfort. -no urinary retention, no urinary incontinence, no dysuria, no hematuria Musculoskeletal-no joint pain, no muscle tenderness Skin-no bruising, no rashes, no pruritus Neuro-no isolated weakness, no paresthesia, no weakness Psych-no depression, no anxiety Physical Exam Physical Exam: The patient appeared stable Vital signs as documented. Lungs are right base some rhonchi Cardiac exam, Rhythm is regular.. No murmurs, rubs or gallops. Abdominal exam reveals normal bowel sounds, soft non tender, no masses Extremities are nonedematous and both pedal pulses are normal. Neurologic exam is alert and oriented, no focal loss of strength or sensation Skin is without bruises or rashes Psychologically is without concerns for anxiety or depression. Results & Data Results & Data ([facility]) Vital Signs (Past 12 Hours) Vital Signs Temp Pulse Pulse Resp BP Pulse Ox O2 Del Method 10/25/21 07:17 97.3 F L 81 17 127/80 96 Room Air 10/25/21 03:05 98.1 F 83 18 132/74 96 Nasal Cannula 10/24/21 22:20 77 10/24/21 22:51 98.1 F 62 18 131/66 95 Nasal Cannula O2 Flow Rate 10/25/21 07:17 10/25/21 03:05 2 10/24/21 22:20 10/24/21 22:51 PG Care Time/CCT Total # of Minutes Spent Total Time Spent with Patient: Total time spent is greater than 50% in coordination of care (as documented) at patient's floor/unit and/or counseling patient: Coding Level of Care Code 18211 Subseq Hosp Care Lvl 2 Diagnoses Acute pulmonary embolism I26.99 Stercoral colitis K52.89 Type II diabetes mellitus E11.9 BPH (benign prostatic hyperplasia) N40.0 AI (obstructive sleep apnea) G47.33 COPD (chronic obstructive pulmonary disease) J44.9 GERD (gastroesophageal reflux disease) K21.9 Diastolic CHF I50.32 Heart failure chronicity: chronic Schizophrenia F20.9 Cardiac pacemaker Z95.0 Hypomagnesemia E83.42 (1) Diastolic CHF Heart failure chronicity: chronic Qualified Code(s): I50.32 - Chronic diastolic (congestive) heart failure
[2021-10-25] MEDS: APIXABAN 5 MG TABLET PO SCH ×2 (12:41→21:50)
[2021-10-25] MEDS: FERROUS SULFATE 325 MG TAB PO SCH (12:42)
[2021-10-25] MEDS: ATORVASTATIN 10 MG TAB PO SCH (21:51)
[2021-10-25] MEDS: TAMSULOSIN HCL 0.4 MG CAP PO SCH (21:54)
[2021-10-25] MEDS: LANTUS PER UNIT CHARGE SQ SCH (21:54)
[2021-10-26] MEDS: PIPERACILLIN/TAZOBACTAM 3.375 GM in DEXTROSE 5% 100 ML IV SCH ×3 (05:37→21:06)
[2021-10-26] MEDS: LEVOTHYROXINE SODIUM 125 MCG TABLET PO SCH (05:39)
[2021-10-26 06:28] LABS: Basophils # (auto) 0.06 K/uL (0-0.2); Basophils % (auto) 0.9 %; Eosinophils # (auto) 0.24 K/uL (0-0.50); Eosinophils % (auto) 3.4 %; Hematocrit (blood only) 38.2 % (40.1-51.0); Hemoglobin 12.2 g/dl (14.0-18.0); Immature Granulocytes # (auto) 0.04 K/uL (0.00-0.02); Immature Granulocytes % (auto) 0.6 %; Lymphocytes # (auto) 1.56 K/uL (1.2-3.4); Lymphocytes % (auto) 22.1 %; Mean Corpuscular Hemoglobin 30.6 pg (25.0-34.0); Mean Corpuscular Hgb Conc 31.9 g/dL (32.0-36.0); Mean Corpuscular Volume 95.7 fL (80.0-100.0); Mean Platelet Volume 11.2 fL (9.4-12.4); Monocytes # (auto) 0.79 K/uL (0.24-0.82); Monocytes % (auto) 11.2 %; Neutrophils # (auto) 4.36 K/uL (1.4-6.5); Neutrophils % (auto) 61.8 %; Platelet Count 210 K/uL (130-400); RDW Coefficient of Variation 12.4 % (11.5-14.5); RDW Standard Deviation 42.7 fL (36.4-46.3); Red Blood Count 3.99 M/uL (4.63-6.08); White Blood Count 7.05 K/ul (4.8-10.8)
[2021-10-26 07:08] LABS: Calcium 8.7 mg/dl (8.5-10.1); Creatinine Clr Calc Pharmacy 106.8 ml/min; Est GFR (African American) 102.8 ml/min; Est GFR (Non-African American) 88.7 ml/min; Magnesium 2.2 mg/dl (1.7-2.4); Potassium 3.7 mmol/L (3.5-5.1)
--- NOTE | 2021-10-26 09:01 | Hospitalist Progress Note ---
Date of Service October 26, 2021 Assessment & Plan (1) Acute pulmonary embolism: Plan: Right middle lobe involvement. Transition to Eliquis . Supplemental oxygen per nasal cannula to maintain saturation greater than 90% until no longer needed. (2) Stercoral colitis: Plan: Bowel regimen ordered. Intravenous Zosyn also to treat possible pneumonia which could be gram-negative in right lung seen on CT scan Linzess discontinued. Advance diet as able, ensure bowel movements (3) Type II diabetes mellitus: Plan: ADA diet when able to reach that point. Sliding scale coverage. Lantus. (4) BPH (benign prostatic hyperplasia): Plan: BPH with LUTS. Medical management. Pt with urinary incontinence, will check post void residual (5) AI (obstructive sleep apnea): Plan: CPAP as needed (6) COPD (chronic obstructive pulmonary disease): Plan: Stable and quiescent. In face of possible pneumonia seen on CTA we will continu e Zosyn antibiotics. MEdical management. Inhalers as needed (7) GERD (gastroesophageal reflux disease): Plan: PPI therapy (8) Diastolic CHF: Plan: Chronic. Stable. Continue current medical management. Monitor intake and output (9) Schizophrenia: Plan: Stable. Continue current medical management (10) Cardiac pacemaker: Plan: History of. Aware. (11) Hypomagnesemia: Plan: Corrected with supplementation Plan consider return to [facility] in one or two days Admission and Anticipated Discharge Date Admission Date: October 23, 2021 Subjective Alert and pleasant. Converted to Eliquis for the known PE in the right middle lobe. He remains on oxygen for comfort. has some discussion about urinary incontinence, states its been going on for some time, encouraged nurse to check post void residual to see if overflow incontinence no urinary symptoms, urine is clear jono Review of Systems Review of Systems: Constitutional-no fever or chills ENT-no blurred vision, no double vision, no epistaxis, no sore throat Respiratory-no cough, no wheezing. Shortness of breath with exertion. No hemoptysis Cardiac-no palpitations, no chest pain, no syncope GI- Diffuse mild abdominal discomfort. -no urinary retention, no urinary incontinence, no dysuria, no hematuria Musculoskeletal-no joint pain, no muscle tenderness Skin-no bruising, no rashes, no pruritus Neuro-no isolated weakness, no paresthesia, no weakness Psych-no depression, no anxiety Physical Exam Physical Exam: The patient appeared stable Vital signs as documented. Lungs are right base some rhonchi Cardiac exam, Rhythm is regular.. No murmurs, rubs or gallops. Abdominal exam reveals normal bowel sounds, soft non tender, no masses Extremities are nonedematous and both pedal pulses are normal. Neurologic exam is alert and oriented, no focal loss of strength or sensation Skin is without bruises or rashes Psychologically is without concerns for anxiety or depression. Results & Data Results & Data ([facility]) Vital Signs (Past 12 Hours) Vital Signs Temp Pulse Pulse Resp BP Pulse Ox O2 Del Method 10/26/21 08:00 88 10/26/21 08:00 Nasal Cannula 10/26/21 08:00 98.2 F 73 18 142/71 H 97 10/26/21 04:07 90 10/26/21 04:07 Nasal Cannula 10/26/21 02:56 97.9 F 66 18 136/82 93 Nasal Cannula 10/25/21 23:10 98.1 F 88 18 137/81 97 Nasal Cannula O2 Flow Rate 10/26/21 08:00 10/26/21 08:00 2 10/26/21 08:00 10/26/21 04:07 10/26/21 04:07 2 10/26/21 02:56 10/25/21 23:10 PG Care Time/CCT Total # of Minutes Spent Total Time Spent with Patient: Total time spent is greater than 50% in coordination of care (as documented) at patient's floor/unit and/or counseling patient: Coding Level of Care Code 40836 Subseq Hosp Care Lvl 2 Diagnoses Acute pulmonary embolism I26.99 Stercoral colitis K52.89 Type II diabetes mellitus E11.9 BPH (benign prostatic hyperplasia) N40.0 AI (obstructive sleep apnea) G47.33 COPD (chronic obstructive pulmonary disease) J44.9 GERD (gastroesophageal reflux disease) K21.9 Diastolic CHF I50.32 Heart failure chronicity: chronic Schizophrenia F20.9 Cardiac pacemaker Z95.0 Hypomagnesemia E83.42 (1) Diastolic CHF Heart failure chronicity: chronic Qualified Code(s): I50.32 - Chronic diastolic (congestive) heart failure
[2021-10-26] MEDS: cloZAPine 100 MG TAB PO SCH ×2 (09:14→21:02)
[2021-10-26] MEDS: FLUTICASONE/VILANTEROL 100/25MCG 14 PUFFS/INHALER INH SCH (09:14)
[2021-10-26] MEDS: APIXABAN 5 MG TABLET PO SCH ×2 (09:14→21:00)
[2021-10-26] MEDS: PANTOprazole 40 MG in SYRINGE 0 ML IV SCH ×2 (09:15→21:03)
[2021-10-26] MEDS: SERTRALINE HCL 100 MG TABLET PO SCH (09:15)
[2021-10-26] MEDS: MULTIVITAMIN TAB PO SCH (09:15)
[2021-10-26] MEDS: MIRABEGRON ER 25 MG TAB PO SCH (09:15)
[2021-10-26] MEDS: INSULIN ASPART PER UNIT SC SCH ×4 (09:19→20:58)
[2021-10-26] MEDS: bisacodyL 10 MG SUPP PR SCH ×2 (09:37→21:01)
[2021-10-26] MEDS: DOCUSATE SODIUM 100 MG CAP PO SCH ×2 (09:37→21:02)
[2021-10-26] MEDS: POLYETHYLENE (MIRALAX) 17 GM PACK PO SCH ×2 (09:38→21:03)
[2021-10-26] MEDS: FERROUS SULFATE 325 MG TAB PO SCH (13:00)
[2021-10-26] MEDS: LANTUS PER UNIT CHARGE SQ SCH (20:58)
[2021-10-26] MEDS: CYCLOBENZAPRINE HCL 10 MG TAB PO PRN (20:59)
[2021-10-26] MEDS: ATORVASTATIN 10 MG TAB PO SCH (21:01)
[2021-10-26] MEDS: TAMSULOSIN HCL 0.4 MG CAP PO SCH (21:04)
[2021-10-27] MEDS: LEVOTHYROXINE SODIUM 125 MCG TABLET PO SCH (05:59)
[2021-10-27] MEDS: PIPERACILLIN/TAZOBACTAM 3.375 GM in DEXTROSE 5% 100 ML IV SCH ×3 (06:00→22:16)
[2021-10-27] MEDS: SERTRALINE HCL 100 MG TABLET PO SCH (08:44)
[2021-10-27] MEDS: MULTIVITAMIN TAB PO SCH (08:45)
[2021-10-27] MEDS: MIRABEGRON ER 25 MG TAB PO SCH (08:45)
[2021-10-27] MEDS: cloZAPine 100 MG TAB PO SCH ×2 (08:46→22:11)
[2021-10-27] MEDS: bisacodyL 10 MG SUPP PR SCH ×2 (08:46→22:11)
[2021-10-27] MEDS: APIXABAN 5 MG TABLET PO SCH ×2 (08:46→22:10)
[2021-10-27] MEDS: FLUTICASONE/VILANTEROL 100/25MCG 14 PUFFS/INHALER INH SCH (08:47)
[2021-10-27] MEDS: PANTOprazole 40 MG in SYRINGE 0 ML IV SCH ×2 (08:47→22:15)
[2021-10-27] MEDS: POLYETHYLENE (MIRALAX) 17 GM PACK PO SCH ×2 (08:47→22:16)
[2021-10-27] MEDS: DOCUSATE SODIUM 100 MG CAP PO SCH ×2 (08:47→22:12)
[2021-10-27] MEDS: INSULIN ASPART PER UNIT SC SCH ×4 (08:48→22:08)
[2021-10-27] MEDS: FERROUS SULFATE 325 MG TAB PO SCH (09:56)
[2021-10-27] MEDS: ALUMINUM/MAGNESIUM SUSP 30 ML UDC PO PRN (12:03)
[2021-10-27] MEDS: FAMOTIDINE 20 MG TAB PO SCH (13:28)
--- NOTE | 2021-10-27 19:01 | Hospitalist Progress Note ---
Date of Service October 27, 2021 Assessment & Plan (1) Acute pulmonary embolism: Plan: Right middle lobe involvement. Transition to Eliquis . Supplemental oxygen per nasal cannula to maintain saturation greater than 90% until no longer needed. (2) Stercoral colitis: Plan: Bowel regimen ordered. Intravenous Zosyn also to treat possible pneumonia which could be gram-negative in right lung seen on CT scan Linzess discontinued. Advance diet as able, ensure bowel movements (3) Type II diabetes mellitus: Plan: ADA diet when able to reach that point. Sliding scale coverage. Lantus. (4) BPH (benign prostatic hyperplasia): Plan: BPH with LUTS. Medical management. Pt with urinary incontinence, no significant post void residual (5) AI (obstructive sleep apnea): Plan: CPAP as needed (6) COPD (chronic obstructive pulmonary disease): Plan: Stable and quiescent. In face of possible pneumonia seen on CTA we will con tinue Zosyn antibiotics. MEdical management. Inhalers as needed (7) GERD (gastroesophageal reflux disease): Plan: PPI therapy (8) Diastolic CHF: Plan: Chronic. Stable. Continue current medical management. Monitor intake and output (9) Schizophrenia: Plan: Stable. Continue current medical management (10) Cardiac pacemaker: Plan: History of. Aware. (11) Hypomagnesemia: Plan: Corrected with supplementation Plan consider return to [facility] Admission and Anticipated Discharge Date Admission Date: October 23, 2021 Subjective Alert and pleasant. Converted to Eliquis for the known PE in the right middle lobe. He remains on oxygen for comfort. has some discussion about urinary incontinence, states its been going on for some time, check post void residual without significant retention now c/o issues with swallowing pt seems to be somatically focused, did not seem to have any issues when watched to drink Review of Systems Review of Systems: Constitutional-no fever or chills ENT-no blurred vision, no double vision, no epistaxis, no sore throat Respiratory-no cough, no wheezing. Shortness of breath with exertion. No hemoptysis Cardiac-no palpitations, no chest pain, no syncope GI- Diffuse mild abdominal discomfort. -no urinary retention, no urinary incontinence, no dysuria, no hematuria Musculoskeletal-no joint pain, no muscle tenderness Skin-no bruising, no rashes, no pruritus Neuro-no isolated weakness, no paresthesia, no weakness Psych-no depression, no anxiety Physical Exam Physical Exam: The patient appeared stable Vital signs as documented. Lungs are right base some rhonchi Cardiac exam, Rhythm is regular.. No murmurs, rubs or gallops. Abdominal exam reveals normal bowel sounds, soft non tender, no masses Extremities are nonedematous and both pedal pulses are normal. Neurologic exam is alert and oriented, no focal loss of strength or sensation Skin is without bruises or rashes Psychologically is without concerns for anxiety or depression. Results & Data Results & Data ([facility]) Vital Signs (Past 12 Hours) Vital Signs Temp Pulse Pulse Resp BP BP Pulse Ox 10/27/21 14:19 96 H 10/27/21 16:14 97.7 F 99 H 18 127/79 95 10/27/21 11:16 97.3 F L 90 19 134/88 96 10/27/21 08:00 10/27/21 07:47 98.4 F 98 H 19 144/90 H 97 O2 Del Method O2 Flow Rate 10/27/21 14:19 10/27/21 16:14 Nasal Cannula 2 10/27/21 11:16 Nasal Cannula 2 10/27/21 08:00 Nasal Cannula 2 10/27/21 07:47 Room Air PG Care Time/CCT Total # of Minutes Spent Total Time Spent with Patient: Total time spent is greater than 50% in coordination of care (as documented) at patient's floor/unit and/or counseling patient: Coding Level of Care Code 50231 Subseq Hosp Care Lvl 2 Diagnoses Acute pulmonary embolism I26.99 Stercoral colitis K52.89 Type II diabetes mellitus E11.9 BPH (benign prostatic hyperplasia) N40.0 AI (obstructive sleep apnea) G47.33 COPD (chronic obstructive pulmonary disease) J44.9 GERD (gastroesophageal reflux disease) K21.9 Diastolic CHF I50.32 Heart failure chronicity: chronic Schizophrenia F20.9 Cardiac pacemaker Z95.0 Hypomagnesemia E83.42 (1) Diastolic CHF Heart failure chronicity: chronic Qualified Code(s): I50.32 - Chronic d iastolic (congestive) heart failure
[2021-10-27] MEDS: LANTUS PER UNIT CHARGE SQ SCH (22:08)
[2021-10-27] MEDS: ATORVASTATIN 10 MG TAB PO SCH (22:10)
[2021-10-27] MEDS: TAMSULOSIN HCL 0.4 MG CAP PO SCH (22:16)
[2021-10-27] MEDS: CYCLOBENZAPRINE HCL 10 MG TAB PO PRN (22:17)
[2021-10-28 00:55] LABS: Cdiff Antigen Negative; Cdiff Toxin A+B Negative Cdiff Toxin (Negative)
[2021-10-28] MEDS: PIPERACILLIN/TAZOBACTAM 3.375 GM in DEXTROSE 5% 100 ML IV SCH (05:06)
[2021-10-28] MEDS: LEVOTHYROXINE SODIUM 125 MCG TABLET PO SCH (05:07)
[2021-10-28] MEDS: MULTIVITAMIN TAB PO SCH (08:20)
[2021-10-28] MEDS: PANTOprazole 40 MG in SYRINGE 0 ML IV SCH (08:20)
[2021-10-28] MEDS: FAMOTIDINE 20 MG TAB PO SCH (08:20)
[2021-10-28] MEDS: MIRABEGRON ER 25 MG TAB PO SCH (08:20)
[2021-10-28] MEDS: APIXABAN 5 MG TABLET PO SCH (08:21)
[2021-10-28] MEDS: SERTRALINE HCL 100 MG TABLET PO SCH (08:21)
[2021-10-28] MEDS: cloZAPine 100 MG TAB PO SCH (08:21)
[2021-10-28] MEDS: FERROUS SULFATE 325 MG TAB PO SCH (08:21)
[2021-10-28] MEDS: FLUTICASONE/VILANTEROL 100/25MCG 14 PUFFS/INHALER INH SCH (08:22)
[2021-10-28] MEDS: ALUMINUM/MAGNESIUM SUSP 30 ML UDC PO PRN (08:27)
[2021-10-28] MEDS ORDERED: SACCHAROMYCES BOULARDII 250 MG CAP PO SCH (09:00)
[2021-10-28] MEDS: INSULIN ASPART PER UNIT SC SCH ×2 (09:01→12:03)
--- NOTE | 2021-10-28 17:58 | Discharge Summary ---
Date of Service October 28, 2021 Admission HPI Per Admitting Provider Aly Pompa is a 66-year-old male past medical history of diabetes, BPH, COPD, GERD, schizophrenia, CHF, anemia, and hypothyroidism who presents with overnight vomiting and coffee-ground emesis. Patient has a history of recurrent small bowel obstructions. Recently discharged 10/11/2021 generalized abdominal pain and was found to have a large stool burden in the rectosigmoid colon. Did require soapsuds enema and had resolution of his abdominal pain, nausea, vomiting. Patient is a poor historian. Answers questions appropriately, but reports has poor memory and generally is unable to give history further back than 1 to 2 days although is oriented to name, place, and date. Nausea 2-3 days ago Vomiting 2-3 times 'two big ones' not sure of the color, was told it was dark and had blood. Last bowel movement yesterday, not runny a little loose. Small. Doesn't remember his bowel movements very well. Denies history of bleeding. Has a pacemaker, reports he is not sure why Endorses shortness of breath a little more for a few days. Uses oxygen as night and as needed. Been using CPAP at night but didn't tolerate well out of the hospital. Uses oxygen instead. Reports he does have pain stretching in a band across his lower ribs when he takes a deep breath, this is improved with shallow breathing. He also feels more fatigued lately like there is just a hole of fatigue and having to make someone asleep. Denies SI/HI and hallucinations. Denies history of ND. He does not sure what his blood sugars have been like lately, notes [facility] take care of of all of his medications and is not sure what he is received recently Medical History: Reviewed. Medications: Reviewed Surgical History: Reviewed Allergies: Reviewed Social History:Denies tobacco, alcohol use. Code Status: Full COde EGD: EGD 04/09/2021: Mildly severe esophagitis, gastritis, no varices or ulcers appreciated Colonoscopy 04/09/2021: Poorly prepped, unable to advance past proximal transverse colon.CT colography follow-up 06/14 with no fixed polypoid lesions or masses appreciated, splenomegaly Principal Diagnosis Pulmonary embolism possible gram negative pneumonia treated stercoral colitis, resolved with BM, and antibiotics c diff gene positive toxin negative Discharge Exam Patient is some limitations of movement. He has a history of schizophrenia. Pulmonary status is improved dramatically his lungs are actually clear at the time of discharge he said no coughing he is got no rhonchi Abdomen exam is benign Discharge Data Allergies Allergy/AdvReac Type Severity Reaction Status Date / Time Penicillins Allergy Unknown on [facility] Verified 10/10/21 15:09 of [facility] med list Consultations 10/23/21 12:33 ED Decision to Admit Stat Ordered Studies 10/23/21 09:52 CT Abd and Pelvis [CT abd pelvis IV con only] Stat 10/23/21 12:30 CT angio chest PE protocol Stat Hospital Course (1) Acute pulmonary embolism: Right middle lobe involvement. Transition to Eliquis . Supplemental oxygen no longer needed. (2) Stercoral colitis: Bowel regimen with satisfactory results. Intravenous Zosyn also to treat possible pneumonia which could be gram-negative in right lung seen on CT scan Need to assure good bowel regiment when returns to longterm facility C. difficile gene positive toxin negative we will not institute treatment at this time especially since the patient presented with constipation (3) Type II diabetes mellitus: ADA diet when able to reach that point. Resume home treatment with glargine and sliding scale insulin plus liraglutide (4) BPH (benign prostatic hyperplasia): BPH with LUTS. myrbetriq Pt with urinary incontinence, no significant post void residual (5) AI (obstructive sleep apnea): CPAP as needed (6) COPD (chronic obstructive pulmonary disease): Stable and quiescent. In face of possible pneumonia seen on CTA we will continue Zosyn antibiotics. MEdical management. Inhalers as needed (7) GERD (gastroesophageal reflux disease): PPI therapy (8) Diastolic CHF: Chronic. Stable. Patient's blood pressures been low we did reduce his diuretic dose we will certainly offer close watching case dose needs to be returned to his usual amount (9) Schizophrenia: Stable. Continue current medical management (10) Cardiac pacemaker: History of. Aware. (11) Hypomagnesemia: Corrected with supplementation Plan return to [facility] Total Time Total Time Spent Total Time Spent (In Minutes): It required greater than 30 minutes to prepare this patient for discharge Discharge Plan Discharge Items Patient Disposition: Transfer [facility] Reason For Visit: GI ASSESSMENT Discharge Diagnosis: pulmonary embolism somatization disorder consider swallowing eval Activity: Resume your previous activity Activity Comment: consider physical therapy evaluation Non-emergency contact: Primary Care Provider Call non-emergency contact if: your symptoms worsen Follow-up/Referrals: Erasmo George [Primary Care Provider] - Diet: Regular Addtl Attending Provider Instructions: apixiban 10 mg twice a day for a week then 5 mg twice a day for 6 months Medication Instructions: Your condition is typically treated with an anticoagulant. Anticoagulants will thin your blood to help prevent new clots. * You should take her medication exactly as directed. * Never skip a dose. * Never take a double dose. If you miss a dose, take it as soon as you remember. Call your Primary Care doctor if you experience any of the following: * Swelling or Pain in your leg * Sudden, continuous pain deep in a muscle * Pain that worsens when you are active or when you stand still for a long time * Chest Pain * Sudden Shortness of Breath * Rapid or pounding heart beat * Fainting * Dizziness * Cough with blood or bloody sputum * Sweating more than normal * Bruises * Heavy or uncontrolled bleeding * Blood in your urine, stool or vomit * Black or tarry stools Caring for Your Self at Home: * Avoid sitting, standing or lying down for long periods without moving your legs and feet * When traveling by car, stop to get out and move around at least once every 3 hours * On long airplane, train or bus rides, get up and move around when possible * If you can't get up, wiggle your toes and tighten your calves to keep your blood moving Follow Up: It is important for you to keep your follow up appointments with your medical provider. [facility] Social Worker Provider Instructions: Consider speech evaluation for coughing when eating Pending Studies at Discharge: No Stand-Alone Forms: My [facility] Skilled Items Patient informed of condition?: Yes DNR: No Discharge Level of Care: Skilled Communicable Disease: No Discharge Prognosis: Stable Lines: None Urinary Catheter: No Medications and DC Order Prescriptions: New Eliquis 5 mg Tablet 10 mg PO BID Qty: 60 5RF Rx Instructions: 10 mg twice a day thru 11/02 then 5 mg bid for 6 months nystatin-triamcinolone 100,000-0.1 unit/g-% cream 1 applic topical BID Qty: 15 0RF Rx Instructions: right axilla Continued magnesium hydroxide [Milk of Magnesia] 400 mg/5 mL suspension 30 ml PO DAILY PRN (Reason: Constipation) acetaminophen 325 mg capsule 650 mg PO TID MDD 3 GRAMS/24 HOURS multivitamin [Daily Multi-Vitamin] Tablet 1 tab PO DAILY tramadol [Ultram] 50 mg Tablet 25 mg PO Q12 PRN (Reason: Severe Pain (Scale Score 7-10)) omeprazole 20 mg capsule,delayed release(DR/EC) 20 mg PO DAILY insulin glargine [Basaglar KwikPen U-100 Insulin] 100 unit/mL (3 mL) insulin pen 27 unit SUBCUT HS magnesium oxide 400 mg (241.3 mg magnesium) Tablet 400 mg PO QAM Qty: 30 0RF ferrous sulfate [FeroSul] 325 mg (65 mg iron) tablet 325 mg PO DAILY atorvastatin [Lipitor] 10 mg Tablet 10 mg PO HS clozapine [Clozaril] 100 mg Tablet 100 mg PO Q12 ergocalciferol (vitamin D2) [Vitamin D2] 1,250 mcg (50,000 unit) capsule 1,250 mcg PO WK Rx Instructions: Friday Linzess 290 mcg Capsule 290 mcg PO QAM insulin aspart U-100 [Novolog U-100 Insulin aspart] 100 unit/mL Solution See Rx Instructions .ROUTE .COMPLEX Rx Instructions: TAKES 12 UNITS WITH BREAKFAST, 8 UNITS WITH LUNCH & DINNER. fluticasone furoate-vilanterol [Breo Ellipta] 100-25 mcg/dose Blister With Device 1 inh INHALATION DAILY sertraline [Zoloft] 50 mg tablet 100 mg PO QAM Rx Instructions: TOTAL DOSE 150 MG--TAKES WITH 100 MG TAB. tamsulosin 0.4 mg Capsule 0.4 mg PO QPM Rx Instructions: TAKES AT 1600 docusate sodium 100 mg Capsule 100 mg PO BID liraglutide 0.6 mg/0.1 mL (18 mg/3 mL) Pen Injector 1.8 mg SUBCUT DAILY levothyroxine 125 mcg Tablet 125 mcg PO DAILYBB polyethylene glycol 3350 [Miralax] 17 gram/dose Powder 17 g PO BID acetaminophen [Tylenol] 325 mg Tablet 325 mg PO Q6H MDD 3 GRAMS/24 HOURS PRN (Reason: FEVER/PAIN) sertraline 100 mg tablet 100 mg PO QAM Rx Instructions: TOTAL DOSE 150 MG--TAKES WITH 50 MG TAB. ondansetron 4 mg Tablet,Disintegrating 4 mg PO Q6H PRN (Reason: NAUSEA/VOMITING) Myrbetriq 25 mg tablet extended release 24 hr 25 mg PO QAM cyclobenzaprine 10 mg Tablet 10 mg PO HS PRN (Reason: Headache) Changed furosemide [Lasix] 80 mg Tablet 40 mg PO QAM Qty: 30 0RF potassium chloride [K-Tab] 20 mEq Tablet Extended Release 20 meq PO DAILY Qty: 30 0RF Discontinued furosemide [Lasix] 40 mg Tablet 40 mg PO QPM Rx Instructions: TAKES AT 1600 Discharge Orders: Discharge Order (Routine); Ordered 10/28/21 Ordered By: Rian Abraham Admission Data Admit Date/Time: 10/23/21 14:54 Attending Provider: Rian Abraham Admit Provider: Earnest Zuleta Primary Care Provider: Erasmo George Other Providers: Earnest Zuleta Other Interventions: Discharge Summary Assessment (RN) Last Done: 10/28/21 13:17 Coding Level of Care Code D/C DAY MANAGEMENT >30 MINS Diagnoses Acute pulmonary embolism I26.99 Stercoral colitis K52.89 Type II diabetes mellitus E11.9 BPH (benign prostatic hyperplasia) N40.0 AI (obstructive sleep apnea) G47.33 COPD (chronic obstructive pulmonary disease) J44.9 GERD (gastroesophageal reflux disease) K21.9 Diastolic CHF I50.32 Heart failure chronicity: chronic Schizophrenia F20.9 Cardiac pacemaker Z95.0 Hypomagnesemia E83.42
== END 2021-10-28 13:49 | DRG 175 ==
LOC: ED 09:34 → EDINP 14:54 → SUATTDRO 14:54 → EDINP 15:58 → 4W 19:25

== ENCOUNTER 2022-02-25 09:12 | Inpatient (IN) ==
[2022-02-25] MEDS ORDERED: SODIUM CHLORIDE 0.9% 500 ML IV ONE ×2 (09:23→11:22)
--- NOTE | 2022-02-25 09:30 | Emergency Department Note ---
Impression & Plan Multifocal pneumonia, Stercoral colitis, Hypoxia, Lactic acidosis ED Provider Note Name: MARGRET SKINNER Age: 66 Sex: M Arrives Via: Ambulance Informant: Patient, EMS, [place] Records ED Provider: Diego Arthur MD Chief Complaint: Weakness Impression: As per impressions above Medical Decision Makin-year-old gentleman with a long past medical history including AI, COPD, GERD, diabetes, CHF, schizophrenia as well as previous PE who is anticoagulated. Patient comes from local nursing facility after worsening shortness of breath, cough and now abdominal pain. On examination he does have some right lower quadrant tenderness palpation though more concerning is his hypoxia on room air. He was put on 2 L nasal cannula with much improvement. Reportedly just had COVID though unable to obtain those records and also reportedly is currently on doxycycline for post COVID infection. Blood cultures lactic acid obtained along with standard sepsis labs. His lactate is mildly elevated, his white blood cell count is significantly elevated and the procalcitonin is mildly elevated. He was given 500 mL IV fluids initially rather than 300 mL/kg IV fluids for sepsis management given his known CHF. On repeat evaluation he was given a second 500 mL fluid bolus. Patient is breathing comfortably on nasal cannula he is no distress and is comfortable with plan for hospitalization due to his hypoxia and a multifocal pneumonia seen on chest x-ray and a CT of his abdomen pelvis. The CT abdomen pelvis reveals a stercoral colitis. I do not feel that the lactic acid elevation is due to bowel ischemia at this time he does not have pain to the level. Given his multiple illness issues a consult to the hospitalist for further management. He does not have significant wheezing with a COVID being negative we will hold off on steroids at this time. Prior Medical Record and Triage/Nursing Notes reviewed by Me Additional history obtained from chart Differentials:Infection, dehydration, metabolic abnormality, hy po/hyperglycemia, electrolyte disturbance, anemia, hypoxia, cardiac sources, intracerebral event, toxicologic, neurologic, as well as other pathologies. Vital Signs: reviewed and remarkable for hypoxia Interventions: Cefepime IV, normal saline bolus 500 mL IV x2, morphine IV, Zofran IV For sepsis management patient does have an elevated lactic acid but is not if septic shock nor is lactate above 4. He was given an initial 500 mL IV fluids as he has known CHF and thus 30/kg IV fluids would not be indicated. Labs:Reviewed and remarkable for elevated WBC, elevated procalcitonin, elevated lactic acid Imagin view chest x-ray reveals bilateral multifocal pneumonia findings. CT the abdomen pelvis reveals stercoral colitis as well as multifocal pneumonia as per radiology. Consults:[place] Hospitalist accepts for hospitalization Plan: Disposition:Hospitalization. Condition: Good History of Present Illness:66-year-old gentleman with extensive past medical history arrives for evaluation of shortness of breath and abdominal pain. Patient was recently apparently diagnosed with COVID and has been on doxycycline for the last few days. Worsening shortness of breath of the last 3 days. Unable to catch his breath. Denies any chest pain, syncope, nausea, vomiting. Patient does note that increasing lower abdominal pain as well. Is bilateral but worse on the right. Worse with movement tired no medications prior to arrival. Does not know if he has any sick contacts. ROS: See above HPI for pertinent positives & negatives. A total of 10 systems reviewed and were otherwise negative. Past Medical History:See Below Past Surgical History:See Below Family History:See Below Social History:See Below Home Medications:See Below Allergies:pnc Vitals:Blood Pressure: 115/85, Pulse 111, RR 26, T 36.7C, O2 87% on RA Physical Exam: GENERAL: Patient is unwell appearing and in moderate distress. Patient is dehydrated appearing with cracked mucous membranes. EYES: No scleral icterus, unremarkable pupils. ENT: Mucous membranes dry, no nasal congestion. NECK: No masses appreciated, nomeningismus, trachea is midline. RESPIRATORY: Dyspnea and tachypnea with diffuse crackles all lung michel CARDIOVASCULAR: Tacky.No murmurs, rubs, gallops appreciated. GASTROINTESTINAL: Diffuse lower abdominal TTP, worse RLQ. Abdomen soft, non- tender, no peritonitis.Bowel sounds positive.No masses appreciated. BACK: No midline tenderness, no CVA tenderness EXTREMITIES: Normal motion all extremities, no cyanosis, no edema. NEUROLOGIC: Alert and oriented, no acute motor or sensory deficits, no focal weakness, cranial nerves grossly intact. SKIN: No rash, no jaundice, no diaphoresis. PSYCH: Appropriate GCS: 15 ED Course: Times/Reassessments: Patient is feeling much better after IV fluids and some morphine. He appears well he tolerated the first 500 mL IV fluid bolus and thus a second 500 was given. Diego Arthur MD Past Med/Surg History Medical History (Updated 12/26/22 @ 12:16 by Diego Arthur MD) Anxiety and depression Chest pain Constipation COPD (chronic obstructive pulmonary disease) Disorder of prostate Dysphagia Esophagitis GERD (gastroesophageal reflux disease) Heart failure Hyperlipidemia Hypertension Hypomagnesemia Hypothyroidism Morbid obesity Muscle weakness Obstructive sleep apnea O2 at 2L n/c at HS and prn if pulse ox is less than 90% Osteoporosis Paranoid schizophrenia Type 2 diabetes mellitus Unspecified abnormalities of gait and mobility Surgical History Surgical history unknown Social History Smoking Status: Never smoker Tobacco Type: Cigarettes Second Hand Exposure: No; Hx Alcohol Use: Yes Hx Substance Use: No Preferred Language: Estonian Communication Ability: Effective Social Service Technician Required: No Beliefs That Will Affect Care: None marital status: Single Current Living Situation: Senior Living Current Living Situation Comment: [facility] current occupational status: retired Feels Safe at Home: Yes Assistive Devices: Mechanical Lift and Wheelchair Allergies Allergies Allergy/AdvReac Type Severity Reaction Status Date / Time Penicillins Allergy Unknown on [facility] Verified 12/12/21 10:11 of [facility] med list Home Meds Home Medications Medication Instructions Recorded Confirmed atorvastatin 10 mg tablet (Lipitor) 10 mg PO HS 08/28/20 02/25/22 clozapine 100 mg tablet (Clozaril) 100 mg PO Q12 08/28/20 02/25/22 ergocalciferol (vitamin D2) 1,250 1,250 mcg PO WK 08/28/20 02/25/22 mcg (50,000 unit) capsule (Vitamin D2) ferrous sulfate 325 mg (65 mg 325 mg PO DAILY 08/28/20 02/25/22 iron) tablet (FeroSul) fluticasone furoate 100 1 inh inhalation DAILY 08/28/20 02/25/22 mcg-vilanterol 25 mcg/dose inhalation powder (Breo Ellipta) insulin aspart U-100 100 unit/mL See Rx Instructions .Route .COMPLEX 08/28/20 02/25/22 subcutaneous solution (Novolog U-100 Insulin aspart) linaclotide 290 mcg capsule 290 mcg PO QAM 08/28/20 02/25/22 (Linzess) insulin glargine 100 unit/mL (3 27 unit subcut HS 10/07/20 02/25/22 mL) subcutaneous pen (Basaglar KwikPen U-100 Insulin) multivitamin (Daily Multi-Vitamin 1 tab PO DAILY 10/07/20 02/25/22 tablet) magnesium hydroxide 400 mg/5 mL 30 ml PO DAILY PRN Constipation 12/27/20 02/25/22 oral suspension (Milk of Magnesia) docusate sodium 100 mg capsule 100 mg PO BID 02/09/21 02/25/22 liraglutide 0.6 mg/0.1 mL (18 mg/3 1.8 mg subcut DAILY 02/09/21 02/25/22 mL) subcutaneous pen injector tamsulosin 0.4 mg capsule 0.4 mg PO QPM 02/09/21 02/25/22 levothyroxine 125 mcg tablet 125 mcg PO DAILYBB 03/06/21 02/25/22 polyethylene glycol 3350 17 17 g PO BID 03/06/21 02/25/22 gram/dose oral powder (Miralax) sertraline 50 mg tablet (Zoloft) 100 mg PO QAM 09/05/21 02/25/22 acetaminophen 325 mg tablet 325 mg PO Q6H PRN FEVER/PAIN 10/10/21 02/25/22 (Tylenol) mirabegron 25 mg tablet,extended 25 mg PO QAM 10/10/21 02/25/22 release 24 hr (Myrbetriq) sertraline 100 mg tablet 100 mg PO QAM 10/10/21 02/25/22 Previous Rx's Medication Instructions Recorded magnesium oxide 400 mg (241.3 mg 400 mg PO QAM #30 tabs 10/11/20 magnesium) tablet apixaban 5 mg tablet (Eliquis) 10 mg PO BID #60 tabs 10/28/21 furosemide 80 mg tablet (Lasix) 40 mg PO QAM #30 tabs 10/28/21 potassium chloride 20 mEq 20 meq PO DAILY #30 tabs 10/28/21 tablet,extended release (K-Tab) omeprazole 40 mg capsule,delayed 40 mg PO DAILY #30 caps 12/12/21 release Results & Data (ED) Vital Signs Vital Signs - 24 hr 02/25/22 09:18 Temperature 36.7 C Temperature Source Oral Pulse Rate 111 H Pulse Rhythm Regular Pulse Strength Normal Respiratory Rate 26 H Respiratory Effort / Characteristics Labored Respiratory Pattern Regular Blood Pressure 115/85 Blood Pressure Mean 95 Blood Pressure Position Sitting Pulse Oximetry 87 L Oxygen Delivery Method Room Air Sepsis Recent Fever Within 48 Hours No Sepsis New/Unexplained Change in Mental Status No Sepsis Action Taken by Nursing No Action Required Laboratory Data Result diagrams: 02/25/22 10:21 02/25/22 10:21 Lab Results 02/25/22 02/25/22 02/25/22 Range/Units 10:21 10:21 10:21 WBC 20.99 H (4.8-10.8) K/ul RBC 4.90 (4.63-6.08) M/uL Hgb 14.9 (14.0-18.0) g/dl Hct 45.4 (40.1-51.0) % MCV 92.7 (80.0-100.0) fL MCH 30.4 (25.0-34.0) pg MCHC 32.8 (32.0-36.0) g/dL RDW Std Deviation 45.6 (36.4-46.3) fL RDW Coeff of Shireen 13.5 (11.5-14.5) % Plt Count 193 (130-400) K/uL MPV 12.1 (9.4-12.4) fL Immature Gran % (Auto) 0.6 % Neut % (Auto) 88.9 % Lymph % (Auto) 3.6 % [place] % (Auto) 6.3 % Eos % (Auto) 0.3 % Baso % (Auto) 0.3 % Neut # (Auto) 18.64 H (1.4-6.5) K/uL Lymph # (Auto) 0.76 L (1.2-3.4) K/uL [place] # (Auto) 1.33 H (0.24-0.82) K/uL Eos # (Auto) 0.06 (0-0.50) K/uL Baso # (Auto) 0.07 (0-0.2) K/uL Immature Gran # (Auto) 0.13 H (0.00-0.02) K/uL Sodium 140 (136-145) mmol/L Potassium 3.8 (3.5-5.1) mmol/L Chloride 106 (98-107) mmol/L Carbon Dioxide 25 (21-32) mmol/L Anion Gap 9 (3-11) BUN 13 (6-23) mg/dl Creatinine 0.90 (0.6-1.4) mg/dl Est Cr Clr Drug Dosing 76.0 ml/min Est GFR ( Amer) 101.4 ml/min Est GFR (Non-Af Amer) 87.5 ml/min BUN/Creatinine Ratio 14.4 (10-20) Glucose 128 H (70-99(Fasting)) mg/dl Lactate 2.3 H* (0.4-2.0) mmol/L Calcium 9.4 (8.5-10.1) mg/dl Magnesium 2.0 (1.7-2.4) mg/dl Total Bilirubin 0.5 (0.2-1.0) mg/dl Direct Bilirubin 0.1 (0-0.2) mg/dl AST 13 (13-39) U/L ALT 10 (7-52) U/L Alkaline Phosphatase 100 (34-104) U/L Troponin I High Sens 9.6 (0-20) pg/ml Total Protein 6.6 (6.0-8.3) gm/dl Albumin 3.8 (3.4-5.0) gm/dl Lipase 10 L (11-82) U/L Procalcitonin (0-0.5) ng/ml SARS-CoV-2 (PCR) (Negative) Influenza Type A (PCR) (Neg) Influenza Type B (PCR) (Neg) RSV (RT-PCR) (Neg) 02/25/22 02/25/22 Range/Units 10:21 10:21 WBC (4.8-10.8) K/ul RBC (4.63-6.08) M/uL Hgb (14.0-18.0) g/dl Hct (40.1-51.0) % MCV (80.0-100.0) fL MCH (25.0-34.0) pg MCHC (32.0-36.0) g/dL RDW Std Deviation (36.4-46.3) fL RDW Coeff of Shireen (11.5-14.5) % Plt Count (130-400) K/uL MPV (9.4-12.4) fL Immature Gran % (Auto) % Neut % (Auto) % Lymph % (Auto) % [place] % (Auto) % Eos % (Auto) % Baso % (Auto) % Neut # (Auto) (1.4-6.5) K/uL Lymph # (Auto) (1.2-3.4) K/uL [place] # (Auto) (0.24-0.82) K/uL Eos # (Auto) (0-0.50) K/uL Baso # (Auto) (0-0.2) K/uL Immature Gran # (Auto) (0.00-0.02) K/uL Sodium (136-145) mmol/L Potassium (3.5-5.1) mmol/L Chloride (98-107) mmol/L Carbon Dioxide (21-32) mmol/L Anion Gap (3-11) BUN (6-23) mg/dl Creatinine (0.6-1.4) mg/dl Est Cr Clr Drug Dosing ml/min Est GFR ( Amer) ml/min Est GFR (Non-Af Amer) ml/min BUN/Creatinine Ratio (10-20) Glucose (70-99(Fasting)) mg/dl Lactate (0.4-2.0) mmol/L Calcium (8.5-10.1) mg/dl Magnesium (1.7-2.4) mg/dl Total Bilirubin (0.2-1.0) mg/dl Direct Bilirubin (0-0.2) mg/dl AST (13-39) U/L ALT (7-52) U/L Alkaline Phosphatase (34-104) U/L Troponin I High Sens (0-20) pg/ml Total Protein (6.0-8.3) gm/dl Albumin (3.4-5.0) gm/dl Lipase (11-82) U/L Procalcitonin 0.57 H (0-0.5) ng/ml SARS-CoV-2 (PCR) NEGATIVE (Negative) Influenza Type A (PCR) Negative (Neg) Influenza Type B (PCR) Negative (Neg) RSV (RT-PCR) Negative (Neg) Administered Medications Discontinued Medications Sodium Chloride (Nss) 500 mls @ 999 mls/hr IV .Q31M ONE Stop: 02/25/22 09:53 Last Infusion: 02/25/22 12:38 Dose: 0 mls/hr Documented By: Admin: 02/25/22 10:18 Dose: 999 mls/hr Documented By: ROM Cefepime HCl (Maxipime) 2,000 mg in 20 mls @ 5 mls/min IV NOW STA; Protocol Stop: 02/25/22 10:47 Last Admin: 02/25/22 11:49 Dose: 5 mls/min Documented By: ROM Sodium Chloride (Nss) 500 mls @ 999 mls/hr IV .Q31M ONE Stop: 02/25/22 11:52 Last Infusion: 02/25/22 12:39 Dose: 0 mls/hr Documented By: Admin: 02/25/22 11:49 Dose: 999 mls/hr Documented By: ROM Piperacillin Sod/Tazobactam Sod (Zosyn) 4.5 gm in 120 mls @ 240 mls/hr IV NOW ONE Stop: 02/25/22 12:14 Last Admin: 02/25/22 13:00 Dose: 240 mls/hr Documented By: ROM Pantoprazole Sodium 40 mg/ (Syringe) 10 mls @ 5 mls/min IV NOW ONE Stop: 02/25/22 12:16 Last Admin: 02/25/22 13:00 Dose: 5 mls/min Documented By: ROM Nystatin (Nystatin Cr 15 Gm Tube) 1 appln EXT BID CÉSAR Stop: 03/27/22 12:14 Last Admin: 02/25/22 13:00 Dose: 1 appln Documented By: ROM Imaging Data Radiologist's Impression: Abdomen/Pelvis CT 02/25/22 09:23 CT abd pelvis wo con CLINICAL HISTORY: lower abdominal pain TECHNIQUE: Helical axial images of the abdomen and pelvis were obtained. Automated dose lowering techniques and/or adjustment according to patient size were utilized for this exam. This exam was performed without intravenous contrast. CT DOSE: 2282.60 mGycm COMPARISON: Comparison is made to CT abdomen pelvis 10/23/2021 FINDINGS: Lower chest: Multifocal airspace opacities are seen. Liver: Unremarkable. No focal lesions are seen. Gallbladder and biliary tree: No calcified gallstones. Normal caliber wall. No intra- or extrahepatic biliary ductal dilation. Pancreas: Unremarkable, no focal lesions. Spleen: Unremarkable. Adrenals: Unremarkable. Kidneys and ureters: Unremarkable. Bladder: Unremarkable. Reproductive organs: Unremarkable. Bowel: Unremarkable appearance of the bowel. The appendix is normal. There is prominence of the sigmoid colon. Lymph nodes Retroperitoneal: Unremarkable. Pelvic: Unremarkable. Mesenteric: Unremarkable. Peritoneum: Normal. Vessels: Atherosclerotic calcifications are seen. Abdominal wall: Unremarkable. Bones: Degenerative changes in the visualized spine. IMPRESSION: 1. Multifocal airspace opacities are seen which may represent pneumonia. 2. Prominence of the sigmoid colon with colonic distention. Findings may represent stercoral colitis. ACT 112: Negative or not required by law. Electronically signed by: Mario Mathis M.D. 02/25/2022 10:29 AM Chest X-Ray 02/25/22 09:25 XR chest 1V portable CLINICAL HISTORY: post covid sob cough TECHNIQUE: Single frontal radiograph of the chest was obtained. Comparison: Comparison is made to chest radiograph 10/10/2021 FINDINGS: Dual lead pacemaker is seen. The cardiomediastinal silhouette is normal. Right mid lung airspace opacity is seen. No evidence of pleural effusion or pneumothorax. IMPRESSION: Right mid lung airspace opacity is seen. This may represent postinfectious changes in this patient with history of Covid pneumonia. ACT 112: Negative or not required by law. Electronically signed by: Mario Mathis M.D. 02/25/2022 9:59 AM Discharge Plan Visit Data Chief Complaint: Abdominal Pain ED Provider: Diego Arthur Discharge Problem: Multifocal pneumonia, Stercoral colitis, Hypoxia, Lactic acidosis Patient Disposition: Admitted As Inpatient Discharge Instructions Interventions: ED Discharge Assessment Last Done: 02/25/22 13:00
--- NOTE | 2022-02-25 10:00 | XRay Report ---
XR chest 1V portable CLINICAL HISTORY: post covid sob cough TECHNIQUE: Single frontal radiograph of the chest was obtained. Comparison: Comparison is made to chest radiograph 10/10/2021 FINDINGS: Dual lead pacemaker is seen. The cardiomediastinal silhouette is normal. Right mid lung airspace opac ity is seen. No evidence of pleural effusion or pneumothorax. IMPRESSION: Right mid lung airspace opacity is seen. This may represent postinfectious changes in this patient wi th history of Covid pneumonia. ACT 112: Negative or not required by law. Electronically signed by: Mario Mathis M.D. 02/25/2022 9:59 AM
--- NOTE | 2022-02-25 10:30 | CT Scan Report ---
CT abd pelvis wo con CLINICAL HISTORY: lower abdominal pain TECHNIQUE: Helical axial images of the abdomen and pelvis were obtained. Automated dose lowering tech niques and/or adjustment according to patient size were utilized for this exam. This exam was perfor med without intravenous contrast. CT DOSE: 2282.60 mGycm COMPARISON: Comparison is made to CT abdomen pelvis 10/23/2021 FINDINGS: Lower chest: Multifocal airspace opacities are seen. Liver: Unremarkable. No focal lesions are seen. Gallbladder and biliary tree: No calcified gallstones. Normal caliber wall. No intra- or extrahepatic biliary ductal dilation. Pancreas: Unremarkable, no focal lesions. Spleen: Unremarkable. Adrenals: Unremarkable. Kidneys and ureters: Unremarkable. Bladder: Unremarkable. Reproductive organs: Unremarkable. Bowel: Unremarkable appearance of the bowel. The appendix is normal. There is prominence of the sigmo id colon. Lymph nodes Retroperitoneal: Unremarkable. Pelvic: Unremarkable. Mesenteric: Unremarkable. Peritoneum: Normal. Vessels: Atherosclerotic calcifications are seen. Abdominal wall: Unremarkable. Bones: Degenerative changes in the visualized spine. IMPRESSION: 1. Multifocal airspace opacities are seen which may represent pneumonia. 2. Prominence of the sigmoid colon with colonic distention. Findings may represent stercoral colitis . ACT 112: Negative or not required by law. Electronically signed by: Mario Mathis M.D. 02/25/2022 10:29 AM
[2022-02-25 10:41] LABS: Basophils # (auto) 0.07 K/uL (0-0.2); Basophils % (auto) 0.3 %; Eosinophils # (auto) 0.06 K/uL (0-0.50); Eosinophils % (auto) 0.3 %; Hematocrit (blood only) 45.4 % (40.1-51.0); Hemoglobin 14.9 g/dl (14.0-18.0); Immature Granulocytes # (auto) 0.13 K/uL (0.00-0.02); Immature Granulocytes % (auto) 0.6 %; Lymphocytes # (auto) 0.76 K/uL (1.2-3.4); Lymphocytes % (auto) 3.6 %; Mean Corpuscular Hemoglobin 30.4 pg (25.0-34.0); Mean Corpuscular Hgb Conc 32.8 g/dL (32.0-36.0); Mean Corpuscular Volume 92.7 fL (80.0-100.0); Mean Platelet Volume 12.1 fL (9.4-12.4); Monocytes # (auto) 1.33 K/uL (0.24-0.82); Monocytes % (auto) 6.3 %; Neutrophils # (auto) 18.64 K/uL (1.4-6.5); Neutrophils % (auto) 88.9 %; Platelet Count 193 K/uL (130-400); RDW Coefficient of Variation 13.5 % (11.5-14.5); RDW Standard Deviation 45.6 fL (36.4-46.3); White Blood Count 20.99 K/ul (4.8-10.8)
[2022-02-25] MEDS ORDERED: CEFEPIME 2,000 MG/20 ML VIAL IV STA (10:44)
[2022-02-25 11:07] LABS: Troponin I High Sensitivity 9.6 pg/ml (0-20)
[2022-02-25 11:08] LABS: Albumin Level 3.8 gm/dl (3.4-5.0); BUN Creatinine Ratio 14.4 (10-20); Bilirubin Direct 0.1 mg/dl (0-0.2); Bilirubin,Total 0.5 mg/dl (0.2-1.0); Calcium 9.4 mg/dl (8.5-10.1); Est GFR (African American) 101.4 ml/min; Est GFR (Non-African American) 87.5 ml/min; Potassium 3.8 mmol/L (3.5-5.1); Total Protein 6.6 gm/dl (6.0-8.3)
--- NOTE | 2022-02-25 11:17 | History & Physical Report ---
Date of Service February 25, 2022 Assessment & Plan (1) Hypoxia: Plan: -Admit to the PCU -Patient is currently afebrile, hemodynamically stable, but hypoxic in the mid 80s on RA, currently stable on 2L NC at the time of the admission -Patient was reportedly positive for Coivd last week at [facility] per EMS report but negative on our test today. Was started on Doxyccycline at [facility] on 02/16 for Pneumonia, which was seen on Chest xray today. Patient already on Eliquis BID for known PE diagnosed in October of this year. -No need to start treatment for Covid as he was negative on our PCR screen today, also negative for Influenza and RSV -Patient received one dose of Cefepime in the Ed, will continue with Zosyn for now to cover for Healthcare associated pneumonia, will also cover possible stercoral colitis -Incentive spirometry, flutter therapy, scheduled DuoNebs, prn O2 to keep SpO2 between 89-92% -Blood cultures obtained in the ED, will also obtain sputum culture and gram stain -Monitor on pulse oximetry and tele -AM CBC, CMP, and Mag (2) Stercoral colitis: Plan: -Noted on CT of the abdomen/pelvis today -Patient has had recurrent stercoral colitis on previous admissions and has chronic constipation -Measures < [address] review, patient is also having bowel movements today -Continue with Zosyn to cover pneumonia any any translocation of bacteria from a GI standpoint -Initial lactate mildly elevated at 2.3, received 500 mL NSS. Will get repeat in an hour, if still elevated will consult GI -Patient is interested in started enemas, will start soap suds enemas QID with PO Colace and miralax for now -Hold Linzess for now -Will start clear liquid diet and advance as able -If any concerns would get a KUB and speak with GI (3) Pulmonary embolism: Plan: -Diagnosed on 10/23/21 at [facility] -Continue 5 mg Eliquis BID (4) Mixed stress and urge urinary incontinence: Plan: -Continue Myrbetriq -Will obtain UA to rule out UTI, patient was already on Doxy the past week and Zosyn would also cover a UTI (5) Type II diabetes mellitus: Plan: -Normally on 27 units HS, will continue with 15 units HS for now with decreased oral intake -Will starting correction factor of 60 with carb ratio of 19 -Goal BSG for now is 110-140 -Hold Liraglutide (6) BPH (benign prostatic hyperplasia): Plan: -Continue flomax (7) AI (obstructive sleep apnea): Plan: -HS CPAP ordered (8) COPD (chronic obstructive pulmonary disease): Plan: -Continue home breathing treatments -Pulm hygiene as listed in Hypoxia (9) GERD (gastroesophageal reflux disease): Plan: -Will continue with IV pantoprazole daily while admitted instead of PO omeprazole (10) Diastolic CHF: Plan: -Examines Euvolemic on exam today -Continue with daily PO lasix and Potassium/mag (11) Schizophrenia: Plan: -Continue Clozaril and sertraline (12) Hypothyroidism: Plan: -Continue levothyroxine (13) Hypertension: Plan: -Hemodynamically stable (14) Hyperlipidemia: Plan: -Continue statin Plan The patient was discussed with Dr. Zuleta at time of the admission History of Present Illness Chief Complaint: SOB and abdmonial pain Primary Care Provider: [facility] Aly Pompa is a 66-year-old male past medical history of diabetes, BPH, COPD, GERD, recurrent SBOs and stercoral colitis,, schizophrenia, CHF, anemia, hypothyroidism, PE (diagnosed on 10/23/21) on Eliqu, who presented to the [facility] ED on 02/25/22 via EMS from [facility] for complaints of worsening SOB and abdominal pain. Per the ED staff notes, the patient was reportedly found to be positive for Coivd at [facility] and has also been on Doxycycline. In the ED the patient was found to be afebrile, hemodynamically stable, hypoxic at 87% on RA, and tachycardia in the low 100s. Labs were remarkable for a leukocytosis of 20.99 with left shift of 18.64m stable Hgb and platelets, stable renal function and electrolytes, glucose of 128, stable liver function, lipase of 10, lactate of 2.3, procal of 0.57, and covid/influenza/RSV NEGATIVE. Chest xray was read as Right mid lung airspace opacity is seen. This may represent post infectious changes in this patient with history of Covid pneumonia.. CT of the abdomen/pelvis WO contrast was read as Multifocal airspace opacities are seen which may represent pneumonia. Prominence of the sigmoid colon with colonic distention. Findings may represent stercoral colitis. Prior to admission the patient was given 1L NSS bolus, one dose of cefepime. At the time of the exam the patient was resting in bed in no acute distress. History is difficult to obtain due to the patient's mental health history, he is quick to have tangential speech during my exam. He states that he has had pneumonia over the past week. He also states that he has been having increased lower abdominal pain/discomfort compared to his baseline discomfort. When asked, he denies recent fevers or chills. He states that his abdominal pain is epigastric and also in the BL lower abdominal michel. He states that he has had multiple bowel movements today and is wondering why I am telling him that he has alot of stool in his colon. I explained that he has a large fecal impaction and he is having diarrhea due to water moving around the impaction. He denies chest pain but has been SOB and states that he has required oxygen recently at [facility] after being diagnosed with Pneumonia. He has had nausea and one episode of vomiting this am prior to coming to the ED. He is still passing gas. He states that he has had some discomfort in his scrotum and notes dysuria over the past week. He denies recent falls or trauma. Please refer to Dr. Zuleta's attestation for any changes to the treatment plan. Allergies Allergy/AdvReac Type Severity Reaction Status Date / Time Penicillins Allergy Unknown on [facility] Verified 12/12/21 10:11 of [facility] med list Home Medications Medication Instructions Recorded Confirmed Type atorvastatin 10 mg tablet (Lipitor) 10 mg PO HS 08/28/20 02/25/22 History clozapine 100 mg tablet (Clozaril) 100 mg PO Q12 08/28/20 02/25/22 History ergocalciferol (vitamin D2) 1,250 1,250 mcg PO WK 08/28/20 02/25/22 History mcg (50,000 unit) capsule (Vitamin D2) ferrous sulfate 325 mg (65 mg 325 mg PO DAILY 08/28/20 02/25/22 History iron) tablet (FeroSul) fluticasone furoate 100 1 inh inhalation DAILY 08/28/20 02/25/22 History mcg-vilanterol 25 mcg/dose inhalation powder (Breo Ellipta) insulin aspart U-100 100 unit/mL See Rx Instructions .Route .COMPLEX 08/28/20 02/25/22 History subcutaneous solution (Novolog U-100 Insulin aspart) linaclotide 290 mcg capsule 290 mcg PO QAM 08/28/20 02/25/22 History (Linzess) insulin glargine 100 unit/mL (3 27 unit subcut HS 10/07/20 02/25/22 History mL) subcutaneous pen (Basaglar KwikPen U-100 Insulin) multivitamin (Daily Multi-Vitamin 1 tab PO DAILY 10/07/20 02/25/22 History tablet) magnesium oxide 400 mg (241.3 mg 400 mg PO QAM #30 tabs 10/11/20 02/25/22 Rx magnesium) tablet magnesium hydroxide 400 mg/5 mL 30 ml PO DAILY PRN Constipation 12/27/20 02/25/22 History oral suspension (Milk of Magnesia) docusate sodium 100 mg capsule 100 mg PO BID 02/09/21 02/25/22 History liraglutide 0.6 mg/0.1 mL (18 mg/3 1.8 mg subcut DAILY 02/09/21 02/25/22 History mL) subcutaneous pen injector tamsulosin 0.4 mg capsule 0.4 mg PO QPM 02/09/21 02/25/22 History levothyroxine 125 mcg tablet 125 mcg PO DAILYBB 03/06/21 02/25/22 History polyethylene glycol 3350 17 17 g PO BID 03/06/21 02/25/22 History gram/dose oral powder (Miralax) sertraline 50 mg tablet (Zoloft) 100 mg PO QAM 09/05/21 02/25/22 History acetaminophen 325 mg tablet 325 mg PO Q6H PRN FEVER/PAIN 10/10/21 02/25/22 Hi story (Tylenol) mirabegron 25 mg tablet,extended 25 mg PO QAM 10/10/21 02/25/22 History release 24 hr (Myrbetriq) sertraline 100 mg tablet 100 mg PO QAM 10/10/21 02/25/22 History apixaban 5 mg tablet (Eliquis) 10 mg PO BID #60 tabs 10/28/21 02/25/22 Rx furosemide 80 mg tablet (Lasix) 40 mg PO QAM #30 tabs 10/28/21 02/25/22 Rx potassium chloride 20 mEq 20 meq PO DAILY #30 tabs 10/28/21 02/25/22 Rx tablet,extended release (K-Tab) omeprazole 40 mg capsule,delayed 40 mg PO DAILY #30 caps 12/12/21 02/25/22 Rx release Past Med/Surg History Medical History (Updated 02/25/22 @ 12:16 by Diego Arthur MD) Anxiety and depression Chest pain Constipation COPD (chronic obstructive pulmonary disease) Disorder of prostate Dysphagia Esophagitis GERD (gastroesophageal reflux disease) Heart failure Hyperlipidemia Hypertension Hypomagnesemia Hypothyroidism Morbid obesity Muscle weakness Obstructive sleep apnea O2 at 2L n/c at HS and prn if pulse ox is less than 90% Osteoporosis Paranoid schizophrenia Type 2 diabetes mellitus Unspecified abnormalities of gait and mobility Surgical History Surgical history unknown Social History Smoking Status: Never smoker Tobacco Type: Cigarettes Second Hand Exposure: No; Hx Alcohol Use: Yes Hx Substance Use: Yes Preferred Language: Comoran Communication Ability: Effective Lpn Medical Assistant Required: No Beliefs That Will Affect Care: None marital status: Single Current Living Situation: Residential Current Living Situation Comment: [facility] current occupational status: retired Other Information That Helps Us Care for You: No Feels Safe at Home: Yes Safety Concerns: Feels Safe At This Time Assistive Devices: Mechanical Lift and Wheelchair Review of Systems Review of Systems: Denies current fever, chills, headache, changes in vision, hearing, taste, and smell, chest pain, hematemesis, melena,hematuria, and recent falls. All systems have been reviewed and are otherwise negative. Physical Exam Physical Exam: Physical Exam: General: In no acute distress, stated age, chronically ill-appearing, non- toxic appearing HEENT: Normocephalic, atraumatic, no scleral icterus, pupils around round, symmetrical, and reactive to light, moist mucus membranes, trachea midline, no thyromegaly Chest/Pulm: No respiratory distress, symmetrical chest expansion, scattered rhonchi and wheezing noted throughout Cardiac: RRR, no murmurs noted Abdomen: Negative for ascites and bruising, hypoactive bowel sounds, soft, non-tender to palpation throughout : Patient without drainage or signs of infection of the penis, no swelling noted on exam or palpation of the scrotum and testes, mild erythema noted on the scrotal sack Musculoskeletal: Symmetrical and without signs of acute trauma, upper and lower extremities with full ROM, no atrophy, spasticity, or flaccidity Extremities: Radial, dorsalis pedis, and posterior tibial pulses are intact and symmetrical, no edema noted in the BL LE's Skin: Warm, dry, no rashes , lesions, or scars noted Neuro: Alert and oriented to person, place, month, year, and president, no focal defects, CN II-XII tested and intact, no tremors noted Psych: No acute distress, calm and cooperative during the exam Results & Data Results & Data ([facility]) Vital Signs (Past 12 Hours) Vital Signs Temp Pulse Resp BP Pulse Ox O2 Del Method 02/25/22 09:18 36.7 C 111 H 26 H 115/85 87 L Room Air Laboratory Results Abnormal lab results 02/25/22 02/25/22 02/25/22 Range/Units 10:21 10:21 10:21 WBC 20.99 H (4.8-10.8) K/ul Neut # (Auto) 18.64 H (1.4-6.5) K/uL Lymph # (Auto) 0.76 L (1.2-3.4) K/uL [place] # (Auto) 1.33 H (0.24-0.82) K/uL Immature Gran # (Auto) 0.13 H (0.00-0.02) K/uL Glucose 128 H (70-99(Fasting)) mg/dl Lactate 2.3 H* (0.4-2.0) mmol/L Lipase 10 L (11-82) U/L Procalcitonin (0-0.5) ng/ml 02/25/22 Range/Units 10:21 WBC (4.8-10.8) K/ul Neut # (Auto) (1.4-6.5) K/uL Lymph # (Auto) (1.2-3.4) K/uL [place] # (Auto) (0.24-0.82) K/uL Immature Gran # (Auto) (0.00-0.02) K/uL Glucose (70-99(Fasting)) mg/dl Lactate (0.4-2.0) mmol/L Lipase (11-82) U/L Procalcitonin 0.57 H (0-0.5) ng/ml Diagnostic Findings Abdomen/Pelvis CT 02/25/22 09:23 CT abd pelvis wo con CLINICAL HISTORY: lower abdominal pain TECHNIQUE: Helical axial images of the abdomen and pelvis were obtained. Auto mated dose lowering techniques and/or adjustment according to patient size were utilized for this exam. This exam was performed without intravenous contrast. CT DOSE: 2282.60 mGycm COMPARISON: Comparison is made to CT abdomen pelvis 10/23/2021 FINDINGS: Lower chest: Multifocal airspace opacities are seen. Liver: Unremarkable. No focal lesions are seen. Gallbladder and biliary tree: No calcified gallstones. Normal caliber wall. No intra- or extrahepatic biliary ductal dilation. Pancreas: Unremarkable, no focal lesions. Spleen: Unremarkable. Adrenals: Unremarkable. Kidneys and ureters: Unremarkable. Bladder: Unremarkable. Reproductive organs: Unremarkable. Bowel: Unremarkable appearance of the bowel. The appendix is normal. There is prominence of the sigmoid colon. Lymph nodes Retroperitoneal: Unremarkable. Pelvic: Unremarkable. Mesenteric: Unremarkable. Peritoneum: Normal. Vessels: Atherosclerotic calcifications are seen. Abdominal wall: Unremarkable. Bones: Degenerative changes in the visualized spine. IMPRESSION: 1. Multifocal airspace opacities are seen which may represent pneumonia. 2. Prominence of the sigmoid colon with colonic distention. Findings may represent stercoral colitis. ACT 112: Negative or not required by law. Electronically signed by: Mario Mathis M.D. 02/25/2022 10:29 AM Chest X-Ray 02/25/22 09:25 XR chest 1V portable CLINICAL HISTORY: post covid sob cough TECHNIQUE: Single frontal radiograph of the chest was obtained. Comparison: Comparison is made to chest radiograph 10/10/2021 FINDINGS: Dual lead pacemaker is seen. The cardiomediastinal silhouette is normal. Right mid lung airspace opacity is seen. No evidence of pleural effusion or pneumothorax. IMPRESSION: Right mid lung airspace opacity is seen. This may represent postinfectious changes in this patient with history of Covid pneumonia. ACT 112: Negative or not required by law. Electronically signed by: Mario Mathis M.D. 02/25/2022 9:59 AM ECG Additional Comments: Atrial-sensed ventricular-paced rhythm Abnormal ECG When compared with ECG of 23-OCT-2021 09:39, Vent. rate has increased BY 19 BPM Code Status & VTE Plan Code Status Full code VTE Prophylaxis Plan VTE Prophylaxis will be ordered: Yes Supervising Physician Co-Signing Physician Notes Patient seen and examined, chart reviewed, case discussed with Reese Pelaez PA-C and I agree with the assessment and plan as above except as otherwise noted Labs and images reviewed Aly C6-year-old male with a past medical history of COPD, diabetes, BPH, GERD, recurrent SBO/stercoral colitis, schizophrenia, CHF presented with worsening shortness of breath and abdominal pain. Is found to be COVID- positive, noted on CT abdominal imaging to have stercoral colitis. Admitted to [facility], requires frequent redirection. Endorses low abdominal pain, denies f ever/chills/chest pain/chest pressure. Endorses shortness of breath but is not sure how long it has been there, at least a day or so. Was told he had pneumonia previously. Lungs are coarse with expiratory wheezes, heart rate is regular, skin is warm and dry at bedside. Agree with admission for acute hypoxia stable on room air, patient COVID last week? Late inflammatory phase versus superimposed pneumonia. Right lung opacities seen, will continue treatment with empiric antibiotics cefepime converted to Zosyn. Patient stercoral colitis although this is less than 10 cm in length and does not appear to be longer than 40 cm in total, if concern for increasing perforation risk will consult GI for now will maximize bowel regimen. Agree with management above. PG Care Time/CCT Total # of Minutes Spent Total Time Spent with Patient: Total time spent is greater than 50% in coordination of care (as documented) at patient's floor/unit and/or counseling patient: [place] [address] Initial Inpt Care Lvl 3 Patient Type Established Medical Decision Making High Complexity Diagnoses Hypoxia R09.02 Stercoral colitis K52.89 Pulmonary embolism I26.99 Mixed stress and urge urinary incontinence N39.46 Type II diabetes mellitus E11.9 BPH (benign prostatic hyperplasia) N40.0 AI (obstructive sleep apnea) G47.33 COPD (chronic obstructive pulmonary disease) J44.9 GERD (gastroesophageal reflux disease) K21.9 Diastolic CHF I50.32 Heart failure chronicity: chronic Schizophrenia F20.9 Hypothyroidism E03.9 Hypertension I10 Hyperlipidemia E78.5 (1) Diastolic CHF Heart failure chronicity: chronic Qualified Code(s): I50.32 - Chronic diastolic (congestive) heart failure
[2022-02-25 11:19] LABS: Influenza A virus by PCR Negative (Neg); Influenza B virus by PCR Negative (Neg); RSV by PCR Negative (Neg); SARS CoV2 RNA(COVID-19) Ceph NEGATIVE (Negative)
[2022-02-25] MEDS ORDERED: DEXTROSE 50% 50 ML SYRINGE IV PRN (11:25)
[2022-02-25] MEDS ORDERED: GLUCAGON FOR INJ 1 MG VIAL SQ PRN (11:25)
[2022-02-25] MEDS ORDERED: CARBOHYDRATES FOR HYPOGLYCEMIA PO PRN (11:25)
[2022-02-25] MEDS ORDERED: GLUCOSE 10 TAB/TUBE PO PRN (11:25)
[2022-02-25] MEDS ORDERED: GLUCOSE 40% GEL 15 GM TUBE PO PRN (11:25)
[2022-02-25] MEDS ORDERED: INSULIN ASPART PER UNIT SC ONE (11:30)
[2022-02-25] MEDS ORDERED: PIPERACILLIN/TAZOBACTAM 4.5 GM/120 ML BAG IV ONE (11:45)
[2022-02-25] MEDS ORDERED: PANTOprazole 40 MG in SYRINGE 0 ML IV ONE (12:15)
[2022-02-25] MEDS ORDERED: NYSTATIN CR 15 GM TUBE EXT SCH (12:15)
[2022-02-25] MEDS ORDERED: ACETAMINOPHEN 325 MG TAB PO PRN (12:23)
--- NOTE | 2022-02-25 12:28 | Electrocardiogram Report ---
Test Reason : Blood Pressure : / mmHG Vent. Rate : 107 BPM Atrial Rate : 107 BPM P-R Int : 126 ms QRS Dur : 214 ms QT Int : 448 ms P-R-T Axes : 058 -85 097 degrees QTc Int : 598 ms Atrial-sensed ventricular-paced rhythm Abnormal ECG When compared with ECG of 23-OCT-2021 09:39, Vent. rate has increased BY 19 BPM Confirmed by Rinku Bragg ([id number]) on 02/25/2022 12:27:52 PM Referred By: REFERRED SELF Confirmed By:Rinku Bragg
[2022-02-25 12:30] LABS: Appearance Urine Clear (Clear); Bacteria Urine Automated Negative (Negative); Blood Urine Negative (Negative); Color Urine Dark Yellow; Epithelial Cell Urine Auto 20-30 /lpf (0-5); Glucose Urine UA Negative (Negative); Ketones Urine Trace (Negative); Leukocyte Esterase Urine Trace (Negative); Nitrite Urine Negative (Negative); Protein Urine Trace (Negative); RBC Urine Automated 0-4 /hpf (0-4); Specific Gravity Urine 1.028 (1.000-1.030); Urobilinogen Urine Negative (Negative); pH Urine 5.5 (4.5-7.5)
[2022-02-25 12:34] LABS: Bilirubin Urine 1+ (Negative)
[2022-02-25] MEDS: ALBUT/IPRATROP 3MG/0.5MG NEB 3 ML VIAL NEB SCH ×2 (15:37→19:20)
[2022-02-25] MEDS: INSULIN ASPART PER UNIT SC SCH ×2 (19:48→23:01)
[2022-02-25] MEDS: PIPERACILLIN/TAZOBACTAM 3.375 GM in DEXTROSE 5% 100 ML IV SCH (19:57)
[2022-02-25] MEDS: APIXABAN 5 MG TABLET PO SCH (22:06)
[2022-02-25] MEDS: POLYETHYLENE (MIRALAX) 17 GM PACK PO SCH (22:06)
[2022-02-25] MEDS: DOCUSATE SODIUM 100 MG CAP PO SCH (22:07)
[2022-02-25] MEDS: ATORVASTATIN 10 MG TAB PO SCH (22:07)
[2022-02-25] MEDS: cloZAPine 100 MG TAB PO SCH (22:07)
[2022-02-25] MEDS: TAMSULOSIN HCL 0.4 MG CAP PO SCH (22:08)
[2022-02-25] MEDS: LANTUS PER UNIT CHARGE SQ SCH (22:30)
[2022-02-26] MEDS: PIPERACILLIN/TAZOBACTAM 3.375 GM in DEXTROSE 5% 100 ML IV SCH ×3 (02:55→17:23)
[2022-02-26] MEDS: LEVOTHYROXINE SODIUM 125 MCG TABLET PO SCH (05:35)
[2022-02-26 06:38] LABS: Hematocrit (blood only) 37.8 % (40.1-51.0); Hemoglobin 12.6 g/dl (14.0-18.0); Mean Corpuscular Hemoglobin 30.4 pg (25.0-34.0); Mean Corpuscular Hgb Conc 33.3 g/dL (32.0-36.0); Mean Corpuscular Volume 91.3 fL (80.0-100.0); Mean Platelet Volume 12.1 fL (9.4-12.4); Platelet Count 174 K/uL (130-400); RDW Coefficient of Variation 13.6 % (11.5-14.5); RDW Standard Deviation 45.6 fL (36.4-46.3); Red Blood Count 4.14 M/uL (4.63-6.08); White Blood Count 12.53 K/ul (4.8-10.8)
[2022-02-26] MEDS: ALBUT/IPRATROP 3MG/0.5MG NEB 3 ML VIAL NEB SCH (07:21)
[2022-02-26 07:42] LABS: Albumin Globulin Ratio 1.3 (0.9-2); Albumin Level 3.3 gm/dl (3.4-5.0); Calcium 8.5 mg/dl (8.5-10.1); Creatinine Clr Calc Pharmacy 117.3 ml/min; Est GFR (African American) 109.2 ml/min; Est GFR (Non-African American) 94.3 ml/min; Globulin 2.5 gm/dl (2.5-4.0); Magnesium 2.1 mg/dl (1.7-2.4); Potassium 3.8 mmol/L (3.5-5.1); Total Protein 5.8 gm/dl (6.0-8.3)
[2022-02-26] MEDS: INSULIN ASPART PER UNIT SC SCH ×4 (07:57→19:58)
[2022-02-26] MEDS: POTASSIUM CHLORIDE CRTAB 20 MEQ TABCR PO SCH (08:04)
[2022-02-26] MEDS: cloZAPine 100 MG TAB PO SCH ×2 (08:04→19:54)
[2022-02-26] MEDS: MIRABEGRON ER 25 MG TAB PO SCH (08:04)
[2022-02-26] MEDS: FUROSEMIDE 40 MG TAB PO SCH (08:04)
[2022-02-26] MEDS: DOCUSATE SODIUM 100 MG CAP PO SCH ×2 (08:04→19:59)
[2022-02-26] MEDS: MAGNESIUM OXIDE 400 MG TAB PO SCH (08:05)
[2022-02-26] MEDS: SERTRALINE HCL 50 MG TABLET PO SCH (08:05)
[2022-02-26] MEDS: MULTIVITAMIN TAB PO SCH (08:05)
[2022-02-26] MEDS: POLYETHYLENE (MIRALAX) 17 GM PACK PO SCH ×2 (08:05→19:59)
[2022-02-26] MEDS: APIXABAN 5 MG TABLET PO SCH ×2 (08:05→19:54)
[2022-02-26] MEDS: FLUTICASONE/VILANTEROL 100/25MCG 14 PUFFS/INHALER INH SCH (08:07)
[2022-02-26] MEDS: LANTUS PER UNIT CHARGE SQ SCH ×2 (08:14→19:58)
[2022-02-26] MEDS ORDERED: ALBUT/IPRATROP 3MG/0.5MG NEB 3 ML VIAL NEB PRN (09:43)
[2022-02-26] MEDS ORDERED: PANTOprazole 40 MG in SYRINGE 0 ML IV SCH (11:00)
[2022-02-26 12:28] LABS: A calco-baum cmplx NotReported Not Detected (NotDetected); Bact fragilis Not Reported Not Detected (NotDetected); C auris Not Reported Not Detected (NotDetected); Calbicans Not Reported Not Detected (NotDetected); Candida glabrata Not Reported Not Detected (NotDetected); Candida krusei Not Reported Not Detected (NotDetected); Cneoformans/gatti Not Reported Not Detected (NotDetected); Cparapsilosis Not Reported Not Detected (NotDetected); Ctropicalis Not Reported Not Detected (NotDetected); E cloacae compx Not Reported Not Detected (NotDetected); Efaecalis Not Reported Not Detected (NotDetected); Efaecium Not Reported Not Detected (NotDetected); Enterobacterales Not Reported Not Detected (NotDetected); Escherichia coli Not Reported Not Detected (NotDetected); H influenzae Not Reported Not Detected (NotDetected); K aerogenes Not Reported Not Detected (NotDetected); Koxytoca Not Reported Not Detected (NotDetected); Kpneumoniae grp Not Reported Not Detected (NotDetected); Lmonocyt Not Reported Not Detected (NotDetected); N meningitidis Not Reported Not Detected (NotDetected); P aeruginosa Not Reported Not Detected (NotDetected); Proteus spp Not Reported Not Detected (NotDetected); Salmonella spp Not Reported Not Detected (NotDetected); Smarcescens Not Reported Not Detected (NotDetected); Staph lugdunensis Not Reported Not Detected (NotDetected); Staph spp. Not Reported DETECTED (NotDetected); Staphaureus Not Reported Not Detected (NotDetected); Staphylococcus epidermidis DETECTED (NotDetected); Staphylococcus spp. DETECTED (NotDetected); Stenmaltophilia Not Reported Not Detected (NotDetected); Strep agal(GrpB) Not Reported Not Detected (NotDetected); Strep pneum Not Reported Not Detected (NotDetected); Strep pyog (GrpA) Not Reported Not Detected (NotDetected); Strep spp Not Reported Not Detected (NotDetected); mecAC Resistant Gene DETECTED (NotDetected)
[2022-02-26 12:33] LABS: Staphepi Not Reported DETECTED (NotDetected)
[2022-02-26] MEDS: TAMSULOSIN HCL 0.4 MG CAP PO SCH (19:53)
[2022-02-26] MEDS: ATORVASTATIN 10 MG TAB PO SCH (19:54)
--- NOTE | 2022-02-26 20:15 | Hospitalist Progress Note ---
Date of Service February 26, 2022 Assessment & Plan (1) Hypoxia: Plan: Doing better today, currently on room air continue Zosyn , possibly secondary to bacterial pneumonia (2) Stercoral colitis: Plan: -Patient has had recurrent stercoral colitis on previous admissions and has chronic constipation -Measures < [address] review, patient is also having bowel movements today -Continue with Zosyn to cover pneumonia any any translocation of bacteria from a GI standpoint -Initial lactate mildly elevated at 2.3, received 500 mL NSS. Will get repeat in an hour, if still elevated will consult GI -Patient is interested in started enemas, will start soap suds enemas QID with PO Colace and miralax for now -Hold Linzess for now -Will start clear liquid diet 02/26 Advance diet, to full liquid, started on lactulose (3) Pulmonary embolism: Plan: Continue Epics (4) Mixed stress and urge urinary incontinence: Plan: -Continue Myrbetriq (5) Type II diabetes mellitus: Plan: Normally on 27 units HS, will continue with 15 units HS for now with decreased oral intake -Will starting correction factor of 60 with carb ratio of 19 -Goal BSG for now is 110-140 -Hold Liraglutide (6) BPH (benign prostatic hyperplasia): Plan: Continue Flovent (7) AI (obstructive sleep apnea): Plan: Continue CPAP (8) COPD (chronic obstructive pulmonary disease): Plan: No wheezing on exam (9) GERD (gastroesophageal reflux disease): (10) Diastolic CHF: Plan: Currently involved (11) Schizophrenia: Plan: Continue clozaril and Zoloft (12) Hypothyroidism: Plan: Continue levothyroxine (13) Hypertension: Admission and Anticipated Discharge Date Admission Date: February 25, 2022 Results & Data Results & Data ([facility]) Vital Signs (Past 12 Hours) Vital Signs Temp Pulse Pulse Resp BP Pulse Ox O2 Del Method 02/26/22 19:46 36.3 C L 92 H 16 107/69 92 Room Air 02/26/22 15:46 36.4 C L 86 18 105/68 96 Room Air 02/26/22 15:32 87 02/26/22 12:13 85 20 98/64 L 96 Room Air 02/26/22 08:51 88 02/26/22 08:51 Room Air PG Care Time/CCT Total # of Minutes Spent Total Time Spent with Patient: Total time spent is greater than 50% in coordination of care (as documented) at patient's floor/unit and/or counseling patient: Coding Level of Care Code 80621 Subseq Hosp Care Lvl 3 Diagnoses Hypoxia R09.02 Stercoral colitis K52.89 Pulmonary embolism I26.99 Mixed stress and urge urinary incontinence N39.46 Type II diabetes mellitus E11.9 BPH (benign prostatic hyperplasia) N40.0 AI (obstructive sleep apnea) G47.33 COPD (chronic obstructive pulmonary disease) J44.9 GERD (gastroesophageal reflux disease) K21.9 Diastolic CHF I50.32 Heart failure chronicity: chronic Schizophrenia F20.9 Hypothyroidism E03.9 Hypertension I10 (1) Diastolic CHF Heart failure chronicity: chronic Qualified Code(s): I50.32 - Chronic diastolic (congestive) heart failure
[2022-02-27] MEDS: PIPERACILLIN/TAZOBACTAM 3.375 GM in DEXTROSE 5% 100 ML IV SCH ×2 (02:46→09:43)
[2022-02-27] MEDS: LEVOTHYROXINE SODIUM 125 MCG TABLET PO SCH (06:19)
[2022-02-27 06:39] LABS: Hematocrit (blood only) 39.3 % (40.1-51.0); Hemoglobin 12.9 g/dl (14.0-18.0); Mean Corpuscular Hemoglobin 30.6 pg (25.0-34.0); Mean Corpuscular Hgb Conc 32.8 g/dL (32.0-36.0); Mean Corpuscular Volume 93.3 fL (80.0-100.0); Mean Platelet Volume 12.2 fL (9.4-12.4); Platelet Count 179 K/uL (130-400); RDW Coefficient of Variation 13.5 % (11.5-14.5); Red Blood Count 4.21 M/uL (4.63-6.08); White Blood Count 10.29 K/ul (4.8-10.8)
[2022-02-27 07:16] LABS: Albumin Globulin Ratio 1.3 (0.9-2); Albumin Level 3.5 gm/dl (3.4-5.0); BUN Creatinine Ratio 9.4 (10-20); Bilirubin,Total 0.7 mg/dl (0.2-1.0); Calcium 8.8 mg/dl (8.5-10.1); Creatinine Clr Calc Pharmacy 91.5 ml/min; Est GFR (African American) 93.8 ml/min; Est GFR (Non-African American) 80.9 ml/min; Globulin 2.7 gm/dl (2.5-4.0); Magnesium 2.2 mg/dl (1.7-2.4); Potassium 4.2 mmol/L (3.5-5.1); Total Protein 6.2 gm/dl (6.0-8.3)
[2022-02-27] MEDS: INSULIN ASPART PER UNIT SC SCH ×4 (09:12→19:45)
[2022-02-27] MEDS: APIXABAN 5 MG TABLET PO SCH ×2 (09:38→19:52)
[2022-02-27] MEDS: cloZAPine 100 MG TAB PO SCH ×2 (09:38→19:51)
[2022-02-27] MEDS: FUROSEMIDE 40 MG TAB PO SCH (09:38)
[2022-02-27] MEDS: SERTRALINE HCL 50 MG TABLET PO SCH (09:38)
[2022-02-27] MEDS: MAGNESIUM OXIDE 400 MG TAB PO SCH (09:39)
[2022-02-27] MEDS: MIRABEGRON ER 25 MG TAB PO SCH (09:39)
[2022-02-27] MEDS: MULTIVITAMIN TAB PO SCH (09:39)
[2022-02-27] MEDS: FLUTICASONE/VILANTEROL 100/25MCG 14 PUFFS/INHALER INH SCH (09:39)
[2022-02-27] MEDS: DOCUSATE SODIUM 100 MG CAP PO SCH ×2 (09:43→19:55)
[2022-02-27] MEDS: POLYETHYLENE (MIRALAX) 17 GM PACK PO SCH ×2 (09:43→19:49)
[2022-02-27] MEDS: POTASSIUM CHLORIDE CRTAB 20 MEQ TABCR PO SCH (09:43)
[2022-02-27] MEDS: LANTUS PER UNIT CHARGE SQ SCH ×2 (09:43→19:54)
[2022-02-27] MEDS: AMOXICILLIN/CLAVULANATE 875 MG TAB PO SCH (17:48)
--- NOTE | 2022-02-27 18:43 | Hospitalist Progress Note ---
Date of Service February 27, 2022 Assessment & Plan (1) Hypoxia: Plan: Resolved, currently on room air, discontinue Zosyn, start on Augmentin possible pneumonia (2) Stercoral colitis: Plan: Had multiple bowel movements, advance diet, continue lactic (3) Pulmonary embolism: Plan: Continue Epics (4) Mixed stress and urge urinary incontinence: Plan: -Continue Myrbetriq (5) Type II diabetes mellitus: Plan: Normally on 27 units HS, will continue with 15 units HS for now with decreased oral intake -Will starting correction factor of 60 with carb ratio of 19 -Goal BSG for now is 110-140 -Hold Liraglutide (6) BPH (benign prostatic hyperplasia): Plan: Continue Flovent (7) AI (obstructive sleep apnea): Plan: Continue CPAP (8) COPD (chronic obstructive pulmonary disease): Plan: No wheezing on exam (9) GERD (gastroesophageal reflux disease): (10) Diastolic CHF: Plan: Currently involved (11) Schizophrenia: Plan: Continue clozaril and Zoloft (12) Hypothyroidism: Plan: Continue levothyroxine (13) Hypertension: Admission and Anticipated Discharge Date Admission Date: February 25, 2022 Subjective Had multiple bowel movements, patient is not hypoxic, will stop Zosyn, start on Augmentin, continue laxative, patient is ready to be discharged, discussed with the case assistant Results & Data Results & Data ([facility]) Vital Signs (Past 12 Hours) Vital Signs Temp Pulse Pulse Resp BP Pulse Ox O2 Del Method 02/27/22 15:50 36.9 C 84 20 117/70 94 Room Air 02/27/22 07:30 36.3 C L 85 20 107/69 93 Room Air 02/27/22 11:17 36.7 C 98 H 18 113/75 96 Room Air 02/27/22 08:00 86 02/27/22 08:00 Nasal Cannula O2 Flow Rate 02/27/22 15:50 02/27/22 07:30 02/27/22 11:17 02/27/22 08:00 02/27/22 08:00 2 PG Care Time/CCT Total # of Minutes Spent Total Time Spent with Patient: Total time spent is greater than 50% in coordination of care (as documented) at patient's floor/unit and/or counseling patient: Coding Level of Care Code 91346 Subseq Hosp Care Lvl 3 Diagnoses Hypoxia R09.02 Stercoral colitis K52.89 Pulmonary embolism I26.99 Mixed stress and urge urinary incontinence N39.46 Type II diabetes mellitus E11.9 BPH (benign prostatic hyperplasia) N40.0 AI (obstructive sleep apnea) G47.33 COPD (chronic obstructive pulmonary disease) J44.9 GERD (gastroesophageal reflux disease) K21.9 Diastolic CHF I50.32 Heart failure chronicity: chronic Schizophrenia F20.9 Hypothyroidism E03.9 Hypertension I10 (1) Diastolic CHF Heart failure chronicity: chronic Qualified Code(s): I50.32 - Chronic diastolic (congestive) heart failure
[2022-02-27] MEDS: ATORVASTATIN 10 MG TAB PO SCH (19:51)
[2022-02-27] MEDS: TAMSULOSIN HCL 0.4 MG CAP PO SCH (19:52)
[2022-02-27] MEDS: ACETAMINOPHEN 500 MG TAB PO PRN (19:57)
[2022-02-28] MEDS: LEVOTHYROXINE SODIUM 125 MCG TABLET PO SCH (06:04)
[2022-02-28 07:29] LABS: Hematocrit (blood only) 38.8 % (40.1-51.0); Hemoglobin 12.6 g/dl (14.0-18.0); Mean Corpuscular Hemoglobin 30.4 pg (25.0-34.0); Mean Corpuscular Hgb Conc 32.5 g/dL (32.0-36.0); Mean Corpuscular Volume 93.5 fL (80.0-100.0); Mean Platelet Volume 11.8 fL (9.4-12.4); Platelet Count 175 K/uL (130-400); RDW Coefficient of Variation 13.3 % (11.5-14.5); RDW Standard Deviation 45.9 fL (36.4-46.3); Red Blood Count 4.15 M/uL (4.63-6.08); White Blood Count 7.39 K/ul (4.8-10.8)
[2022-02-28 07:47] LABS: Albumin Globulin Ratio 1.3 (0.9-2); Albumin Level 3.3 gm/dl (3.4-5.0); BUN Creatinine Ratio 6.3 (10-20); Bilirubin,Total 0.6 mg/dl (0.2-1.0); Calcium 8.5 mg/dl (8.5-10.1); Creatinine Clr Calc Pharmacy 109.9 ml/min; Est GFR (African American) 106.4 ml/min; Est GFR (Non-African American) 91.8 ml/min; Globulin 2.5 gm/dl (2.5-4.0); Magnesium 2.2 mg/dl (1.7-2.4); Potassium 3.8 mmol/L (3.5-5.1); Total Protein 5.8 gm/dl (6.0-8.3)
[2022-02-28] MEDS: INSULIN ASPART PER UNIT SC SCH ×3 (09:43→17:48)
[2022-02-28] MEDS: MAGNESIUM OXIDE 400 MG TAB PO SCH (09:45)
[2022-02-28] MEDS: MULTIVITAMIN TAB PO SCH (09:45)
[2022-02-28] MEDS: MIRABEGRON ER 25 MG TAB PO SCH (09:45)
[2022-02-28] MEDS: cloZAPine 100 MG TAB PO SCH (09:45)
[2022-02-28] MEDS: APIXABAN 5 MG TABLET PO SCH (09:45)
[2022-02-28] MEDS: FUROSEMIDE 40 MG TAB PO SCH (09:45)
[2022-02-28] MEDS: AMOXICILLIN/CLAVULANATE 875 MG TAB PO SCH (09:45)
[2022-02-28] MEDS: SERTRALINE HCL 50 MG TABLET PO SCH (09:45)
[2022-02-28] MEDS: FLUTICASONE/VILANTEROL 100/25MCG 14 PUFFS/INHALER INH SCH (09:45)
[2022-02-28] MEDS: POTASSIUM CHLORIDE CRTAB 20 MEQ TABCR PO SCH (09:49)
[2022-02-28] MEDS: LANTUS PER UNIT CHARGE SQ SCH (09:49)
[2022-02-28] MEDS: POLYETHYLENE (MIRALAX) 17 GM PACK PO SCH (09:49)
[2022-02-28] MEDS: DOCUSATE SODIUM 100 MG CAP PO SCH (09:49)
[2022-02-28] MEDS: ACETAMINOPHEN 500 MG TAB PO PRN (09:56)
--- NOTE | 2022-03-01 20:26 | Discharge Summary ---
Date of Service March 01, 2022 Admission HPI Per Admitting Provider Aly Pompa is a 66-year-old male past medical history of diabetes, BPH, COPD, GERD, recurrent SBOs and stercoral colitis,, schizophrenia, CHF, anemia, hypothyroidism, PE (diagnosed on 10/23/21) on Eliquis, who presented to the [facility] ED on 02/25/22 via EMS from [facility] for complaints of worsening SOB and abdominal pain. Per the ED staff notes, the patient was reportedly found to be positive for Coivd at [facility] and has also been on Doxycycline. In the ED the patient was found to be afebrile, hemodynamically stable, hypoxic at 87% on RA, and tachycardia in the low 100s. Labs were remarkable for a leukocytosis of 20.99 with left shift of 18.64m stable Hgb and platelets, stable renal function and electrolytes, glucose of 128, stable liver function, lipase of 10, lactate of 2.3, procal of 0.57, and covid/influenza/RSV NEGATIVE. Chest xray was read as Right mid lung airspace opacity is seen. This may represent post infectious changes in this patient with history of Covid pneumonia.. CT of the abdomen/pelvis WO contrast was read as Multifocal airspace opacities are seen which may represent pneumonia. Prominence of the sigmoid colon with colonic distention. Findings may represent stercoral colitis. Prior to admission the patient was given 1L NSS bolus, one dose of cefepime. At the time of the exam the patient was resting in bed in no acute distress. History is difficult to obtain due to the patient's mental health history, he is quick to have tangential speech during my exam. He states that he has had pneumonia over the past week. He also states that he has been having increased lower abdominal pain/discomfort compared to his baseline discomfort. When asked, he denies recent fevers or chills. He states that his abdominal pain is epigastric and also in the BL lower abdominal michel. He states that he has had multiple bowel movements today and is wondering why I am telling him that he has alot of stool in his colon. I explained that he has a large fecal impaction and he is having diarrhea due to water moving around the impaction. He denies chest pain but has been SOB and states that he has required oxygen recently at [facility] after being diagnosed with Pneumonia. He has had nausea and one episode of vomiting this am prior to coming to the ED. He is still passing gas. He states that he has had some discomfort in his scrotum and notes dysuria over the past week. He denies recent falls or trauma. Please refer to Dr. Zuleta's attestation for any changes to the treatment plan. Principal Diagnosis stercoral colitis possible pneumonia Discharge Data Allergies Allergy/AdvReac Type Severity Reaction Status Date / Time Penicillins Allergy Unknown on [facility] Verified 12/12/21 10:11 of [facility] med list Consultations 02/25/22 11:22 ED Decision to Admit Stat Ordered Studies 02/25/22 09:23 CT abd pelvis wo con Stat Hospital Course (1) Hypoxia: Resolved, currently on room air, discontinue Zosyn, start on Augmentin possible pneumonia discharged on 7 days course of treatment (2) Stercoral colitis: Had multiple bowel movements, advance diet, continue Lactulose patient needs to avoid constipation (3) Pulmonary embolism: Continue Apixaban (4) Mixed stress and urge urinary incontinence: -Continue Myrbetriq (5) Type II diabetes mellitus: Normally on 27 units HS, will continue with 15 units HS for now with decreased oral intake -Will starting correction factor of 60 with carb ratio of 19 -Goal BSG for now is 110-140 -Hold Liraglutide (6) BPH (benign prostatic hyperplasia): Continue Flovent (7) AI (obstructive sleep apnea): Continue CPAP (8) COPD (chronic obstructive pulmonary disease): No wheezing on exam (9) GERD (gastroesophageal reflux disease): (10) Diastolic CHF: Currently involved (11) Schizophrenia: Continue clozaril and Zoloft (12) Hypothyroidism: Continue levothyroxine (13) Hypertension: Total Time Total Time Spent Total Time Spent (In Minutes): 45 mins Discharge Plan Discharge Items Patient Disposition: Home - Home Health Services Reason For Visit: HYPOXIA AND SOB Discharge Diagnosis: colitis due to constipation , Pneumonia Activity: Resume your previous activity Lifting: Gradually increase as tolerated Bathing: No limitations Sexual Activity: When tolerated Exercise/Sports: None Driving/Machine Use: No limitations Weightbearing: Full weightbearing Non-emergency contact: Primary Care Provider Call non-emergency contact if: you have any medication questions and your symptoms worsen Follow-up/Referrals: Erasmo George [Primary Care Provider] - (Discharge to [facility] ) Diet: Heart Healthy and Other - See Diet Comment Diet Comment: high fiber diet Addtl Attending Provider Instructions: Please avoid constipation Pending Studies at Discharge: No Stand-Alone Forms: [facility], Smoking Cessation Medications and DC Order Prescriptions: New amoxicillin-pot clavulanate 875-125 mg Tablet 1 tab PO BIDM Qty: 10 0RF polyethylene glycol 3350 [Miralax] 17 gram/dose powder 4 g PO DAILY Qty: 119 0RF lactulose 10 gram/15 mL (15 mL) solution 20 g PO TID PRN (Reason: constipation) Qty: 1440 0RF cyclobenzaprine 5 mg tablet 5 mg PO TID PRN (Reason: muscle spasm) Qty: 20 0RF Continued magnesium hydroxide [Milk of Magnesia] 400 mg/5 mL suspension 30 ml PO DAILY PRN (Reason: Constipation) omeprazole 40 mg capsule,delayed release(DR/EC) 40 mg PO DAILY Qty: 30 2RF multivitamin [Daily Multi-Vitamin] Tablet 1 tab PO DAILY insulin glargine [Basaglar KwikPen U-100 Insulin] 100 unit/mL (3 mL) insulin pen 27 unit SUBCUT HS magnesium oxide 400 mg (241.3 mg magnesium) Tablet 400 mg PO QAM Qty: 30 0RF ferrous sulfate [FeroSul] 325 mg (65 mg iron) tablet 325 mg PO DAILY atorvastatin [Lipitor] 10 mg Tablet 10 mg PO HS clozapine [Clozaril] 100 mg Tablet 100 mg PO Q12 ergocalciferol (vitamin D2) [Vitamin D2] 1,250 mcg (50,000 unit) capsule 1,250 mcg PO WK Rx Instructions: Friday Linzess 290 mcg Capsule 290 mcg PO QAM insulin aspart U-100 [Novolog U-100 Insulin aspart] 100 unit/mL Solution See Rx Instructions .ROUTE .COMPLEX Rx Instructions: TAKES 12 UNITS WITH BREAKFAST, 8 UNITS WITH LUNCH & DINNER. fluticasone furoate-vilanterol [Breo Ellipta] 100-25 mcg/dose Blister With Device 1 inh INHALATION DAILY sertraline [Zoloft] 50 mg tablet 100 mg PO QAM Rx Instructions: TOTAL DOSE 150 MG--TAKES WITH 100 MG TAB. tamsulosin 0.4 mg Capsule 0.4 mg PO QPM Rx Instructions: TAKES AT 1600 docusate sodium 100 mg Capsule 100 mg PO BID liraglutide 0.6 mg/0.1 mL (18 mg/3 mL) Pen Injector 1.8 mg SUBCUT DAILY levothyroxine 125 mcg Tablet 125 mcg PO DAILYBB polyethylene glycol 3350 [Miralax] 17 gram/dose Powder 17 g PO BID acetaminophen [Tylenol] 325 mg Tablet 325 mg PO Q6H MDD 3 GRAMS/24 HOURS PRN (Reason: FEVER/PAIN) sertraline 100 mg tablet 100 mg PO QAM Rx Instructions: TOTAL DOSE 150 MG--TAKES WITH 50 MG TAB. Myrbetriq 25 mg tablet extended release 24 hr 25 mg PO QAM furosemide [Lasix] 80 mg Tablet 40 mg PO QAM Qty: 30 0RF potassium chloride [K-Tab] 20 mEq Tablet Extended Release 20 meq PO DAILY Qty: 30 0RF Eliquis 5 mg Tablet 10 mg PO BID Qty: 60 5RF Rx Instructions: 10 mg twice a day thru 11/02 then 5 mg bid for 6 months Discharge Orders: Discharge Order (Routine); Ordered 02/28/22 Ordered By: Henry Zaman Admission Data Admit Date/Time: 02/25/22 11:23 Attending Provider: Henry Zaman Admit Provider: Earnest Zuleta Primary Care Provider: Erasmo George Other Providers: Earnest Zuleta ; [facility] Other Interventions: Discharge Summary Assessment (RN) Last Done: 02/28/22 15:52 Coding Level of Care Code D/C DAY MANAGEMENT >30 MINS Diagnoses Hypoxia R09.02 Stercoral colitis K52.89 Pulmonary embolism I26.99 Mixed stress and urge urinary incontinence N39.46 Type II diabetes mellitus E11.9 BPH (benign prostatic hyperplasia) N40.0 AI (obstructive sleep apnea) G47.33 COPD (chronic obstructive pulmonary disease) J44.9 GERD (gastroesophageal reflux disease) K21.9 Diastolic CHF I50.32 Heart failure chronicity: chronic Schizophrenia F20.9 Hypothyroidism E03.9 Hypertension I10
== END 2022-02-28 18:32 | DRG 194 ==
LOC: ED 09:12 → SUATTDRO 11:23 → EDINP 11:23 → 2S 13:00

== ENCOUNTER 2022-06-08 15:47 | Inpatient (IN) ==
[2022-06-08] MEDS ORDERED: RAPID SEQUENCE INDUCTION BAG ONE (15:54)
--- NOTE | 2022-06-08 16:11 | Emergency Department Note ---
Impression & Plan Respiratory failure, Pneumonia, Urinary tract infection ED Provider Note NAME: MARGRET SKINNER AGE: 66 SEX: M : 1955 ARRIVES VIA: Ambulance INFORMANT: EMS ED PROVIDER(S): Rinku Paiz DO CHIEF COMPLAINT: Shortness of breath HPI: The patient is a 66-year-old male who presented to the emergency department by ambulance for evaluation of shortness of breath. The patient presented from a long-term. The history is obtained solely from the prehospital personnel as the patient was obtunded and in respiratory distress. Patient was experiencing shortness of breath reportedly over the last few hours. He had escalating oxygen placed. The patient had a change in his mental status. 911 was called. The patient arrived via ambulance for further evaluation. The patient offers no complaints at this time he cannot answer questions. BiPAP was placed prior to arrival. Oxygen saturation was reportedly in the 70s. ROS: See above HPI for pertinent positives & negatives. A total of 10 systems reviewed and were otherwise negative. PAST MEDICAL HISTORY: See Below PAST SURGICAL HISTORY: See Below FAMILY HISTORY: See Below SOCIAL HISTORY: See Below HOME MEDICATIONS: See Below ALLERGIES: See Below VITALS: See Below PHYSICAL EXAMINATION: GENERAL: The patient is obtunded. He does not answer questions. EYES: The conjunctivae are clear. The pupils are round and reactive. EARS, NOSE, MOUTH AND THROAT: The nose is without any evidence of any deformity. NECK: The neck is nontender and supple. RESPIRATORY: Diminished breath sounds with rales are noted throughout. Vel- Kamara breathing was noted. CARDIOVASCULAR: Irregular and tachycardic heart sounds were noted to auscultation. GASTROINTESTINAL: The abdomen is soft. Abdomen is nontender. MUSCULOSKELETAL/EXTREMITIES: There is no evidence of gross deformity full range of motion is noted in the hips and shoulders. SKIN: Skin was cool and diaphoretic. Pedal edema was noted bilaterally. NEUROLOGIC: Patient was obtunded. He was unable to answer questions. He does not follow commands. GCS was 4. MEDICAL DECISION MAKING: The patient is an 66-year-old male who presented to the emergency department by ambulance from the long-term for an evaluation of respiratory distress. The patient was unable to give any history whatsoever. The patient was felt to be in pulmonary edema by the prehospital personnel. He was given nitroglycerin prior to arrival. He did have a slight dip in his blood pressure. Chest x-ray does not appear to be consistent with pulmonary edema. He does appear to have some degree of pneumonia on chest x-ray but also has a clear urinary tract infection. He does have a chronic indwelling Gunderson so this could be a colonized specimen. He was treated initially with empiric antibiotic but then treated with meropenem. I discussed the patient's laboratory and radiographic studies with the on-call [facility]. They have agreed to evaluate the patient in the emergency department for further management and disposition. Triage Nursing notes reviewed. Prior medical records reviewed Vital Signs: reviewed and remarkable for hypotension tachycardia and fever. Differential diagnosis: Reactive airway disease, pneumonia, pneumothorax, COPD, CHF, infections, cardiac ischemia, pulmonary embolism, musculoskeletal, gastrointestinal, as well as other pathologies. ER treatment provided: See below Diagnostics interpreted by me: ECG: EKG was obtained in the emergency department. My interpretation is ventricular paced rhythm at 102 bpm. No [place] beats were appreciated. This was compared to a tracing from February 25, 2022. No changes were noted. Cardiac Monitoring: An order was placed for continuous cardiac monitoring. The monitor shows a rate of 107 bpm with pacemaker rhythm. Laboratory studies: As stated above and show below. Imaging studies: See below. Radiographic imaging was reviewed by myself Consultation(s): I discussed this case with Dr. Rivera who is on-call for the [facility] group ED COURSE: Procedures: Central Venous Catheter Indication: Sepsis Catheter type: Triple-lumen Location: Left internal jugular Verbal consent was obtained after the risks and benefits were explained, including but not limited to pneumothorax, hemothorax, vessel injury, bleeding, scarring, infection, pain, and bone/joint/nerve damage. At this time, the risks of the procedure are less than the risks of NOT performing the procedure. A time out was taken and the correct patient and site identified. The patient was placed in the supine position and the skin was prepped in the standard fashion with chlorhexidine and full sterile drapes applied. The proper landmarks were identified with ultrasound, anesthetized with 1% lidocaine without epinephrine, and the needle was inserted through the skin in the standard fashion. The needle was carefully advanced into blood vessel lumen under ultrasound guidance. The guidewire was placed uneventfully. The vessel is dilated and the catheter was placed. It was sutured into position. There was good blood return from all ports. The patient tolerated the procedure well and there were no complicati ons. Post procedure x-ray was normal. Endotracheal Intubation Indication respiratory distress. The patient was on 100% oxygen via NRB prior to the procedure. Suction, airway equipment, RSI drugs, respiratory equipment, and appropriate personnel were prepared prior to the initiation of the procedure. A time out was taken. Induction was performed with ketamine. After observing the clinical benefit of the medications, the airway was easily visualized utilizing a glide scope. A 7.5 size ETT tube was placed atraumatically to 24 cm using standard technique. The cuff inflated without signs of malfunction. There were bilateral breath sounds, positive colormetric change, no gastric sounds, a good capnography waveform, and post procedure pulse oximetry was 99%. Post intubation sedation and paralysis was administered using propofol. There were no complications. Critical Care: I have personally spent greater than 65 minutes of critical care time in the direct management of this patient. This includes bedside care, interpretation of diagnostic studies, and testing, discussion with consultants, patient, and family members, and other required patient management activities. This 65 minutes is in excess of all separately billable procedures. Past Med/Surg History Medical History Anxiety and depression Chest pain Constipation COPD (chronic obstructive pulmonary disease) Disorder of prostate Dysphagia Esophagitis GERD (gastroesophageal reflux disease) Heart failure Hyperlipidemia Hypertension Hypomagnesemia Hypothyroidism Morbid obesity Multifocal pneumonia Muscle weakness Obstructive sleep apnea O2 at 2L n/c at HS and prn if pulse ox is less than 90% Osteoporosis Paranoid schizophrenia Stercoral colitis Type 2 diabetes mellitus Unspecified abnormalities of gait and mobility Surgical History Surgical history unknown Social History Smoking Status: Unknown if ever smoked Tobacco Type: Cigarettes Second Hand Exposure: No; Hx Alcohol Use: Yes Hx Substance Use: Yes Preferred Language: Malay Communication Ability: Effective Communication Ability Comment: pt is able to sign own consents Patient Care Provider Required: No Beliefs That Will Affect Care: None marital status: Single Current Living Situation: Detention Current Living Situation Comment: [facility] current occupational status: retired Feels Safe at Home: Yes Assistive Devices: Wheelchair Allergies Allergies Allergy/AdvReac Type Severity Reaction Status Date / Time Penicillins Allergy Unknown on [facility] Verified 06/05/22 14:02 of [facility] med list Home Meds Home Medications Medication Instructions Recorded Confirmed atorvastatin 10 mg tablet (Lipitor) 10 mg PO HS 08/28/20 06/08/22 clozapine 100 mg tablet (Clozaril) 100 mg PO Q12 08/28/20 06/08/22 ergocalciferol (vitamin D2) 1,250 1,250 mcg PO WK 08/28/20 06/08/22 mcg (50,000 unit) capsule (Vitamin D2) ferrous sulfate 325 mg (65 mg 325 mg PO DAILY 08/28/20 06/05/22 iron) tablet (FeroSul) fluticasone furoate 100 1 inh inhalation DAILY 08/28/20 06/05/22 mcg-vilanterol 25 mcg/dose inhalation powder (Breo Ellipta) insulin aspart U-100 100 unit/mL See Rx Instructions .Route .COMPLEX 08/28/20 06/05/22 subcutaneous solution (Novolog U-100 Insulin aspart) linaclotide 290 mcg capsule 290 mcg PO QAM 08/28/20 06/05/22 (Linzess) insulin glargine 100 unit/mL (3 27 unit subcut HS 10/07/20 06/05/22 mL) subcutaneous pen (Basaglar KwikPen U-100 Insulin) multivitamin (Daily Multi-Vitamin 1 tab PO DAILY 10/07/20 06/05/22 tablet) magnesium hydroxide 400 mg/5 mL 30 ml PO DAILY PRN Constipation 12/27/20 06/05/22 oral suspension (Milk of Magnesia) docusate sodium 100 mg capsule 100 mg PO BID 02/09/21 06/05/22 liraglutide 0.6 mg/0.1 mL (18 mg/3 1.8 mg subcut DAILY 02/09/21 06/05/22 mL) subcutaneous pen injector tamsulosin 0.4 mg capsule 0.4 mg PO DAILYBD 02/09/21 06/08/22 levothyroxine 125 mcg tablet 125 mcg PO DAILYBB 03/06/21 06/05/22 polyethylene glycol 3350 17 17 g PO BID 03/06/21 06/05/22 gram/dose oral powder (Miralax) acetaminophen 325 mg tablet 325 mg PO Q6H PRN FEVER/PAIN 10/10/21 06/08/22 (Tylenol) sertraline 100 mg tablet 150 mg PO QAM 06/05/22 06/05/22 cyclobenzaprine 10 mg tablet 10 mg PO HS 06/08/22 06/08/22 fluticasone 250 mcg-salmeterol 50 1 inh inhalation BID 06/08/22 06/08/22 mcg/dose blistr powdr for inhalation Previous Rx's Medication Instructions Recorded magnesium oxide 400 mg (241.3 mg 400 mg PO QAM #30 tabs 10/11/20 magnesium) tablet apixaban 5 mg tablet (Eliquis) 10 mg PO BID #60 tabs 10/28/21 furosemide 80 mg tablet (Lasix) 40 mg PO QAM #30 tabs 10/28/21 potassium chloride 20 mEq 20 meq PO DAILY #30 tabs 10/28/21 tablet,extended release (K-Tab) omeprazole 40 mg capsule,delayed 40 mg PO DAILY #30 caps 12/12/21 release cyclobenzaprine 5 mg tablet 5 mg PO TID PRN muscle spasm #20 02/28/22 tabs lactulose 10 gram/15 mL (15 mL) 20 g (30 mL) PO TID PRN 02/28/22 oral solution constipation #1,440 mL polyethylene glycol 3350 17 4 g PO DAILY #119 grams 02/28/22 gram/dose oral powder (Miralax) Results & Data (ED) Vital Signs Vital Signs - 24 hr 06/08/22 16:10 06/08/22 16:20 06/08/22 16:20 Temperature 38.3 C H Temperature Source Gunderson Cath ( Temp Sensing) Pulse Rate 93 H 91 H Pulse Rate [Right Finger] 91 H Respiratory Rate 18 21 Blood Pressure 135/67 Blood Pressure [Right Arm] 126/56 L Blood Pressure Mean 89 Blood Pressure Mean [Right Arm] 79 Pulse Oximetry 97 99 98 Oxygen Delivery Method Mechanical Vent Mechanical Vent Fraction of Inspired Oxygen 100 Sepsis Recent Fever Within 48 Hours No Sepsis New/Unexplained Change in Mental Status Yes Sepsis Action Taken by Nursing No Action Required End-Tidal CO2 38 06/08/22 16:20 06/08/22 16:26 06/08/22 15:57 Temperature Temperature Source Pulse Rate 95 H 103 H Pulse Rate [Right Finger] Respiratory Rate Blood Pressure Blood Pressure [Right Arm] Blood Pressure Mean Blood Pressure Mean [Right Arm] Pulse Oximetry 98 100 Oxygen Delivery Method Mechanical Vent Fraction of Inspired Oxygen Sepsis Recent Fever Within 48 Hours Sepsis New/Unexplained Change in Mental Status Sepsis Action Taken by Nursing End-Tidal CO2 06/08/22 15:57 06/08/22 16:00 06/08/22 16:05 Temperature Temperature Source Pulse Rate 79 95 H Pulse Rate [Right Finger] Respiratory Rate 16 16 Blood Pressure 113/86 Blood Pressure [Right Arm] Blood Pressure Mean 95 Blood Pressure Mean [Right Arm] Pulse Oximetry 100 96 Oxygen Delivery Method Fraction of Inspired Oxygen Sepsis Recent Fever Within 48 Hours Sepsis New/Unexplained Change in Mental Status Sepsis Action Taken by Nursing End-Tidal CO2 43 06/08/22 16:05 06/08/22 16:10 06/08/22 16:11 Temperature Temperature Source Pulse Rate 89 85 Pulse Rate [Right Finger] Respiratory Rate 16 16 Blood Pressure 171/87 H Blood Pressure [Right Arm] Blood Pressure Mean 115 Blood Pressure Mean [Right Arm] Pulse Oximetry 97 Oxygen Delivery Method Fraction of Inspired Oxygen Sepsis Recent Fever Within 48 Hours Sepsis New/Unexplained Change in Mental Status Sepsis Action Taken by Nursing End-Tidal CO2 43 45 06/08/22 16:11 06/08/22 16:15 06/08/22 16:15 Temperature Temperature Source Pulse Rate 93 H Pulse Rate [Right Finger] Respiratory Rate 16 Blood Pressure 135/67 128/56 L Blood Pressure [Right Arm] Blood Pressure Mean 89 80 Blood Pressure Mean [Right Arm] Pulse Oximetry 97 Oxygen Delivery Method Fraction of Inspired Oxygen Sepsis Recent Fever Within 48 Hours Sepsis New/Unexplained Change in Mental Status Sepsis Action Taken by Nursing End-Tidal CO2 45 06/08/22 16:20 06/08/22 16:20 06/08/22 16:25 Temperature 38.1 C H 38.5 C H Temperature Source Pulse Rate 91 H 91 H Pulse Rate [Right Finger] Respiratory Rate 16 16 Blood Pressure 126/56 L Blood Pressure [Right Arm] Blood Pressure Mean 79 Blood Pressure Mean [Right Arm] Pulse Oximetry 98 98 Oxygen Delivery Method Fraction of Inspired Oxygen Sepsis Recent Fever Within 48 Hours Sepsis New/Unexplained Change in Mental Status Sepsis Action Taken by Nursing End-Tidal CO2 44 45 06/08/22 16:25 06/08/22 16:30 06/08/22 16:30 Temperature 38.7 C H Temperature Source Pulse Rate 90 Pulse Rate [Right Finger] Respiratory Rate 16 Blood Pressure 134/57 L 129/59 L Blood Pressure [Right Arm] Blood Pressure Mean 82 82 Blood Pressure Mean [Right Arm] Pulse Oximetry 98 Oxygen Delivery Method Fraction of Inspired Oxygen Sepsis Recent Fever Within 48 Hours Sepsis New/Unexplained Change in Mental Status Sepsis Action Taken by Nursing End-Tidal CO2 45 06/08/22 16:36 06/08/22 16:36 06/08/22 17:42 Temperature 38.8 C H 38.8 C H Temperature Source Gunderson Cath ( Temp Sensing) Pulse Rate 94 H Pulse Rate [Right Finger] 107 H Respiratory Rate 16 Blood Pressure 133/58 L Blood Pressure [Right Arm] 99/56 L Blood Pressure Mean 83 Blood Pressure Mean [Right Arm] 70 Pulse Oximetry 98 97 Oxygen Delivery Method Mechanical Vent Fraction of Inspired Oxygen Sepsis Recent Fever Within 48 Hours Sepsis New/Unexplained Change in Mental Status Sepsis Action Taken by Nursing End-Tidal CO2 46 Home Medications Current Medication List: was personally reviewed by me Laboratory Data Attestation: I reviewed the patient's lab results. 06/08/22 16:12 06/08/22 16:12 Lab Results 06/08/22 06/08/22 06/08/22 Range/Units 16:12 16:12 16:12 WBC 22.73 H (4.8-10.8) K/ul RBC 5.38 (4.70-6.10) M/uL Hgb 16.0 (14.0-18.0) g/dl Hct 49.0 (42.0-52.0) % MCV 91.1 (80.0-100.0) fL MCH 29.7 (25.0-34.0) pg MCHC 32.7 (32.0-36.0) g/dL RDW Std Deviation 44.7 (36.4-46.3) fL RDW Coeff of Shireen 13.4 (11.5-14.5) % Plt Count 295 (130-400) K/uL MPV 12.7 H (9.4-12.4) fL Immature Gran % (Auto) 0.8 % Neut % (Auto) 88.0 % Lymph % (Auto) 4.4 % [place] % (Auto) 6.1 % Eos % (Auto) 0.1 % Baso % (Auto) 0.6 % Neut # (Auto) 20.01 H (1.40-6.50) K/uL Lymph # (Auto) 1.01 L (1.2-3.4) K/uL [place] # (Auto) 1.38 H (0.11-0.59) K/uL Eos # (Auto) 0.02 (0-0.50) K/uL Baso # (Auto) 0.13 (0-0.2) K/uL Immature Gran # (Auto) 0.18 (0.01-0.20) K/uL PT (9.0-12.0) Seconds INR (0.9-1.1) APTT (21.0-31.0) Seconds PTT Ratio Sodium 135 L (136-145) mmol/L Potassium 5.1 (3.5-5.1) mmol/L Chloride 97 L (98-107) mmol/L Carbon Dioxide 24 (21-32) mmol/L Anion Gap 14 H (3-11) BUN 35 H (6-23) mg/dl Creatinine 1.42 H (0.6-1.4) mg/dl Est Cr Clr Drug Dosing 66.9 ml/min Est GFR ( Amer) 58.4 ml/min Est GFR (Non-Af Amer) 50.4 ml/min BUN/Creatinine Ratio 24.6 H (10-20) Glucose 221 H (70-99(Fasting)) mg/dl Lactate 2.8 H* (0.4-2.0) mmol/L Calcium 9.0 (8.6-10.3) mg/dl Magnesium 2.4 (1.7-2.4) mg/dl Total Bilirubin 0.5 (0.2-1.0) mg/dl Direct Bilirubin TNP AST 26 (13-39) U/L ALT 19 (7-52) U/L Alkaline Phosphatase 117 H (34-104) U/L Troponin I High Sens 22.1 H (0-20) pg/ml B-Natriuretic Peptide (0-100) pg/ml Total Protein 6.9 (6.0-8.3) gm/dl Albumin 3.6 (3.4-5.0) gm/dl Procalcitonin Urine Color Urine Appearance (Clear) Urine pH (4.5-7.5) Ur Specific [place] (1.000-1.030) Urine Protein (Negative) Urine Glucose (UA) (Negative) Urine Ketones (Negative) Urine Blood (Negative) Urine Nitrite (Negative) Urine Bilirubin (Negative) Urine Urobilinogen (Negative) Ur Leukocyte Esterase (Negative) Urine WBC (Auto) (0-5) /hpf Urine RBC (Auto) (0-4) /hpf U Hyaline Cast (Auto) (0-5) /lpf U Epithel Cells (Auto) (0-5) /lpf Urine Bacteria (Auto) (Negative) Urine Yeast SARS-CoV-2 (PCR) (Negative) Influenza Type A (PCR) (Neg) Influenza Type B (PCR) (Neg) RSV (RT-PCR) (Neg) 06/08/22 06/08/22 06/08/22 Range/Units 16:12 16:12 16:12 WBC (4.8-10.8) K/ul RBC (4.70-6.10) M/uL Hgb (14.0-18.0) g/dl Hct (42.0-52.0) % MCV (80.0-100.0) fL MCH (25.0-34.0) pg MCHC (32.0-36.0) g/dL RDW Std Deviation (36.4-46.3) fL RDW Coeff of Shireen (11.5-14.5) % Plt Count (130-400) K/uL MPV (9.4-12.4) fL Immature Gran % (Auto) % Neut % (Auto) % Lymph % (Auto) % [place] % (Auto) % Eos % (Auto) % Baso % (Auto) % Neut # (Auto) (1.40-6.50) K/uL Lymph # (Auto) (1.2-3.4) K/uL [place] # (Auto) (0.11-0.59) K/uL Eos # (Auto) (0-0.50) K/uL Baso # (Auto) (0-0.2) K/uL Immature Gran # (Auto) (0.01-0.20) K/uL PT 11.5 (9.0-12.0) Seconds INR 1.1 (0.9-1.1) APTT 31.9 H (21.0-31.0) Seconds PTT Ratio 1.2 Sodium (136-145) mmol/L Potassium (3.5-5.1) mmol/L Chloride (98-107) mmol/L Carbon Dioxide (21-32) mmol/L Anion Gap (3-11) BUN (6-23) mg/dl Creatinine (0.6-1.4) mg/dl Est Cr Clr Drug Dosing ml/min Est GFR ( Amer) ml/min Est GFR (Non-Af Amer) ml/min BUN/Creatinine Ratio (10-20) Glucose (70-99(Fasting)) mg/dl Lactate (0.4-2.0) mmol/L Calcium (8.6-10.3) mg/dl Magnesium (1.7-2.4) mg/dl Total Bilirubin (0.2-1.0) mg/dl Direct Bilirubin AST (13-39) U/L ALT (7-52) U/L Alkaline Phosphatase (34-104) U/L Troponin I High Sens (0-20) pg/ml B-Natriuretic Peptide 88 (0-100) pg/ml Total Protein (6.0-8.3) gm/dl Albumin (3.4-5.0) gm/dl Procalcitonin Cancelled Urine Color Urine Appearance (Clear) Urine pH (4.5-7.5) Ur Specific [place] (1.000-1.030) Urine Protein (Negative) Urine Glucose (UA) (Negative) Urine Ketones (Negative) Urine Blood (Negative) Urine Nitrite (Negative) Urine Bilirubin (Negative) Urine Urobilinogen (Negative) Ur Leukocyte Esterase (Negative) Urine WBC (Auto) (0-5) /hpf Urine RBC (Auto) (0-4) /hpf U Hyaline Cast (Auto) (0-5) /lpf U Epithel Cells (Auto) (0-5) /lpf Urine Bacteria (Auto) (Negative) Urine Yeast SARS-CoV-2 (PCR) (Negative) Influenza Type A (PCR) (Neg) Influenza Type B (PCR) (Neg) RSV (RT-PCR) (Neg) 06/08/22 06/08/22 Range/Units 16:15 16:58 WBC (4.8-10.8) K/ul RBC (4.70-6.10) M/uL Hgb (14.0-18.0) g/dl Hct (42.0-52.0) % MCV (80.0-100.0) fL MCH (25.0-34.0) pg MCHC (32.0-36.0) g/dL RDW Std Deviation (36.4-46.3) fL RDW Coeff of Shireen (11.5-14.5) % Plt Count (130-400) K/uL MPV (9.4-12.4) fL Immature Gran % (Auto) % Neut % (Auto) % Lymph % (Auto) % [place] % (Auto) % Eos % (Auto) % Baso % (Auto) % Neut # (Auto) (1.40-6.50) K/uL Lymph # (Auto) (1.2-3.4) K/uL [place] # (Auto) (0.11-0.59) K/uL Eos # (Auto) (0-0.50) K/uL Baso # (Auto) (0-0.2) K/uL Immature Gran # (Auto) (0.01-0.20) K/uL PT (9.0-12.0) Seconds INR (0.9-1.1) APTT (21.0-31.0) Seconds PTT Ratio Sodium (136-145) mmol/L Potassium (3.5-5.1) mmol/L Chloride (98-107) mmol/L Carbon Dioxide (21-32) mmol/L Anion Gap (3-11) BUN (6-23) mg/dl Creatinine (0.6-1.4) mg/dl Est Cr Clr Drug Dosing ml/min Est GFR ( Amer) ml/min Est GFR (Non-Af Amer) ml/min BUN/Creatinine Ratio (10-20) Glucose (70-99(Fasting)) mg/dl Lactate (0.4-2.0) mmol/L Calcium (8.6-10.3) mg/dl Magnesium (1.7-2.4) mg/dl Total Bilirubin (0.2-1.0) mg/dl Direct Bilirubin AST (13-39) U/L ALT (7-52) U/L Alkaline Phosphatase (34-104) U/L Troponin I High Sens (0-20) pg/ml B-Natriuretic Peptide (0-100) pg/ml Total Protein (6.0-8.3) gm/dl Albumin (3.4-5.0) gm/dl Procalcitonin Urine Color [place] Urine Appearance Turbid A (Clear) Urine pH 5.0 (4.5-7.5) Ur Specific [place] 1.027 (1.000-1.030) Urine Protein 2+ H (Negative) Urine Glucose (UA) Negative (Negative) Urine Ketones Trace H (Negative) Urine Blood 3+ H (Negative) Urine Nitrite Positive A (Negative) Urine Bilirubin 2+ H (Negative) Urine Urobilinogen Negative (Negative) Ur Leukocyte Esterase 3+ H (Negative) Urine WBC (Auto) >30 H (0-5) /hpf Urine RBC (Auto) 10-30 H (0-4) /hpf U Hyaline Cast (Auto) 0 (0-5) /lpf U Epithel Cells (Auto) >30 H (0-5) /lpf Urine Bacteria (Auto) 2+ H (Negative) Urine Yeast Not Reportable SARS-CoV-2 (PCR) NEGATIVE (Negative) Influenza Type A (PCR) Negative (Neg) Influenza Type B (PCR) Negative (Neg) RSV (RT-PCR) Negative (Neg) Administered Medications Meropenem 1,000 mg/ Syringe 20 mls @ 2 mls/min IV Q8H [facility]; Protocol Stop: 06/10/22 17:29 Last Admin: 06/08/22 17:59 Dose: 2 mls/min Documented By: ANTONIO Discontinued Medications Ceftriaxone Sodium (Rocephin) 2,000 mg in 70 mls @ 140 mls/hr IV NOW STA Stop: 06/08/22 17:03 Last Infusion: 06/08/22 18:04 Dose: 0 mls/hr Documented By: Admin: 06/08/22 17:05 Dose: 140 mls/hr Documented By: MES Sodium Chloride (Nss 1000ml) 1,000 mls @ 999 mls/hr IV .Q1H1M ONE Stop: 06/08/22 17:41 Last Admin: 06/08/22 17:06 Dose: 999 mls/hr Documented By: MES Sodium Chloride (Nss 1000ml) 1,000 mls @ 999 mls/hr IV .Q1H1M ONE Stop: 06/08/22 18:26 Last Admin: 06/08/22 18:06 Dose: 999 mls/hr Documented By: ANTONIO Miscellaneous (Rapid Sequence Induction Bag) Confirm Administered Dose 1 each N/A .STK-MED ONE Stop: 06/08/22 15:55 Last Admin: 06/08/22 16:38 Dose: 1 each Documented By: ANTONIO Propofol (Propofol Iv Emulsion 10 Mg/Ml 100 Ml Vial) Confirm Administered Dose 1,000 mg IV .STK-MED ONE Stop: 06/08/22 17:56 Last Admin: 06/08/22 17:58 Dose: Not Given Documented By: ANTONIO Imaging Data Attestation: I personally reviewed and interpreted this imaging study as follows: My Impression: Chest x-ray was obtained in the emergency department. My interpretation is endotracheal tube was noted, no definite trait, final report below. Radiologist's Impression: Chest X-Ray 06/08/22 15:48 SUPINE PORTABLE AP CHEST RADIOGRAPH CLINICAL HISTORY: Sepsis. COMPARISON STUDY: Chest CT October 23, 2021. Chest radiograph February 25, 2022. FINDINGS: This exam is compromised by portable supine technique and suboptimal penetration. Tip of endotracheal tube is 3 cm above the anoop. A left subcl jeny pacer remains in place. No pneumothorax is identified on this supine exam. Cardiomediastinal silhouette is stable. Elevation of the right hemidiaphragm is again noted. Right hilar prominence is likely due to pulmonary vessels. Airspace opacity could appear similar. There are subtle interstitial thickening. IMPRESSION: 1. Tip of endotracheal tube 3 cm above the anoop. 2. No pneumothorax on supine exam. 3. Nonspecific interstitial thickening within the lungs. Equivocal perihilar opacities. ACT 112: Negative or not required by law. Electronically signed by: Ramiro Mcpherson M.D. 06/08/2022 4:25 PM Discharge Plan Visit Data Chief Complaint: Respiratory Distress ED Provider: Rinku Paiz Discharge Problem: Respiratory failure, Pneumonia, Urinary tract infection Patient Disposition: Being Evaluated by Hospitalist Forms Stand Alone Forms: My [facility] Prescriptions Prescriptions: No Action magnesium hydroxide [Milk of Magnesia] 400 mg/5 mL suspension 30 ml PO DAILY PRN (Reason: Constipation) omeprazole 40 mg capsule,delayed release(DR/EC) 40 mg PO DAILY Qty: 30 2RF multivitamin [Daily Multi-Vitamin] Tablet 1 tab PO DAILY insulin glargine [Basaglar KwikPen U-100 Insulin] 100 unit/mL (3 mL) insulin pen 27 unit SUBCUT HS magnesium oxide 400 mg (241.3 mg magnesium) Tablet 400 mg PO QAM Qty: 30 0RF polyethylene glycol 3350 [Miralax] 17 gram/dose powder 4 g PO DAILY Qty: 119 0RF lactulose 10 gram/15 mL (15 mL) solution 20 g PO TID PRN (Reason: constipation) Qty: 1440 0RF cyclobenzaprine 5 mg tablet 5 mg PO TID PRN (Reason: muscle spasm) Qty: 20 0RF ferrous sulfate [FeroSul] 325 mg (65 mg iron) tablet 325 mg PO DAILY atorvastatin [Lipitor] 10 mg Tablet 10 mg PO HS clozapine [Clozaril] 100 mg Tablet 100 mg PO Q12 ergocalciferol (vitamin D2) [Vitamin D2] 1,250 mcg (50,000 unit) capsule 1,250 mcg PO WK Rx Instructions: GIVE THIS MED EVERY FRIDAY Linzess 290 mcg Capsule 290 mcg PO QAM insulin aspart U-100 [Novolog U-100 Insulin aspart] 100 unit/mL Solution See Rx Instructions .ROUTE .COMPLEX Rx Instructions: TAKES 12 UNITS WITH BREAKFAST, 8 UNITS WITH LUNCH & DINNER. fluticasone furoate-vilanterol [Breo Ellipta] 100-25 mcg/dose Blister With Device 1 inh INHALATION DAILY tamsulosin 0.4 mg Capsule 0.4 mg PO DAILYBD Rx Instructions: TAKE DAILY AT 1600 docusate sodium 100 mg Capsule 100 mg PO BID liraglutide 0.6 mg/0.1 mL (18 mg/3 mL) Pen Injector 1.8 mg SUBCUT DAILY levothyroxine 125 mcg Tablet 125 mcg PO DAILYBB polyethylene glycol 3350 [Miralax] 17 gram/dose Powder 17 g PO BID acetaminophen [Tylenol] 325 mg Tablet 325 mg PO Q6H MDD 3 GRAMS/24 HOURS PRN (Reason: FEVER/PAIN) sertraline 100 mg tablet 150 mg PO QAM furosemide [Lasix] 80 mg Tablet 40 mg PO QAM Qty: 30 0RF potassium chloride [K-Tab] 20 mEq Tablet Extended Release 20 meq PO DAILY Qty: 30 0RF Eliquis 5 mg Tablet 10 mg PO BID Qty: 60 5RF Rx Instructions: 10 mg twice a day thru 11/02 then 5 mg bid for 6 months cyclobenzaprine 10 mg tablet 10 mg PO HS fluticasone propion-salmeterol 250-50 mcg/dose blister with device 1 inh INHALATION BID Referrals Referrals: Erasmo George [Primary Care Provider] - Respiratory failure Qualifiers: Chronicity: acute Respiratory failure complication: hypoxia Qualified Code(s): J96.01 - Acute respiratory failure with hypoxia Pneumonia Qualifiers: Pneumonia type: due to unspecified organism Laterality: unspecified laterality Lung location: unspecified part of lung Qualified Code(s): J18.9 - Pneumonia, unspecified organism Urinary tract infection Qualifiers: Urinary tract infection type: catheter-associated UTI Indwelling urinary catheter type: indwelling urethral catheter Encounter type: initial encounter Qualified Code(s): T83.511A - Infection and inflammatory reaction due to indwelling urethral catheter, initial encounter
--- NOTE | 2022-06-08 16:27 | XRay Report ---
SUPINE PORTABLE AP CHEST RADIOGRAPH CLINICAL HISTORY: Sepsis. COMPARISON STUDY: Chest CT October 23, 2021. Chest radiograph February 25, 2022. FINDINGS: This exam is compromised by portable supine technique and suboptimal penetration. Tip of en dotracheal tube is 3 cm above the anoop. A left subclavian pacer remains in place. No pneumothorax i s identified on this supine exam. Cardiomediastinal silhouette is stable. Elevation of the right joce diaphragm is again noted. Right hilar prominence is likely due to pulmonary vessels. Airspace opacity could appear similar. There are subtle interstitial thickening. IMPRESSION: 1. Tip of endotracheal tube 3 cm above the anoop. 2. No pneumothorax on supine exam. 3. Nonspecific interstitial thickening within the lungs. Equivocal perihilar opacities. ACT 112: Negative or not required by law. Electronically signed by: Ramiro Mcpherson M.D. 06/08/2022 4:25 PM
[2022-06-08] MEDS ORDERED: cefTRIAXone SODIUM 2,000 MG/70 ML BAG IV STA (16:34)
[2022-06-08 16:38] LABS: Mean Corpuscular Hemoglobin 29.7 pg (25.0-34.0); Mean Corpuscular Hgb Conc 32.7 g/dL (32.0-36.0); Mean Corpuscular Volume 91.1 fL (80.0-100.0); Mean Platelet Volume 12.7 fL (9.4-12.4); Platelet Count 295 K/uL (130-400); RDW Coefficient of Variation 13.4 % (11.5-14.5); RDW Standard Deviation 44.7 fL (36.4-46.3); Red Blood Count 5.38 M/uL (4.70-6.10); White Blood Count 22.73 K/ul (4.8-10.8)
[2022-06-08] MEDS ORDERED: SODIUM CHLORIDE 0.9% 1000ML 1,000 ML IV ONE ×3 (16:41→18:30)
[2022-06-08] MEDS ORDERED: ROCURONIUM BROMIDE 10 MG/ML 5 ML VIAL IV ONE (16:44)
[2022-06-08] MEDS ORDERED: KETAMINE HCL INJ 50 MG/ML 10 ML VIAL IV ONE (16:44)
[2022-06-08 17:00] LABS: Basophils # (auto) 0.13 K/uL (0-0.2); Basophils % (auto) 0.6 %; Eosinophils # (auto) 0.02 K/uL (0-0.50); Eosinophils % (auto) 0.1 %; Immature Granulocytes # (auto) 0.18 K/uL (0.01-0.20); Immature Granulocytes % (auto) 0.8 %; Lymphocytes # (auto) 1.01 K/uL (1.2-3.4); Lymphocytes % (auto) 4.4 %; Monocytes # (auto) 1.38 K/uL (0.11-0.59); Monocytes % (auto) 6.1 %; Neutrophils # (auto) 20.01 K/uL (1.40-6.50)
[2022-06-08 17:10] LABS: INR 1.1 (0.9-1.1); Partial Thromboplastin Ratio 1.2; Partial Thromboplastin Time 31.9 Seconds (21.0-31.0); Prothrombin Time 11.5 Seconds (9.0-12.0)
[2022-06-08 17:11] LABS: Alanine Aminotransferase 19 U/L (7-52); Albumin Level 3.6 gm/dl (3.4-5.0); Alkaline Phosphatase 117 U/L (34-104); Anion Gap 14 (3-11); Aspartate Aminotransferase 26 U/L (13-39); BUN Creatinine Ratio 24.6 (10-20); Bilirubin,Total 0.5 mg/dl (0.2-1.0); Blood Urea Nitrogen 35 mg/dl (6-23); Carbon Dioxide 24 mmol/L (21-32); Chloride 97 mmol/L (98-107); Creatinine Clr Calc Pharmacy 66.9 ml/min; Est GFR (African American) 58.4 ml/min; Est GFR (Non-African American) 50.4 ml/min; Glucose 221 mg/dl (70-99(Fasting)); Magnesium 2.4 mg/dl (1.7-2.4); Potassium 5.1 mmol/L (3.5-5.1); Sodium 135 mmol/L (136-145); Total Protein 6.9 gm/dl (6.0-8.3); Troponin I High Sensitivity 22.1 pg/ml (0-20)
[2022-06-08 17:11] LABS: Influenza A virus by PCR Negative (Neg); Influenza B virus by PCR Negative (Neg); RSV by PCR Negative (Neg); SARS CoV2 RNA(COVID-19) Ceph NEGATIVE (Negative)
[2022-06-08 17:12] LABS: Appearance Urine Turbid (Clear); Blood Urine 3+ (Negative); Color Urine Orange; Epithelial Cell Urine Auto >30 /lpf (0-5); Glucose Urine UA Negative (Negative); Ketones Urine Trace (Negative); Leukocyte Esterase Urine 3+ (Negative); Nitrite Urine Positive (Negative); Protein Urine 2+ (Negative); Specific Gravity Urine 1.027 (1.000-1.030); Urobilinogen Urine Negative (Negative); WBC Urine Automated >30 /hpf (0-5)
[2022-06-08 17:14] LABS: Bilirubin Urine 2+ (Negative)
[2022-06-08 17:39] LABS: Bacteria Urine Automated 2+ (Negative); Cast Urine Automated 0 /lpf (0-5)
[2022-06-08] MEDS ORDERED: PROPOFOL BOLUS FROM BAG IV PRN (17:54)
[2022-06-08] MEDS ORDERED: STAT IV Infusion **Titration per Protocol STA (17:54)
[2022-06-08] MEDS ORDERED: PROPOFOL IV EMULSION 10 MG/ML 100 ML VIAL IV ONE (17:55)
[2022-06-08] MEDS: MEROPENEM 1,000 MG in SYRINGE 0 ML IV SCH (17:59)
--- NOTE | 2022-06-08 18:13 | History & Physical Report ---
Date of Service June 08, 2022 Assessment & Plan (1) Sepsis: Plan: Suspected sepsis with elevated WBC, procalcitonin pending. Most likely urinary source given chronic harrison catheter use. CT A/P w/wo IV contrast to assess colitis and r/o nephrolithiasis contributing (2) Acute respiratory failure with hypoxia: Plan: Patient arrived via EMS and obtunded on CPAP therefore intubated in the ER CT for PE given recent history of this and off anticoguation ABG pending (3) Altered mental state: Plan: Suspect secondary to sepsis as above. CT head pending (4) Right leg swelling: Plan: Suspect DVT, consider US venous doppler if CT for PE negative. (5) Type II diabetes mellitus: Plan: HbA1C 5.8 in May Managed with insulin outpatient Lantus 27 units HS Consult pharmacy for glycemic control while here (6) AI (obstructive sleep apnea): Plan: Noted history of this Does not wear CPAP at night but usually on 2LPM O2 (7) Urinary retention: Plan: Chronic harrison catheter use. Changed in ER and UA sent after change of catheter. Managed by urology as outpatient with plans of eventual voiding trial. (8) Schizophrenia: Plan: Holding clozapine and sertraline due to altered mental state (9) Diastolic CHF: Plan: History of this but no repeated hospitalizations and suspect more dietary related vs. venous stasis No pulmonary edema on CXR Holding furosemide due to hypotension. Plan VTE Prophylaxis - pending CT for PE Diet - NPO Disposition - admit to ICU Admission and Anticipated Discharge Date Admission Date: June 08, 2022 History of Present Illness Chief Complaint: Obtundation, shortness of breath Primary Care Provider: [facility] Aly Pompa is a 66 year old male with chronic harrison catheter, stercoral colitis, recurrent SBO, CHF and pulmonary emboli (diagnosed 10/22) who presents to the ER with shortness of breath and obtundation. Unable to get any history from patient due to intubation and mechanical ventilation. Currently not on any active sedation. Discussed history with Marta ESPINOSA who sent patient to the ER from [facility]. Patient was having problems with abdominal distension for the last week with concerns of fecal impaction given history of this. His bowel regimen was increased with daily soap suds enemas. Reportedly had 2 extra large bowel movements today. Other than this he was his normal self up until noon today. Before he had lunch he became suddenly more short of breath with audible upper airway congestion, he looked more ashen with cyanotic fingers. Initially O2 sats 88% but he did not have his oxygen on. He normally wears 2LPM O2 at night but for the last 1-2 weeks. O2 saturation became quickly worse to 66% therefore EMS was called. Initially concern for possible CHF and he was given nitroglycerin on route which caused hypotension. Due to obtundation he was intubated in the ER. He has a recent history of pulmonary emboli in October 2021 treated initially with Eliquis. Anticoagulation was discontinued presumably because he had 3-6 months of treatment - he is currently not on anticoagulation. Baseline he is bed bound. Usually alert and orientated x3 but has tangential speech and far fetched stories due to his underlying schizophrenia. Per [employer] EHR; [facility] acts as his legal guardian however unable to confirm this with the RN at [facility] at this time. Teresa Herbert listed as emergency contact on longterm notes [phone] - informed of his admission but she doesn't have any official POA paperwork. Allergies Allergy/AdvReac Type Severity Reaction Status Date / Time Penicillins Allergy Unknown on [facility] Verified 06/08/22 19:36 of [facility] med list Home Medications Medication Instructions Recorded Confirmed Type atorvastatin 10 mg tablet (Lipitor) 10 mg PO HS 08/28/20 06/08/22 History clozapine 100 mg tablet (Clozaril) 100 mg PO Q12 08/28/20 06/08/22 History ergocalciferol (vitamin D2) 1,250 1,250 mcg PO WK 08/28/20 06/08/22 History mcg (50,000 unit) capsule (Vitamin D2) linaclotide 290 mcg capsule 290 mcg PO QAM 08/28/20 06/08/22 History (Linzess) magnesium oxide 400 mg (241.3 mg 400 mg PO QAM #30 tabs 10/11/20 06/08/22 Rx magnesium) tablet liraglutide 0.6 mg/0.1 mL (18 mg/3 1.8 mg subcut DAILY 02/09/21 06/08/22 History mL) subcutaneous pen injector tamsulosin 0.4 mg capsule 0.4 mg PO DAILYBD 02/09/21 06/08/22 History levothyroxine 125 mcg tablet 125 mcg PO DAILYBB 03/06/21 06/08/22 History acetaminophen 325 mg tablet 325 mg PO Q6H PRN FEVER/PAIN 10/10/21 06/08/22 History (Tylenol) furosemide 80 mg tablet (Lasix) 40 mg PO QAM #30 tabs 10/28/21 06/08/22 Rx potassium chloride 20 mEq 20 meq PO DAILY #30 tabs 10/28/21 06/08/22 Rx tablet,extended release (K-Tab) sertraline 100 mg tablet 100 mg PO QAM 06/05/22 06/08/22 History cyclobenzaprine 10 mg tablet 10 mg PO HS 06/08/22 06/08/22 History gabapentin 300 mg capsule 300 mg PO TID 06/08/22 06/08/22 History insulin glargine 100 unit/mL (3 27 unit subcut HS 06/08/22 06/08/22 History mL) subcutaneous pen (Lantus Solostar U-100 Insulin) insulin lispro 100 unit/mL 10 unit subcut QAM 06/08/22 06/08/22 History subcutaneous pen (Humalog KwikPen (U-100) Insulin) insulin lispro 100 unit/mL 12 unit subcut BID 06/08/22 06/08/22 History subcutaneous pen (Humalog KwikPen (U-100) Insulin) lactulose 10 gram/15 mL (15 mL) 30 g PO TID PRN constipation 06/08/22 06/08/22 History oral solution omeprazole 40 mg capsule,delayed 40 mg PO QAM 06/08/22 06/08/22 History release sennosides 8.6 mg-docusate sodium 2 tab-cap PO BID 06/08/22 06/08/22 History 50 mg tablet (Senna-S) sertraline 25 mg tablet 25 mg PO QAM 06/08/22 06/08/22 History sertraline 50 mg tablet 50 mg PO QAM 06/08/22 06/08/22 History tramadol 50 mg tablet 25 mg PO BID PRN .MOD TO SEVERE 06/08/22 06/08/22 History PAIN Past Med/Surg History Medical History Anxiety and depression Chest pain Constipation COPD (chronic obstructive pulmonary disease) Disorder of prostate Dysphagia Esophagitis GERD (gastroesophageal reflux disease) Heart failure Hyperlipidemia Hypertension Hypomagnesemia Hypothyroidism Morbid obesity Multifocal pneumonia Muscle weakness Obstructive sleep apnea O2 at 2L n/c at HS and prn if pulse ox is less than 90% Osteoporosis Paranoid schizophrenia Stercoral colitis Type 2 diabetes mellitus Unspecified abnormalities of gait and mobility Surgical History Surgical history unknown Social History Smoking Status: Former smoker Tobacco Type: Cigarettes Second Hand Exposure: No; Hx Alcohol Use: Yes Hx Substance Use: Yes Preferred Language: Uzbek Communication Ability: Effective Communication Ability Comment: pt is able to sign own consents Flower Buncher Or Picker Required: No Beliefs That Will Affect Care: None marital status: Single Current Living Situation: [facility] Current Living Situation Comment: [facility] current occupational status: retired Other Information That Helps Us Care for You: No Feels Safe at Home: Yes Safety Concerns: Feels Safe At This Time Assistive Devices: Wheelchair Review of Systems Review of Systems: Unobtainable due to endotracheal tube and Unobtainable due to reduced consciousness Physical Exam Constitutional: well developed and + mechanically ventilated; + not well nourished and no acute distress Eyes: PERRL, conjunctivae normal, anicteric sclerae Respiratory: normal respiratory effort (intubated); no respiratory distress and no stridor Auscultation: + crackles (posteriorly); no wheezes Cardiovascular: Rate/Rhythm: + tachycardic and + irregularly irregular Vessels: no JVD Extremities: + pedal edema (2+ right LE, 1+ left LE pitting); + abnormal capillary refill (prolonged peripheries, central < 2 s) Gastrointestinal (Abdomen): Inspection/Auscultation: + abdomen distended and normal bowel sounds; + abdomen abnormal to inspection Percussion/Palpation: abdomen soft Skin: no rashes, warm and dry Neurologic: + not awake Psychiatric: Orientation: + not alert Results & Data Results & Data Vital Signs (Past 12 Hours) Vital Signs Temp Pulse Pulse Resp BP BP Pulse Ox 06/08/22 17:42 38.8 C H 107 H 99/56 L 97 06/08/22 16:36 38.8 C H 94 H 16 98 06/08/22 16:36 133/58 L 06/08/22 16:30 38.7 C H 90 16 98 06/08/22 16:30 129/59 L 06/08/22 16:25 134/57 L 06/08/22 16:25 38.5 C H 91 H 16 98 06/08/22 16:20 38.1 C H 91 H 16 98 06/08/22 16:20 126/56 L 06/08/22 16:15 128/56 L 06/08/22 16:15 93 H 16 97 06/08/22 16:11 135/67 06/08/22 16:11 85 16 97 06/08/22 16:10 89 16 06/08/22 16:05 171/87 H 06/08/22 16:05 95 H 16 96 06/08/22 16:00 79 16 100 06/08/22 15:57 113/86 06/08/22 15:57 103 H 100 06/08/22 16:26 95 H 06/08/22 16:20 98 06/08/22 16:20 38.3 C H 91 H 21 126/56 L 98 06/08/22 16:20 91 H 18 99 06/08/22 16:10 93 H 135/67 97 O2 Del Method FiO2 06/08/22 17:42 Mechanical Vent 06/08/22 16:36 06/08/22 16:36 06/08/22 16:30 06/08/22 16:30 06/08/22 16:25 06/08/22 16:25 06/08/22 16:20 06/08/22 16:20 06/08/22 16:15 06/08/22 16:15 06/08/22 16:11 06/08/22 16:11 06/08/22 16:10 06/08/22 16:05 06/08/22 16:05 06/08/22 16:00 06/08/22 15:57 06/08/22 15:57 06/08/22 16:26 06/08/22 16:20 Mechanical Vent 06/08/22 16:20 Mechanical Vent 06/08/22 16:20 100 06/08/22 16:10 Mechanical Vent Laboratory Results Abnormal lab results 06/08/22 06/08/22 06/08/22 Range/Units 16:12 16:12 16:12 WBC 22.73 H (4.8-10.8) K/ul MPV 12.7 H (9.4-12.4) fL Neut # (Auto) 20.01 H (1.40-6.50) K/uL Lymph # (Auto) 1.01 L (1.2-3.4) K/uL Branch # (Auto) 1.38 H (0.11-0.59) K/uL APTT (21.0-31.0) Seconds Sodium 135 L (136-145) mmol/L Chloride 97 L (98-107) mmol/L Anion Gap 14 H (3-11) BUN 35 H (6-23) mg/dl Creatinine 1.42 H (0.6-1.4) mg/dl BUN/Creatinine Ratio 24.6 H (10-20) Glucose 221 H (70-99(Fasting)) mg/dl Lactate 2.8 H* (0.4-2.0) mmol/L Alkaline Phosphatase 117 H (34-104) U/L Troponin I High Sens 22.1 H (0-20) pg/ml Urine Appearance (Clear) Urine Protein (Negative) Urine Ketones (Negative) Urine Blood (Negative) Urine Nitrite (Negative) Urine Bilirubin (Negative) Ur Leukocyte Esterase (Negative) Urine WBC (Auto) (0-5) /hpf Urine RBC (Auto) (0-4) /hpf U Epithel Cells (Auto) (0-5) /lpf Urine Bacteria (Auto) (Negative) 06/08/22 06/08/22 Range/Units 16:12 16:58 WBC (4.8-10.8) K/ul MPV (9.4-12.4) fL Neut # (Auto) (1.40-6.50) K/uL Lymph # (Auto) (1.2-3.4) K/uL Branch # (Auto) (0.11-0.59) K/uL APTT 31.9 H (21.0-31.0) Seconds Sodium (136-145) mmol/L Chloride (98-107) mmol/L Anion Gap (3-11) BUN (6-23) mg/dl Creatinine (0.6-1.4) mg/dl BUN/Creatinine Ratio (10-20) Glucose (70-99(Fasting)) mg/dl Lactate (0.4-2.0) mmol/L Alkaline Phosphatase (34-104) U/L Troponin I High Sens (0-20) pg/ml Urine Appearance Turbid A (Clear) Urine Protein 2+ H (Negative) Urine Ketones Trace H (Negative) Urine Blood 3+ H (Negative) Urine Nitrite Positive A (Negative) Urine Bilirubin 2+ H (Negative) Ur Leukocyte Esterase 3+ H (Negative) Urine WBC (Auto) >30 H (0-5) /hpf Urine RBC (Auto) 10-30 H (0-4) /hpf U Epithel Cells (Auto) >30 H (0-5) /lpf Urine Bacteria (Auto) 2+ H (Negative) Diagnostic Findings SUPINE PORTABLE AP CHEST RADIOGRAPH CLINICAL HISTORY: Sepsis. COMPARISON STUDY: Chest CT October 23, 2021. Chest radiograph February 25, 2022. FINDINGS: This exam is compromised by portable supine technique and suboptimal penetration. Tip of endotracheal tube is 3 cm above the anoop. A left subclavian pacer remains in place. No pneumothorax is identified on this supine exam. Cardiomediastinal silhouette is stable. Elevation of the right hemidiaphragm is again noted. Right hilar prominence is likely due to pulmonary vessels. Airspace opacity could appear similar. There are subtle interstitial thickening. IMPRESSION: 1. Tip of endotracheal tube 3 cm above the anoop. 2. No pneumothorax on supine exam. 3. Nonspecific interstitial thickening within the lungs. Equivocal perihilar opacities. Medications Administered ER Medications Given: Ceftriaxone 2g IV Meropenem 1g IV NSS 1L bolus given in ER (2.5L ordered) ECG Indication: altered mental status and SOB/dyspnea Rate (beats per minute): 10 Findings: + paced rhythm (ventricular) Comparison ECG Date: from (February 25, 2022) Change: no significant change Code Status & VTE Plan Code Status Full VTE Prophylaxis Plan VTE Prophylaxis will be ordered: Yes Critical Care Time Critical Care Time: Yes Total Critical Care Time: 55 PG Care Time/CCT Total # of Minutes Spent Total Time Spent with Patient: Total time spent is greater than 50% in coordination of care (as documented) at patient's floor/unit and/or counseling patient: Critical Care Time: Yes Total Critical Care Time: 55 Coding Level of Care Code 07992 INT INP/OBS CARE 3/75MIN Diagnoses Sepsis A41.9; R65.20; J96.01 Acute respiratory failure type: with hypoxia Sepsis acute organ dysfunction status: with acute organ dysfunction Sepsis type: sepsis due to unspecified organism Severe sepsis acute organ dysfunction type: acute respiratory failure Severe sepsis shock status: without septic shock Acute respiratory failure with hypoxia J96.01 Altered mental state R41.82 Right leg swelling M79.89 Type II diabetes mellitus E11.9 AI (obstructive sleep apnea) G47.33 Urinary retention R33.9 Schizophrenia F20.9 Diastolic CHF I50.32 Heart failure chronicity: chronic Additional Codes Critical Care Time - Critical Care Time: Yes ([id number]) (1) Sepsis Acute respiratory failure type: with hypoxia Sepsis acute organ dysfunction status: with acute organ dysfunction Sepsis type: sepsis due to unspecified organism Severe sepsis acute organ dysfunction type: acute respiratory failure Severe sepsis shock status: without septic shock Qualified Code(s): A41.9 - Sepsis, unspecified organism; R65.20 - Severe sepsis without septic shock; J96.01 - Acute respiratory failure with hypoxia (9) Diastolic CHF Heart failure chronicity: chronic Qualified Code(s): I50.32 - Chronic diastolic (congestive) heart failure
[2022-06-08] MEDS ORDERED: SODIUM CHLORIDE 0.9% 500 ML IV ONE (18:30)
[2022-06-08 18:38] LABS: Adenovirus PCR Not Detected (NotDetected); Bordetella parapertussis PCR Not Detected (NotDetected); Bordetella pertussis PCR Not Detected (NotDetected); Chlamydia pneumoniae PCR Not Detected (NotDetected); Coronavirus 229E PCR Not Detected (NotDetected); Coronavirus CoV-2 (COVID19)PCR Not Detected (NotDetected); Coronavirus HKU1 PCR Not Detected (NotDetected); Coronavirus NL63 PCR Not Detected (NotDetected); Coronavirus OC43PCR Not Detected (NotDetected); Human Metapneumovirus PCR Not Detected (NotDetected); Influenza A PCR Not Detected (NotDetected); Influenza B PCR Not Detected (NotDetected); Mycoplasma pneumoniae PCR Not Detected (NotDetected); Parainfluenza Virus 1 PCR Not Detected (NotDetected); Parainfluenza Virus 2 PCR Not Detected (NotDetected); Parainfluenza Virus 3 PCR Not Detected (NotDetected); Parainfluenza Virus 4 PCR Not Detected (NotDetected); Respiratory Syncytial VirusPCR Not Detected (NotDetected); Rhinovirus/Enterovirus PCR Not Detected (NotDetected)
[2022-06-08 18:50] LABS: Base Excess ABG -4.1 mEq/L (-9-1.8); HCO3 ABG 23 mmol/L (19-24); Oxygen Saturation ABG 99.6 % (90-95); PCO2 ABG 49 mmHg (35-46); PO2 ABG 136 mmHg (80-95); pH ABG 7.28 (7.35-7.45)
[2022-06-08 18:52] LABS: Amphetamines+Metham, Urine Neg (Neg); Barbiturates, Urine Neg (Neg); Benzodiazepine, Urine Neg (Neg); Cocaine, Urine Neg (Neg); MDMA (Ecstacy), Urine Neg (Neg); Methadone, Urine Neg (Neg); Opiate, Urine Neg (Neg); Phencyclidine, Urine Neg (Neg)
--- NOTE | 2022-06-08 18:57 | XRay Report ---
SUPINE PORTABLE AP CHEST RADIOGRAPH CLINICAL HISTORY: line placement COMPARISON STUDY: Chest CT October 23, 2021. Chest radiograph performed earlier today. FINDINGS: Tip of endotracheal tube is 2.4 cm above the anoop. Tip of nasogastric tube is within the stomach. Tip of left internal jugular central line projects over the proximal SVC. No pneumothorax id entified on supine exam. Interstitial thickening is noted. There are suspected left basilar consolida tion. There may be right infrahilar opacity as well. IMPRESSION: 1. Satisfactory positioning of lines and tubes. 2. No pneumothorax on supine exam. 3. Possible bibasilar consolidation. Mild interstitial thickening. The findings may reflect pneumonia or aspiration pneumonitis. ACT 112: Negative or not required by law. Electronically signed by: Ramiro Mcpherson M.D. 06/08/2022 6:56 PM
[2022-06-08] MEDS ORDERED: OPTIRAY 320 500ml IV ONE (19:02)
--- NOTE | 2022-06-08 19:13 | CT Scan Report ---
CT OF THE HEAD WITHOUT CONTRAST CLINICAL HISTORY: Altered mental status. COMPARISON STUDY: Head CT October 08, 2020. CT DOSE: 6297.80 mGy.cm TECHNIQUE: Helical axial images of the head were obtained without IV contrast. Automated exposure con trol was utilized for the study. A dose lowering technique was utilized adhering to the principles o f ALARA. FINDINGS: No acute intracranial hemorrhage, midline shift or mass effect is present. White matter hyp odensities are unchanged and favor small vessel disease. The ventricular system is unremarkable. The basal cisterns are patent. No extra-axial collections are present. There are no findings to suggest a cute dural sinus thrombosis or acute territorial infarct. No significant calvarial abnormalities are present. Visualized portions of the sinuses and mastoid air cells are clear. IMPRESSION: No acute intracranial findings. ACT 112: Negative or not required by law. Electronically signed by: Ramiro Mcpherson M.D. 06/08/2022 7:12 PM
[2022-06-08 19:14] LABS: Allen Test Pos (Pos)
--- NOTE | 2022-06-08 19:28 | CT Scan Report ---
CT ANGIOGRAPHY OF THE CHEST, PULMONARY EMBOLUS PROTOCOL CLINICAL HISTORY: Shortness of breath. Evaluate for pulmonary embolus. COMPARISON STUDY: Chest CT October 23, 2021. Chest radiograph performed earlier today. TECHNIQUE: Following IV administration of 111 mL of Optiray, helical axial images of the chest were o btained utilizing the pulmonary embolus protocol. Maximal intensity projections and sagittal and cor onal reformats were viewed on an independent 3D workstation. IV contrast was administered without co mplication. Automated exposure control was utilized for the study. A dose lowering technique was ut ilized adhering to the principles of ALARA. FINDINGS: Tip of endotracheal tube is 2 cm above the anoop. Nasogastric tube is coiled within the st omach. Tip of left internal jugular central line projects over the proximal SVC. This is obscured by contrast. A left subclavian pacer is in place. There is no pneumothorax. There is no thoracic aortic dissection. Moderate cardiomegaly is noted. No definite pulmonary emboli are identified although the segmental and subsegmental pulmonary arteries are suboptimally assessed due to respiratory motion. Th ere is cutoff of a subsegmental vessel within the posterior basal segment of the right lower lobe on axial image 89 of 251. This is equivocal for an embolus. Elevation of the right hemidiaphragm is agai n noted. Extensive right lower lobe consolidation is present. Moderate right upper lobe airspace opac ities are present. There are also subpleural opacities within the left lung. Scattered secretions wit hin the airways are present. Lungs are suboptimally assessed due to respiratory motion. The abdomen a nd pelvis CT will be reported separately. IMPRESSION: 1. No definite pulmonary emboli. Equivocal subsegmental pulmonary embolus within the right lower lobe , as described above. Consideration might be given to further evaluation with lower extremity venous Doppler ultrasound. 2. Satisfactory positioning of lines and tubes. No pneumothorax. 3. Extensive right lower lobe consolidation with additional scattered airspace opacities throughout t he lungs. The findings are suspicious for multifocal pneumonia or aspiration pneumonitis. 4. Stable elevation of the right hemidiaphragm. ACT 112: Negative or not required by law. Electronically signed by: Ramiro Mcpherson M.D. 06/08/2022 7:26 PM
[2022-06-08] MEDS: propofoL 1,000 MG/100 ML VIAL IV SCH (19:30)
--- NOTE | 2022-06-08 19:46 | CT Scan Report ---
CT OF THE ABDOMEN AND PELVIS WITH AND WITHOUT CONTRAST CLINICAL HISTORY: sepsis ? Nephrolithiasis, Hx fecal impaction COMPARISON STUDY: KUB the abdomen and pelvis February 25, 2022. TECHNIQUE: Axial images of the abdomen and pelvis were obtained before and after intravenous administ ration of 111 cc of Optiray 320 IV. Automated exposure control was utilized for the study. A dose l owering technique was utilized adhering to the principles of ALARA. FINDINGS: Please note that the chest CT will be reported separate. Bilateral lower lung airspace opac ities are better depicted on that exam. The nasogastric tube is coiled within the stomach. The tip is within the fundus. No pneumatosis, free air or portal venous gas is present. The gallbladder is slig htly distended. There is no adjacent stranding. Liver, adrenal glands and pancreas are unremarkable. There is no biliary or pancreatic ductal dilatation. There is mild splenomegaly. This is similar to p rior CT. There are a few mildly enlarged retroperitoneal lymph nodes. Index left para-aortic lymph no de on image 246 of 556 measures 1.6 x 1.1 cm. No renal, ureteral or bladder calculi are present. Mode rate right and mild left renal cortical scarring are present. There is no hydronephrosis. A Gunderson bal loon and gas within the bladder are present. Of note, there is a massive amount of stool within the r ectum and a large amount stool within the colon. This results in significant rectal distention. The r ectum measures 10.4 cm in transverse dimension. There is also mild colonic dilatation. Distal colonic and rectal wall thickening with mild adjacent stranding is present. There is no extraluminal gas. Th ere is no pneumatosis. No evidence for small bowel obstruction. Multilevel degenerative changes withi n lumbar spine are present. Major vasculature is grossly patent. IMPRESSION: 1. Findings consistent with fecal impaction. Massive amount of stool within the rectum and large amou nt stool within the colon. The stool appears to result in a relative obstruction with significant rec heike and colonic dilatation. Colorectal wall thickening with adjacent stranding represents a nonspecif ic colitis. This could reflect stercoral colitis. 2. No urinary calculi or hydronephrosis. 3. Lower lung airspace opacities, including right basilar consolidation. These findings are better de picted on the chest CT which will be reported separately. 4. A few mildly enlarged nonspecific retroperitoneal lymph nodes. These can be assessed on follow-up exams. ACT 112: Negative or not required by law. Electronically signed by: Ramiro Mcpherson M.D. 06/08/2022 7:43 PM
[2022-06-08] MEDS ORDERED: Heparin IV Adult Wt-Based Standard WITH Bolus Protocol IV SCH (19:52)
[2022-06-08] MEDS ORDERED: GLUCAGON FOR INJ 1 MG VIAL SQ PRN (20:05)
[2022-06-08] MEDS ORDERED: DEXTROSE 50% 50 ML SYRINGE IV PRN (20:05)
[2022-06-08] MEDS ORDERED: CARBOHYDRATES FOR HYPOGLYCEMIA PO PRN (20:05)
[2022-06-08] MEDS ORDERED: GLUCOSE 10 TAB/TUBE PO PRN (20:05)
[2022-06-08] MEDS ORDERED: GLUCOSE 40% GEL 15 GM TUBE PO PRN (20:05)
--- NOTE | 2022-06-08 20:30 | Critical Care Consultation ---
Date of Consultation June 08, 2022 Assessment & Plan (1) Acute respiratory failure with hypoxia: Reason Critically Ill: Patient is a 66-year-old male and resident of a detention that presents to the ICU mechanically ventilated after being found obtunded and appears to have pneumonia and possible PE on CTA chest along with stool impaction and colitis and urinary tract infection. Patient now being treated for sepsis and hypoxic respiratory failure. Neuro - Encephalopathysuspect this is most likely secondary to sepsis. Patient does have underlying schizophrenia was reported to be alert and oriented at baseline. We will hold antipsychotics for now while intubated and resume when appropriate. CT head was negative for acute intracranial findings. Patient currently sedated with propofol. Goal RASS -1. Will monitor but expect to improve with treatment of underlying infection Cardiac - History of diastolic heart failure. Last TTE in 08/21 with normal EF with diastolic dysfunction. Patient does have pacemaker and is ventricularly paced on monitor. No hemodynamic issues at this time. BNP within normal limits and will hold Lasix given hypotension and PIA. Continuous monitoring on telemetry Respiratory - Acute hypoxic respiratory failurelikely secondary to pneumonia but may be mult ifactoral given possible PE on CT chest. Of note, patient does have history of PE and history of COPD with nasal cannula at baseline -CTA chest as above. Will obtain lower extremity venous Doppler to assess for possible DVT -Started empirically on heparin drip for systemic anticoagulation. Patient was previously on Eliquis but completed 3 to 6 months therapy following PE -See ID treatment for management of pneumonia below -History of diastolic heart failure, will hold on Lasix for the time being given PIA and previous hypotension -Continue with mechanical ventilation support and wean vent settings as tolerated. Follow-up ABG and morning chest x-ray -Continuous end-tidal CO2 and pulse ox monitoring GI - Fecal impaction of the rectumCT as above, we will proceed with manual disi mpaction followed by bowel regimen. Expect colonic obstruction and colitis should improve following disimpaction. RENAL/LYTES - AKIcreatinine 1.4 with baseline 0.6 on previous admission. Suspect this is ATN in the setting of sepsis -Continue with IV fluid resuscitation. Patient did receive 3 L crystalloid bolus per sepsis protocol -Maintain maps greater than 65 to ensure renal perfusion -Avoid nephrotoxins and renally adjust medication -Monitor with routine BMPs and replete electrolytes as indicated - Foleystrict I's and O's ENDO - DM type II(controlled), continue with sliding scale for now. ICU hyperglycemic protocol Hypothyroidismcontinue Synthroid HEME - H&H stable, monitor routine CBC ID - Sepsismost likely pulmonary source culprit given pneumonia on CT, cannot rule out possible urinary source with chronic Gunderson and +2 bacteria on urinalysis, cannot rule out GI source with colitis. -Procalcitonin mildly elevated, leukocytosis of 22,000, febrile, lactate ini tially elevated 2.6 now cleared. All consistent with sepsis -Urine culture, sputum culture, and blood cultures pending -Viral panel negative, MRSA pending -Started on meropenem due to penicillin allergy for additional GI coverage. We will continue for now and narrow with culture speciation LINES/IV ACCESS - Left IJ CVL, ET tube, OG tube, Gunderson DVT PROPHYLAXIS - SCDs, heparin drip I have personally spent 55 minutes of critical care time in the direct management of this patient. This is a life/limb threatening event. This includes time spent evaluating patient, direct bedside care, chart review, placing orders, interpretation of diagnostic studies, discussion with consultants, patient, and family members, as well as other required patient management activities. This time is exclusive of all separately billable procedures, and teaching time and separate from and in addition to any other critical care service time. Thank you for allowing us to participate in the care of this patient. Please refer to my attending physician's documentation for any further recommendations. (2) Altered mental state: (3) Pneumonia: (4) Urinary tract infection: (5) Pulmonary embolism: (6) Stercoral colitis: (7) Type II diabetes mellitus: (8) Hypothyroidism: (9) Urinary incontinence: (10) Sepsis: (11) Schizophrenia: (12) Diastolic CHF: (13) Impacted stool in rectum: History of Present Illness Attending Physician: Aayush Rivera MD History of Present Illness Patient is a 66-year-old male with past medical history of CHF, pulmonary embolism (10/22), constipation and recurrent SBO, schizophrenia, stercoral colitis, chronic Gunderson catheter. Patient resides at a detention and was found to be short of breath, obtunded, and cyanotic. He was taken to the emergency department where he was intubated for airway protection. CT head was negative for acute intracranial findings. CTA chest did show what appears to be multifocal pneumonia versus aspiration pneumonitis, and equivocal subsegmental pulmonary embolus within the right lower lobe. CT abdomen and pelvis reveals massive amount of stool in the rectum and large amount of stool within the colon with relative obstruction and significant colonic dilation, consistent with fecal impaction and possibly reflecting of stercoral colitis. Patient was started on broad-spectrum antibiotics. UA concerning for urinary tract infection. Blood cultures and urine culture pending. Viral panel negative. Patient presents to the ICU, intubated and sedated. He is currently hemodynamically stable without need for vasopressor support. Lactate now cleared following fluid resuscitation. Pro-Sebas elevated and patient with significant leukocytosis. Further management in ICU for the time being. Allergies Allergy/AdvReac Type Severity Reaction Status Date / Time Penicillins Allergy Unknown on [facility] Verified [facility]08[facility]22 [facility]ations Medication Instructions Recorded Confirmed Type atorvastatin 10 mg tablet (Lipitor) 10 mg PO HS 08/28/20 06/08/22 History clozapine 100 mg tablet (Clozaril) 100 mg PO Q12 08/28/20 06/08/22 History ergocalciferol (vitamin D2) 1,250 1,250 mcg PO WK 08/28/20 06/08/22 History mcg (50,000 unit) capsule (Vitamin D2) linaclotide 290 mcg capsule 290 mcg PO QAM 08/28/20 06/08/22 History (Linzess) magnesium oxide 400 mg (241.3 mg 400 mg PO QAM #30 tabs 10/11/20 06/08/22 Rx magnesium) tablet liraglutide 0.6 mg/0.1 mL (18 mg/3 1.8 mg subcut DAILY 02/09/21 06/08/22 History mL) subcutaneous pen injector tamsulosin 0.4 mg capsule 0.4 mg PO DAILYBD 02/09/21 06/08/22 History levothyroxine 125 mcg tablet 125 mcg PO DAILYBB 03/06/21 06/08/22 History acetaminophen 325 mg tablet 325 mg PO Q6H PRN FEVER/PAIN 10/10/21 06/08/22 History (Tylenol) furosemide 80 mg tablet (Lasix) 40 mg PO QAM #30 tabs 10/28/21 06/08/22 Rx potassium chloride 20 mEq 20 meq PO DAILY #30 tabs 10/28/21 06/08/22 Rx tablet,extended release (K-Tab) sertraline 100 mg tablet 100 mg PO QAM 06/05/22 06/08/22 History cyclobenzaprine 10 mg tablet 10 mg PO HS 06/08/22 06/08/22 History gabapentin 300 mg capsule 300 mg PO TID 06/08/22 06/08/22 History insulin glargine 100 unit/mL (3 27 unit subcut HS 06/08/22 06/08/22 History mL) subcutaneous pen (Lantus Solostar U-100 Insulin) insulin lispro 100 unit/mL 10 unit subcut QAM 06/08/22 06/08/22 History subcutaneous pen (Humalog KwikPen (U-100) Insulin) insulin lispro 100 unit/mL 12 unit subcut BID 06/08/22 06/08/22 History subcutaneous pen (Humalog KwikPen (U-100) Insulin) lactulose 10 gram/15 mL (15 mL) 30 g PO TID PRN constipation 06/08/22 06/08/22 History oral solution omeprazole 40 mg capsule,delayed 40 mg PO QAM 06/08/22 06/08/22 History release sennosides 8.6 mg-docusate sodium 2 tab-cap PO BID 06/08/22 06/08/22 History 50 mg tablet (Senna-S) sertraline 25 mg tablet 25 mg PO QAM 06/08/22 06/08/22 History sertraline 50 mg tablet 50 mg PO QAM 06/08/22 06/08/22 History tramadol 50 mg tablet 25 mg PO BID PRN .MOD TO SEVERE 06/08/22 06/08/22 History PAIN Patient History Medical History Anxiety and depression Chest pain Constipation COPD (chronic obstructive pulmonary disease) Disorder of prostate Dysphagia Esophagitis GERD (gastroesophageal reflux disease) Heart failure Hyperlipidemia Hypertension Hypomagnesemia Hypothyroidism Morbid obesity Multifocal pneumonia Muscle weakness Obstructive sleep apnea O2 at 2L n/c at HS and prn if pulse ox is less than 90% Osteoporosis Paranoid schizophrenia Stercoral colitis Type 2 diabetes mellitus Unspecified abnormalities of gait and mobility Surgical History Surgical history unknown Social History Smoking Status: Former smoker Tobacco Type: Cigarettes Second Hand Exposure: No; Hx Alcohol Use: Yes Hx Substance Use: Yes Preferred Language: Irish Communication Ability: Effective Communication Ability Comment: pt is able to sign own consents Media Planner / Buyer Required: No Beliefs That Will Affect Care: None marital status: Single Current Living Situation: Senior Living Current Living Situation Comment: [facility] current occupational status: retired Other Information That Helps Us Care for You: No Feels Safe at Home: Yes Safety Concerns: Feels Safe At This Time Assistive Devices: Wheelchair Review of Systems Review of Systems: Unobtainable due to cognitive status and Unobtainable due to endotracheal tube Physical Exam Constitutional: comfortable and + mechanically ventilated; no acute distress Eyes: PERRL, conjunctivae normal, anicteric sclerae ENMT: external ear and nose normal, oropharynx normal Neck: trachea midline, no thyromegaly Respiratory: Symmetrical chest wall movement, mechanically ventilated. Lungs coarse crackles auscultated bilaterally in all michel. Cardiovascular: Ventricular paced on monitor, S1-S2 auscultated, no murmur, +1 peripheral edema, no JVD Gastrointestinal (Abdomen): normal bowel sounds, soft, nontender, no hepatosplenomegaly Musculoskeletal: no cyanosis or clubbing, extremities motor strength 5/5 Skin: no rashes, warm and dry Neurologic: PERRLA, exam limited due to sedation Psychiatric: Unable to assess due to sedation Genitourinary: Indwelling Gunderson catheter present Results & Data Results & Data Vital Signs (Past 12 Hours) Vital Signs Temp Pulse Pulse Resp BP BP Pulse Ox 06/08/22 19:50 37.6 C H 112 H 14 98 06/08/22 19:45 102/77 06/08/22 19:45 37.6 C H 112 H 14 95 06/08/22 19:40 37.6 C H 112 H 17 95 06/08/22 19:35 134/88 06/08/22 19:35 37.6 C H 113 H 14 94 06/08/22 19:32 37.6 C H 113 H 14 94 06/08/22 18:40 38.0 C H 117 H 20 99 06/08/22 18:40 126/81 06/08/22 18:30 38.1 C H 118 H 20 100 06/08/22 18:30 129/83 06/08/22 18:20 38.3 C H 117 H 22 99 06/08/22 18:20 141/76 H 06/08/22 18:10 38.6 C H 120 H 16 98 06/08/22 18:10 128/75 06/08/22 18:05 38.7 C H 113 H 20 99 06/08/22 18:05 112/77 06/08/22 18:00 38.7 C H 113 H 18 06/08/22 18:00 109/72 06/08/22 17:56 38.8 C H 107 H 26 H 06/08/22 17:56 115/68 06/08/22 17:51 121/73 06/08/22 17:51 38.8 C H 107 H 18 96 06/08/22 17:50 38.8 C H 112 H 23 98 06/08/22 17:40 38.8 C H 108 H 19 97 06/08/22 17:35 38.9 C H 108 H 19 97 06/08/22 17:35 99/84 L 06/08/22 17:30 38.8 C H 108 H 16 98 06/08/22 17:30 113/76 06/08/22 17:26 38.9 C H 108 H 16 98 06/08/22 17:26 111/75 06/08/22 17:21 111/85 06/08/22 17:21 38.9 C H 102 H 16 99 06/08/22 17:20 38.9 C H 96 H 16 99 06/08/22 17:16 132/66 06/08/22 17:16 38.9 C H 102 H 16 100 06/08/22 17:11 127/60 06/08/22 17:11 38.9 C H 103 H 16 99 06/08/22 17:10 38.9 C H 97 H 16 99 06/08/22 17:06 38.9 C H 86 16 99 06/08/22 17:06 119/58 L 06/08/22 17:01 129/94 06/08/22 17:01 38.9 C H 103 H 16 99 06/08/22 17:00 38.9 C H 102 H 16 98 06/08/22 16:57 137/60 06/08/22 16:57 38.9 C H 97 H 16 99 06/08/22 16:53 134/60 06/08/22 16:53 38.9 C H 98 H 16 99 06/08/22 16:50 38.9 C H 98 H 16 99 06/08/22 16:40 38.9 C H 100 H 16 99 06/08/22 19:41 37.6 C H 112 H 16 102/77 98 06/08/22 19:19 112 H 17 92 06/08/22 17:42 38.8 C H 107 H 99/56 L 97 06/08/22 16:36 38.8 C H 94 H 16 98 06/08/22 16:36 133/58 L 06/08/22 16:30 38.7 C H 90 16 98 06/08/22 16:30 129/59 L 06/08/22 16:25 134/57 L 06/08/22 16:25 38.5 C H 91 H 16 98 06/08/22 16:20 38.1 C H 91 H 16 98 06/08/22 16:20 126/56 L 06/08/22 16:15 128/56 L 06/08/22 16:15 93 H 16 97 06/08/22 16:11 135/67 06/08/22 16:11 85 16 97 06/08/22 16:10 89 16 06/08/22 16:05 171/87 H 06/08/22 16:05 95 H 16 96 06/08/22 16:00 79 16 100 06/08/22 15:57 113/86 06/08/22 15:57 103 H 100 06/08/22 16:26 95 H 06/08/22 16:20 98 06/08/22 16:20 38.3 C H 91 H 21 126/56 L 98 06/08/22 16:20 91 H 18 99 06/08/22 16:10 93 H 135/67 97 O2 Del Method FiO2 06/08/22 19:50 06/08/22 19:45 06/08/22 19:45 06/08/22 19:40 06/08/22 19:35 06/08/22 19:35 06/08/22 19:32 06/08/22 18:40 06/08/22 18:40 06/08/22 18:30 06/08/22 18:30 06/08/22 18:20 06/08/22 18:20 06/08/22 18:10 06/08/22 18:10 06/08/22 18:05 06/08/22 18:05 06/08/22 18:00 06/08/22 18:00 06/08/22 17:56 06/08/22 17:56 06/08/22 17:51 06/08/22 17:51 06/08/22 17:50 06/08/22 17:40 06/08/22 17:35 06/08/22 17:35 06/08/22 17:30 06/08/22 17:30 06/08/22 17:26 06/08/22 17:26 06/08/22 17:21 06/08/22 17:21 06/08/22 17:20 06/08/22 17:16 06/08/22 17:16 06/08/22 17:11 06/08/22 17:11 06/08/22 17:10 06/08/22 17:06 06/08/22 17:06 06/08/22 17:01 06/08/22 17:01 06/08/22 17:00 06/08/22 16:57 06/08/22 16:57 06/08/22 16:53 06/08/22 16:53 06/08/22 16:50 06/08/22 16:40 06/08/22 19:41 Mechanical Vent 06/08/22 19:19 60 06/08/22 17:42 Mechanical Vent 06/08/22 16:36 06/08/22 16:36 06/08/22 16:30 06/08/22 16:30 06/08/22 16:25 06/08/22 16:25 06/08/22 16:20 06/08/22 16:20 06/08/22 16:15 06/08/22 16:15 06/08/22 16:11 06/08/22 16:11 06/08/22 16:10 06/08/22 16:05 06/08/22 16:05 06/08/22 16:00 06/08/22 15:57 06/08/22 15:57 06/08/22 16:26 06/08/22 16:20 Mechanical Vent 06/08/22 16:20 Mechanical Vent 06/08/22 16:20 100 06/08/22 16:10 Mechanical Vent Diagnostic Findings CT OF THE ABDOMEN AND PELVIS WITH AND WITHOUT CONTRAST CLINICAL HISTORY: sepsis ? Nephrolithiasis, Hx fecal impaction COMPARISON STUDY: KUB the abdomen and pelvis February 25, 2022. TECHNIQUE: Axial images of the abdomen and pelvis were obtained before and after intravenous administration of 111 cc of Optiray 320 IV. Automated exposure control was utilized for the study. A dose lowering technique was utilized adhering to the principles of ALARA. FINDINGS: Please note that the chest CT will be reported separate. Bilateral lower lung airspace opacities are better depicted on that exam. The nasogastric tube is coiled within the stomach. The tip is within the fundus. No pneumatosis, free air or portal venous gas is present. The gallbladder is slightly distended. There is no adjacent stranding. Liver, adrenal glands and pancreas are unremarkable. There is no biliary or pancreatic ductal dilatation. There is mild splenomegaly. This is similar to prior CT. There are a few mildly enlarged retroperitoneal lymph nodes. Index left para-aortic lymph node on image 246 of 556 measures 1.6 x 1.1 cm. No renal, ureteral or bladder calculi are present. Moderate right and mild left renal cortical scarring are present. There is no hydronephrosis. A Gunderson balloon and gas within the bladder are present. Of note, there is a massive amount of stool within the rectum and a large amount stool within the colon. This results in significant rectal distention. The rectum measures 10.4 cm in transverse dimension. There is also mild colonic dilatation. Distal colonic and rectal wall thickening with mild adjacent stranding is present. There is no extraluminal gas. There is no pneumatosis. No evidence for small bowel obstruction. Multilevel degenerative changes within lumbar spine are present. Major vasculature is grossly patent. IMPRESSION: 1. Findings consistent with fecal impaction. Massive amount of stool within the rectum and large amount stool within the colon. The stool appears to result in a relative obstruction with significant rectal and colonic dilatation. Colorectal wall thickening with adjacent stranding represents a nonspecific colitis. This could reflect stercoral colitis. 2. No urinary calculi or hydronephrosis. 3. Lower lung airspace opacities, including right basilar consolidation. These findings are better depicted on the chest CT which will be reported separately. 4. A few mildly enlarged nonspecific retroperitoneal lymph nodes. These can be assessed on follow-up exams. CT OF THE HEAD WITHOUT CONTRAST CLINICAL HISTORY: Altered mental status. COMPARISON STUDY: Head CT October 08, 2020. CT DOSE: 6297.80 mGy.cm TECHNIQUE: Helical axial images of the head were obtained without IV contrast. Automated exposure control was utilized for the study. A dose lowering technique was utilized adhering to the principles of ALARA. FINDINGS: No acute intracranial hemorrhage, midline shift or mass effect is present. White matter hypodensities are unchanged and favor small vessel disease. The ventricular system is unremarkable. The basal cisterns are patent. No extra-axial collections are present. There are no findings to suggest acute dural sinus thrombosis or acute territorial infarct. No significant calvarial abnormalities are present. Visualized portions of the sinuses and mastoid air cells are clear. IMPRESSION: No acute intracranial findings. CT ANGIOGRAPHY OF THE CHEST, PULMONARY EMBOLUS PROTOCOL CLINICAL HISTORY: Shortness of breath. Evaluate for pulmonary embolus. COMPARISON STUDY: Chest CT October 23, 2021. Chest radiograph performed earlier today. TECHNIQUE: Following IV administration of 111 mL of Optiray, helical axial images of the chest were obtained utilizing the pulmonary embolus protocol. Maximal intensity projections and sagittal and coronal reformats were viewed on an independent 3D workstation. IV contrast was administered without complication. Automated exposure control was utilized for the study. A dose lo wering technique was utilized adhering to the principles of ALARA. FINDINGS: Tip of endotracheal tube is 2 cm above the anoop. Nasogastric tube is coiled within the stomach. Tip of left internal jugular central line projects over the proximal SVC. This is obscured by contrast. A left subclavian pacer is in place. There is no pneumothorax. There is no thoracic aortic dissection. Moderate cardiomegaly is noted. No definite pulmonary emboli are identified although the segmental and subsegmental pulmonary arteries are suboptimally assessed due to respiratory motion. There is cutoff of a subsegmental vessel within the posterior basal segment of the right lower lobe on axial image 89 of 251. This is equivocal for an embolus. Elevation of the right hemidiaphragm is again noted. Extensive right lower lobe consolidation is present. Moderate right upper lobe airspace opacities are present. There are also subpleural opacities within the left lung. Scattered secretions within the airways are present. Lungs are suboptimally assessed due to respiratory motion. The abdomen and pelvis CT will be reported separately. IMPRESSION: 1. No definite pulmonary emboli. Equivocal subsegmental pulmonary embolus within the right lower lobe, as described above. Consideration might be given to further evaluation with lower extremity venous Doppler ultrasound. 2. Satisfactory positioning of lines and tubes. No pneumothorax. 3. Extensive right lower lobe consolidation with additional scattered airspace opacities throughout the lungs. The findings are suspicious for multifocal pneumonia or aspiration pneumonitis. 4. Stable elevation of the right hemidiaphragm. Coding Level of Care Code 30933 CRITICAL CARE 1ST 30-74M Diagnoses Acute respiratory failure with hypoxia J96.01 Altered mental state R41.82 Pneumonia J18.9 Laterality: unspecified laterality Lung location: unspecified part of lung Pneumonia type: due to unspecified organism Urinary tract infection T83.511A; N39.0 Encounter type: initial encounter Indwelling urinary catheter type: indwelling urethral catheter Urinary tract infection type: catheter-associated UTI Pulmonary embolism I26.99 Stercoral colitis K52.89 Type II diabetes mellitus E11.9 Hypothyroidism E03.9 Urinary incontinence R32 Sepsis A41.9; R65.20; J96.01 Acute respiratory failure type: with hypoxia Sepsis acute organ dysfunction status: with acute organ dysfunction Sepsis type: sepsis due to unspecified organism Severe sepsis acute organ dysfunction type: acute respiratory failure Severe sepsis shock status: without septic shock Schizophrenia F20.9 Diastolic CHF I50.32 Heart failure chronicity: chronic Impacted stool in rectum K56.41 (3) Pneumonia Laterality: unspecified laterality Lung location: unspecified part of lung Pneumonia type: due to unspecified organism Qualified Code(s): J18.9 - Pneumonia, unspecified organism (4) Urinary tract infection Encounter type: initial encounter Indwelling urinary catheter type: indwelling urethral catheter Urinary tract infection type: catheter-associated UTI Qualified Code(s): T83.511A - Infection and inflammatory reaction due to indwelling urethral catheter, initial encounter; N39.0 - Urinary tract infection, site not specified (10) Sepsis Acute respiratory failure type: with hypoxia Sepsis acute organ dysfunction status: with acute organ dysfunction Sepsis type: sepsis due to unspecified organism Severe sepsis acute organ dysfunction type: acute respiratory failure Severe sepsis shock status: without septic shock Qualified Code(s): A41.9 - Sepsis, unspecified organism; R65.20 - Severe sepsis without septic shock; J96.01 - Acute respiratory failure with hypoxia (12) Diastolic CHF Heart failure chronicity: chronic Qualified Code(s): I50.32 - Chronic diastolic (congestive) heart failure
[2022-06-08 20:46] LABS: iSTAT Allen Test Pass; iSTAT Arterial Blood Gas HCO3 28 meg/L (19-24); iSTAT Arterial Blood Gas pCO2 53 mmHg (35-46); iSTAT Arterial Blood Gas pH 7.34 (7.35-7.45); iSTAT Arterial Blood Gas pO2 184 mmHg (80-95); iSTAT Carbon Dioxide 30 mmol/L (24-31); iSTAT FiO2 60 %; iSTAT Site R Radial
[2022-06-08] MEDS: FAMOTIDINE 20 MG in SYRINGE 3 ML IV SCH (20:51)
[2022-06-08] MEDS: ICU Protocol for HYPERglycemia SCH (20:51)
[2022-06-08] MEDS: DOCUSATE SODIUM/SENNA 50/8.6MG TAB PO SCH (20:52)
[2022-06-08] MEDS: ATORVASTATIN 10 MG TAB PO SCH (20:52)
[2022-06-08] MEDS: PLASMA-LYTE A 1,000 ML IV SCH (21:06)
[2022-06-08] MEDS: INSULIN ASPART PER UNIT CHARGE SC SCH (21:22)
[2022-06-08] MEDS: HEPARIN SODIUM/DEXTROSE 25,000 UNITS/500 ML BAG IV SCH (21:26)
[2022-06-08] MEDS ORDERED: HEPARIN SOD (PORCINE) 1000 UNIT/ML IV ONE (21:30)
[2022-06-08] MEDS ORDERED: ALBUT/IPRATROP 3MG/0.5MG NEB 3 ML VIAL NEB PRN (21:42)
[2022-06-08] MEDS ORDERED: MINERAL OIL ENEMA 133 ML BTL PR PRN (21:54)
--- NOTE | 2022-06-08 22:10 | Electrocardiogram Report ---
Test Reason : Blood Pressure : / mmHG Vent. Rate : 102 BPM Atrial Rate : 131 BPM P-R Int : 000 ms QRS Dur : 200 ms QT Int : 456 ms P-R-T Axes : 000 268 071 degrees QTc Int : 594 ms Ventricular-paced rhythm Abnormal ECG When compared with ECG of 25-FEB-2022 10:00, Vent. rate has decreased BY 5 BPM Confirmed by Ky Harrison ([id number]) on 06/08/2022 10:10:23 PM Referred By: Confirmed By:Ky Harrison
--- NOTE | 2022-06-08 23:15 | Ultrasound Report ---
Exam(s): US VENOUS BILATERAL LOWER EXTREMITIES EXAM: US Duplex Bilateral Lower Extremities Veins CLINICAL HISTORY: Reason for exam: DVT. TECHNIQUE: Real-time duplex ultrasound scan of the bilateral lower extremity veins integrating B-mode two-dimensional vascular structure, Doppler spectral analysis, color flow Doppler imaging and compression. COMPARISON: No relevant prior studies available. FINDINGS: Right deep veins: Unremarkable. No DVT in the right common femoral, femoral, proximal deep femoral or popliteal veins. The veins demonstrate normal color flow, are normally compressible, with normal phasic flow and/or augmentation response. Right superficial veins: Unremarkable. No thrombus in the visualized right great saphenous vein. Left deep veins: Unremarkable. No DVT in the left common femoral, femoral, proximal deep femoral or popliteal veins. The veins demonstrate normal color flow, are normally compressible, with normal phasic flow and/or augmentation response. Left superficial veins: Unremarkable. No thrombus in the visualized left great saphenous vein. Soft tissues: No acute findings. No popliteal cyst. IMPRESSION: Normal bilateral lower extremity duplex venous ultrasound. Electronically signed by: Cali Alatorre MD 06/08/22 23:14 PM
[2022-06-08] MEDS ORDERED: bisacodyL 5 MG TABEC PO ONE (23:59)
[2022-06-08] MEDS ORDERED: bisacodyL 10 MG SUPP PR STA (23:59)
[2022-06-09] MEDS: propofoL 1,000 MG/100 ML VIAL IV SCH ×6 (00:48→21:44)
[2022-06-09] MEDS: MEROPENEM 1,000 MG in SYRINGE 0 ML IV SCH ×3 (02:23→17:28)
[2022-06-09 04:04] LABS: Basophils % (auto) 0.5 %; Eosinophils # (auto) 0.04 K/uL (0-0.50); Eosinophils % (auto) 0.2 %; Hematocrit (blood only) 38.5 % (42.0-52.0); Hemoglobin 12.7 g/dl (14.0-18.0); Immature Granulocytes # (auto) 0.21 K/uL (0.01-0.20); Lymphocytes # (auto) 1.99 K/uL (1.2-3.4); Lymphocytes % (auto) 9.2 %; Mean Corpuscular Hemoglobin 29.5 pg (25.0-34.0); Mean Corpuscular Volume 89.3 fL (80.0-100.0); Mean Platelet Volume 11.7 fL (9.4-12.4); Monocytes # (auto) 1.45 K/uL (0.11-0.59); Monocytes % (auto) 6.7 %; Neutrophils # (auto) 17.77 K/uL (1.40-6.50); Neutrophils % (auto) 82.4 %; Platelet Count 242 K/uL (130-400); RDW Coefficient of Variation 13.2 % (11.5-14.5); RDW Standard Deviation 43.7 fL (36.4-46.3); Red Blood Count 4.31 M/uL (4.70-6.10); White Blood Count 21.56 K/ul (4.8-10.8)
[2022-06-09 04:17] LABS: BUN Creatinine Ratio 31.1 (10-20); Calcium 7.9 mg/dl (8.6-10.3); Creatinine Clr Calc Pharmacy 105.5 ml/min; Est GFR (African American) 101.4 ml/min; Est GFR (Non-African American) 87.5 ml/min; Magnesium 2.1 mg/dl (1.7-2.4); Phosphorus 2.8 mg/dl (2.5-4.9); Potassium 3.8 mmol/L (3.5-5.1)
[2022-06-09 04:34] LABS: INR 1.1 (0.9-1.1); Prothrombin Time 11.4 Seconds (9.0-12.0)
[2022-06-09 04:38] LABS: Partial Thromboplastin Time 54.4 Seconds (21.0-31.0)
[2022-06-09 04:41] LABS: iSTAT Allen Test Pass; iSTAT Arterial Blood Gas HCO3 27 meg/L (19-24); iSTAT Arterial Blood Gas pCO2 42 mmHg (35-46); iSTAT Arterial Blood Gas pH 7.41 (7.35-7.45); iSTAT Arterial Blood Gas pO2 73 mmHg (80-95); iSTAT Carbon Dioxide 28 mmol/L (24-31); iSTAT FiO2 40 %; iSTAT Site R Radial
[2022-06-09] MEDS: LEVOTHYROXINE SODIUM 125 MCG TABLET PO SCH (05:36)
[2022-06-09] MEDS: POTASSIUM CHLORIDE / WTR 10 MEQ/100 ML PLCT IV SCH ×2 (05:37→06:30)
--- NOTE | 2022-06-09 07:00 | XRay Report ---
XR chest 1V portable CLINICAL HISTORY: Respiratory failure. COMPARISON STUDY: Chest radiograph and chest CT June 08, 2022. FINDINGS: Tip of endotracheal tube is 2.1 cm above the anoop. Nasogastric tube is coiled within the stomach. Left internal jugular central line remains in place. Dual-lead left subclavian pacer is in p lace. There is no pneumothorax or pleural effusion. Lower lung predominant airspace opacities are pre sent. Right lower lobe consolidation has improved. IMPRESSION: 1. Satisfactory positioning of lines and tubes. 2. No pneumothorax. 3. Lower lung predominant airspace opacities which favor pneumonia or aspiration pneumonitis. Interva l improvement in right lower lobe consolidation. ACT 112: Negative or not required by law. Electronically signed by: Ramiro Mcpherson M.D. 06/09/2022 6:59 AM
[2022-06-09] MEDS: ICU Protocol for HYPERglycemia SCH (07:31)
[2022-06-09] MEDS: INSULIN ASPART PER UNIT CHARGE SC SCH ×3 (07:31→16:38)
[2022-06-09] MEDS: FAMOTIDINE 20 MG in SYRINGE 3 ML IV SCH ×2 (08:47→19:58)
[2022-06-09] MEDS: PLASMA-LYTE A 1,000 ML IV SCH ×2 (08:47→21:21)
[2022-06-09] MEDS ORDERED: DOCUSATE SODIUM SYRUP 100 MG/10 ML UDC PO SCH (09:00)
[2022-06-09] MEDS: DOCUSATE SODIUM SYRUP 100 MG/10 ML UDC PO SCH (09:28)
[2022-06-09] MEDS: DOCUSATE SODIUM/SENNA 50/8.6MG TAB PO SCH ×2 (09:28→19:55)
--- NOTE | 2022-06-09 09:30 | Critical Care Progress Note ---
Date of Service June 09, 2022 Assessment & Plan (1) Acute respiratory failure with hypoxia: Plan: Reason Critically Ill: Patient is a 66-year-old male and resident of a intermediate that presents to the ICU mechanically ventilated after being found obtunded and appears to have pneumonia and possible PE on CTA chest along with stool impaction and colitis and urinary tract infection. Patient now being treated for sepsis and hypoxic respiratory failure. Neuro - Encephalopathysuspect this is most likely secondary to sepsis. Patient does have underlying schizophrenia was reported to be alert and oriented at baseline. Patient currently sedated with propofol. Goal RASS -1. Will monitor but expect to improve with treatment of underlying infection -Restarting Zoloft 175 mg daily and Clazuril 100 mg twice daily to prevent withdrawal of medications Cardiac - History of diastolic heart failure. Last TTE in 08/21 with normal EF with diastolic dysfunction. Patient does have pacemaker and is ventricularly paced on monitor. No hemodynamic issues at this time. BNP within normal limits and will hold Lasix given hypotension and PIA. Continuous monitoring on telemetry Respiratory - Acute hypoxic respiratory failurelikely secondary to pneumonia but may be multifactoral given possible PE on CT chest. Of note, patient does have history of PE (previously visualized in right middle lobe pulmonary artery) and history of COPD with nasal cannula at baseline -CTA chest as above. Will obtain lower extremity venous Doppler to assess for possible DVT -Started empirically on heparin drip for systemic anticoagulation. Patient was previously on Eliquis but completed 3 to 6 months therapy following PE -See ID treatment for management of pneumonia below -History of diastolic heart failure, will hold on Lasix for the time being given PIA and previous hypotension -Continue with mechanical ventilation support and wean vent settings as tolerated. Follow-up ABG and morning chest x-ray -Continuous end-tidal CO2 and pulse ox monitoring GI - Fecal impaction of the rectumCT as above, we will proceed with manual disimpaction followed by bowel regimen. Expect colonic obstruction and colitis should improve following disimpaction. RENAL/LYTES - AKIcreatinine 1.4 with baseline 0.6 on previous admission. Suspect this is ATN in the setting of sepsis -Improving - Foleystrict I's and O's -History chronic indwelling Gunderson per report ENDO - DM type II(controlled), continue with sliding scale for now. ICU hyperglycemic protocol Hypothyroidismcontinue Synthroid HEME - H&H stable, monitor routine CBC -Continue with anticoagulation in the acute setting however I suspect the findings are equivocal and the area in question could be related to prior PE. ID - Sepsismost likely pulmonary source culprit given pneumonia on CT, cannot rule out possible urinary source with chronic Gunderson and +2 bacteria on urinalysis, cannot rule out GI source with colitis. -Urine culture +; hx ESBL in 04/01/22, on meropenem which was sensitive -Viral panel negative, MRSA pending -Enhanced precautions given ESBL history LINES/IV ACCESS - Left IJ CVL, ET tube, OG tube, Gunderson DVT PROPHYLAXIS - SCDs, heparin drip I have personally spent 45 minutes of critical care time in the direct management of this patient. This is a life/limb threatening event. This includes time spent evaluating patient, direct bedside care, chart review, placing orders, interpretation of diagnostic studies, discussion with consultants, patient, and family members, as well as other required patient management activities. This time is exclusive of all separately billable procedures, and teaching time and separate from and in addition to any other critical care service time. (2) Altered mental state: (3) Pneumonia: (4) Urinary tract infection: (5) Pulmonary embolism: (6) Stercoral colitis: (7) Type II diabetes mellitus: (8) Hypothyroidism: (9) Urinary incontinence: (10) Sepsis: (11) Schizophrenia: (12) Diastolic CHF: (13) Impacted stool in rectum: Admission and Anticipated Discharge Date Admission Date: June 08, 2022 Results & Data Results & Data Vital Signs (Past 12 Hours) Vital Signs Temp Pulse Resp BP Pulse Ox O2 Del Method FiO2 06/09/22 08:45 37.1 C 100 H 17 134/85 95 Mechanical Vent 30 06/09/22 08:30 37.0 C 99 H 17 134/75 94 Mechanical Vent 40 06/09/22 08:15 37.0 C 99 H 15 123/78 94 Mechanical Vent 40 06/09/22 08:01 36.9 C 99 H 16 127/69 94 Mechanical Vent 40 06/09/22 07:46 36.8 C 99 H 18 142/74 H 94 Mechanical Vent 40 06/09/22 07:30 36.7 C 97 H 17 130/77 94 Mechanical Vent 40 06/09/22 07:16 36.6 C 96 H 16 128/73 94 Mechanical Vent 40 06/09/22 07:00 36.6 C 95 H 16 100/71 94 Mechanical Vent 40 06/09/22 08:05 97 H 16 94 40 06/09/22 08:00 99 H 06/09/22 07:00 Mechanical Vent 40 06/09/22 07:00 40 06/09/22 06:16 36.5 C 92 H 16 94 06/09/22 06:16 111/62 06/09/22 06:00 36.4 C L 94 H 16 94 06/09/22 06:00 135/87 06/09/22 05:45 36.4 C L 90 16 93 06/09/22 05:45 120/76 06/09/22 05:30 115/74 06/09/22 05:30 36.4 C L 90 16 93 06/09/22 05:15 130/75 06/09/22 05:15 36.3 C L 89 16 93 06/09/22 05:00 36.2 C L 89 16 93 06/09/22 05:00 122/79 06/09/22 04:46 36.2 C L 89 16 94 06/09/22 04:46 125/80 06/09/22 04:15 130/79 06/09/22 04:15 36.1 C L 88 16 94 06/09/22 04:00 36.0 C L 88 16 94 06/09/22 04:00 125/81 06/09/22 03:45 137/81 06/09/22 03:45 36.0 C L 86 16 94 06/09/22 03:30 134/85 06/09/22 03:30 36.0 C L 85 16 95 06/09/22 03:15 132/80 06/09/22 03:15 36.0 C L 85 16 94 06/09/22 03:00 36.0 C L 85 16 94 06/09/22 03:00 125/81 06/09/22 02:45 36.0 C L 86 16 95 06/09/22 02:45 122/85 06/09/22 02:30 123/83 06/09/22 02:30 36.0 C L 86 16 94 06/09/22 04:20 87 16 95 40 06/09/22 03:49 40 06/09/22 02:15 122/86 06/09/22 02:15 35.8 C L 86 16 95 06/09/22 02:00 36.1 C L 86 16 93 06/09/22 02:00 118/89 06/09/22 01:45 36.2 C L 86 16 93 06/09/22 01:45 124/80 06/09/22 01:30 116/84 06/09/22 01:30 36.2 C L 87 16 93 06/09/22 01:15 123/81 06/09/22 01:15 36.3 C L 88 16 93 06/09/22 01:00 36.4 C L 89 16 93 06/09/22 01:00 119/80 06/09/22 00:45 117/81 06/09/22 00:45 36.4 C L 89 16 97 06/09/22 00:30 120/79 06/09/22 00:30 36.5 C 90 16 97 06/09/22 00:15 121/81 06/09/22 00:15 36.6 C 91 H 16 97 06/09/22 00:00 36.6 C 93 H 16 97 06/09/22 00:00 124/78 06/08/22 23:45 36.7 C 94 H 16 96 06/08/22 23:45 122/77 06/08/22 23:30 120/78 06/08/22 23:30 36.8 C 95 H 16 96 06/09/22 00:00 40 06/09/22 00:00 96 H 06/08/22 23:15 36.8 C 97 H 16 96 06/08/22 23:15 117/79 06/08/22 23:00 99 H 16 95 06/08/22 23:00 118/78 06/08/22 22:45 110/72 06/08/22 22:45 98 H 16 97 06/08/22 22:30 107/73 06/08/22 22:30 99 H 16 96 06/08/22 22:15 99 H 16 96 06/08/22 22:15 115/74 06/08/22 22:00 99 H 16 96 06/08/22 22:00 112/76 06/08/22 21:45 108/73 06/08/22 21:45 36.9 C 101 H 14 96 06/08/22 23:05 98 H 16 96 40 06/08/22 21:30 36.9 C 101 H 14 96 06/08/22 21:30 91/61 L Coding Level of Care Code 09148 CRITICAL CARE 1ST 30-74M Diagnoses Acute respiratory failure with hypoxia J96.01 Altered mental state R41.82 Pneumonia J18.9 Laterality: unspecified laterality Lung location: unspecified part of lung Pneumonia type: due to unspecified organism Urinary tract infection T83.511A; N39.0 Encounter type: initial encounter Indwelling urinary catheter type: indwelling urethral catheter Urinary tract infection type: catheter-associated UTI Pulmonary embolism I26.99 Stercoral colitis K52.89 Type II diabetes mellitus E11.9 Hypothyroidism E03.9 Urinary incontinence R32 Sepsis A41.9; R65.20; J96.01 Acute respiratory failure type: with hypoxia Sepsis acute organ dysfunction status: with acute organ dysfunction Sepsis type: sepsis due to unspecified organism Severe sepsis acute organ dysfunction type: acute respiratory failure Severe sepsis shock status: without septic shock Schizophrenia F20.9 Diastolic CHF I50.32 Heart failure chronicity: chronic Impacted stool in rectum K56.41 (3) Pneumonia Laterality: unspecified laterality Lung location: unspecified part of lung Pneumonia type: due to unspecified organism Qualified Code(s): J18.9 - Pneumonia, unspecified organism (4) Urinary tract infection Encounter type: initial encounter Indwelling urinary catheter type: ind welling urethral catheter Urinary tract infection type: catheter-associated UTI Qualified Code(s): T83.511A - Infection and inflammatory reaction due to indwelling urethral catheter, initial encounter; N39.0 - Urinary tract infection, site not specified (10) Sepsis Acute respiratory failure type: with hypoxia Sepsis acute organ dysfunction status: with acute organ dysfunction Sepsis type: sepsis due to unspecified organism Severe sepsis acute organ dysfunction type: acute respiratory failure Severe sepsis shock status: without septic shock Qualified Code(s): A41.9 - Sepsis, unspecified organism; R65.20 - Severe sepsis without septic shock; J96.01 - Acute respiratory failure with hypoxia (12) Diastolic CHF Heart failure chronicity: chronic Qualified Code(s): I50.32 - Chronic diastolic (congestive) heart failure
[2022-06-09] MEDS: SERTRALINE HCL 100 MG TABLET PO SCH (10:09)
[2022-06-09] MEDS: SERTRALINE HCL 50 MG TABLET PO SCH ×2 (10:09)
[2022-06-09] MEDS: HEPARIN SODIUM/DEXTROSE 25,000 UNITS/500 ML BAG IV SCH (11:42)
[2022-06-09] MEDS: TAMSULOSIN HCL 0.4 MG CAP PO SCH (16:40)
[2022-06-09] MEDS ORDERED: ACETAMINOPHEN 1,000 MG/100 ML VIAL IV PRN (17:34)
[2022-06-09] MEDS: ATORVASTATIN 10 MG TAB PO SCH (19:56)
[2022-06-09] MEDS: cloZAPine 100 MG TAB PO SCH (19:57)
[2022-06-09] MEDS ORDERED: Nursing to Pharmacy Communication SCH (20:30)
--- NOTE | 2022-06-09 22:46 | Hospitalist Progress Note ---
Date of Service June 09, 2022 Assessment & Plan (1) Acute respiratory failure with hypoxia: Plan: Patient arrived via EMS and obtunded on CPAP therefore intubated in the ER CT for PE given recent history of this and off anticoguation Acute hypoxic respiratory failurelikely secondary to pneumonia but may be multifactoral given possible PE on CT chest. Of note, patient -Started empirically on heparin drip for systemic anticoagulation. Patient was previously on Eliquis but completed 3 to 6 months therapy following PE - will try to wean off mechanical ventilation as per critical care team (2) Sepsis: Plan: Patient is intubated and sedated. Most likely urinary source given chronic harrison catheter use. CT A/P w/wo IV contrast to assess colitis and r/o nephrolithiasis contributing (3) Altered mental state: Plan: Suspect secondary to sepsis as above. CT head pending (4) Right leg swelling: Plan: Suspect DVT, consider US venous doppler if CT for PE negative. (5) Type II diabetes mellitus: Plan: HbA1C 5.8 in May Managed with insulin outpatient Lantus 27 units HS Consult pharmacy for glycemic control while here (6) AI (obstructive sleep apnea): Plan: Noted history of this Does not wear CPAP at night but usually on 2LPM O2 (7) Urinary retention: Plan: Chronic harrison catheter use. Changed in ER and UA sent after change of catheter. Managed by urology as outpatient with plans of eventual voiding trial. (8) Schizophrenia: Plan: Holding clozapine and sertraline due to altered mental state (9) Diastolic CHF: Plan: History of this but no repeated hospitalizations and suspect more dietary related vs. venous stasis No pulmonary edema on CXR Holding furosemide due to hypotension. Plan VTE Prophylaxis - pending CT for PE Diet - NPO Disposition - admit to ICU Admission and Anticipated Discharge Date Admission Date: June 08, 2022 Subjective Patient is intubated and sedated. Review of Systems Review of Systems: Unobtainable due to endotracheal tube Physical Exam Constitutional: well developed and + mechanically ventilated; + not well nourished and no acute distress Eyes: PERRL, conjunctivae normal, anicteric sclerae Respiratory: normal respiratory effort (intubated); no respiratory distress and no stridor Auscultation: + crackles (posteriorly); no wheezes Cardiovascular: Rate/Rhythm: + tachycardic and + irregularly irregular Vessels: no JVD Extremities: + pedal edema (2+ right LE, 1+ left LE pitting); + abnormal capillary refill (prolonged peripheries, central < 2 s) Gastrointestinal (Abdomen): Inspection/Auscultation: + abdomen distended and normal bowel sounds; + abdomen abnormal to inspection Percussion/Palpation: abdomen soft Skin: no rashes, warm and dry Neurologic: + not awake Psychiatric: Orientation: + not alert Results & Data Results & Data Vital Signs (Past 12 Hours) Vital Signs Temp Pulse Resp BP Pulse Ox O2 Del Method FiO2 06/09/22 22:00 37.6 C H 94 H 14 96 06/09/22 22:00 110/69 06/09/22 21:00 37.7 C H 97 H 17 95 06/09/22 21:00 125/74 06/09/22 20:00 37.8 C H 96 H 17 97 06/09/22 20:00 119/72 06/09/22 19:08 97 H 16 98 30 06/09/22 19:00 37.9 C H 97 H 17 98 06/09/22 19:00 119/72 06/09/22 18:38 37.9 C H 97 H 16 98 06/09/22 19:36 Mechanical Vent 30 06/09/22 19:36 30 06/09/22 18:01 38.0 C H 98 H 16 117/75 98 Mechanical Vent 30 06/09/22 17:01 37.9 C H 108 H 20 160/94 H 93 Mechanical Vent 30 06/09/22 16:00 98 H 06/09/22 15:15 97 H 16 99 30 06/09/22 16:00 37.8 C H 98 H 16 125/76 97 Mechanical Vent 30 06/09/22 16:00 30 06/09/22 15:00 37.8 C H 97 H 16 122/74 99 Mechanical Vent 30 06/09/22 14:00 37.6 C H 96 H 16 114/71 98 Room Air 06/09/22 13:00 37.5 C 97 H 16 121/66 96 Room Air 06/09/22 12:00 37.6 C H 101 H 16 121/71 93 Mechanical Vent 30 06/09/22 11:00 37.5 C 100 H 16 125/74 93 Mechanical Vent 30 06/09/22 12:00 30 06/09/22 11:30 100 H 16 92 30 PG Care Time/CCT Total # of Minutes Spent Total Time Spent with Patient: Total time spent is greater than 50% in coordination of care (as documented) at patient's floor/unit and/or counseling patient: Coding Level of Care Code 36886 SUB INP/OBS CARE 3/50MIN Diagnoses Acute respiratory failure with hypoxia J96.01 Sepsis A41.9; R65.20; J96.01 Acute respiratory failure type: with hypoxia Sepsis acute organ dysfunction status: with acute organ dysfunction Sepsis type: sepsis due to unspecified organism Severe sepsis acute organ dysfunction type: acute respiratory failure Severe sepsis shock status: without septic shock Altered mental state R41.82 Right leg swelling M79.89 Type II diabetes mellitus E11.9 AI (obstructive sleep apnea) G47.33 Urinary retention R33.9 Schizophrenia F20.9 Diastolic CHF I50.32 Heart failure chronicity: chronic (2) Sepsis Acute respiratory failure type: with hypoxia Sepsis acute organ dysfunction status: with acute organ dysfunction Sepsis type: sepsis due to unspecified organism Severe sepsis acute organ dysfunction type: acute respiratory failure Severe sepsis shock status: without septic shock Qualified Code(s): A41.9 - Sepsis, unspecified organism; R65.20 - Severe sepsis without septic shock; J96.01 - Acute respiratory failure with hypoxia (9) Diastolic CHF Heart failure chronicity: chronic Qualified Code(s): I50.32 - Chronic diastolic (congestive) heart failure
[2022-06-10] MEDS: INSULIN ASPART PER UNIT CHARGE SC SCH ×5 (00:02→20:52)
[2022-06-10] MEDS ORDERED: ALBUMIN 25% 100 mL 25 GM/100 ML VIAL IV ONE (00:50)
[2022-06-10] MEDS: MEROPENEM 1,000 MG in SYRINGE 0 ML IV SCH ×2 (01:01→10:33)
[2022-06-10] MEDS: propofoL 1,000 MG/100 ML VIAL IV SCH ×4 (02:22→10:57)
[2022-06-10] MEDS ORDERED: PLASMA-LYTE A 500 ML IV ONE (03:32)
[2022-06-10] MEDS: HEPARIN SODIUM/DEXTROSE 25,000 UNITS/500 ML BAG IV SCH ×2 (03:35→17:18)
[2022-06-10 04:25] LABS: Basophils # (auto) 0.08 K/uL (0-0.2); Basophils % (auto) 0.5 %; Eosinophils # (auto) 0.09 K/uL (0-0.50); Eosinophils % (auto) 0.6 %; Hematocrit (blood only) 33.6 % (42.0-52.0); Immature Granulocytes # (auto) 0.15 K/uL (0.01-0.20); Lymphocytes # (auto) 1.44 K/uL (1.2-3.4); Lymphocytes % (auto) 9.2 %; Mean Corpuscular Hemoglobin 29.2 pg (25.0-34.0); Mean Corpuscular Hgb Conc 32.7 g/dL (32.0-36.0); Mean Corpuscular Volume 89.1 fL (80.0-100.0); Mean Platelet Volume 11.6 fL (9.4-12.4); Monocytes # (auto) 1.25 K/uL (0.11-0.59); Neutrophils % (auto) 80.7 %; Platelet Count 206 K/uL (130-400); RDW Coefficient of Variation 13.5 % (11.5-14.5); RDW Standard Deviation 44.2 fL (36.4-46.3); Red Blood Count 3.77 M/uL (4.70-6.10); White Blood Count 15.71 K/ul (4.8-10.8)
[2022-06-10 04:58] LABS: BUN Creatinine Ratio 30.5 (10-20); Calcium 7.8 mg/dl (8.6-10.3); Creatinine Clr Calc Pharmacy 160.9 ml/min; Est GFR (African American) 120.6 ml/min; Phosphorus 1.7 mg/dl (2.5-4.9); Potassium 3.1 mmol/L (3.5-5.1)
[2022-06-10 05:03] LABS: iSTAT Allen Test Pass; iSTAT Art Bld Gas pCO2 Correct 35 mmHg (35-46); iSTAT Art Bld Gas pH Corrected 7.504 (7.35-7.45); iSTAT Arterial Blood Gas HCO3 27 meg/L (19-24); iSTAT Arterial Blood Gas pCO2 35 mmHg (35-46); iSTAT Arterial Blood Gas pO2 64 mmHg (80-95); iSTAT Arterial Blood Gas pO2 C 64; iSTAT Carbon Dioxide 28 mmol/L (24-31); iSTAT FiO2 30 %; iSTAT Hematocrit 33 % (42-52); iSTAT Hemoglobin 11.2 g/dl (14.0-18.0); iSTAT Site R Radial; iSTAT Sodium 135 mmol/L (135-144)
[2022-06-10] MEDS ORDERED: POTASSIUM PHOS 3 MMOL/1 ML INFUSION IV STA (05:06)
[2022-06-10 05:19] LABS: INR 1.1 (0.9-1.1); Partial Thromboplastin Ratio 2.8; Prothrombin Time 11.2 Seconds (9.0-12.0)
[2022-06-10] MEDS ORDERED: POTASSIUM PHOSPHATE 40 MMOL in SODIUM CHLORIDE 0.9% 1000ML 1,000 ML IV ONE (05:30)
[2022-06-10] MEDS: LEVOTHYROXINE SODIUM 125 MCG TABLET PO SCH (05:32)
[2022-06-10 05:55] LABS: Partial Thromboplastin Time 75.9 Seconds (21.0-31.0)
[2022-06-10] MEDS ORDERED: STAT IV STA (06:04)
[2022-06-10] MEDS ORDERED: INSULIN PROTOCOL GOAL RANGE ONE (06:04)
[2022-06-10] MEDS ORDERED: DEXTROSE 5% 1,000 ML IV ONE ×2 (06:06→06:07)
[2022-06-10] MEDS ORDERED: INSULIN REGULAR 250 UNITS in SODIUM CHLORIDE 0.9% 247.5 ML IV SCH (06:15)
--- NOTE | 2022-06-10 07:07 | XRay Report ---
XR chest 1V portable HISTORY: 66 years-old Male Resp failure acute respiratory failure COMPARISON: Chest radiograph 06/09/2022 TECHNIQUE: AP view of the chest FINDINGS: Endotracheal tube overlies the midline, 2.7 cm superior to the anoop. Enteric tube distal tip overli es the gastric body. Left subclavian pacer. Left IJ central venous catheter distal tip terminates in the expected location of the proximal SVC. No pneumothorax. Small pleural effusions with mild bibasilar consolidation. Pulmonary vascular conges tion with interstitial coarsening has mildly progressed. Bones appear grossly intact. IMPRESSION: 1. Lines and tubes as above. No pneumothorax. 2. Small pleural effusions with mild bibasilar opacities. 3. Pulmonary vascular congestion. ACT 112: Negative or not required by law. The above report was generated using voice recognition software. It may contain grammatical, syntax o r spelling errors. Electronically signed by: Orlando Morris M.D. 06/10/2022 7:06 AM
--- NOTE | 2022-06-10 07:13 | XRay Report ---
KUB HISTORY: Status post placement of an enteric tube OG placement COMPARISON: CT abdomen and pelvis 06/08/2022 FINDINGS: Distal tip of enteric tube projects over the abdominal right upper quadrant, likely within the gastric body. Bibasilar consolidation redemonstrated. Moderate to extensive colonic fecal retenti on with mild gaseous distention of the large bowel. The lower abdomen and pelvis are excluded from th e [id number]. No acute fracture identified. IMPRESSION: Distal tip of enteric tube projects over the stomach. ACT 112: Negative or not required by law. The above report was generated using voice recognition software. It may contain grammatical, syntax o r spelling errors. Electronically signed by: Orlando Morris M.D. 06/10/2022 7:12 AM
[2022-06-10] MEDS ORDERED: INSULIN ASPART PER UNIT CHARGE SC SCH (07:30)
[2022-06-10] MEDS ORDERED: POTASSIUM CHLORIDE / WTR 20 MEQ/100 ML PLCT IV ONE (08:30)
[2022-06-10] MEDS: cloZAPine 100 MG TAB PO SCH ×2 (08:43→20:52)
[2022-06-10] MEDS: DOCUSATE SODIUM SYRUP 100 MG/10 ML UDC PO SCH (08:44)
[2022-06-10] MEDS: DOCUSATE SODIUM/SENNA 50/8.6MG TAB PO SCH ×2 (08:44→20:49)
[2022-06-10] MEDS: SERTRALINE HCL 100 MG TABLET PO SCH (08:45)
[2022-06-10] MEDS: SERTRALINE HCL 50 MG TABLET PO SCH ×2 (08:46→08:47)
--- NOTE | 2022-06-10 08:55 | Critical Care Progress Note ---
Date of Service June 10, 2022 Assessment & Plan (1) Impacted stool in rectum: (2) Altered mental state: (3) Acute respiratory failure with hypoxia: (4) Urinary tract infection: (5) Pulmonary embolism: (6) Type II diabetes mellitus: (7) COPD (chronic obstructive pulmonary disease): (8) AI (obstructive sleep apnea): Plan Reason Critically Ill: Patient is a 66-year-old male and resident of a long term that presents to the ICU mechanically ventilated after being found obtunded and appears to have pneumonia and possible PE on CTA chest along with stool impaction and colitis and urinary tract infection. Patient now being treated for sepsis and hypoxic respiratory failure. Neuro - Encephalopathy Likely secondary to sepsis. Patient does have underlying schizophrenia was reported to be alert and oriented at baseline. - Continue with Zoloft 175 mg daily and Clazuril 100 mg twice daily Cardiac - -- Diastolic heart failure. Last TTE in 08/21 with normal EF with diastolic dysfunction. Patient does have pacemaker and is ventricularly paced on monitor Respiratory - -- Acute on chronic hypoxic respiratory failure Multifactoral, right lower lobe pneumonia Continue with antibiotics Follow-up sputum culture -- Pulmonary embolism --> equivocal on the latest CTA 06/08/2022 Started empirically on heparin drip for systemic anticoagulation. Patient was previously on Eliquis but completed 3 to 6 months therapy following PE Doppler bilateral lower extremity negative for DVT on 06/09/22 --COPD with chronic hypoxic respiratory failure GI - Fecal impaction of the rectum S/p manual disimpaction Continue with Colace and senna RENAL/LYTES - PIA Improving Monitor BUNs/creatinine - Foleystrict I's and O's -History chronic indwelling Gunderson per report ENDO - -- DM type II ICU hyperglycemic protocol -- Hypothyroidism continue Synthroid HEME - -- Monitor H&H ID - Sepsis -Source right lower lobe pneumonia along with UTI -Urine culture,Positive for ESBL, meropenem changed to ertapenem on 410 -Viral panel negative, MRSA negative Follow sputum culture and blood culture --Prophylaxis VTE: Heparin drip GI: Pepcid Lines: Left IJ Diet: N.p.o. Plan: In/out: +1.7 L, urine output 1361, +4.9 L since coming to the hospital AB.50/35/64 on 30% PEEP of 5 Meropenem will be changed to ertapenem which would have good respiratory coverage as well. Will complete the course for total of 10 days. Trial of extubation today Hypokalemia and hypophosphatemia being replaced Stop IV fluids I have personally spent 48 minutes of critical care time in the direct management of this patient. This is a life/limb threatening event. This includes time spent evaluating patient, direct bedside care, chart review, placing orders, interpretation of diagnostic studies, discussion with consultants, patient, and family members, as well as other required patient management activities. This time is exclusive of all separately billable procedures, and teaching time and separate from and in addition to any other critical care service time. Admission and Anticipated Discharge Date Admission Date: June 08, 2022 Subjective Patient seen and examined at bedside. No acute distress, no adverse events overnight. Patient was on propofol 15 at the time of examination He was waking up following simple commands. Denied any headache, no abdominal pain. No shortness of breath. Wanted the tube out Review of Systems Review of Systems: All systems reviewed & are unremarkable except as noted in Subjective Physical Exam Physical Exam: Constitutional: No acute distress HEENT: EOMI, PERRLA Respiratory system: Decreased air entry bilaterally, no wheeze, no rhonchi, positive crackles bilateral lower lobes CVS: S1-S2 positive, no murmurs or gallops, positive left-sided PPM Abdomen: Soft, nontender, nondistended, positive bowel sounds x4, obese Extremities: +2 pulses bilaterally radialis/ dorsalis pedis, no cyanosis, +1 pitting edema bilateral lower extremity Neuro: Awake alert oriented, following commands Psych: Normal mood and affect G/U: Positive Gunderson Skin: no rashes, warm and dry Lymphatic: no cervical or axillary lymphadenopathy Results & Data Results & Data Vital Signs (Past 12 Hours) Vital Signs Temp Pulse Resp BP Pulse Ox O2 Del Method FiO2 06/10/22 07:00 36.9 C 89 16 105/80 98 Mechanical Vent 30 06/10/22 08:05 Mechanical Vent 30 06/10/22 07:21 30 06/10/22 06:00 36.9 C 89 16 97 06/10/22 06:00 124/81 06/10/22 05:00 36.9 C 90 16 96 06/10/22 05:00 130/89 06/10/22 04:00 36.8 C 92 H 16 96 06/10/22 04:00 138/86 06/10/22 03:00 125/79 06/10/22 04:00 30 06/10/22 02:30 90 16 97 30 06/10/22 03:00 37.0 C 91 H 16 96 06/10/22 02:00 37.0 C 91 H 18 98 06/10/22 02:00 120/80 06/10/22 01:00 37.0 C 91 H 16 97 06/10/22 01:00 112/74 06/10/22 00:00 37.1 C 91 H 16 95 06/10/22 00:00 120/80 06/09/22 23:00 37.4 C 92 H 16 95 06/09/22 23:00 102/64 06/09/22 23:55 30 06/09/22 23:52 92 H 06/09/22 23:04 92 H 16 95 30 06/09/22 22:00 37.6 C H 94 H 14 96 06/09/22 22:00 110/69 06/09/22 21:00 37.7 C H 97 H 17 95 06/09/22 21:00 125/74 Laboratory Results 06/10/22 04:11 06/10/22 04:11 Coding Level of Care Code 22332 CRITICAL CARE 1ST 30-74M Diagnoses Impacted stool in rectum K56.41 Altered mental state R41.82 Acute respiratory failure with hypoxia J96.01 Urinary tract infection T83.511A; N39.0 Encounter type: initial encounter Indwelling urinary catheter type: indwelling urethral catheter Urinary tract infection type: catheter-associated UTI Pulmonary embolism I26.99 Type II diabetes mellitus E11.9 COPD (chronic obstructive pulmonary disease) J44.9 AI (obstructive sleep apnea) G47.33 Time Spent (min) 48 (4) Urinary tract infection Encounter type: initial encounter Indwelling urinary catheter type: indwelling urethral catheter Urinary tract infection type: catheter-associated UTI Qualified Code(s): T83.511A - Infection and inflammatory reaction due to indwelling urethral catheter, initial encounter; N39.0 - Urinary tract infection, site not specified
[2022-06-10] MEDS: FAMOTIDINE 20 MG in SYRINGE 3 ML IV SCH ×2 (09:09→20:49)
[2022-06-10] MEDS: ERTAPENEM SODIUM 1,000 MG in SYRINGE 0 ML IV SCH (10:44)
[2022-06-10 11:37] LABS: iSTAT Arterial Blood Gas HCO3 27 meg/L (19-24); iSTAT Arterial Blood Gas pCO2 67 mmHg (35-46); iSTAT Arterial Blood Gas pH 7.21 (7.35-7.45); iSTAT Arterial Blood Gas pO2 99 mmHg (80-95); iSTAT Carbon Dioxide 29 mmol/L (24-31); iSTAT Hematocrit 46 % (42-52); iSTAT Hemoglobin 15.6 g/dl (14.0-18.0); iSTAT Sodium 135 mmol/L (135-144)
[2022-06-10 13:32] LABS: Partial Thromboplastin Ratio 1.8
[2022-06-10 13:37] LABS: Partial Thromboplastin Time 49.2 Seconds (21.0-31.0)
[2022-06-10] MEDS: TAMSULOSIN HCL 0.4 MG CAP PO SCH (15:48)
[2022-06-10 16:24] LABS: BUN Creatinine Ratio 24.6 (10-20); Calcium 7.9 mg/dl (8.6-10.3); Creatinine Clr Calc Pharmacy 166.6 ml/min; Est GFR (African American) 122.3 ml/min; Est GFR (Non-African American) 105.5 ml/min; Phosphorus 3.3 mg/dl (2.5-4.9); Potassium 3.6 mmol/L (3.5-5.1)
[2022-06-10] MEDS ORDERED: POTASSIUM CHLORIDE / WTR 20 MEQ/100 ML PLCT IV STA (16:33)
[2022-06-10] MEDS ORDERED: FUROSEMIDE INJ 20 MG/2 ML VIAL IV ONE (16:34)
[2022-06-10] MEDS: ATORVASTATIN 10 MG TAB PO SCH (20:52)
--- NOTE | 2022-06-10 22:06 | Hospitalist Progress Note ---
Date of Service June 10, 2022 Assessment & Plan (1) Acute respiratory failure with hypoxia: Plan: Patient arrived via EMS and obtunded on CPAP therefore intubated in the ER CT for PE given recent history of this and off anticoguation Acute hypoxic respiratory failurelikely secondary to pneumonia but may be multifactoral given possible PE on CT chest. Of note, patient -Started empirically on heparin drip for systemic anticoagulation. Patient was previously on Eliquis but completed 3 to 6 months therapy following PE - will try to wean off mechanical ventilation as per critical care team Plan to trial extubation later this AM on 06/10 (2) Sepsis: Plan: Patient is intubated and sedated. Most likely urinary source given chronic harrison catheter use. CT A/P w/wo IV contrast to assess colitis and r/o nephrolithiasis contributing (3) Altered mental state: Plan: Suspect secondary to sepsis as above. CT head pending (4) Right leg swelling: Plan: Suspect DVT, consider US venous doppler if CT for PE negative. (5) Type II diabetes mellitus: Plan: HbA1C 5.8 in May Managed with insulin outpatient Lantus 27 units HS Consult pharmacy for glycemic control while here (6) AI (obstructive sleep apnea): Plan: Noted history of this Does not wear CPAP at night but usually on 2LPM O2 (7) Urinary retention: Plan: Chronic harrison catheter use. Changed in ER and UA sent after change of catheter. Managed by urology as outpatient with plans of eventual voiding trial. (8) Schizophrenia: Plan: Holding clozapine and sertraline due to altered mental state (9) Diastolic CHF: Plan: History of this but no repeated hospitalizations and suspect more dietary relate d vs. venous stasis No pulmonary edema on CXR Holding furosemide due to hypotension. Plan VTE Prophylaxis - pending CT for PE Diet - NPO Disposition - admit to ICU Admission and Anticipated Discharge Date Admission Date: June 08, 2022 Subjective 66 yo male is intubated and sedated. Review of Systems Review of Systems: Unobtainable due to endotracheal tube Physical Exam Constitutional: well developed and + mechanically ventilated; + not well nourished and no acute distress Eyes: PERRL, conjunctivae normal, anicteric sclerae Respiratory: normal respiratory effort (intubated); no respiratory distress and no stridor Auscultation: + crackles (posteriorly); no wheezes Cardiovascular: Rate/Rhythm: + tachycardic and + irregularly irregular Vessels: no JVD Extremities: + pedal edema (2+ right LE, 1+ left LE pitting); + abnormal capillary refill (prolonged peripheries, central < 2 s) Gastrointestinal (Abdomen): Inspection/Auscultation: + abdomen distended and normal bowel sounds; + abdomen abnormal to inspection Percussion/Palpation: abdomen soft Skin: no rashes, warm and dry Neurologic: + not awake Psychiatric: Orientation: + not alert Results & Data Results & Data Vital Signs (Past 12 Hours) Vital Signs Temp Pulse Resp BP Pulse Ox O2 Del Method O2 Flow Rate 06/10/22 19:00 37.5 C 91 H 26 H 98 06/10/22 19:00 111/67 06/10/22 19:50 Nasal Cannula 3 06/10/22 17:01 37.4 C 97 H 19 106/65 98 06/10/22 17:00 37.4 C 97 H 17 82 L 06/10/22 16:00 37.4 C 96 H 24 121/65 94 06/10/22 15:00 37.3 C 104 H 24 100/57 L 97 Nasal Cannula 3 06/10/22 14:06 37.1 C 100 H 16 107/68 97 Nasal Cannula 3 06/10/22 14:00 37.1 C 100 H 22 99/60 L 99 Nasal Cannula 3 06/10/22 13:00 37.1 C 98 H 20 106/71 98 Nasal Cannula 3 06/10/22 12:00 37.1 C 95 H 18 113/74 95 Nasal Cannula 3 06/10/22 12:00 113/74 06/10/22 11:00 37.1 C 93 H 17 120/78 98 BiPAP 06/10/22 10:14 94 H 26 H 96 06/10/22 10:12 FiO2 06/10/22 19:00 06/10/22 19:00 06/10/22 19:50 06/10/22 17:01 06/10/22 17:00 06/10/22 16:00 06/10/22 15:00 06/10/22 14:06 06/10/22 14:00 06/10/22 13:00 06/10/22 12:00 06/10/22 12:00 06/10/22 11:00 30 06/10/22 10:14 30 06/10/22 10:12 30 PG Care Time/CCT Total # of Minutes Spent Total Time Spent with Patient: Total time spent is greater than 50% in coordination of care (as documented) at patient's floor/unit and/or counseling patient: Coding Level of Care Code 51280 SUB INP/OBS CARE 2/35MIN Diagnoses Acute respiratory failure with hypoxia J96.01 Sepsis A41.9; R65.20; J96.01 Acute respiratory failure type: with hypoxia Sepsis acute organ dysfunction status: with acute organ dysfunction Sepsis type: sepsis due to unspecified organism Severe sepsis acute organ dysfunction type: acute respiratory failure Severe sepsis shock status: without septic shock Altered mental state R41.82 Right leg swelling M79.89 Type II diabetes mellitus E11.9 AI (obstructive sleep apnea) G47.33 Urinary retention R33.9 Schizophrenia F20.9 Diastolic CHF I50.32 Heart failure chronicity: chronic (2) Sepsis Acute respiratory failure type: with hypoxia Sepsis acute organ dysfunction status: with acute organ dysfunction Sepsis type: sepsis due to unspecified organism Severe sepsis acute organ dysfunction type: acute respiratory failure Severe sepsis shock status: without septic shock Qualified Code(s): A41.9 - Sepsis, unspecified organism; R65.20 - Severe sepsis without septic shock; J96.01 - Acute respiratory failure with hypoxia (9) Diastolic CHF Heart failure chronicity: chronic Qualified Code(s): I50.32 - Chronic diastolic (congestive) heart failure
[2022-06-11 04:46] LABS: Basophils # (auto) 0.07 K/uL (0-0.2); Basophils % (auto) 0.5 %; Eosinophils # (auto) 0.13 K/uL (0-0.50); Eosinophils % (auto) 0.9 %; Hematocrit (blood only) 32.9 % (42.0-52.0); Immature Granulocytes % (auto) 2.1 %; Lymphocytes # (auto) 1.46 K/uL (1.2-3.4); Lymphocytes % (auto) 10.1 %; Mean Corpuscular Hemoglobin 29.5 pg (25.0-34.0); Mean Corpuscular Hgb Conc 33.4 g/dL (32.0-36.0); Mean Corpuscular Volume 88.2 fL (80.0-100.0); Mean Platelet Volume 11.8 fL (9.4-12.4); Monocytes # (auto) 1.05 K/uL (0.11-0.59); Monocytes % (auto) 7.3 %; Neutrophils # (auto) 11.42 K/uL (1.40-6.50); Neutrophils % (auto) 79.1 %; Platelet Count 223 K/uL (130-400); RDW Coefficient of Variation 13.5 % (11.5-14.5); RDW Standard Deviation 43.7 fL (36.4-46.3); Red Blood Count 3.73 M/uL (4.70-6.10); White Blood Count 14.43 K/ul (4.8-10.8)
[2022-06-11 05:01] LABS: BUN Creatinine Ratio 19.6 (10-20); Creatinine Clr Calc Pharmacy 169.6 ml/min; Est GFR (African American) 123.2 ml/min; Est GFR (Non-African American) 106.3 ml/min; Phosphorus 2.4 mg/dl (2.5-4.9); Potassium 3.4 mmol/L (3.5-5.1)
[2022-06-11 05:26] LABS: Partial Thromboplastin Ratio 1.9
[2022-06-11 05:30] LABS: Partial Thromboplastin Time 51.3 Seconds (21.0-31.0)
[2022-06-11] MEDS ORDERED: POTASSIUM PHOS 3 MMOL/1 ML INFUSION IV STA (06:32)
[2022-06-11] MEDS ORDERED: POTASSIUM PHOSPHATE 30 MMOL in SODIUM CHLORIDE 0.9% 500 ML IV ONE (07:00)
--- NOTE | 2022-06-11 07:04 | Critical Care Progress Note ---
Date of Service June 11, 2022 Assessment & Plan (1) Impacted stool in rectum: (2) Altered mental state: (3) Acute respiratory failure with hypoxia: (4) Urinary tract infection: (5) Pulmonary embolism: (6) Type II diabetes mellitus: (7) COPD (chronic obstructive pulmonary disease): (8) AI (obstructive sleep apnea): Plan Reason Critically Ill: Patient is a 66-year-old male and resident of a alf that presents to the ICU mechanically ventilated after being found obtunded and appears to have pneumonia and possible PE on CTA chest along with stool impaction and colitis and urinary tract infection. Patient now being treated for sepsis and hypoxic respiratory failure. Neuro - Encephalopathyimproved Likely secondary to sepsis. Patient does have underlying schizophrenia was reported to be alert and oriented at baseline. - Continue with Zoloft 175 mg daily and Clazuril 100 mg twice daily Cardiac - -- Diastolic heart failure. Last TTE in 08/21 with normal EF with diastolic dysfunction. Patient does have pacemaker and is ventricularly paced on monitor Respiratory - -- Acute on chronic hypoxic respiratory failure Extubated 06/10/2022 Multifactoral, right lower lobe pneumonia Continue with antibiotics Follow-up sputum culture -- Pulmonary embolism --> equivocal on the latest CTA 06/08/2022 Started empirically on heparin drip for systemic anticoagulation. Patient was previously on Eliquis but completed 3 to 6 months therapy following PE Doppler bilateral lower extremity negative for DVT on 06/09/22 --COPD with chronic hypoxic respiratory failure GI - -- Fecal impaction of the rectum S/p manual disimpaction Continue with Colace and senna RENAL/LYTES - PIA Improving Monitor BUNs/creatinine - Foleystrict I's and O's -History chronic indwelling Gunderson per report ENDO - -- DM type II ICU hyperglycemic protocol -- Hypothyroidism continue Synthroid HEME - -- Monitor H&H ID - Sepsis -Source right lower lobe pneumonia along with UTI -Urine culture,Positive for ESBL, meropenem changed to ertapenem on 06/10/22 -Viral panel negative, MRSA negative Follow sputum culture and blood culture --Prophylaxis VTE: Heparin drip GI: Pepcid Lines: Left IJ Diet: Cardiac diabetic Plan: In/out: In/out: +720 mL, urine output 2732, +5 L since coming to the hospital Patient got 20 mg of Lasix last night, will give another 20 mg of Lasix. K-Phos being replaced. Importance of using BiPAP explained to the patient. Keep O2 saturation between 88-92% Currently on heparin drip, possibility of patient having PE is low although patient is at high risk for recurrent PE/DVT given his BMI and sedentary life style. Can consider low-dose apixaban lifelong anticoagulation if there is no contraindication. Will defer this to primary team Patient hemodynamically stable to be downgrade to medical floor Case discussed with Dr. Napier Please note the above document was generated using voice recognition software. It may contain grammatical, syntax or spelling errors.Any formal questions or c oncerns about the content, text or information contained within the body of this dictation should be directly addressed to the provider for clarification. Admission and Anticipated Discharge Date Admission Date: June 08, 2022 Subjective Patient seen and examined at bedside. No acute distress, notable symptoms overnight Patient's systolic blood pressure was in the high 90s to low 100s with MAP in the 70s He was saturating 97% on 4 L nasal cannula. I went down to 2 L. He did not use the BiPAP overnight. Importance of using BiPAP while he is sleeping explained. Denies any headache, no abdominal pain. Has been tolerating diet. Positive bowel movements. No headache Review of Systems Review of Systems: All systems reviewed & are unremarkable except as noted in Subjective Physical Exam Physical Exam: Constitutional: No acute distress HEENT: EOMI, PERRLA Respiratory system: Decreased air entry bilaterally, no wheeze, no rhonchi, positive crackles bilateral lower lobes CVS: S1-S2 positive, no murmurs or gallops, positive left-sided PPM Abdomen: Soft, nontender, nondistended, positive bowel sounds x4, obese Extremities: +2 pulses bilaterally radialis/ dorsalis pedis, no cyanosis, +1 pitting edema bilateral lower extremity Neuro: Awake alert oriented Psych: Normal mood and affect G/U: Positive Gunderson Skin: no rashes, warm and dry Lymphatic: no cervical or axillary lymphadenopathy Results & Data Results & Data Vital Signs (Past 12 Hours) Vital Signs Temp Pulse Resp BP Pulse Ox O2 Del Method O2 Flow Rate 06/11/22 05:03 37.3 C 100 H 22 94 06/11/22 05:03 91/73 L 06/11/22 05:01 37.3 C 102 H 20 95 06/11/22 05:01 80/59 L 06/11/22 04:00 37.4 C 102 H 21 93 06/11/22 04:00 91/51 L 06/11/22 03:00 37.5 C 100 H 19 95 06/11/22 03:00 86/61 L 06/11/22 02:01 103/56 L 06/11/22 02:01 37.4 C 98 H 22 97 06/11/22 01:01 37.4 C 101 H 22 94 06/11/22 01:01 105/67 06/11/22 00:00 37.5 C 90 22 94 06/11/22 00:00 110/72 06/10/22 23:00 37.6 C H 101 H 28 H 94 06/10/22 23:00 116/70 06/10/22 22:00 37.7 C H 98 H 26 H 98 06/10/22 22:00 111/65 06/10/22 21:00 37.6 C H 100 H 20 06/10/22 21:00 113/68 06/10/22 20:00 37.6 C H 99 H 18 06/10/22 20:00 103/71 06/10/22 22:30 22 95 3 06/10/22 19:50 Nasal Cannula 3 Laboratory Results 06/11/22 04:23 06/11/22 04:23 Coding Level of Care Code 54852 SUB INP/OBS CARE 3/50MIN Diagnoses Impacted stool in rectum K56.41 Altered mental state R41.82 Acute respiratory failure with hypoxia J96.01 Urinary tract infection T83.511A; N39.0 Encounter type: initial encounter Indwelling urinary catheter type: indwelling urethral catheter Urinary tract infection type: catheter-associated UTI Pulmonary embolism I26.99 Type II diabetes mellitus E11.9 COPD (chronic obstructive pulmonary disease) J44.9 AI (obstructive sleep apnea) G47.33 (4) Urinary tract infection Encounter type: initial encounter Indwelling urinary catheter type: indwelling urethral catheter Urinary tract infection type: catheter-associated UTI Qualified Code(s): T83.511A - Infection and inflammatory reaction due to indwelling urethral catheter, initial encounter; N39.0 - Urinary tract infection, site not specified
[2022-06-11] MEDS: LEVOTHYROXINE SODIUM 125 MCG TABLET PO SCH (07:16)
[2022-06-11] MEDS ORDERED: FUROSEMIDE INJ 20 MG/2 ML VIAL IV ONE (07:26)
[2022-06-11] MEDS ORDERED: MAGNESIUM SULFATE / D5W 1 GM/100 ML BAG IV ONE (07:26)
[2022-06-11] MEDS ORDERED: POTASSIUM CHLORIDE / WTR 20 MEQ/100 ML PLCT IV ONE (07:26)
[2022-06-11] MEDS: INSULIN ASPART PER UNIT CHARGE SC SCH ×4 (07:59→21:30)
[2022-06-11] MEDS: DOCUSATE SODIUM/SENNA 50/8.6MG TAB PO SCH ×2 (08:37→20:08)
[2022-06-11] MEDS: FAMOTIDINE 20 MG in SYRINGE 3 ML IV SCH (08:37)
[2022-06-11] MEDS: SERTRALINE HCL 50 MG TABLET PO SCH ×2 (08:37→08:38)
[2022-06-11] MEDS: cloZAPine 100 MG TAB PO SCH ×2 (08:39→20:08)
[2022-06-11] MEDS: SERTRALINE HCL 100 MG TABLET PO SCH (08:39)
[2022-06-11] MEDS: HEPARIN SODIUM/DEXTROSE 25,000 UNITS/500 ML BAG IV SCH (08:40)
[2022-06-11] MEDS: DOCUSATE SODIUM SYRUP 100 MG/10 ML UDC PO SCH (08:40)
[2022-06-11] MEDS: ERTAPENEM SODIUM 1,000 MG in SYRINGE 0 ML IV SCH (10:30)
--- NOTE | 2022-06-11 13:05 | Urology Consultation ---
Date of Consultation June 11, 2022 Assessment & Plan (1) Urinary retention: (2) Urinary tract infection: (3) Impacted stool in rectum: Plan 66 yo M admitted for acute respiratory failure due to pneumonia and possible PE on CTA chest, along with stool impaction and colitis and urinary tract infection. Patient being treated for sepsis and hypoxic respiratory failure. Urology consulted for urinary retention. Afebrile, labs reviewed -creatinine 0.56, WBC 14.43, hemoglobin 11.0. Urine culture grew out E. coli ESBL, blood cultures no growth to date. Meropenem was transitioned to ertapenem on 06/10/2022. CT imaging reviewed and notable for fecal impaction with massive amount of stool within the rectum and large amount stool within the colon. Continue bowel regimen to normalize bowels. Urinary retention currently being managed with Gunderson catheter. Gunderson catheter in good position on imaging. Recommend maintain Gunderson catheter for maximum drainage -maintain until follow-up with urology. Continue treatment of acute urinary tract infection. Continue supportive care, antibiotics and management per hospital medicine. Will arrange outpatient follow-up with urology. will sign off. History of Present Illness Reason for Consultation: Urinary retention Requesting Physician: Dr. Napier Attending Physician: King Napier History of Present Illness This is a 66-year-old male who presented to the emergency department on 06/08/2022 from his intermediate facility due to respiratory distress and obtundation. Patient was admitted to the ICU after being mechanically ventilated for acute respiratory failure due to pneumonia and possible PE on CTA chest, along with stool impaction and colitis and urinary tract infection. Patient now being treated for sepsis and hypoxic respiratory failure. He was extubated on 06/10/22. Urology is consulted for urinary retention. Patient is known to our service, follows with Dr. Steele. Patient has been seen in clinic for urinary incontinence and urinary retention. Gunderson catheter in place for management of urinary retention. Chart review: Afebrile, labs reviewedcreatinine 0.56, WBC 14.43, hemoglobin 11.0. Urine culture 06/08 showed 60 K CFU of E. coli ESBL. Blood cultures no growth to date. Meropenem changed to ertapenem on 06/10/2022 Imaging - CT a/p wo contrast IMPRESSION: 1. Findings consistent with fecal impaction. Massive amount of stool within the rectum and large amount stool within the colon. The stool appears to result in a relative obstruction with significant rectal and colonic dilatation. Colorectal wall thickening with adjacent stranding represents a nonspecific colitis. This could reflect stercoral colitis. 2. No urinary calculi or hydronephrosis. 3. Lower lung airspace opacities, including right basilar consolidation. These findings are better depicted on the chest CT which will be reported separately. 4. A few mildly enlarged nonspecific retroperitoneal lymph nodes. These can be assessed on follow-up exams. Patient seen in ICU. He is awake and resting in bed. He does not offer much history. He denies abdominal, flank or suprapubic discomfort. Tolerating Gunderson catheter. Gunderson patent and draining clear yellow urine. He denies dysuria or hematuria. Reports he is having bowel movements. No nausea or vomiting. No fever or chills. No additional concerns at present. Allergies Allergy/AdvReac Type Severity Reaction Status Date / Time Penicillins Allergy Unknown on [facility] Verified 06/08/22 19:36 of [facility] med list Home Medications Medication Instructions Recorded Confirmed Type atorvastatin 10 mg tablet (Lipitor) 10 mg PO HS 08/28/20 06/08/22 History clozapine 100 mg tablet (Clozaril) 100 mg PO Q12 08/28/20 06/08/22 History ergocalciferol (vitamin D2) 1,250 1,250 mcg PO WK 08/28/20 06/08/22 History mcg (50,000 unit) capsule (Vitamin D2) linaclotide 290 mcg capsule 290 mcg PO QAM 08/28/20 06/08/22 History (Linzess) magnesium oxide 400 mg (241.3 mg 400 mg PO QAM #30 tabs 10/11/20 06/08/22 Rx magnesium) tablet liraglutide 0.6 mg/0.1 mL (18 mg/3 1.8 mg subcut DAILY 02/09/21 06/08/22 History mL) subcutaneous pen injector tamsulosin 0.4 mg capsule 0.4 mg PO DAILYBD 02/09/21 06/08/22 History levothyroxine 125 mcg tablet 125 mcg PO DAILYBB 03/06/21 06/08/22 History acetaminophen 325 mg tablet 325 mg PO Q6H PRN FEVER/PAIN 10/10/21 06/08/22 History (Tylenol) furosemide 80 mg tablet (Lasix) 40 mg PO QAM #30 tabs 10/28/21 06/08/22 Rx potassium chloride 20 mEq 20 meq PO DAILY #30 tabs 10/28/21 06/08/22 Rx tablet,extended release (K-Tab) sertraline 100 mg tablet 100 mg PO QAM 06/05/22 06/08/22 History cyclobenzaprine 10 mg tablet 10 mg PO HS 06/08/22 06/08/22 History gabapentin 300 mg capsule 300 mg PO TID 06/08/22 06/08/22 History insulin glargine 100 unit/mL (3 27 unit subcut HS 06/08/22 06/08/22 History mL) subcutaneous pen (Lantus Solostar U-100 Insulin) insulin lispro 100 unit/mL 10 unit subcut QAM 06/08/22 06/08/22 History subcutaneous pen (Humalog KwikPen (U-100) Insulin) insulin lispro 100 unit/mL 12 unit subcut BID 06/08/22 06/08/22 History subcutaneous pen (Humalog KwikPen (U-100) Insulin) lactulose 10 gram/15 mL (15 mL) 30 g PO TID PRN constipation 06/08/22 06/08/22 History oral solution omeprazole 40 mg capsule,delayed 40 mg PO QAM 06/08/22 06/08/22 History release sennosides 8.6 mg-docusate sodium 2 tab-cap PO BID 06/08/22 06/08/22 History 50 mg tablet (Senna-S) sertraline 25 mg tablet 25 mg PO QAM 06/08/22 06/08/22 History sertraline 50 mg tablet 50 mg PO QAM 06/08/22 06/08/22 History tramadol 50 mg tablet 25 mg PO BID PRN .MOD TO SEVERE 06/08/22 06/08/22 History PAIN Patient History Medical History Anxiety and depression Chest pain Constipation COPD (chronic obstructive pulmonary disease) Disorder of prostate Dysphagia Esophagitis GERD (gastroesophageal reflux disease) Heart failure Hyperlipidemia Hypertension Hypomagnesemia Hypothyroidism Morbid obesity Multifocal pneumonia Muscle weakness Obstructive sleep apnea O2 at 2L n/c at HS and prn if pulse ox is less than 90% Osteoporosis Paranoid schizophrenia Stercoral colitis Type 2 diabetes mellitus Unspecified abnormalities of gait and mobility Surgical History Surgical history unknown Social History Smoking Status: Former smoker Tobacco Type: Cigarettes Second Hand Exposure: No; Hx Alcohol Use: Yes Hx Substance Use: Yes Preferred Language: Croatian Communication Ability: Effective Communication Ability Comment: pt is able to sign own consents [employer] Specialist Required: No Beliefs That Will Affect Care: None marital status: Single Current Living Situation: Half-Way Current Living Situation Comment: [facility] current occupational status: retired Other Information That Helps Us Care for You: No Feels Safe at Home: Yes Safety Concerns: Feels Safe At This Time Assistive Devices: Mechanical Lift and Wheelchair Review of Systems Review of Systems: All systems reviewed & are unremarkable except as noted in HPI & below Physical Exam Constitutional: + obese; no acute distress Respiratory: no respiratory distress and no labored breathing Gastrointestinal (Abdomen): Inspection/Auscultation: abdomen normal to inspection; abdomen not distended Percussion/Palpation: abdomen soft; abdomen nontender Neurologic: moves all extremities and awake Psychiatric: Orientation: oriented x 3 Genitourinary: Gunderson patent and draining clear yellow urine Results & Data Vital Signs (Past 12 Hours) Vital Signs Temp Pulse Resp BP Pulse Ox O2 Del Method O2 Flow Rate 06/11/22 08:00 Nasal Cannula 06/11/22 09:00 36.9 C 98 H 22 93 06/11/22 08:00 37.0 C 96 H 21 96 06/11/22 08:00 98/64 L 06/11/22 07:00 37.2 C 99 H 21 93 06/11/22 07:00 110/67 06/11/22 06:00 37.3 C 99 H 17 96 06/11/22 06:00 123/65 06/11/22 08:00 99 H 06/11/22 07:31 Nasal Cannula 3 06/11/22 05:03 37.3 C 100 H 22 94 06/11/22 05:03 91/73 L 06/11/22 05:01 37.3 C 102 H 20 95 06/11/22 05:01 80/59 L 06/11/22 04:00 37.4 C 102 H 21 93 06/11/22 04:00 91/51 L 06/11/22 03:00 37.5 C 100 H 19 95 06/11/22 03:00 86/61 L 06/11/22 02:01 103/56 L 06/11/22 02:01 37.4 C 98 H 22 97 FiO2 06/11/22 08:00 2 06/11/22 09:00 06/11/22 08:00 06/11/22 08:00 06/11/22 07:00 06/11/22 07:00 06/11/22 06:00 06/11/22 06:00 06/11/22 08:00 06/11/22 07:31 06/11/22 05:03 06/11/22 05:03 06/11/22 05:01 06/11/22 05:01 06/11/22 04:00 06/11/22 04:00 06/11/22 03:00 06/11/22 03:00 06/11/22 02:01 06/11/22 02:01 PG Care Time/CCT Total # of Minutes Spent Total Time Spent with Patient: Total time spent is greater than 50% in coordination of care (as documented) at patient's floor/unit and/or counseling patient: Coding Level of Care Code 30110 INT INP/OBS CARE MIN Diagnoses Urinary retention R33.9 Urinary tract infection T83.511A; N39.0 Encounter type: initial encounter Indwelling urinary catheter type: indwelling urethral catheter Urinary tract infection type: catheter-associated UTI Impacted stool in rectum K56.41 Time Spent (min) 45 (2) Urinary tract infection Encounter type: initial encounter Indwelling urinary catheter type: indwelling urethral catheter Urinary tract infection type: catheter-associated UTI Qualified Code(s): T83.511A - Infection and inflammatory reaction due to indwelling urethral catheter, initial encounter; N39.0 - Urinary tract infection, site not specified
[2022-06-11 16:21] LABS: BUN Creatinine Ratio 17.6 (10-20); Calcium 8.1 mg/dl (8.6-10.3); Creatinine Clr Calc Pharmacy 184.2 ml/min; Est GFR (Non-African American) 110.5 ml/min; Phosphorus 3.4 mg/dl (2.5-4.9); Potassium 3.8 mmol/L (3.5-5.1)
[2022-06-11] MEDS: TAMSULOSIN HCL 0.4 MG CAP PO SCH (16:56)
[2022-06-11] MEDS: ATORVASTATIN 10 MG TAB PO SCH (20:08)
[2022-06-11] MEDS: FAMOTIDINE 20 MG TAB PO SCH (20:08)
--- NOTE | 2022-06-11 23:57 | Hospitalist Progress Note ---
Date of Service June 11, 2022 Assessment & Plan (1) Acute respiratory failure with hypoxia: Plan: Patient arrived via EMS and obtunded on CPAP therefore intubated in the ER CT for PE given recent history of this and off anticoguation Acute hypoxic respiratory failurelikely secondary to pneumonia but may be multifactoral given possible PE on CT chest. Of note, patient -Started empirically on heparin drip for systemic anticoagulation. Patient was previously on Eliquis but completed 3 to 6 months therapy following PE - will try to wean off mechanical ventilation as per critical care team Plan to trial extubation later this AM on 06/10 (2) Sepsis: Plan: Patient is intubated and sedated. Most likely urinary source given chronic harrison catheter use. CT A/P w/wo IV contrast to assess colitis and r/o nephrolithiasis contributing Sepsis, likely due to both UTI, due to chronic harrison \ Metabolic encephalopathy 66 yo male presenting with decreased mental status. Found to have sepsis, pneumonia and UTI. Documentation notes altered mental status likely due to sepsis. O2 sat in the 70's when EMS arrived Treatment: ICU, intubated and vented, IV Tylenol, IV ertapenem, IV rocephin, IV fluids, IV K riders, IV K phos Risk Factor(s): age, acute respiratory failure, sepsis, pneumonia, UTI UTI due to indwelling harrison catheter 66 yo male with a chronic harrison catheter. UA cx with E coli. Treatment: IV ertapenem, IV fluids, harrison catheter changed, IV rocephin Risk Factor(s): age, chronic harrison catheter (3) Altered mental state: Plan: Suspect secondary to sepsis as above. CT head pending (4) Right leg swelling: Plan: Suspect DVT, consider US venous doppler if CT for PE negative. (5) Type II diabetes mellitus: Plan: HbA1C 5.8 in May Managed with insulin outpatient Lantus 27 units HS Consult pharmacy for glycemic control while here (6) IA (obstructive sleep apnea): Plan: Noted history of this Does not wear CPAP at night but usually on 2LPM O2 (7) Urinary retention: Plan: Chronic harrison catheter use. Changed in ER and UA sent after change of catheter. Managed by urology as outpatient with plans of eventual voiding trial. (8) Schizophrenia: Plan: Holding clozapine and sertraline due to altered mental state (9) Diastolic CHF: Plan: History of this but no repeated hospitalizations and suspect more dietary related vs. venous stasis No pulmonary edema on CXR Holding furosemide due to hypotension. Plan VTE Prophylaxis - pending CT for PE Admission and Anticipated Discharge Date Admission Date: June 08, 2022 Subjective Patient reports feeling better Review of Systems Review of Systems: All systems reviewed & are unremarkable except as noted in HPI & below Physical Exam Constitutional: well developed and + mechanically ventilated; + not well nourished and no acute distress Eyes: PERRL, conjunctivae normal, anicteric sclerae Respiratory: normal respiratory effort (intubated); no respiratory distress and no stridor Auscultation: + crackles (posteriorly); no wheezes Cardiovascular: Rate/Rhythm: + tachycardic and + irregularly irregular Vessels: no JVD Extremities: + pedal edema (2+ right LE, 1+ left LE pitting); + abnormal capillary refill (prolonged peripheries, central < 2 s) Gastrointestinal (Abdomen): Inspection/Auscultation: + abdomen distended and normal bowel sounds; + abdomen abnormal to inspection Percussion/Palpation: abdomen soft Skin: no rashes, warm and dry Neurologic: + not awake Psychiatric: Orientation: + not alert Results & Data Results & Data Vital Signs (Past 12 Hours) Vital Signs Temp Pulse Pulse Resp BP BP Pulse Ox 06/11/22 20:59 36.8 C 97 H 18 116/68 96 06/11/22 17:00 37.2 C 97 H 19 94 06/11/22 17:00 119/67 06/11/22 16:00 37.2 C 94 H 24 96 06/11/22 16:00 96/64 L 06/11/22 15:00 37.1 C 94 H 20 97 06/11/22 15:00 107/76 06/11/22 14:00 37.1 C 97 H 24 95 06/11/22 14:00 124/69 06/11/22 13:01 102/70 06/11/22 13:01 37.1 C 98 H 20 94 06/11/22 13:00 37.1 C 98 H 24 94 06/11/22 12:00 37.0 C 97 H 21 95 06/11/22 14:44 95 H O2 Del Method O2 Flow Rate 06/11/22 20:59 Nasal Cannula 2 06/11/22 17:00 06/11/22 17:00 06/11/22 16:00 06/11/22 16:00 06/11/22 15:00 06/11/22 15:00 06/11/22 14:00 06/11/22 14:00 06/11/22 13:01 06/11/22 13:01 06/11/22 13:00 06/11/22 12:00 06/11/22 14:44 PG Care Time/CCT Total # of Minutes Spent Total Time Spent with Patient: Total time spent is greater than 50% in coordination of care (as documented) at patient's floor/unit and/or counseling patient: Coding Level of Care Code 13540 SUB INP/OBS CARE 3/50MIN Diagnoses Acute respiratory failure with hypoxia J96.01 Sepsis A41.9; R65.20; J96.01 Acute respiratory failure type: with hypoxia Sepsis acute organ dysfunction status: with acute organ dysfunction Sepsis type: sepsis due to unspecified organism Severe sepsis acute organ dysfunction type: acute respiratory failure Severe sepsis shock status: without septic shock Altered mental state R41.82 Right leg swelling M79.89 Type II diabetes mellitus E11.9 AI (obstructive sleep apnea) G47.33 Urinary retention R33.9 Schizophrenia F20.9 Diastolic CHF I50.32 Heart failure chronicity: chronic (2) Sepsis Acute respiratory failure type: with hypoxia Sepsis acute organ dysfunction status: with acute organ dysfunction Sepsis type: sepsis due to unspecified organism Severe sepsis acute organ dysfunction type: acute respiratory failure Severe sepsis shock status: without septic shock Qualified Code(s): A41.9 - Sepsis, unspecified organism; R65.20 - Severe sepsis without septic shock; J96.01 - Acute respiratory failure with hypoxia (9) Diastolic CHF Heart failure chronicity: chronic Qualified Code(s): I50.32 - Chronic diastolic (congestive) heart failure
[2022-06-12] MEDS: HEPARIN SODIUM/DEXTROSE 25,000 UNITS/500 ML BAG IV SCH (00:40)
[2022-06-12] MEDS: LEVOTHYROXINE SODIUM 125 MCG TABLET PO SCH (06:44)
[2022-06-12] MEDS: cloZAPine 100 MG TAB PO SCH (08:07)
[2022-06-12] MEDS: FAMOTIDINE 20 MG TAB PO SCH (08:08)
[2022-06-12] MEDS: DOCUSATE SODIUM/SENNA 50/8.6MG TAB PO SCH (08:08)
[2022-06-12] MEDS: SERTRALINE HCL 50 MG TABLET PO SCH ×2 (08:08→08:09)
--- NOTE | 2022-06-12 08:08 | XRay Report ---
KUB HISTORY: Acute generalized abdominal pain with reported constipation constipation COMPARISON: 06/09/2022 FINDINGS: Partially imaged pacer leads with cardiomegaly. Right hemidiaphragmatic elevation with biba silar opacities. Mild gaseous distention of the colon with loops measuring up to 10.9 cm. Mildly dila karen air-filled loops of small bowel measure up to approximately 3.8 cm. Extensive fecal retention of the sigmoid and rectum again noted which is similar to prior. Pelvic basin phleboliths. Persistent e xtensive fecal retention of the rectum and sigmoid No pneumoperitoneum or pneumatosis. No fracture. IMPRESSION: 1. Extensive fecal retention of the rectum and sigmoid is similar to prior. 2. Gaseous distended loops of large and small bowel are likely physiologic. Ileus versus distal obstr uction could appear similarly. Attention at follow-up recommended. ACT 112: Negative or not required by law. The above report was generated using voice recognition software. It may contain grammatical, syntax o r spelling errors. Electronically signed by: Orlando Morris M.D. 06/12/2022 8:06 AM
[2022-06-12] MEDS: DOCUSATE SODIUM SYRUP 100 MG/10 ML UDC PO SCH (08:09)
[2022-06-12] MEDS: SERTRALINE HCL 100 MG TABLET PO SCH (08:09)
[2022-06-12] MEDS: ERTAPENEM SODIUM 1,000 MG in SYRINGE 0 ML IV SCH (08:11)
[2022-06-12 08:31] LABS: Basophils # (auto) 0.08 K/uL (0-0.2); Basophils % (auto) 0.7 %; Eosinophils # (auto) 0.35 K/uL (0-0.50); Eosinophils % (auto) 2.9 %; Hematocrit (blood only) 34.9 % (42.0-52.0); Hemoglobin 11.2 g/dl (14.0-18.0); Immature Granulocytes # (auto) 0.35 K/uL (0.01-0.20); Immature Granulocytes % (auto) 2.9 %; Lymphocytes # (auto) 1.43 K/uL (1.2-3.4); Lymphocytes % (auto) 11.9 %; Mean Corpuscular Hemoglobin 29.2 pg (25.0-34.0); Mean Corpuscular Hgb Conc 32.1 g/dL (32.0-36.0); Mean Corpuscular Volume 90.9 fL (80.0-100.0); Mean Platelet Volume 12.3 fL (9.4-12.4); Monocytes # (auto) 0.92 K/uL (0.11-0.59); Monocytes % (auto) 7.6 %; Platelet Count 248 K/uL (130-400); RDW Coefficient of Variation 13.6 % (11.5-14.5); RDW Standard Deviation 45.1 fL (36.4-46.3); Red Blood Count 3.84 M/uL (4.70-6.10); White Blood Count 12.03 K/ul (4.8-10.8)
[2022-06-12 08:55] LABS: Calcium 8.2 mg/dl (8.6-10.3); Creatinine Clr Calc Pharmacy 187.9 ml/min; Est GFR (African American) 129.1 ml/min; Est GFR (Non-African American) 111.4 ml/min; Magnesium 1.9 mg/dl (1.7-2.4); Phosphorus 3.3 mg/dl (2.5-4.9); Potassium 3.8 mmol/L (3.5-5.1)
[2022-06-12] MEDS ORDERED: FUROSEMIDE 40 MG TAB PO SCH (09:00)
[2022-06-12 09:08] LABS: Partial Thromboplastin Ratio 1.9
[2022-06-12 09:20] LABS: Partial Thromboplastin Time 52.4 Seconds (21.0-31.0)
[2022-06-12] MEDS: INSULIN ASPART PER UNIT CHARGE SC SCH ×2 (09:38→12:35)
--- NOTE | 2022-06-12 11:17 | XRay Report ---
XR chest 2V PA/lateral CLINICAL HISTORY: hypoxia TECHNIQUE: 2 views of the chest were obtained. Comparison: Comparison is made to chest radiograph 06/10/2022 FINDINGS: Dual lead pacemaker is seen. Cardiomegaly is noted. Lungs are underinflated. There is airspace opacit y in the left lower lung. There is a small left pleural effusion. IMPRESSION: Small left pleural effusion with left lower lung airspace opacity which likely represents atelectasis with or without superimposed aspiration/pneumonia. ACT 112: Negative or not required by law. Electronically signed by: Mario Mathis M.D. 06/12/2022 11:15 AM
--- NOTE | 2022-06-12 15:08 | Discharge Summary ---
Date of Service June 12, 2022 Admission HPI Per Admitting Provider Aly Pompa is a 66 year old male with chronic harrison catheter, stercoral colitis, recurrent SBO, CHF and pulmonary emboli (diagnosed 10/22) who presents to the ER with shortness of breath and obtundation. Unable to get any history from patient due to intubation and mechanical ventilation. Currently not on any active sedation. Discussed history with Marta RN who sent patient to the ER from [facility]. Patient was having problems with abdominal distension for the last week with concerns of fecal impaction given history of this. His bowel regimen was increased with daily soap suds enemas. Reportedly had 2 extra large bowel movements today. Other than this he was his normal self up until noon today. Before he had lunch he became suddenly more short of breath with audible upper airway congestion, he looked more ashen with cyanotic fingers. Initially O2 sats 88% but he did not have his oxygen on. He normally wears 2LPM O2 at night but for the last 1-2 weeks. O2 saturation became quickly worse to 66% therefore EMS was called. Initially concern for possible CHF and he was given nitroglycerin on route which caused hypotension. Due to obtundation he was intubated in the ER. He has a recent history of pulmonary emboli in October 2021 treated initially with Eliquis. Anticoagulation was discontinued presumably because he had 3-6 months of treatment - he is currently not on anticoagulation. Baseline he is bed bound. Usually alert and orientated x3 but has tangential speech and far fetched stories due to his underlying schizophrenia. Per [facility] EHR; [facility] acts as his legal guardian however unable to confirm this with the RN at [facility] at this time. Teresa Herbert listed as emergency contact on long term notes [phone] - informed of his admission but she doesn't have any official POA paperwork. Discharge Exam Constitutional well developed; + not well nourished and no acute distress Eyes PERRL, conjunctivae normal, anicteric sclerae Respiratory normal respiratory effort; no respiratory distress and no stridor Auscultation: + crackles (posteriorly); no wheezes Cardiovascular Rate/Rhythm: + tachycardic and + irregularly irregular Vessels: no JVD Extremities: + pedal edema (2+ right LE, 1+ left LE pitting); + abnormal capillary refill (prolonged peripheries, central < 2 s) Gastrointestinal (Abdomen) Inspection/Auscultation: + abdomen distended and normal bowel sounds; + abdomen abnormal to inspection Percussion/Palpation: abdomen soft Skin no rashes, warm and dry Neurologic + not awake Psychiatric Orientation: + not alert Discharge Data Allergies Allergy/AdvReac Type Severity Reaction Status Date / Time Penicillins Allergy Unknown on [facility] Verified 06/08/22 19:36 of [facility] med list Consultations 06/08/22 18:50 Consult Hotel Superintendent Routine 06/11/22 12:28 Consult Urology Routine Ordered Studies 06/08/22 17:51 CT abdomen pelvis wo/w con Stat CT for pulmonary embolism PE [CT angio chest PE protocol] Stat 06/08/22 18:12 CT head/brain wo con Stat 06/08/22 20:54 US venous doppler LE BI Stat Hospital Course (1) Acute respiratory failure with hypoxia: Patient arrived via EMS and obtunded on CPAP therefore intubated in the ER CT for PE given recent history of this and off anticoguation Acute hypoxic respiratory failurelikely secondary to pneumonia but may be multifactoral given possible PE on CT chest. Of note, patient -Started empirically on heparin drip for systemic anticoagulation. Patient was previously on Eliquis but completed 3 to 6 months therapy following PE - will try to wean off mechanical ventilation as per critical care team Plan to trial extubation later this AM on 06/10 (2) Sepsis: Patient is intubated and sedated. Most likely urinary source given chronic harrison catheter use. CT A/P w/wo IV contrast to assess colitis and r/o nephrolithiasis contributing Sepsis, likely due to both UTI, due to chronic harrison \ Metabolic encephalopathy 66 yo male presenting with decreased mental status. Found to have sepsis, pneumonia and UTI. Documentation notes altered mental status likely due to sepsis. O2 sat in the 70's when EMS arrived Treatment: ICU, intubated and vented, IV Tylenol, IV ertapenem, IV rocephin, IV fluids, IV K riders, IV K phos Risk Factor(s): age, acute respiratory failure, sepsis, pneumonia, UTI UTI due to indwelling harrison catheter 66 yo male with a chronic harrison catheter. UA cx with E coli. Treatment: IV ertapenem, IV fluids, harrison catheter changed, IV rocephin Risk Factor(s): age, chronic harrison catheter (3) Altered mental state: Suspect secondary to sepsis as above. CT head pending (4) Right leg swelling: Suspect DVT, consider US venous doppler if CT for PE negative. (5) Type II diabetes mellitus: HbA1C 5.8 in May Managed with insulin outpatient Lantus 27 units HS Consult pharmacy for glycemic control while here (6) AI (obstructive sleep apnea): Noted history of this Does not wear CPAP at night but usually on 2LPM O2 (7) Urinary retention: Chronic harrison catheter use. Changed in ER and UA sent after change of catheter. Managed by urology as outpatient with plans of eventual voiding trial. (8) Schizophrenia: Holding clozapine and sertraline due to altered mental state (9) Diastolic CHF: History of this but no repeated hospitalizations and suspect more dietary related vs. venous stasis No pulmonary edema on CXR Holding furosemide due to hypotension. Plan VTE Prophylaxis - pending CT for PE Discharge Plan Discharge Items Patient Disposition: Transfer Nursing Home Fac Reason For Visit: SEPSIS, ACUTE HYPOXIC RESPIRATORY FAILURE Discharge Diagnosis: sepsis Activity: Resume your previous activity Non-emergency contact: Primary Care Provider Call non-emergency contact if: you have any medication questions Follow-up/Referrals: Erasmo George [Primary Care Provider] - Diet: Carb Consistent or DM2 and Heart Healthy Diet Comment: f Addtl Attending Provider Instructions: You have been hospitalized for an acute medical problem. During your stay at [facility], we have made an effort to correct the problem that brought you to the hospital while keeping you as comfortable as possible. Medications were used to bring your condition under control and your discharge instructions will include directions for any medications you should take after leaving the hospital. Please make sure you see your Primary Care Provider as part of your follow up plan. Followup with Primary care in 1 week F/U with Urology as per Urology. Eliquis Take 2 tablets by mouth twice a day for 13 doses starting on 06/13 in the AM. then take 1 tablet twice a day ongoing. Pending Studies at Discharge: No Stand-Alone Forms: My [facility] Skilled Items Patient informed of condition?: Yes DNR: No Discharge Level of Care: Skilled Communicable Disease: Yes (UTI) Discharge Prognosis: Stable Lines: None Urinary Catheter: Yes Medications and DC Order Prescriptions: New sulfamethoxazole-trimethoprim [Bactrim DS] 800-160 mg tablet 1 tab PO BID Qty: 11 0RF Rx Instructions: Start next dose in AM of 06/13 Eliquis 5 mg tablet 5 mg PO BID Qty: 60 0RF Rx Instructions: Take 2 tablets twice a day for 13 doses First dose on 06/13 Continued magnesium oxide 400 mg (241.3 mg magnesium) Tablet 400 mg PO QAM Qty: 30 0RF atorvastatin [Lipitor] 10 mg Tablet 10 mg PO HS clozapine [Clozaril] 100 mg Tablet 100 mg PO Q12 ergocalciferol (vitamin D2) [Vitamin D2] 1,250 mcg (50,000 unit) capsule 1,250 mcg PO WK Rx Instructions: GIVE THIS MED EVERY FRIDAY Linzess 290 mcg Capsule 290 mcg PO QAM tamsulosin 0.4 mg Capsule 0.4 mg PO DAILYBD Rx Instructions: TAKE DAILY AT 1600 liraglutide 0.6 mg/0.1 mL (18 mg/3 mL) Pen Injector 1.8 mg SUBCUT DAILY levothyroxine 125 mcg Tablet 125 mcg PO DAILYBB acetaminophen [Tylenol] 325 mg Tablet 325 mg PO Q6H MDD 3 GRAMS/24 HOURS PRN (Reason: FEVER/PAIN) sertraline 100 mg tablet 100 mg PO QAM Rx Instructions: GIVE WITH 50MG + 25MG = 175MG DAILY furosemide [Lasix] 80 mg Tablet 40 mg PO QAM Qty: 30 0RF potassium chloride [K-Tab] 20 mEq Tablet Extended Release 20 meq PO DAILY Qty: 30 0RF cyclobenzaprine 10 mg tablet 10 mg PO HS insulin lispro [Humalog KwikPen Insulin] 100 unit/mL insulin pen 10 unit SUBCUT QAM insulin glargine [Lantus Solostar U-100 Insulin] 100 unit/mL (3 mL) insulin pen 27 unit SUBCUT HS omeprazole 40 mg capsule,delayed release(DR/EC) 40 mg PO QAM sertraline 25 mg tablet 25 mg PO QAM Rx Instructions: GIVE WITH 100MG + 50MG = 175 DAILY sertraline 50 mg tablet 50 mg PO QAM Rx Instructions: GIVE WITH 100MG + 25MG = 175MG DAILY insulin lispro [Humalog KwikPen Insulin] 100 unit/mL insulin pen 12 unit SUBCUT BID Rx Instructions: GIVE AT 1200 AND 1700 sennosides-docusate sodium [Senna-S] 8.6-50 mg Tablet 2 tab-cap PO BID lactulose 10 gram/15 mL (15 mL) solution 30 g PO TID PRN (Reason: constipation) tramadol 50 mg Tablet 25 mg PO BID PRN (Reason: .MOD TO SEVERE PAIN) Changed gabapentin 300 mg capsule 300 mg PO HS Qty: 30 0RF Discharge Orders: Discharge Order (Routine); Ordered 06/12/22 Ordered By: King Napier Admission Data Admit Date/Time: 06/08/22 17:55 Attending Provider: King Napier Admit Provider: Aayush Rivera Primary Care Provider: Erasmo George Other Providers: Ariel, ; Pancho Baldwin ; Rufino Fishman ; Ortega Mcpherson ; Hubert Andrews ; Cat Zaragoza ; Shon Rajan ; Johanna Deng ; Blanca Ross ; Diego Steele ; Bob Auguste ; Juhi Hernandez ; Rian Guy ; Trent Spence Coding Diagnoses Acute respiratory failure with hypoxia J96.01 Sepsis A41.9; R65.20; J96.01 Acute respiratory failure type: with hypoxia Sepsis acute organ dysfunction status: with acute organ dysfunction Sepsis type: sepsis due to unspecified organism Severe sepsis acute organ dysfunction type: acute respiratory failure Severe sepsis shock status: without septic shock Altered mental state R41.82 Right leg swelling M79.89 Type II diabetes mellitus E11.9 AI (obstructive sleep apnea) G47.33 Urinary retention R33.9 Schizophrenia F20.9 Diastolic CHF I50.32 Heart failure chronicity: chronic
[2022-06-12] MEDS ORDERED: APIXABAN 5 MG TABLET PO STA (15:15)
[2022-06-12] MEDS: TAMSULOSIN HCL 0.4 MG CAP PO SCH (15:28)
== END 2022-06-12 16:06 | DRG 698 ==
LOC: ED 15:47 → 1E 17:55 → SUATTDRO 17:55 → 1E 18:39 → 3W 06-11 18:37